=== PATIENT | female | born 1955 | race Caucasian/White ===

== ENCOUNTER 2017-05-28 20:12 | Inpatient (IN) ==
--- NOTE | 2017-05-29 00:20 | Internal Med History&Physical ---
Date of Encounter: 05/29/17 Time of Encounter: 00:20 Assessment and Plan (1) Congestive heart failure Current visit: No Status: Acute Rales on exam, 3+ LE edema, BNP 204 CXR reveals increasing multifocal airspace disease suggesting pulmonary edema, given the rapid change, developing pneumonia is possible as well Continue home Metoprolol Patient recently stopped ACEI due to worsening renal disease Metolazone 10mg and Lasix 80mg IV given, continue Lasix 80mg IV BID Echo pending Fluid restriction Daily weight, monitor I&Os Patient scheduled to start PD per Dr. De La Torre Nephrology consulted Qualifiers: Congestive heart failure type: unspecified congestive heart failure type Congestive heart failure chronicity: acute Qualified Code(s): I50.9 - Heart failure, unspecified (2) Pneumonia Current visit: Yes Status: Acute Patient reports 6 days of chills, non-productive cough and SOB. CXR reveals increasing multifocal airspace disease and rapid change in right mid lung suggesting developing pneumonia Levoquin 750mg IV q48h due decreased CrCl Duonebs q4h Incentive spirometry Qualifiers: Pneumonia type: due to unspecified organism Laterality: unspecified laterality Lung location: unspecified part of lung Qualified Code(s): J18.9 - Pneumonia, unspecified organism (3) Hypertensive emergency Current visit: Yes Status: Acute BP 226/102 in the setting of ESRD Patient reports not taking her evening antihypertensive meds Resume home meds Hydralazine 20mg IV q6h prn SBP >170 (4) CKD (chronic kidney disease) stage 5, GFR less than 15 ml/min Current visit: Yes Status: Acute Patient scheduled to start PD per Dr. De La Torre PD cath site intact Nephrology consulted (5) HTN (hypertension) Current visit: Yes Status: Chronic Continue home meds Qualifiers: Hypertension type: secondary to other renal disorders Qualified Code(s): I15.1 - Hypertension secondary to other renal disorders; N28.89 - Other specified disorders of kidney and ureter; N28.89 - Other specified disorders of kidney and ureter (6) HLD (hyperlipidemia) Current visit: Yes Status: Chronic Continue home meds Qualifiers: Hyperlipidemia type: unspecified Qualified Code(s): E78.5 - Hyperlipidemia , unspecified (7) DM type 2 (diabetes mellitus, type 2) Current visit: Yes Status: Chronic HGB a1c 8.3 on 03/28/17 Continue home Levemir 100mg BID High dose SSI Qualifiers: Diabetes mellitus complication status: with kidney complications Diabetes mellitus nursing home insulin use: with nursing home use Chronic kidney disease stage: stage 5, not on chronic dialysis Qualified Code(s): E11.22 - Type 2 diabetes mellitus with diabetic chronic kidney disease; N18.5 - Chronic kidney disease, stage 5; N18.5 - Chronic kidney disease, stage 5; N18.5 - Chronic kidney disease, stage 5; N18.5 - Chronic kidney disease, stage 5; Z79.4 - care home (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 of insulin; Z79.4 - care home (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 of insulin; Z79.4 - intermediate manager (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 of insulin; Z79.4 - care home (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 of insulin (8) Morbid obesity with BMI of 50.0-59.9, adult Current visit: Yes Status: Chronic Discussed diet modification and exercise (9) Ambulatory dysfunction Current visit: Yes Status: Acute Patient is unable to ambulate due to severe osteoarthritis in knees and is now wheelchair bound. Recommend weight loss/ outpatient management PT/OT consulted (10) DVT prophylaxis Current visit: Yes Status: Acute Heparin subQ TID Internal Medicine - H&P: HPI Chief complaint: SOB Admitted From: Home Plans for Post Hospital Care: Home History of present illness: Ms. Salvador is a 62 year old female with a PMH of HTN, CHF, DM, CKD stage V scheduled to start PD, and morbid obesity who presented from [place] ED due to SOB for the past 6 days. Patient reports outpatient x-ray yesterday showed the beginnings of a pneumonia. She reports worsening shortness of breath, cough , chills, abd distension, leg edema, and having to sleep on 2 pillows at night. She has MEDINA when walking across the room at baseline but has is unable to ambulate due to severe osteoarthritis in knees and is now wheelchair bound. Of note, patient sees Dr. De La Torre and had new PD cath insertion [address] Almanzar after previous catheter from March 2017 got obstructed. She denies fever , sputum production, CP, palpitaions, abd pain, N/V/D/C, sick contacts, diabetic ulcers, or h/o blood clots. Past Med Surg Social Fam HX - Past Medical History Medical history: arthritis, diabetes, hyperlipidemia, hypertension, renal disease Psychiatric history: no psych history - Past Surgical History Surgical History: , cholecystectomy, herniorrhaphy, hysterectomy, orthopedic, other, other (PD catheter) - Social History Smoking Status: Never smoker Smokeless Tobacco Status: No Alcohol use: none Drug use: none Current living situation: Home, With Family Activity Level: Wheelchair bound Recent Out of Country Travel Within the Last 8 Weeks: No Exposure or Possible Exposure to Illness During Travel: No - Family History Father Family Member Ethnicity: Non- Living Status: Age at : 85 Cause of : Kidney failure Hx Family Neurologic Disorders: Yes (CVA) Mother Family Member Ethnicity: Non- Living Status: Age at : 70 Cause of : Stroke Internal Medicine - H&P: Meds Amlodipine Besylate 10 mg PO DAILY 07/05/16 [History] Fish Oil/Dha/Epa [Fish Oil 1,200 mg Fish Oil] 1,200 mg PO DAILY 07/05/16 [ History] Furosemide [Lasix] 40 mg PO BID 07/05/16 [History] Insulin DETEMIR [Levemir] 100 unit SQ BID 07/05/16 [History] Metoprolol [Lopressor] 100 mg PO BID 07/05/16 [History] Omeprazole [PriLOSEC] 40 mg PO DAILY 07/05/16 [History] cloNIDine HCl [Clonidine HCl] 0.2 mg PO TID 07/05/16 [History] Aspirin [Lo-Dose Aspirin EC] 81 mg PO DAILY 04/03/17 [History] Cholecalciferol (D-3) [Vitamin D] 5,000 unit PO DAILY 04/03/17 [History] GlipiZIDE [Glipizide ER] 10 mg PO DAILY 04/03/17 [History] Amoxicillin/Clavulanate [Augmentin] 500 mg PO DAILY 05/28/17 [History] Atorvastatin [Lipitor] 40 mg PO HS 05/28/17 [History] 3 Allergy/AdvReac Type Severity Reaction Status Date / Time No Known Allergies Allergy Verified 05/22/17 07:28 All Systems PM: A 10-system review of systems was performed and is negative for pertinent findings except as documented above in the HPI. - Constitutional Constitutional: chills, no fever(s), no malaise, no weight gain, no weight loss - EENT Eyes: no change in vision Nose, mouth and throat: no nasal congestion, no sinus pain, no sinus pressure, no sore throat - Cardiovascular Cardiovascular ROS IM: dyspnea, dyspnea on exertion, orthopnea, paroxysmal nocturnal dyspnea, no chest pain, no palpitations - Respiratory Respiratory: cough, dyspnea, dyspnea on exertion, wheezing, no chest congestion , no excessive phlegm production, no change in phlegm color - Gastrointestinal Gastrointestinal: bloating, no abdominal pain, no diarrhea, no nausea, no vomiting - Musculoskeletal Musculoskeletal ROS IM: arthralgias, myalgias (right shoulder), no back pain, no numbness, no tingling - Integumentary Integumentary IM: no erythema, no skin ulcer - Neurological Neurological ROS: abnormal gait, headache(s) (due to not eating), no dizziness, no numbness, no radicular pain, no weakness - Psychiatric Psychiatric: no anxiety, no depression - Endocrine Endocrine IM: no polydipsia, no polyphagia, no polyuria - Constitutional Vitals: Temp Pulse Resp BP Pulse Ox 98.4 F 79 20 217/98 95 05/29/17 00:08 05/29/17 00:08 05/29/17 00:08 05/29/17 00:08 05/29/17 00:08 General appearance: Present: cooperative, A&O X 3, morbidly obese, pleasant, answers questions appropriately (conversational dyspnea) - Head Head exam: Present: atraumatic, normal inspection, normocephalic - Eye Eye exam: Present: EOMI, PERRL - ENT ENT exam: Present: mucous membranes moist, normal oropharynx - Neck Neck exam general surgery: Present: normal inspection, supple. Absent: tenderness - Respiratory Respiratory exam: Present: decreased breath sounds, rales. Absent: accessory muscle use, respiratory distress Additional comments: conversational dyspnea - Cardiovascular Cardiovascular exam: Present: RRR, +S1, +S2, systolic murmur - GI/Abdominal GI/Abdominal exam: Present: distended, normal bowel sounds, soft, tenderness ( appropriate TTP LLQ, PD cath with dressing C/D/I) - Extremities Exam Extremities exam: Present: normal capillary refill, pedal edema (3+) - Incison Incision: Present: clean and dry (PD cath LLQ), intact. Absent: red, erythema - Back Exam Back exam: Present: normal inspection. Absent: paraspinal tenderness, tenderness, vertebral tenderness - Neurological Exam Neurological exam: Present: abnormal gait, alert, oriented X3, no focal deficits. Absent: altered - Psychiatric Psychiatric exam: Present: normal affect, normal mood. Absent: anxious, depressed - Skin Skin exam: Present: dry, intact, normal color, warm. Absent: erythema Internal Med - H&P Results - Labs CBC & Chem 7: 05/29/17 01:24 05/29/17 01:24 - Pulse Oximetry Interpretation Digit-Finger O2 Sat by Pulse Oximetry: 97 Actions taken: none - EKG Data -: EKG Interpreted by Myself EKG shows normal: sinus rhythm (NSR 80 bpm, WY interval 147 ms, moderate voltage criteria for LVH probable old inferior OK T-wave inversion laterally) - Impressions XR/XR chest 1V portable IMPRESSION: Increasing multifocal airspace disease suggesting pulmonary edema. Small underlying nodules would be difficult to exclude Although pulmonary edema is favored, given the rapid change, developing pneumonia is possible as well D/ / Jp Krueger / Jp Krueger Interpreting Provider: Jp Krueger
[2017-05-29] MEDS ORDERED: *HR* Morphine 2 MG/ML SYRINGE IVP PRN (00:49)
[2017-05-29] MEDS ORDERED: Acetaminophen 325 MG TABLET PO PRN (00:49)
[2017-05-29] MEDS ORDERED: Naloxone 0.4 MG/ML INJ IVP PRN (00:49)
[2017-05-29] MEDS ORDERED: Ondansetron 4 MG/2 ML VIAL IVP PRN (00:49)
[2017-05-29] MEDS ORDERED: Furosemide 80 MG in 0.9 % Sodium Chloride 50 ML IVPB ONE (00:55)
[2017-05-29] MEDS ORDERED: D5% in Water 1,000 ML IVC PRN (00:57)
[2017-05-29] MEDS ORDERED: Dextrose Gel 15 GM PO PRN ×2 (00:57)
[2017-05-29] MEDS ORDERED: *HR* Dextrose 50 % in Water (Syg) 50 ML SYRINGE IVP PRN (00:57)
[2017-05-29] MEDS ORDERED: Metoprolol 100 MG TABLET PO SCH (01:00)
[2017-05-29] MEDS ORDERED: cloNIDine HCl 0.1 MG TABLET PO SCH ×2 (01:00→08:15)
[2017-05-29] MEDS ORDERED: NON-FORMULARY MEDICATION 1 EACH EACH (Insulin Detemir 100 UNIT) SQ SCH (01:00)
[2017-05-29] MEDS ORDERED: Insulin DETEMIR 100 UNIT/ML X5UNITS SQ SCH (01:15)
[2017-05-29 01:35] LABS: Basophils % 0.4 %; Eosinophils # 0.1 K/mcL (0.0-0.6); Eosinophils % 1.9 %; Hematocrit 25.6 % (35.3-44.9); Lymphocytes # 1.3 K/mcL (0.6-4.6); Lymphocytes % 19.8 %; Mean Corpuscular HGB Conc 31.3 g/dL (31.6-35.5); Mean Corpuscular Hemoglobin 26.5 pg (28.0-33.3); Mean Corpuscular Volume 84.8 fL (83.0-100.0); Monocytes # 0.4 K/mcL (0.0-1.3); Monocytes % 6.1 %; Neutrophils # 4.7 K/mcL (1.6-8.9); Platelet Count 158 K/mcL (140-400); Red Blood Count 3.02 M/mcL (3.82-4.97); Red Cell Distribution Width 14.1 % (11.5-14.5); Segmented Neutrophils % 70.8 %
[2017-05-29 01:46] LABS: Prothrombin Time 11.1 Seconds (9.4-12.1)
[2017-05-29 01:48] LABS: Activated Partial Thrombo Time 27.7 Seconds (26.0-36.0); Albumin 2.8 g/dL (3.5-5.0); Albumin/Globulin Ratio 0.8 (1.1-2.2); Bilirubin,Total 0.6 mg/dL (0.2-1.2); Calcium 9.3 mg/dL (8.6-10.8); Globulin 3.3 g/dL (2.4-3.5); Magnesium 1.4 mg/dL (1.6-2.6); Potassium 3.8 mEq/L (3.5-4.5); Total Protein 6.1 g/dL (6.0-8.3)
[2017-05-29] MEDS ORDERED: metOLazone 5 MG TABLET PO ONE ×2 (02:02→07:00)
[2017-05-29] MEDS: Insulin LISPRO 300 UNITS/3 ML VIAL SQ SCH ×5 (02:17→21:45)
[2017-05-29] MEDS: Levofloxacin 750 MG/150 ML 750 MG/150 ML BAG IVPB SCH (03:11)
[2017-05-29] MEDS: Ipratropium/Albuterol Neb 3 ML IH SCH ×6 (04:04→23:29)
[2017-05-29] MEDS: *HR* Heparin 5,000 UNIT/ML VIAL SQ SCH ×3 (05:32→21:41)
[2017-05-29] MEDS ORDERED: Magnesium Sulfate 2 GM in D5% in Water 100 ML IVPB ONE (08:00)
[2017-05-29] MEDS ORDERED: Furosemide 40 MG/4 ML VIAL IVP SCH (08:00)
[2017-05-29] MEDS ORDERED: amLODIPine 5 MG TABLET PO SCH (09:00)
[2017-05-29] MEDS: Metoprolol 100 MG TABLET PO SCH ×2 (09:09→21:44)
[2017-05-29] MEDS: Aspirin Enteric Coated 81 MG Tablet PO SCH (09:09)
[2017-05-29] MEDS: Cholecalciferol (D-3) 1,000 UNIT TABLET PO SCH (09:09)
[2017-05-29] MEDS: Furosemide 40 MG/4 ML VIAL IVP SCH ×2 (09:10→16:29)
[2017-05-29] MEDS: cloNIDine HCl 0.1 MG TABLET PO SCH ×3 (09:11→21:43)
[2017-05-29] MEDS: FISH OIL 1200 MG PO SCH (09:12)
[2017-05-29] MEDS: Insulin DETEMIR 100 UNIT/ML X5UNITS SQ SCH ×2 (09:19→21:43)
--- NOTE | 2017-05-29 12:03 | Event Note ---
Date of Encounter: 05/29/17 Time of Encounter: 10:05 Patient is a 62 y/o female with PMH of HTN, CHF, DM, CKD stage V who is admitted for acute respiratory distress secondary to CHF decompensation. Pt is started on IV lasix and is responding well to therapy and noted to have good urine output. She reports of feeling significantly better compared to previous day. Will continue IV diuresis monitor I/Os, daily weights, fluid restriction diet f/u 2D echo HTN Urgency Increased home dose of Clonidine to 0.3mg PO TID continue Amlodipine and Metoprolol Hydralazine 10mg IV q6h SBP>160 BP improved, will closely monitor DM Noted to be on levemir 100units SQ BID however noted have low BG readings Will decrease Levemir dose to 25units SQ BID and increase medication as needed continue sliding scale insulin algorithm ADA diet CKD Renal function improved from previous readings, however given aggressive diuresis, concern for worsening renal function Pt currently in consultation with her primary taxation inspector in regards to starting PD nephrology consultation requested PNA will continue IV levaquin f/u blood cultures
[2017-05-30] MEDS: Ipratropium/Albuterol Neb 3 ML IH SCH ×6 (03:47→23:19)
[2017-05-30] MEDS: *HR* Heparin 5,000 UNIT/ML VIAL SQ SCH ×3 (06:21→22:29)
[2017-05-30 06:57] LABS: Basophils % 0.4 %; Eosinophils # 0.1 K/mcL (0.0-0.6); Hematocrit 25.3 % (35.3-44.9); Hemoglobin 7.7 g/dL (11.5-15.4); Immature Granulocytes % 1.3 % (0-4); Lymphocytes # 1.3 K/mcL (0.6-4.6); Lymphocytes % 23.1 %; Mean Corpuscular HGB Conc 30.4 g/dL (31.6-35.5); Mean Corpuscular Hemoglobin 26.4 pg (28.0-33.3); Mean Corpuscular Volume 86.6 fL (83.0-100.0); Mean Platelet Volume 12.4 fL (9.4-12.4); Monocytes # 0.5 K/mcL (0.0-1.3); Neutrophils # 3.6 K/mcL (1.6-8.9); Platelet Count 191 K/mcL (140-400); Red Blood Count 2.92 M/mcL (3.82-4.97); Red Cell Distribution Width 14.7 % (11.5-14.5); Segmented Neutrophils % 64.2 %
[2017-05-30 07:11] LABS: Calcium 9.1 mg/dL (8.6-10.8); Magnesium 1.5 mg/dL (1.6-2.6); Phosphorous 4.4 mg/dL (2.3-4.7); Potassium 4.7 mEq/L (3.5-4.5)
[2017-05-30] MEDS ORDERED: Magnesium Sulfate 2 GM in D5% in Water 100 ML IVPB ONE (08:06)
[2017-05-30] MEDS ORDERED: Insulin DETEMIR 100 UNIT/ML X5UNITS SQ SCH (08:15)
[2017-05-30] MEDS: Furosemide 40 MG/4 ML VIAL IVP SCH ×2 (09:22→17:55)
[2017-05-30] MEDS: cloNIDine HCl 0.1 MG TABLET PO SCH ×3 (09:23→22:27)
[2017-05-30] MEDS: Metoprolol 100 MG TABLET PO SCH ×2 (09:24→22:28)
[2017-05-30] MEDS: Aspirin Enteric Coated 81 MG Tablet PO SCH (09:24)
[2017-05-30] MEDS: Insulin LISPRO 300 UNITS/3 ML VIAL SQ SCH ×6 (09:24→22:29)
[2017-05-30] MEDS: NIFEdipine XL (24 HR) 60 MG TAB.ER.24 PO SCH (09:24)
[2017-05-30] MEDS: Insulin DETEMIR 100 UNIT/ML X5UNITS SQ SCH ×2 (09:26→22:28)
[2017-05-30] MEDS: FISH OIL 1200 MG PO SCH (09:38)
--- NOTE | 2017-05-30 10:16 | Nephrology Consult Note ---
Date of Encounter: 05/30/17 Time of Encounter: 10:13 Assessment and Plan (1) CKD (chronic kidney disease) stage 5, GFR less than 15 ml/min Current Visit: Yes Status: Acute Currently getting Lasix 80mg IV BID Robust UOP-3350ml yesterday; already has over 2000ml out today Recommend lowering Lasix dosage and switching to p.o. as soon as possible Renal diet-ordered Continue fluid restrictions Strict I/Os Avoid nephrotoxins if possible May need PD cath flushed tomorrow if still admitted Will f/u in outpatient setting for PD training (2) Hypertensive emergency Current Visit: Yes Status: Acute B/P high but improved 177/90 per primary team (3) Congestive heart failure Current Visit: No Status: Acute per primary team Qualifiers: Congestive heart failure type: unspecified congestive heart failure type Congestive heart failure chronicity: acute Qualified Code(s): I50.9 - Heart failure, unspecified History of Present Illness - Reason for Consult Consult date: 05/30/17 - Chief Complaint CKD stage 5, CHF, hypertensive emergency - History of Present Illness Ms. Salvador is a 62 year old female with a PMH of HTN, CHF, DM, CKD stage V scheduled to start PD, and morbid obesity who presented from [place] ED due to SOB for the past 6 days. She reports worsening shortness of breath, cough, chills, abd distension, leg edema, and having to sleep on 2 pillows at night. Patient sees Dr. De La Torre and had new PD cath insertion [address] Almanzar after previous catheter from March 2017 got obstructed. PD cath was flushed on Saturday and worked perfectly. Is scheduled to have PD cath flushed again tomorrow and then start her PD training classes next week. Nephrology has been consulted to manage her CKD while hospitalized. Past Med Surg Social Fam HX - Past Medical History Medical history: arthritis, diabetes, hyperlipidemia, hypertension, renal disease Psychiatric history: no psych history - Past Surgical History Surgical History: , cholecystectomy, herniorrhaphy, hysterectomy, orthopedic, other, other (PD catheter) - Social History Smoking Status: Never smoker Smokeless Tobacco Status: No Alcohol use: none Drug use: none - Family History Father Family Member Ethnicity: Non- Living Status: Age at : 85 Cause of : Kidney failure Hx Family Neurologic Disorders: Yes (CVA) Mother Family Member Ethnicity: Non- Living Status: Age at : 70 Cause of : Stroke Medications and Allergies Amlodipine Besylate 10 mg PO DAILY 07/05/16 [History] Fish Oil/Dha/Epa [Fish Oil 1,200 mg Fish Oil] 1,200 mg PO DAILY 07/05/16 [ History] Furosemide [Lasix] 40 mg PO BID 07/05/16 [History] Insulin DETEMIR [Levemir] 100 unit SQ BID 07/05/16 [History] Metoprolol [Lopressor] 100 mg PO BID 07/05/16 [History] Omeprazole [PriLOSEC] 40 mg PO DAILY 07/05/16 [History] cloNIDine HCl [Clonidine HCl] 0.2 mg PO TID 07/05/16 [History] Aspirin [Lo-Dose Aspirin EC] 81 mg PO DAILY 04/03/17 [History] Cholecalciferol (D-3) [Vitamin D] 5,000 unit PO DAILY 04/03/17 [History] GlipiZIDE [Glipizide ER] 10 mg PO DAILY 04/03/17 [History] Amoxicillin/Clavulanate [Augmentin] 500 mg PO DAILY 05/28/17 [History] Atorvastatin [Lipitor] 40 mg PO HS 05/28/17 [History] 3 Allergy/AdvReac Type Severity Reaction Status Date / Time No Known Allergies Allergy Verified 05/22/17 07:28 Review of Systems All Systems: reviewed and no additional remarkable complaints except as stated Constitutional: fatigue, malaise, weight gain, no chills Cardiovascular: dyspnea, dyspnea on exertion, edema, leg edema, no chest pain Respiratory: dyspnea, dyspnea on exertion Gastrointestinal: no nausea, no vomiting Exam - Vital Signs Vital signs: Initial Vital Signs Temp Pulse Resp BP Pulse Ox 98.0 F 74 18 198/94 96 05/28/17 22:50 05/28/17 22:50 05/28/17 22:50 05/28/17 22:50 05/28/17 22:50 Vital Signs - Last 8 Hours Temp Pulse Resp BP Pulse Ox 05/30/17 07:44 16 99 05/30/17 07:24 98.8 F 77 16 177/90 98 05/30/17 04:10 98.9 F 79 19 170/87 97 Intake and Output 05/29/17 05/30/17 05/30/17 23:59 07:59 15:59 Output Total 1600 / 1600 Balance -1600 / -1600 Output: Catheter 1599 / 1600 Other: Weight 150.2 kg Blood Glucose* 247 250 Patient Weight 05/30/17 23:59 Weight 150.2 kg - General Appearance General appearance: obese EENT: ATNC, mucous membranes moist, hearing intact, vision intact Neck: supple Respiratory: clear Cardiology: edema, normal S1, normal S2 Gastrointestinal: no tenderness, no guarding, obese Integumentary: warm and dry Additional Comments: PD cath Psychiatric: mood/affect appropriate, cooperative Results - Lab Results 05/30/17 06:24 05/30/17 06:24 Most recent lab results Calcium 9.1 mg/dL (8.6-10.8) 05/30/17 06:24 Phosphorus 4.4 mg/dL (2.3-4.7) 05/30/17 06:24 Magnesium 1.5 mg/dL (1.6-2.6) L 05/30/17 06:24 Consult Discharge Plan - Plan Additional Instructions: pcp requested Referrals: Rhett Madrigal MD [Primary Care Provider] -
[2017-05-30] MEDS ORDERED: Magnesium Sulfate 1 GM in D5% in Water 100 ML IVPB ONE (10:46)
[2017-05-30] MEDS: Cholecalciferol (D-3) 1,000 UNIT TABLET PO SCH (11:12)
[2017-05-30 11:40] LABS: Uric Acid 8.8 mg/dL (2.6-6.0)
[2017-05-30 12:15] LABS: Folate 5.3 ng/mL (7.0-31.4)
--- NOTE | 2017-05-30 14:48 | Internal Med Progress Note ---
Date of Encounter: 05/30/17 Time of Encounter: 11:50 - Assessment and plan (1) Acute respiratory failure with hypoxia Current Visit: Yes Status: Acute Assessment and plan: Secondary to CHF decompensation Responding well to diuretic therapy, good urine output noted continue IV diuresis O2 supplementation daily weights, strict I/Os fluid restriction diet (2) Acute exacerbation of CHF (congestive heart failure) Current Visit: Yes Status: Acute Assessment and plan: management as listed above 2D echo: Technically sub-optimal due to poor echocardiographic windows. Normal LV systolic function, LVEF 65-70%. Moderate-severe concentric left ventricular hypertrophy. Moderate left ventricular diastolic dysfunction. Right ventricle was not well visualized. It appears normal in size and function on limited views. Moderately dilated left atrium. Mild mitral regurgitation. Unable to estimate RVSP due to lack of TR jet. pt will be discharge with diuretic therapy Qualifiers: Congestive heart failure type: diastolic Qualified Code(s): I50.33 - Acute on chronic diastolic (congestive) heart failure (3) Pneumonia Current Visit: Yes Status: Chronic Assessment and plan: continue Levaquin awaiting finalization of blood cultures Qualifiers: Pneumonia type: due to unspecified organism Laterality: unspecified laterality Lung location: unspecified part of lung Qualified Code(s): J18.9 - Pneumonia, unspecified organism (4) DM type 2 (diabetes mellitus, type 2) Current Visit: Yes Status: Chronic Assessment and plan: Hyperglycemia noted insulin regimen adjusted as per insulin requirements from the last 24 hours added Humalog 5mg TIDAC Levemir 30units SQ BID sliding scale insulin algorithm continue to monitor FS and BG ADA diet Qualifiers: Diabetes mellitus complication status: with kidney complications Diabetes mellitus complication detail: with chronic kidney disease Diabetes mellitus continuous churn buttermaker insulin use: with retirement use Chronic kidney disease stage: stage 5, not on chronic dialysis Qualified Code(s): E11.22 - Type 2 diabetes mellitus with diabetic chronic kidney disease; N18.5 - Chronic kidney disease, stage 5; N18.5 - Chronic kidney disease, stage 5; N18.5 - Chronic kidney disease , stage 5; N18.5 - Chronic kidney disease, stage 5; Z79.4 - custodial (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 of insulin; Z79.4 - extermination inspector (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 of insulin; Z79.4 - custodial ( 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 of insulin; Z79.4 - extermination inspector (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 of insulin (5) HTN (hypertension) Current Visit: Yes Status: Chronic Assessment and plan: Remains hypertensive discontinued Amlodipine and started Nifedipine XL 60mg PO qd continue Clonidine, Lasix, Metoprolol will closely monitor BP and adjust medications as needed Hydralazine 10mg IV q6h prn SBP>160 Qualifiers: Hypertension type: secondary to other renal disorders Qualified Code(s): I15.1 - Hypertension secondary to other renal disorders; N28.89 - Other specified disorders of kidney and ureter; N28.89 - Other specified disorders of kidney and ureter (6) ESRD (end stage renal disease) on dialysis Current Visit: Yes Status: Chronic Assessment and plan: Nephrology on board will continue dialysis as per nephrology (7) HLD (hyperlipidemia) Current Visit: Yes Status: Chronic Assessment and plan: continue lipitor Qualifiers: Hyperlipidemia type: unspecified Qualified Code(s): E78.5 - Hyperlipidemia , unspecified (8) Anemia in CKD (chronic kidney disease) Current Visit: Yes Status: Acute Assessment and plan: H&H low but acceptable no acute bleeding reported pt asymptomatic will closely monitor anemia work up (iron studies, ferritin, b12) ordered by nephrology will transfuse for Hgb<7 Qualifiers: Chronic kidney disease stage: stage 5, not on chronic dialysis Qualified Code(s): N18.5 - Chronic kidney disease, stage 5; D63.1 - Anemia in chronic kidney disease; D63.1 - Anemia in chronic kidney disease (9) DVT prophylaxis Current Visit: Yes Status: Acute Assessment and plan: Heparin SQ (10) Morbid obesity with BMI of 50.0-59.9, adult Current Visit: Yes Status: Chronic - Subjective Interval history: Patient seen and examined with family present at bedside. Pt resting in chair and reports of feeling better compared to previous day. Remains O2 dependent. Noted to be hypertensive despite current management due to which Amlodipine was discontinued and she was started on Nifedipine XL 60mg PO qd, appears to responding well to this medication. BP better controlled. Noted to be hyperglycemic, insulin regimen adjusted as per her insulin requirements from the last 24 hours. - Constitutional Vitals: Temp Pulse Resp BP Pulse Ox 97.8 F 78 18 146/63 98 05/30/17 11:30 05/30/17 12:02 05/30/17 12:02 05/30/17 12:02 05/30/17 12:02 General appearance: Present: cooperative, A&O X 3, morbidly obese, pleasant, answers questions appropriately - Head Head exam: Present: atraumatic, normocephalic - Eye Eye exam: Present: conjuntiva pink, sclera anicteric - Respiratory Respiratory exam: Present: rales (bibasilar rales-improved from previous day). Absent: respiratory distress, wheezes - Cardiovascular Cardiovascular exam: Present: RRR, +S1, +S2. Absent: diastolic murmur, gallop, rubs, systolic murmur - GI/Abdominal GI/Abdominal exam: Present: normal bowel sounds, soft, no peritoneal signs. Absent: distended, tenderness - Extremities Exam Extremities exam: Present: pedal edema, warm, radial pulses palpable and symmetrical. Absent: calf tenderness - Neurological Exam Neurological exam: Present: alert, oriented X3 - Psychiatric Psychiatric exam: Present: normal affect, normal mood Internal Medicine: Result - Labs CBC & Chem 7: 05/30/17 06:24 05/30/17 06:24 Labs: Short CBC 05/30/17 Range/Units 06:24 WBC 5.5 (4.3-11.1) K/mcL Hgb 7.7 L (11.5-15.4) g/dL Hct 25.3 L (35.3-44.9) % Plt Count 191 (140-400) K/mcL Neutrophils # 3.6 (1.6-8.9) K/mcL BMP 05/30/17 06:24 Sodium 138 Potassium 4.7 H Chloride 107 Carbon Dioxide 24 BUN 44 H Creatinine 3.46 H Glucose 251 H Calcium 9.1 - ABG Interpretation ABG results: PT/INR, D-dimer PT 11.1 Seconds (9.4-12.1) 05/29/17 01:24 - Impressions Impressions Echocardiogram 05/29/17 00:55 Impressions: Technically sub-optimal due to poor echocardiographic windows. Normal LV systolic function, LVEF 65-70%. Moderate-severe concentric left ventricular hypertrophy. Moderate left ventricular diastolic dysfunction. Right ventricle was not well visualized. It appears normal in size and function on limited views. Moderately dilated left atrium. Mild mitral regurgitation. Unable to estimate RVSP due to lack of TR jet. Left Ventricular Wall Motion: Rest Echo Findings All wall segments showed normal motion. Findings: Study Quality * Technically sub-optimal due to poor echocardiographic windows. ECG Findings * Normal sinus rhythm. Left Ventricle * Normal LV systolic function, LVEF 65-70%. * Normal LV chamber size. * Moderate-severe concentric left ventricular hypertrophy. * Moderate left ventricular diastolic dysfunction. Right Ventricle * Right ventricle was not well visualized. It appears normal in size and function on limited views. Left Atrium * Moderately dilated left atrium. Right Atrium * Normal right atrial size. Aorta * Normally sized aortic root. Pericardium * There is no pericardial effusion present. IVC * The IVC was not visualized. Aortic Valve * Aortic valve not well visualized. * No aortic stenosis. * No aortic regurgitation. Mitral Valve * Normal mitral valve structure. * No mitral stenosis. * Mild mitral regurgitation. Tricuspid Valve * Tricuspid valve not well visualized. * No tricuspid stenosis. * Trace tricuspid regurgitation. * Unable to estimate RVSP due to lack of TR jet. Pulmonic Valve * Pulmonic valve not well visualized. * No pulmonic stenosis. * No pulmonic regurgitation. Consult Discharge Plan - Plan Additional Instructions: pcp requested Referrals: Rhett Madrigal MD [Primary Care Provider] -
[2017-05-31] MEDS: Levofloxacin 750 MG/150 ML 750 MG/150 ML BAG IVPB SCH (03:29)
[2017-05-31] MEDS: Ipratropium/Albuterol Neb 3 ML IH SCH ×6 (04:04→23:00)
[2017-05-31] MEDS: *HR* Heparin 5,000 UNIT/ML VIAL SQ SCH ×3 (05:15→21:01)
[2017-05-31 06:07] LABS: Basophils % 0.3 %; Eosinophils # 0.1 K/mcL (0.0-0.6); Eosinophils % 1.9 %; Hematocrit 23.9 % (35.3-44.9); Hemoglobin 7.4 g/dL (11.5-15.4); Immature Granulocytes % 0.8 % (0-4); Lymphocytes # 1.2 K/mcL (0.6-4.6); Lymphocytes % 19.9 %; Mean Corpuscular Hemoglobin 26.2 pg (28.0-33.3); Mean Corpuscular Volume 84.8 fL (83.0-100.0); Mean Platelet Volume 12.4 fL (9.4-12.4); Monocytes # 0.5 K/mcL (0.0-1.3); Monocytes % 7.3 %; Neutrophils # 4.3 K/mcL (1.6-8.9); Platelet Count 168 K/mcL (140-400); Red Blood Count 2.82 M/mcL (3.82-4.97); Red Cell Distribution Width 14.6 % (11.5-14.5); Segmented Neutrophils % 69.8 %
[2017-05-31 06:19] LABS: Calcium 9.1 mg/dL (8.6-10.8); Magnesium 1.6 mg/dL (1.6-2.6); Phosphorous 4.5 mg/dL (2.3-4.7); Potassium 4.3 mEq/L (3.5-4.5)
[2017-05-31] MEDS: FISH OIL 1200 MG PO SCH (09:43)
[2017-05-31] MEDS: Furosemide 40 MG/4 ML VIAL IVP SCH (09:53)
[2017-05-31] MEDS: cloNIDine HCl 0.1 MG TABLET PO SCH ×3 (09:54→21:00)
[2017-05-31] MEDS: Aspirin Enteric Coated 81 MG Tablet PO SCH (09:54)
[2017-05-31] MEDS: Metoprolol 100 MG TABLET PO SCH ×2 (09:54→21:01)
[2017-05-31] MEDS: NIFEdipine XL (24 HR) 60 MG TAB.ER.24 PO SCH (09:54)
[2017-05-31] MEDS: Insulin DETEMIR 100 UNIT/ML X5UNITS SQ SCH ×2 (09:54→21:01)
[2017-05-31] MEDS: Cholecalciferol (D-3) 1,000 UNIT TABLET PO SCH (09:54)
[2017-05-31] MEDS: Insulin LISPRO 300 UNITS/3 ML VIAL SQ SCH ×7 (09:55→21:01)
--- NOTE | 2017-05-31 11:18 | Internal Med Progress Note ---
Date of Encounter: 05/31/17 Time of Encounter: 10:25 - Assessment and plan (1) Acute respiratory failure with hypoxia Current Visit: Yes Status: Acute Assessment and plan: Secondary to CHF decompensation Responding well to diuretic therapy, good urine output noted will d/c IV lasix and start PO lasix O2 supplementation daily weights, strict I/Os fluid restriction diet (2) Acute exacerbation of CHF (congestive heart failure) Current Visit: Yes Status: Acute Assessment and plan: management as listed above 2D echo: Technically sub-optimal due to poor echocardiographic windows. Normal LV systolic function, LVEF 65-70%. Moderate-severe concentric left ventricular hypertrophy. Moderate left ventricular diastolic dysfunction. Right ventricle was not well visualized. It appears normal in size and function on limited views. Moderately dilated left atrium. Mild mitral regurgitation. Unable to estimate RVSP due to lack of TR jet. pt will be discharge with diuretic therapy Qualifiers: Congestive heart failure type: diastolic Qualified Code(s): I50.33 - Acute on chronic diastolic (congestive) heart failure (3) Pneumonia Current Visit: Yes Status: Chronic Assessment and plan: continue Levaquin awaiting finalization of blood cultures Qualifiers: Pneumonia type: due to unspecified organism Laterality: unspecified laterality Lung location: unspecified part of lung Qualified Code(s): J18.9 - Pneumonia, unspecified organism (4) DM type 2 (diabetes mellitus, type 2) Current Visit: Yes Status: Chronic Assessment and plan: Hyperglycemia noted Pt was reported to be on levemir 100units BID, however given initial BG readings dose was reduced to 25BID Given current insulin requirements, dose increased to Levemir 50units BID with Humalog 14units TIDAC sliding scale insulin algorithm continue to monitor FS and BG ADA diet Qualifiers: Diabetes mellitus complication status: with kidney complications Diabetes mellitus complication detail: with chronic kidney disease 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: with terminal gauger supervisor use Chronic kidney disease stage: stage 5, not on chronic dialysis Qualified Code(s): E11.22 - Type 2 diabetes mellitus with diabetic chronic kidney disease; N18.5 - Chronic kidney disease, stage 5; N18.5 - Chronic kidney disease, stage 5; N18.5 - Chronic kidney disease , stage 5; N18.5 - Chronic kidney disease, stage 5; Z79.4 - half-way (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 of insulin; Z79.4 - manager terminal (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 of insulin; Z79.4 - manager terminal ( 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 of insulin; Z79.4 - half-way (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 of insulin (5) HTN (hypertension) Current Visit: Yes Status: Chronic Assessment and plan: BP better controlled continue current management will closely monitor BP and adjust medications as needed Hydralazine 10mg IV q6h prn SBP>160 Qualifiers: Hypertension type: secondary to other renal disorders Qualified Code(s): I15.1 - Hypertension secondary to other renal disorders; N28.89 - Other specified disorders of kidney and ureter; N28.89 - Other specified disorders of kidney and ureter (6) ESRD (end stage renal disease) on dialysis Current Visit: Yes Status: Chronic Assessment and plan: Nephrology on board will continue dialysis as per nephrology (7) HLD (hyperlipidemia) Current Visit: Yes Status: Chronic Assessment and plan: continue lipitor Qualifiers: Hyperlipidemia type: unspecified Qualified Code(s): E78.5 - Hyperlipidemia , unspecified (8) Anemia in CKD (chronic kidney disease) Current Visit: Yes Status: Acute Assessment and plan: H&H low but acceptable no acute bleeding reported pt asymptomatic will closely monitor will obtain stool occult continue to monitor, transfuse for Hgb<7 Qualifiers: Chronic kidney disease stage: stage 5, not on chronic dialysis Qualified Code(s): N18.5 - Chronic kidney disease, stage 5; D63.1 - Anemia in chronic kidney disease; D63.1 - Anemia in chronic kidney disease (9) DVT prophylaxis Current Visit: Yes Status: Acute Assessment and plan: Heparin SQ (10) Morbid obesity with BMI of 50.0-59.9, adult Current Visit: Yes Status: Chronic - Subjective Interval history: Patient seen and examined with family present at bedside. Resting in bed and saturating well on room air. BP better controlled, last BP:140/63 Pt was seen by physical therapy and home health was recommended will start pt on PO Lasix and discontinue IV lasix social studies teacher evaluation requested for arrangment of home health if remains clinically stable, likely d/c in am. - Constitutional Vitals: Temp Pulse Resp BP Pulse Ox 98.1 F 76 18 163/65 96 05/30/17 18:53 05/31/17 07:00 05/31/17 07:42 05/31/17 07:00 05/31/17 07:42 General appearance: Present: cooperative, A&O X 3, morbidly obese, pleasant, answers questions appropriately - Head Head exam: Present: atraumatic, normocephalic - Eye Eye exam: Present: conjuntiva pink, sclera anicteric - Respiratory Respiratory exam: Present: CTAB. Absent: respiratory distress, wheezes - Cardiovascular Cardiovascular exam: Present: RRR, +S1, +S2. Absent: diastolic murmur, gallop, rubs, systolic murmur - GI/Abdominal GI/Abdominal exam: Present: normal bowel sounds, soft, no peritoneal signs. Absent: distended, tenderness - Extremities Exam Extremities exam: Present: warm, radial pulses palpable and symmetrical. Absent : calf tenderness, tenderness - Neurological Exam Neurological exam: Present: alert, oriented X3 - Psychiatric Psychiatric exam: Present: normal affect, normal mood Internal Medicine: Result - Labs CBC & Chem 7: 05/31/17 05:37 05/31/17 05:37 Labs: Short CBC 05/31/17 Range/Units 05:37 WBC 6.2 (4.3-11.1) K/mcL Hgb 7.4 L (11.5-15.4) g/dL Hct 23.9 L (35.3-44.9) % Plt Count 168 (140-400) K/mcL Neutrophils # 4.3 (1.6-8.9) K/mcL BMP 05/31/17 05:37 Sodium 133 L Potassium 4.3 Chloride 101 Carbon Dioxide 24 BUN 53 H Creatinine 3.76 H Glucose 302 H Calcium 9.1 - ABG Interpretation ABG results: PT/INR, D-dimer PT 11.1 Seconds (9.4-12.1) 05/29/17 01:24 - VTE Documentation of Mechanical Device: Intermittent pneumatic compression device Consult Discharge Plan - Plan Additional Instructions: pcp requested Referrals: Rhett Madrigal MD [Primary Care Provider] -
[2017-05-31] MEDS ORDERED: Insulin DETEMIR 100 UNIT/ML X5UNITS SQ ONE (11:22)
[2017-05-31] MEDS ORDERED: Perit. Dialysis with Dex 1.5 % 2,000 ML PERITONEAL ONE (12:00)
--- NOTE | 2017-05-31 12:17 | Nephrology Progress Note ---
Date of Encounter: 05/31/17 Time of Encounter: 12:14 - Assessment and Plan (1) MURRAY (acute kidney injury) Current Visit: Yes Status: Acute Patient's creatinine rising, probably from aggressive diuresis. Agree with holding furosemide. She may need IV fluids to assist in recovery. (2) Acute exacerbation of CHF (congestive heart failure) Current Visit: Yes Status: Acute Qualifiers: Congestive heart failure type: diastolic Qualified Code(s): I50.33 - Acute on chronic diastolic (congestive) heart failure (3) Anemia in CKD (chronic kidney disease) Current Visit: Yes Status: Acute Qualifiers: Chronic kidney disease stage: stage 5, not on chronic dialysis Qualified Code(s): N18.5 - Chronic kidney disease, stage 5; D63.1 - Anemia in chronic kidney disease; D63.1 - Anemia in chronic kidney disease (4) CKD (chronic kidney disease) stage 5, GFR less than 15 ml/min Current Visit: Yes Status: Acute (5) Hypertensive emergency Current Visit: Yes Status: Acute Subjective Principal diagnosis: CKD Objective - Vital Signs Vital signs: Vital Signs Temp Pulse Resp BP Pulse Ox 05/31/17 11:55 18 96 05/31/17 07:42 18 96 05/31/17 07:00 76 17 163/65 96 05/31/17 04:38 100 18 134/64 95 05/30/17 23:19 16 99 05/30/17 19:45 18 97 05/30/17 18:53 98.1 F 86 16 168/89 97 05/30/17 15:41 99 F 79 84 157/84 98 05/30/17 15:16 18 99 Intake and Output 05/30/17 05/31/17 05/31/17 23:59 07:59 15:59 Intake Total 240 / 240 240 / 240 Balance 240 / 240 240 / 240 Intake: Oral 240 / 240 240 / 240 Other: Meal Dinner Breakfast Percent of Meal Consumed 100% 90% # Voids 3 1 Weight 145.5 kg Blood Glucose* 240 293 270 Patient Weight 05/31/17 23:59 Weight 145.5 kg - Lab 05/31/17 05:37 05/31/17 05:37 Most recent lab results Calcium 9.1 mg/dL (8.6-10.8) 05/31/17 05:37 Phosphorus 4.5 mg/dL (2.3-4.7) 05/31/17 05:37 Magnesium 1.6 mg/dL (1.6-2.6) 05/31/17 05:37 - VTE Documentation of Mechanical Device: Intermittent pneumatic compression device Consult Discharge Plan - Plan Additional Instructions: pcp requested Referrals: Rhett Madrigal MD [Primary Care Provider] -
[2017-05-31] MEDS ORDERED: Furosemide 40 MG TABLET PO SCH (17:00)
[2017-05-31] MEDS: Artificial Tears SOLN 15 ML BOTTLE BOTH EYES SCH ×3 (17:38→21:02)
[2017-06-01] MEDS: Ipratropium/Albuterol Neb 3 ML IH SCH ×5 (03:50→20:14)
[2017-06-01 05:11] LABS: Basophils % 0.3 %; Eosinophils # 0.2 K/mcL (0.0-0.6); Hematocrit 24.5 % (35.3-44.9); Hemoglobin 7.7 g/dL (11.5-15.4); Immature Granulocytes % 0.7 % (0-4); Lymphocytes # 1.1 K/mcL (0.6-4.6); Mean Corpuscular HGB Conc 31.4 g/dL (31.6-35.5); Mean Corpuscular Hemoglobin 26.5 pg (28.0-33.3); Mean Corpuscular Volume 84.2 fL (83.0-100.0); Mean Platelet Volume 12.3 fL (9.4-12.4); Monocytes # 0.5 K/mcL (0.0-1.3); Monocytes % 6.3 %; Neutrophils # 5.4 K/mcL (1.6-8.9); Platelet Count 156 K/mcL (140-400); Red Blood Count 2.91 M/mcL (3.82-4.97); Red Cell Distribution Width 14.3 % (11.5-14.5); Segmented Neutrophils % 74.7 %
[2017-06-01 05:22] LABS: Magnesium 1.7 mg/dL (1.6-2.6); Phosphorous 5.1 mg/dL (2.3-4.7); Potassium 4.1 mEq/L (3.5-4.5)
[2017-06-01] MEDS: *HR* Heparin 5,000 UNIT/ML VIAL SQ SCH ×3 (05:32→20:34)
[2017-06-01 08:28] LABS: Bilirubin,Urine Negative (Negative); Blood,Urine Small (Negative); Clarity,Urine Clear (Clear); Color,Urine Yellow (Yellow); Glucose,Urine (UA) 100 mg/dL (Normal); Ketones,Urine Negative (Negative); Leukocyte Esterase,Urine Negative (Negative); Nitrite,Urine Negative (Negative); Protein,Urine >=300 mg/dL (Neg-Trace); Urobilinogen,Urine Normal (Normal)
[2017-06-01 08:30] LABS: Bacteria,Urine None Seen per hpf (None-Few); Hyaline Casts,Urine None Seen per lpf (None-Few); Squamous Epithelial Cell,Urine Moderate per lpf (None-Few); WBC,Urine 0-3 per hpf (0-3)
[2017-06-01 09:15] LABS: Protein/Creatinine Ratio,Urine 4.45 mg/mg (0-0.20)
[2017-06-01] MEDS ORDERED: 0.9 % Sodium Chloride 500 ML IVC SCH (10:30)
[2017-06-01] MEDS: Insulin LISPRO 300 UNITS/3 ML VIAL SQ SCH ×7 (11:20→20:34)
[2017-06-01] MEDS: Metoprolol 100 MG TABLET PO SCH ×2 (11:21→20:33)
[2017-06-01] MEDS: Aspirin Enteric Coated 81 MG Tablet PO SCH (11:21)
[2017-06-01] MEDS: Artificial Tears SOLN 15 ML BOTTLE BOTH EYES SCH ×4 (11:21→20:35)
[2017-06-01] MEDS: NIFEdipine XL (24 HR) 60 MG TAB.ER.24 PO SCH (11:21)
[2017-06-01] MEDS: cloNIDine HCl 0.1 MG TABLET PO SCH ×3 (11:22→20:33)
[2017-06-01] MEDS: Insulin DETEMIR 100 UNIT/ML X5UNITS SQ SCH ×2 (11:22→20:33)
[2017-06-01] MEDS: FISH OIL 1200 MG PO SCH (11:23)
[2017-06-01] MEDS: Cholecalciferol (D-3) 1,000 UNIT TABLET PO SCH (11:27)
--- NOTE | 2017-06-01 12:36 | Nephrology Progress Note ---
Date of Encounter: 06/01/17 Time of Encounter: 12:34 - Assessment and Plan (1) MURRAY (acute kidney injury) Current Visit: Yes Status: Acute Patient's creatinine rising, probably from aggressive diuresis. Agree with holding furosemide. We will give her saline bolus. (2) Acute exacerbation of CHF (congestive heart failure) Current Visit: Yes Status: Acute Patient without edema and her lung exam is negative for rales. She is likely slightly intravascular depleted. We will give a small amount of intravenous saline. Qualifiers: Congestive heart failure type: diastolic Qualified Code(s): I50.33 - Acute on chronic diastolic (congestive) heart failure (3) Anemia in CKD (chronic kidney disease) Current Visit: Yes Status: Acute Monitor for bleeding. Transfuse as needed. Qualifiers: Chronic kidney disease stage: stage 5, not on chronic dialysis Qualified Code(s): N18.5 - Chronic kidney disease, stage 5; D63.1 - Anemia in chronic kidney disease; D63.1 - Anemia in chronic kidney disease (4) CKD (chronic kidney disease) stage 5, GFR less than 15 ml/min Current Visit: Yes Status: Acute Patient has a PD catheter in place. I spoke with the PD nurse yesterday who states it has been flushing fine. She will attend to the peritoneal dialysis catheter on Saturday. No acute need for dialysis at this time. She denies uremic symptoms. (5) Hypertensive emergency Current Visit: Yes Status: Acute Blood pressure better controlled. Continue with current regimen. Titrate medication as needed. Subjective Principal diagnosis: CKD Interval history: Patient seen. No new complaint. She is eating well. Objective - Vital Signs Vital signs: Vital Signs Temp Pulse Resp BP Pulse Ox 06/01/17 07:40 16 96 06/01/17 07:10 98.0 F 80 16 129/66 94 05/31/17 22:53 98.3 F 78 17 149/62 93 05/31/17 19:47 98.3 F 83 18 140/69 95 05/31/17 19:38 18 95 05/31/17 15:51 16 97 05/31/17 15:42 97.8 F 72 Intake and Output 05/31/17 06/01/17 06/01/17 23:59 07:59 15:59 Intake Total 800 / 800 360 / 360 Output Total 0 / 0 150 / 150 Balance 800 / 800 210 / 210 Intake: Oral 800 / 800 360 / 360 Output: Urine 0 / 0 150 / 150 Other: Meal Breakfast Percent of Meal Consumed 100% Weight 144.1 kg Blood Glucose* 212 165 265 Patient Weight 06/01/17 23:59 Weight 144.1 kg - General Appearance General appearance: Present: well-developed, well-nourished EENT: Present: ATNC Neck: Present: supple Additional Comments: Respirations are unlabored. Cardiology: Present: regular rate Gastrointestinal: Present: obese Integumentary: Present: warm and dry Neurologic: Present: alert and oriented x3 Psychiatric: Present: mood/affect appropriate - Lab 06/01/17 04:23 06/01/17 04:23 Most recent lab results Calcium 9.0 mg/dL (8.6-10.8) 06/01/17 04:23 Phosphorus 5.1 mg/dL (2.3-4.7) H 06/01/17 04:23 Magnesium 1.7 mg/dL (1.6-2.6) 06/01/17 04:23 Urine Creatinine 42 mg/dL 06/01/17 08:13 Urine Total Protein 187 mg/dL (1-14) H 06/01/17 08:13 - VTE Documentation of Mechanical Device: Intermittent pneumatic compression device Consult Discharge Plan - Plan Additional Instructions: pcp requested Referrals: Rhett Madrigal MD [Primary Care Provider] - 06/10/17 11:10 am
--- NOTE | 2017-06-01 16:25 | Internal Med Progress Note ---
Date of Encounter: 06/01/17 Time of Encounter: 16:23 - Assessment and plan (1) Acute respiratory failure with hypoxia Current Visit: Yes Status: Acute Assessment and plan: Secondary to CHF decompensation Responding well to diuretic therapy, good urine output noted Holding diuretics at this time due to worsening renal function O2 supplementation as needed, currently saturating well on room air daily weights, strict I/Os fluid restriction diet (2) Acute exacerbation of CHF (congestive heart failure) Current Visit: Yes Status: Acute Assessment and plan: management as listed above 2D echo: Technically sub-optimal due to poor echocardiographic windows. Normal LV systolic function, LVEF 65-70%. Moderate-severe concentric left ventricular hypertrophy. Moderate left ventricular diastolic dysfunction. Right ventricle was not well visualized. It appears normal in size and function on limited views. Moderately dilated left atrium. Mild mitral regurgitation. Unable to estimate RVSP due to lack of TR jet. pt will be discharge with diuretic therapy Qualifiers: Congestive heart failure type: diastolic Qualified Code(s): I50.33 - Acute on chronic diastolic (congestive) heart failure (3) Pneumonia Current Visit: Yes Status: Chronic Assessment and plan: continue Levaquin awaiting finalization of blood cultures Qualifiers: Pneumonia type: due to unspecified organism Laterality: unspecified laterality Lung location: unspecified part of lung Qualified Code(s): J18.9 - Pneumonia, unspecified organism (4) DM type 2 (diabetes mellitus, type 2) Current Visit: Yes Status: Chronic Assessment and plan: BG better controlled will continue Levemir 50units BID with Humalog 14units TIDAC sliding scale insulin algorithm continue to monitor FS and BG ADA diet Qualifiers: Diabetes mellitus complication status: with kidney complications Diabetes mellitus complication detail: with chronic kidney disease 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 insulin 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: with usp use Chronic kidney disease stage: stage 5, not on chronic dialysis Qualified Code(s): E11.22 - Type 2 diabetes mellitus with diabetic chronic kidney disease; N18.5 - Chronic kidney disease, stage 5; N18.5 - Chronic kidney disease, stage 5; N18.5 - Chronic kidney disease , stage 5; N18.5 - Chronic kidney disease, stage 5; Z79.4 - detention (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 of insulin; Z79.4 - detention (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 of insulin; Z79.4 - detention ( 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 of insulin; Z79.4 - detention (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 of insulin (5) HTN (hypertension) Current Visit: Yes Status: Chronic Assessment and plan: BP better controlled continue current management will closely monitor BP and adjust medications as needed Hydralazine 10mg IV q6h prn SBP>160 Qualifiers: Hypertension type: secondary to other renal disorders Qualified Code(s): I15.1 - Hypertension secondary to other renal disorders; N28.89 - Other specified disorders of kidney and ureter; N28.89 - Other specified disorders of kidney and ureter (6) ESRD (end stage renal disease) on dialysis Current Visit: Yes Status: Chronic Assessment and plan: Nephrology on board Diuretics placed on hold due to worsening renal function pt to receive 500cc of IV fluids will closely monitor renal function (7) HLD (hyperlipidemia) Current Visit: Yes Status: Chronic Assessment and plan: continue lipitor Qualifiers: Hyperlipidemia type: unspecified Qualified Code(s): E78.5 - Hyperlipidemia , unspecified (8) Anemia in CKD (chronic kidney disease) Current Visit: Yes Status: Acute Assessment and plan: H&H low but acceptable no acute bleeding reported pt asymptomatic will closely monitor will obtain stool occult continue to monitor, transfuse for Hgb<7 Qualifiers: Chronic kidney disease stage: stage 5, not on chronic dialysis Qualified Code(s): N18.5 - Chronic kidney disease, stage 5; D63.1 - Anemia in chronic kidney disease; D63.1 - Anemia in chronic kidney disease (9) DVT prophylaxis Current Visit: Yes Status: Acute Assessment and plan: Heparin SQ (10) Morbid obesity with BMI of 50.0-59.9, adult Current Visit: Yes Status: Chronic - Subjective Interval history: Patient seen and examined with family present at bedside. Resting in bed and saturating well on room air. BP better controlled Pt was seen by physical therapy and home health was recommended Noted to have worsening renal function due to which diuretics placed on hold Will monitor renal function, if renal function improves overnight, pt may be discharged in am, however if renal function worsens, then pt will need to likely start PD on Saturday. - Constitutional Vitals: Temp Pulse Resp BP Pulse Ox 98.0 F 80 16 129/66 93 06/01/17 07:10 06/01/17 07:10 06/01/17 07:40 06/01/17 07:10 06/01/17 13:25 General appearance: Present: cooperative, A&O X 3, morbidly obese, pleasant, answers questions appropriately - Head Head exam: Present: atraumatic, normocephalic - Eye Eye exam: Present: conjuntiva pink, sclera anicteric - Respiratory Respiratory exam: Present: CTAB. Absent: accessory muscle use, rales, rhonchi, wheezes - Cardiovascular Cardiovascular exam: Present: RRR, +S1, +S2. Absent: diastolic murmur, gallop, rubs, systolic murmur - GI/Abdominal GI/Abdominal exam: Present: normal bowel sounds, soft, no peritoneal signs. Absent: distended, tenderness - Extremities Exam Extremities exam: Present: pedal edema, warm, radial pulses palpable and symmetrical. Absent: calf tenderness - Neurological Exam Neurological exam: Present: alert, oriented X3 - Psychiatric Psychiatric exam: Present: normal affect, normal mood Internal Medicine: Result - Labs CBC & Chem 7: 06/01/17 04:23 06/01/17 04:23 Labs: Short CBC 06/01/17 Range/Units 04:23 WBC 7.3 (4.3-11.1) K/mcL Hgb 7.7 L (11.5-15.4) g/dL Hct 24.5 L (35.3-44.9) % Plt Count 156 (140-400) K/mcL Neutrophils # 5.4 (1.6-8.9) K/mcL BMP 06/01/17 04:23 Sodium 136 Potassium 4.1 Chloride 101 Carbon Dioxide 25 BUN 58 H Creatinine 3.97 H Glucose 133 H Calcium 9.0 Urine 06/01/17 Range/Units 08:13 Urine Color Yellow (Yellow) Urine Clarity Clear (Clear) Urine pH 6.0 (5.0-8.0) pH Units Ur Specific [place] 1.010 (1.010-1.025) Urine Protein >=300 H (Neg-Trace) mg/dL Urine Glucose (UA) 100 H (Normal) mg/dL - ABG Interpretation ABG results: PT/INR, D-dimer PT 11.1 Seconds (9.4-12.1) 05/29/17 01:24 - VTE Documentation of Mechanical Device: Intermittent pneumatic compression device Consult Discharge Plan - Plan Additional Instructions: pcp requested Referrals: Rhett Madrigal MD [Primary Care Provider] - 06/10/17 11:10 am
[2017-06-01] MEDS: Sennosides/Docusate Sodium TABLET PO SCH ×2 (18:39→20:35)
[2017-06-02] MEDS: Ipratropium/Albuterol Neb 3 ML IH SCH ×4 (00:12→11:03)
[2017-06-02] MEDS: Levofloxacin 750 MG/150 ML 750 MG/150 ML BAG IVPB SCH (02:40)
[2017-06-02 04:10] LABS: Basophils % 0.3 %; Eosinophils # 0.2 K/mcL (0.0-0.6); Eosinophils % 3.4 %; Hematocrit 24.6 % (35.3-44.9); Hemoglobin 7.8 g/dL (11.5-15.4); Immature Granulocytes % 0.7 % (0-4); Lymphocytes % 14.5 %; Mean Corpuscular HGB Conc 31.7 g/dL (31.6-35.5); Mean Corpuscular Hemoglobin 26.5 pg (28.0-33.3); Mean Corpuscular Volume 83.7 fL (83.0-100.0); Mean Platelet Volume 12.7 fL (9.4-12.4); Monocytes # 0.4 K/mcL (0.0-1.3); Monocytes % 5.2 %; Neutrophils # 5.4 K/mcL (1.6-8.9); Platelet Count 150 K/mcL (140-400); Red Blood Count 2.94 M/mcL (3.82-4.97); Red Cell Distribution Width 14.2 % (11.5-14.5); Segmented Neutrophils % 75.9 %
[2017-06-02 04:24] LABS: Calcium 9.1 mg/dL (8.6-10.8); Magnesium 1.8 mg/dL (1.6-2.6); Phosphorous 5.3 mg/dL (2.3-4.7); Potassium 3.7 mEq/L (3.5-4.5)
[2017-06-02] MEDS: *HR* Heparin 5,000 UNIT/ML VIAL SQ SCH (05:48)
[2017-06-02 07:36] VITALS: BP 149/70
[2017-06-02] MEDS: Insulin LISPRO 300 UNITS/3 ML VIAL SQ SCH ×4 (09:16→12:38)
[2017-06-02] MEDS: cloNIDine HCl 0.1 MG TABLET PO SCH (09:17)
[2017-06-02] MEDS: NIFEdipine XL (24 HR) 60 MG TAB.ER.24 PO SCH (09:17)
[2017-06-02] MEDS: Artificial Tears SOLN 15 ML BOTTLE BOTH EYES SCH (09:17)
[2017-06-02] MEDS: Cholecalciferol (D-3) 1,000 UNIT TABLET PO SCH (09:18)
[2017-06-02] MEDS: Metoprolol 100 MG TABLET PO SCH (09:18)
[2017-06-02] MEDS: Aspirin Enteric Coated 81 MG Tablet PO SCH (09:18)
[2017-06-02] MEDS: Insulin DETEMIR 100 UNIT/ML X5UNITS SQ SCH (09:18)
[2017-06-02] MEDS: Sennosides/Docusate Sodium TABLET PO SCH (09:19)
[2017-06-02] MEDS ORDERED: Furosemide 40 MG TABLET PO ONE (10:05)
--- NOTE | 2017-06-02 10:28 | Discharge Summary ---
Date of Encounter: 06/02/17 Time of Encounter: 10:25 - Discharge Diagnosis (1) Acute respiratory failure with hypoxia Priority: Primary Status: Acute (2) Acute exacerbation of CHF (congestive heart failure) Priority: Primary Status: Acute Qualifiers: Congestive heart failure type: diastolic Qualified Code(s): I50.33 - Acute on chronic diastolic (congestive) heart failure (3) Pneumonia Priority: Secondary Status: Chronic Qualifiers: Pneumonia type: due to unspecified organism Laterality: unspecified laterality Lung location: unspecified part of lung Qualified Code(s): J18.9 - Pneumonia, unspecified organism (4) DM type 2 (diabetes mellitus, type 2) Priority: Secondary Status: Chronic Qualifiers: Diabetes mellitus complication status: with kidney complications Diabetes mellitus complication detail: with chronic kidney disease Diabetes mellitus watermaster insulin use: with fci use Chronic kidney disease stage: stage 5, not on chronic dialysis Qualified Code(s): E11.22 - Type 2 diabetes mellitus with diabetic chronic kidney disease; N18.5 - Chronic kidney disease, stage 5; N18.5 - Chronic kidney disease, stage 5; N18.5 - Chronic kidney disease , stage 5; N18.5 - Chronic kidney disease, stage 5; Z79.4 - FCI (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 of insulin; Z79.4 - extermination supervisor (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 of insulin; Z79.4 - extermination supervisor ( 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 of insulin; Z79.4 - extermination supervisor (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 of insulin (5) HTN (hypertension) Priority: Secondary Status: Chronic Qualifiers: Hypertension type: secondary to other renal disorders Qualified Code(s): I15.1 - Hypertension secondary to other renal disorders; N28.89 - Other specified disorders of kidney and ureter; N28.89 - Other specified disorders of kidney and ureter (6) ESRD (end stage renal disease) on dialysis Priority: Secondary Status: Chronic (7) HLD (hyperlipidemia) Priority: Secondary Status: Chronic Qualifiers: Hyperlipidemia type: unspecified Qualified Code(s): E78.5 - Hyperlipidemia , unspecified (8) Anemia in CKD (chronic kidney disease) Priority: Secondary Status: Acute Qualifiers: Chronic kidney disease stage: stage 5, not on chronic dialysis Qualified Code(s): N18.5 - Chronic kidney disease, stage 5; D63.1 - Anemia in chronic kidney disease; D63.1 - Anemia in chronic kidney disease (9) DVT prophylaxis Priority: Secondary Status: Acute (10) Morbid obesity with BMI of 50.0-59.9, adult Priority: Secondary Status: Chronic - Discharge Medications Prescriptions: cloNIDine HCl [CloNIDine HCl] 0.3 mg PO TID #90 tablet Furosemide [Lasix] 40 mg PO DAILY #30 tab Insulin ASPART [NovoLOG] 14 unit SQ TIDAC #10 vial Insulin Glargine [Lantus] 65 unit SQ Q12H #13 vial NIFEdipine XL (24 HR) [Procardia XL] 60 mg PO DAILY #30 tab.er.24 Home Medications: Fish Oil/Dha/Epa [Fish Oil 1,200 mg Fish Oil] 1,200 mg PO DAILY 07/05/16 [ History] Metoprolol [Lopressor] 100 mg PO BID 07/05/16 [History] Omeprazole [PriLOSEC] 40 mg PO DAILY 07/05/16 [History] Aspirin [Lo-Dose Aspirin EC] 81 mg PO DAILY 04/03/17 [History] Cholecalciferol (D-3) [Vitamin D] 5,000 unit PO DAILY 04/03/17 [History] GlipiZIDE [Glipizide ER] 10 mg PO DAILY 04/03/17 [History] Atorvastatin [Lipitor] 40 mg PO HS 05/28/17 [History] Furosemide [Lasix] 40 mg PO DAILY #30 tab 06/02/17 [Rx] Insulin ASPART [NovoLOG] 14 unit SQ TIDAC #10 vial 06/02/17 [Rx] Insulin Glargine [Lantus] 65 unit SQ Q12H #13 vial 06/02/17 [Rx] NIFEdipine XL (24 HR) [Procardia XL] 60 mg PO DAILY #30 tab.er.24 06/02/17 [Rx] cloNIDine HCl [CloNIDine HCl] 0.3 mg PO TID #90 tablet 06/02/17 [Rx] Allergies/Adverse Reactions: 3 Allergy/AdvReac Type Severity Reaction Status Date / Time No Known Allergies Allergy Verified 05/22/17 07:28 Date of admission: 05/30/17 17:37 Primary care physician: Rhett Madrigal MD Consults: 05/29/17 00:52 Consult to Nurse Navigator [CONS] Routine Comment: Consult to Occupational Therapy [CONS] Routine Comment: Evaluate, develop and implement POC Reason for Consult: weakness Consult to Physical Therapy [CONS] Routine Comment: Evaluate, develop and implement POC Reason for Consult: weakness 05/29/17 12:00 Consult to Nephrology [CONS] Routine Consulting Provider: Hugh Morales/CRYSTAL/GONSALO/RONAL Reason for Consult: CKD Call Completed: Yes 05/31/17 11:11 Consult to Director Of Events [CONS] Stat Reason for SW Consult: arrangement of home health services Discharging clinician: Fidelia Hood Anticipated date of discharge: 06/02/17 - Patient Status Disposition: Home Health Service Condition: Good Functional capacity at discharge: uses cane/walker Overall status at discharge: patient is back to baseline - Ambulatory Orders Ambulatory Orders: Basic Metabolic Panel [CHEM] Time Frame: 1 Week, Facility: [facility], Location: Lab - Discharge Instructions Follow Up With: Rhett Madrigal MD [Primary Care Provider] - 06/10/17 11:10 am Additional Instructions: Please follow up with your primary care physician and campaign advisor within five days after your discharge from the hospital Your home medications have been changed as follow: 1. Amlodipine has been discontinued 2. Nifedipine XL 60mg once a day has been added 3. Clonidine has been increased to 0.3mg three times a day 4. Lasix 40mg once a day has been added 5. Lantus has been changed to 65units SQ every 12 hours 7. Novolog 14units three times a day 15minutes before meals has been added Please continue to monitor daily weights and follow a fluid restriction diet (2L /day) If you are noted to have weight gain or difficulty breathing please seek medical help. Inform your primary care physician or campaign advisor of these changes. Resume all other medications as prescribed by your primary care physician. - Diet and Activity Activity: as per physical therapy Diet: diabetic diet, low salt diet Hospital course: Ms. Salvador is a 62 year old female with PMH Of DM, HTN, CHF, CKD stage V who was admitted for acute respiratory distress secondary to CHF exacerbation and concern for PNA. She was started on aggressive diuresis and IV abx. She responded well to diuretic support and finished her course of abx therapy. Due to the diuresis she was noted to have worsening renal function. Nephrology was on board and her diuretic dose was adjusted. Pt also reported of having hypoglycemic episodes with her current insulin dose of Lantus 100units SQ BID due to which her medication dose was readjusted. Patient was also evaluated by physical therapy and home health was recommended. At this time, patient is hemodynamically stable and will be discharged to home. she is to continue follow up with PCP and nephrology after discharge. Pt and (present at bedside) demonstrate understanding of her diagnosis and agree with the discharge care and plan. - Time Spent with Patient Total time spent providing and/or coordinating discharge services: Greater than 30 minutes - Constitutional Vitals: Temp Pulse Resp BP Pulse Ox 98 F 81 18 149/70 94 06/02/17 07:31 06/02/17 07:31 06/02/17 07:31 06/02/17 07:31 06/02/17 07:31 General appearance: Present: cooperative, A&O X 3, morbidly obese, pleasant, answers questions appropriately - Head Head exam: Present: atraumatic, normocephalic - Eye Eye exam: Present: conjuntiva pink, sclera anicteric - Respiratory Respiratory exam: Absent: respiratory distress, wheezes - Cardiovascular Cardiovascular exam: Present: RRR, +S1, +S2. Absent: diastolic murmur, gallop, rubs, systolic murmur - GI/Abdominal GI/Abdominal exam: Present: normal bowel sounds, soft, no peritoneal signs. Absent: distended, tenderness - Extremities Exam Extremities exam: Present: warm, radial pulses palpable and symmetrical. Absent : calf tenderness, tenderness - Neurological Exam Neurological exam: Present: alert, oriented X3 - Psychiatric Psychiatric exam: Present: normal affect, normal mood - VTE Documentation of Mechanical Device: Intermittent pneumatic compression device
--- NOTE | 2017-06-02 11:14 | Physician Discharge Referral ---
Home Health/Hosp Referral Info Transfer to: Home Health - Diagnosis (1) Acute respiratory failure with hypoxia Priority: Primary Status: Acute (2) Acute exacerbation of CHF (congestive heart failure) Priority: Primary Status: Acute (3) Pneumonia Priority: Secondary Status: Resolved (4) DM type 2 (diabetes mellitus, type 2) Priority: Secondary Status: Chronic (5) HTN (hypertension) Priority: Secondary Status: Chronic (6) ESRD (end stage renal disease) on dialysis Priority: Secondary Status: Chronic (7) HLD (hyperlipidemia) Priority: Secondary Status: Chronic (8) Anemia in CKD (chronic kidney disease) Priority: Secondary Status: Acute (9) DVT prophylaxis Priority: Secondary Status: Acute (10) Morbid obesity with BMI of 50.0-59.9, adult Priority: Secondary Status: Chronic - Respiratory Orders Smoking Cessation: Smoking cessation has been advised. For more information, call the [place] Tobacco Quit Line at 0-993-OLSX-NOW. - Services Needed Following services are medically necessary services: Nursing, Home Health Aide, Physical Therapy, Occupational Therapy - Transfer Medications Prescriptions: cloNIDine HCl [CloNIDine HCl] 0.3 mg PO TID #90 tablet Furosemide [Lasix] 40 mg PO DAILY #30 tab Insulin ASPART [NovoLOG] 14 unit SQ TIDAC #10 vial Insulin Glargine [Lantus] 65 unit SQ Q12H #13 vial NIFEdipine XL (24 HR) [Procardia XL] 60 mg PO DAILY #30 tab.er.24 Home Medications: Fish Oil/Dha/Epa [Fish Oil 1,200 mg Fish Oil] 1,200 mg PO DAILY 07/05/16 [ History] Metoprolol [Lopressor] 100 mg PO BID 07/05/16 [History] Omeprazole [PriLOSEC] 40 mg PO DAILY 07/05/16 [History] Aspirin [Lo-Dose Aspirin EC] 81 mg PO DAILY 04/03/17 [History] Cholecalciferol (D-3) [Vitamin D] 5,000 unit PO DAILY 04/03/17 [History] GlipiZIDE [Glipizide ER] 10 mg PO DAILY 04/03/17 [History] Atorvastatin [Lipitor] 40 mg PO HS 05/28/17 [History] Furosemide [Lasix] 40 mg PO DAILY #30 tab 06/02/17 [Rx] Insulin ASPART [NovoLOG] 14 unit SQ TIDAC #10 vial 06/02/17 [Rx] Insulin Glargine [Lantus] 65 unit SQ Q12H #13 vial 06/02/17 [Rx] NIFEdipine XL (24 HR) [Procardia XL] 60 mg PO DAILY #30 tab.er.24 06/02/17 [Rx] cloNIDine HCl [CloNIDine HCl] 0.3 mg PO TID #90 tablet 06/02/17 [Rx] Allergies/Adverse Reactions: 3 Allergy/AdvReac Type Severity Reaction Status Date / Time No Known Allergies Allergy Verified 05/22/17 07:28 Certification: Further, I certify that my clinical findings support that this patient is homebound (i.e. absences from home require considerable and taxing effort and are for medical reasons or adventist services or infrequently or short duration when for other reasons) because: Homebound Reason: Patient requires assistance of a person or device to safely leave home Attestation: My signature below is to certify that this patient is under my care and that I, or nurse practitioner, or a physician's technical administrative assistant working with me, has a face-to -face encounter with this patient.
--- NOTE | 2017-06-02 11:32 | Nephrology Progress Note ---
Date of Encounter: 06/02/17 Time of Encounter: 11:30 - Assessment and Plan (1) MURRAY (acute kidney injury) Current Visit: Yes Status: Acute Acute kidney injury superimposed on chronic kidney disease that appears to be secondary to aggressive diuresis. Renal function improved with holding diuretics and giving intravenous saline. I recommend significant reduction in diuresis when the patient goes home. She is to monitor her weight and if her weight goes up by more than 3 pounds she needs to contact her primary care provider or her booth usher to titrate her diuretics. I recommend repeat BMP by the end of this week and to continue her appointment with her booth usher as previously scheduled. Okay for discharge from a renal standpoint. She has an education session with her peritoneal dialysis nurse on Saturday. (2) Acute exacerbation of CHF (congestive heart failure) Current Visit: Yes Status: Acute Patient without edema and her lung exam is negative for rales. She is likely slightly intravascular depleted. Qualifiers: Congestive heart failure type: diastolic Qualified Code(s): I50.33 - Acute on chronic diastolic (congestive) heart failure (3) Anemia in CKD (chronic kidney disease) Current Visit: Yes Status: Acute Monitor for bleeding. Transfuse as needed. Qualifiers: Chronic kidney disease stage: stage 5, not on chronic dialysis Qualified Code(s): N18.5 - Chronic kidney disease, stage 5; D63.1 - Anemia in chronic kidney disease; D63.1 - Anemia in chronic kidney disease (4) CKD (chronic kidney disease) stage 5, GFR less than 15 ml/min Current Visit: Yes Status: Acute Patient has a PD catheter in place. I spoke with the PD nurse yesterday who states it has been flushing fine. She will attend to the peritoneal dialysis catheter on Saturday. No acute need for dialysis at this time. She denies uremic symptoms. (5) Hypertensive emergency Current Visit: Yes Status: Acute Blood pressure better controlled. Continue with current regimen. Titrate medication as needed. Subjective Principal diagnosis: CKD Interval history: Patient seen. No new complaint. She is eating well. Objective - Vital Signs Vital signs: Vital Signs Temp Pulse Resp BP Pulse Ox 06/02/17 07:31 98 F 81 18 149/70 94 06/02/17 03:53 97.8 F 82 18 129/60 93 06/01/17 22:24 98.0 F 85 18 148/69 95 10/14/17 20:14 17 96 06/01/17 19:06 98.0 F 76 16 145/63 95 06/01/17 16:00 97.8 F 90 18 165/68 06/01/17 15:46 18 97 06/01/17 13:25 93 Intake and Output 06/01/17 06/02/17 06/02/17 23:59 07:59 15:59 Intake Total 1490 / 1490 500 / 500 240 / 240 Output Total 150 / 150 100 / 100 Balance 1340 / 1340 400 / 400 240 / 240 Intake: Oral 1490 / 1490 500 / 500 240 / 240 Output: Urine 150 / 150 100 / 100 Other: Meal Dinner Breakfast Percent of Meal Consumed 100% 90% Weight 144.7 kg Blood Glucose* 220 216 189 Patient Weight 06/02/17 23:59 Weight 144.7 kg - General Appearance General appearance: Present: well-developed, well-nourished, obese EENT: Present: ATNC Neck: Present: supple Additional Comments: Respirations are unlabored. Cardiology: Present: regular rate Gastrointestinal: Present: obese Neurologic: Present: alert and oriented x3 Psychiatric: Present: mood/affect appropriate - Lab 06/02/17 02:47 06/02/17 02:47 Most recent lab results Calcium 9.1 mg/dL (8.6-10.8) 06/02/17 02:47 Phosphorus 5.3 mg/dL (2.3-4.7) H 06/02/17 02:47 Magnesium 1.8 mg/dL (1.6-2.6) 06/02/17 02:47 Urine Creatinine 42 mg/dL 06/01/17 08:13 Urine Total Protein 187 mg/dL (1-14) H 06/01/17 08:13 - VTE Documentation of Mechanical Device: Intermittent pneumatic compression device Consult Discharge Plan - Plan Additional Instructions: Please follow up with your primary care physician and booth usher within five days after your discharge from the hospital Your home medications have been changed as follow: 1. Amlodipine has been discontinued 2. Nifedipine XL 60mg once a day has been added 3. Clonidine has been increased to 0.3mg three times a day 4. Lasix 40mg once a day has been added 5. Lantus has been changed to 65units SQ every 12 hours 7. Novolog 14units three times a day 15minutes before meals has been added Please continue to monitor daily weights and follow a fluid restriction diet (2L /day) If you are noted to have weight gain or difficulty breathing please seek medical help. Inform your primary care physician or booth usher of these changes. Resume all other medications as prescribed by your primary care physician. Referrals: Rhett Madrigal MD [Primary Care Provider] - 06/10/17 11:10 am Prescriptions: cloNIDine HCl [CloNIDine HCl] 0.3 mg PO TID #90 tablet Furosemide [Lasix] 40 mg PO DAILY #30 tab Insulin ASPART [NovoLOG] 14 unit SQ TIDAC #10 vial Insulin Glargine [Lantus] 65 unit SQ Q12H #13 vial NIFEdipine XL (24 HR) [Procardia XL] 60 mg PO DAILY #30 tab.er.24
== END 2017-06-02 14:55 | disposition home health service (06) | DRG 291 ==
LOC: 2NENU → SUATTDRO 21:52
PROVIDERS: ADMIT Internal Medicine; ATTEND Internal Medicine

== ENCOUNTER 2017-12-19 18:46 | Observation (INO) ==
[2017-12-19] MEDS ORDERED: Ondansetron ODT 4 MG TAB.RAPDIS SL ONE (19:18)
--- NOTE | 2017-12-19 19:54 | Emergency Department Note ---
Disposition Clinical Impression: Right flank pain, Pre-syncope, History of right common carotid artery stent placement, Abnormal liver CT Nausea & vomiting Qualifiers: Vomiting type: unspecified Vomiting Intractability: non-intractable Qualified Code(s): R11.2 - Nausea with vomiting, unspecified Disposition: Still a Patient Condition: Good Referrals: Khadar Yeager, MIMI [Primary Care Provider] - Forms: ED Satisfaction Letter Time of Disposition: 20:56 General Adult HPI - General Chief complaint: ED Dizziness Stated complaint: "n/v,R flank pain,dizzy" Time Seen by Provider: 12/19/17 19:05 Source: patient Limitations: no limitations Nursing Notes Reviewed: Yes Vital Signs Reviewed: Yes - History of Present Illness HPI Narrative: Ms. Salvador is a very pleasant 62-year-old female with a past history of hypertension, hyperlipidemia, type 2 diabetes, chronic kidney disease on peritoneal dialysis and carotid artery stenosis who presents to the [facility] with a chief complaint of nausea and vomiting for duration of one day. Patient reports that her nausea and vomiting started early this morning and denies any other associated fevers, recent sick contacts , dysuria or change in bowel movements. Patient did not take any medication for this. In addition, she is complaining of right lower back pain that is nonradiating and achy in nature. She has no prior history of this complaint. Patient goes on to state that she underwent a carotid artery stent placed on the right side after she had a 90% blockage at [place] on 11/29/2017. Since then, she has been complaining of intermittent presyncopal episodes without any evidence of chest pain, palpitations or diaphoresis. Patient reports that she has "fallen out "twice over the last 3 weeks. No history of any coronary artery disease. Patient is a nonsmoker. No EtOH abuse. No other complaints at this time. Pain Scale: 8 - Related Data Home Medications Medication Instructions Recorded Confirmed Fish Oil/Dha/Epa [Fish Oil 1,200 1,200 mg PO DAILY 07/05/16 05/28/17 mg Fish Oil] Metoprolol [Lopressor] 100 mg PO BID 07/05/16 05/28/17 Omeprazole [PriLOSEC] 40 mg PO DAILY 07/05/16 05/28/17 Aspirin [Lo-Dose Aspirin EC] 81 mg PO DAILY 04/03/17 05/28/17 Cholecalciferol (D-3) [Vitamin D] 5,000 unit PO DAILY 04/03/17 05/28/17 glipiZIDE [Glipizide ER] 10 mg PO DAILY 04/03/17 05/28/17 Atorvastatin [Lipitor] 40 mg PO HS 05/28/17 05/28/17 Previous Rx's Medication Instructions Recorded Furosemide [Lasix] 40 mg PO DAILY #30 tab 06/02/17 Insulin ASPART [NovoLOG] 14 unit SQ TIDAC #10 vial 06/02/17 Insulin Glargine [Lantus] 65 unit SQ Q12H #13 vial 06/02/17 NIFEdipine XL (24 HR) [Procardia 60 mg PO DAILY #30 tab.er.24 06/02/17 XL] cloNIDine HCl [CloNIDine HCl] 0.3 mg PO TID #90 tablet 06/02/17 Allergies Allergy/AdvReac Type Severity Reaction Status Date / Time No Known Allergies Allergy Verified 05/22/17 07:28 Review of Systems: Constitutional: No fever Vision: No blurred vision ENT: No rhinorrhea Respiratory: No cough Cardiovascular: No chest pain Allergic: No allergies : No blood in urine GI: No blood in stool Hematologic: No bruising Dermatologic: No skin rash Musculoskeletal: No pain in the extremities Neuro: No numbness of the extremities Past Medical History - Past Medical History Medical history: Reports: arthritis, diabetes, hyperlipidemia, hypertension, renal disease Surgical history: Reports: , cholecystectomy, herniorrhaphy, hysterectomy, orthopedic, other, other (PD catheter) Psychiatric history: Reports: no psych history 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 EYES: Ocular movements grossly intact, no scleral icterus, no drainage, no conjunctival injection Oropharynx: pink/moist, no tonsillar edema/erythema/exudates NECK: No carotid bruits RESP: NRD without use of accessory musculature, CTA b/l with no wheezes/rales/ rhonchi CARD: Regular rhythm, without murmurs, rubs, or gallop ABD: grossly normal, soft, non-tender, no guarding/distention/rigidity, PD site intact, no erythema or drainage SKIN: normal appearance, no pallor/diaphoresis,mottling,jaundice,cyanosis EXT: PT pulses 2+ and symmetrical; no lateralizing edema; no other lesions seen PSYCH: appropriate mood/affect - General Limitations: no limitations General appearance: alert Course Course Narrative: Patient was seen and examined at bedside. Vital signs reviewed and were unremarkable. Physical examination demonstrates a benign abdominal exam. Patient does have some mild right lumbar paraspinal tenderness. There is no CVA tenderness bilaterally. Lungs were clear to auscultation bilaterally. No carotid bruits bilaterally. No lower extremities edema. Given the patient's nausea and vomiting and subjective right flank pain will begin with abdominal CT , CBC, BMP, hepatic panel, amylase, lipase, urinalysis. In addition, the setting of a carotid artery stent placed roughly 3 weeks ago with subsequent presyncopal events resulting in [address] falls will proceed with CT head. IV access will be obtained. IVF will be started. Zofran given. 12 Lead EKG demonstrates inferior lead ST elevation versus early repolarization as well as T -wave inversions in lead 1 and aVL. This was compared to previous additional evidence of the current EKG findings but not to this extent in terms of the elevation in lead 3. Cardiology, Dr. José Miguel Christy, was consulted to review EKG. Recommended serial enzymes as well as repeat EKG that is pending at this time. Patient has no active chest pain at this time. CBC demonstrates chronic anemia at 9.4 as well as BMP showing creatinine at 3.79 at baseline. Troponin was negative. Disposition pending. 2049: Head CT neg. Abd/Pelvic CT demonstrates diffuse fatty infiltration of the liver versus neoplasm versus infarct. Recommend further workup with dedicated liver MRI. Patient will be admitted for near syncope and furhter evaluation of her liver. Sign out was given to Dr. Hooker and he will continue all further disposition and interventions if needed. All questions and concerns were addressed. Vital Signs Temperature 98.1 F 12/19/17 18:48 Pulse Rate 92 12/19/17 18:48 Respiratory Rate 14 12/19/17 18:48 Blood Pressure 171/71 12/19/17 18:48 O2 Sat by Pulse Oximetry 98 12/19/17 18:48 Temperature 98.1 F 12/19/17 18:48 Pulse Rate 92 12/19/17 18:48 Respiratory Rate 14 12/19/17 18:48 Blood Pressure 171/71 12/19/17 18:48 O2 Sat by Pulse Oximetry 98 12/19/17 18:48 Oxygen Delivery Oxygen Delivery Room Air Medical Decision Making - Medical Records Medical records reviewed: Yes I reviewed the patient's medical records. - Lab Data Lab results reviewed: Yes I reviewed the patient's lab results. Result diagrams: 12/19/17 19:44 12/19/17 19:44 Lab Results 12/19/17 12/19/17 12/19/17 Range/Units 19:43 19:44 19:44 WBC 8.1 (4.3-11.1) K/mcL RBC 3.39 L (3.82-4.97) M/mcL Hgb 9.4 L (11.5-15.4) g/dL Hct 29.6 L (35.3-44.9) % MCV 87.3 (83.0-100.0) fL MCH 27.7 L (28.0-33.3) pg MCHC 31.8 (31.6-35.5) g/dL RDW 14.5 (11.5-14.5) % Plt Count 156 (140-400) K/mcL MPV 13.1 H (9.4-12.4) fL Immature Gran % 0.6 (0-4) % Seg Neutrophils % 83.0 % Lymphocytes % 11.0 % Monocytes % 4.3 % Eosinophils % 0.7 % Basophils % 0.4 % Neutrophils # 6.7 (1.6-8.9) K/mcL Lymphocytes # 0.9 (0.6-4.6) K/mcL Monocytes # 0.4 (0.0-1.3) K/mcL Eosinophils # 0.1 (0.0-0.6) K/mcL Basophils # 0.0 (0.0-0.2) K/mcL Nucleated RBCs/100 WBC 0.2 H (0) /100 WBC PT 10.6 (9.4-12.1) Seconds INR 1.0 APTT 19.8 L (26.0-36.0) Seconds Sodium 136 (136-145) mEq/L Potassium 4.7 (3.5-5.1) mEq/L Chloride 100 (98-107) mEq/L Carbon Dioxide 24 (23-29) mEq/L BUN 44 H (8-23) mg/dL Creatinine 3.79 H (0.60-1.20) mg/dL Est GFR ( Amer) 15 L (> 60) Est GFR (Non-Af Amer) 12 L (> 60) BUN/Creatinine Ratio 12 (6-26) Glucose 204 H (70-105) mg/dL Calculated Osmolality 299 (280-300) Calcium 9.0 (8.6-10.3) mg/dL Total Bilirubin 0.6 (0.3-1.0) mg/dL Direct Bilirubin 0.1 (0.0-0.2) mg/dL Indirect Bilirubin 0.5 (0.0-1.2) mg/dL AST 18 (13-39) Units/L ALT 13 (7-52) Units/L Alkaline Phosphatase 154 H (34-104) Units/L Troponin I 0.03 (< 0.04) ng/mL Serum Total Protein 6.4 (6.4-8.9) g/dL Albumin 3.5 (3.5-5.7) g/dL Globulin 2.9 (2.4-3.5) g/dL Albumin/Globulin Ratio 1.2 (1.1-2.2) Amylase 23 L (29-103) Units/L Lipase 9 L (11-82) Units/L Urine Color (Yellow) Urine Clarity (Clear) Urine pH (5.0-8.0) pH Units Ur Specific [place] (1.010-1.025) Urine Protein (Neg-Trace) mg/dL Urine Glucose (UA) (Normal) mg/dL Urine Ketones (Negative) mg/dL Urine Blood (Negative) Urine Nitrite (Negative) Urine Bilirubin (Negative) Urine Urobilinogen (Normal) mg/dL Ur Leukocyte Esterase (Negative) Urine Microscopic RBC (0-3) per hpf Urine Microscopic WBC (0-3) per hpf Ur Squamous Epith Cells (None-Few) per lpf Urine Bacteria (None-Few) per hpf Hyaline Casts (None-Few) per lpf Ur Culture Indicated? (NO) 12/19/17 Range/Units 20:25 WBC (4.3-11.1) K/mcL RBC (3.82-4.97) M/mcL Hgb (11.5-15.4) g/dL Hct (35.3-44.9) % MCV (83.0-100.0) fL MCH (28.0-33.3) pg MCHC (31.6-35.5) g/dL RDW (11.5-14.5) % Plt Count (140-400) K/mcL MPV (9.4-12.4) fL Immature Gran % (0-4) % Seg Neutrophils % % Lymphocytes % % Monocytes % % Eosinophils % % Basophils % % Neutrophils # (1.6-8.9) K/mcL Lymphocytes # (0.6-4.6) K/mcL Monocytes # (0.0-1.3) K/mcL Eosinophils # (0.0-0.6) K/mcL Basophils # (0.0-0.2) K/mcL Nucleated RBCs/100 WBC (0) /100 WBC PT (9.4-12.1) Seconds INR APTT (26.0-36.0) Seconds Sodium (136-145) mEq/L Potassium (3.5-5.1) mEq/L Chloride (98-107) mEq/L Carbon Dioxide (23-29) mEq/L BUN (8-23) mg/dL Creatinine (0.60-1.20) mg/dL Est GFR ( Amer) (> 60) Est GFR (Non-Af Amer) (> 60) BUN/Creatinine Ratio (6-26) Glucose (70-105) mg/dL Calculated Osmolality (280-300) Calcium (8.6-10.3) mg/dL Total Bilirubin (0.3-1.0) mg/dL Direct Bilirubin (0.0-0.2) mg/dL Indirect Bilirubin (0.0-1.2) mg/dL AST (13-39) Units/L ALT (7-52) Units/L Alkaline Phosphatase (34-104) Units/L Troponin I (< 0.04) ng/mL Serum Total Protein (6.4-8.9) g/dL Albumin (3.5-5.7) g/dL Globulin (2.4-3.5) g/dL Albumin/Globulin Ratio (1.1-2.2) Amylase (29-103) Units/L Lipase (11-82) Units/L Urine Color Yellow (Yellow) Urine Clarity Cloudy A (Clear) Urine pH 5.5 (5.0-8.0) pH Units Ur Specific [place] 1.019 (1.010-1.025) Urine Protein >=300 H (Neg-Trace) mg/dL Urine Glucose (UA) 100 H (Normal) mg/dL Urine Ketones Negative (Negative) mg/dL Urine Blood Moderate H (Negative) Urine Nitrite Negative (Negative) Urine Bilirubin Negative (Negative) Urine Urobilinogen Normal (Normal) mg/dL Ur Leukocyte Esterase Negative (Negative) Urine Microscopic RBC 30-50 H (0-3) per hpf Urine Microscopic WBC 5-15 H (0-3) per hpf Ur Squamous Epith Cells Many H (None-Few) per lpf Urine Bacteria Few (None-Few) per hpf Hyaline Casts None Seen (None-Few) per lpf Ur Culture Indicated? NO (NO) - Radiology Data Radiology results reviewed: Yes I reviewed the patient's radiology results. - EKG Data EKG #1 EKG attestation: Yes I reviewed and interpreted this EKG. EKG #2 EKG attestation: Yes I reviewed and interpreted this EKG. S.B.AAshley. - S.B.A.RJose Situation: Demographics, MOA Background: Presenting Complaint, Relevant PMH, Meds, & Allergies Assessment: Vital Signs, Course and respsone to treatment, Exam Concerns, Patient/Family Expectation, Pertinant Lab Results, Outstanding Labs Recommendation: Barrier(s) to disposition, Recommendation based on pending studies, treatments, or consults S.B.A.RJose Report Given to: Dr. Hooker [email or web address] Repor Time: 20:56 Attestation Statement - Attestation Attestation: I, Justin Gamez DO, examined this patient [id number] and my medical decision-making was reviewed with Carlton Casillas PGY-1, Resident Physician. I agree with the documented findings, disposition and treatment plan as described except to the extent set forth below. Please see my progress notes for details.
[2017-12-19 19:58] LABS: Basophils % 0.4 %; Eosinophils # 0.1 K/mcL (0.0-0.6); Eosinophils % 0.7 %; Hematocrit 29.6 % (35.3-44.9); Hemoglobin 9.4 g/dL (11.5-15.4); Immature Granulocytes % 0.6 % (0-4); Lymphocytes # 0.9 K/mcL (0.6-4.6); Mean Corpuscular HGB Conc 31.8 g/dL (31.6-35.5); Mean Corpuscular Hemoglobin 27.7 pg (28.0-33.3); Mean Corpuscular Volume 87.3 fL (83.0-100.0); Mean Platelet Volume 13.1 fL (9.4-12.4); Monocytes # 0.4 K/mcL (0.0-1.3); Monocytes % 4.3 %; Neutrophils # 6.7 K/mcL (1.6-8.9); Nucleated Red Blood Cells 0.2 /100 WBC (0); Platelet Count 156 K/mcL (140-400); Red Blood Count 3.39 M/mcL (3.82-4.97); Red Cell Distribution Width 14.5 % (11.5-14.5)
[2017-12-19 20:07] LABS: Prothrombin Time 10.6 Seconds (9.4-12.1)
[2017-12-19 20:20] LABS: Troponin I 0.03 ng/mL (< 0.04)
[2017-12-19 20:21] LABS: Albumin 3.5 g/dL (3.5-5.7); Albumin/Globulin Ratio 1.2 (1.1-2.2); Bilirubin,Direct 0.1 mg/dL (0.0-0.2); Bilirubin,Indirect 0.5 mg/dL (0.0-1.2); Bilirubin,Total 0.6 mg/dL (0.3-1.0); Globulin 2.9 g/dL (2.4-3.5); Potassium 4.7 mEq/L (3.5-5.1); Total Protein 6.4 g/dL (6.4-8.9)
[2017-12-19 20:28] LABS: Activated Partial Thrombo Time 19.8 Seconds (26.0-36.0)
--- NOTE | 2017-12-19 20:32 | Emergency Department Note ---
Disposition Clinical Impression: Nausea & vomiting, Right flank pain, Pre-syncope, History of right common carotid artery stent placement Disposition: Still a Patient Condition: Good Referrals: Khadar Yeager, WATER SOFTENER SERVICER [Primary Care Provider] - Forms: ED Satisfaction Letter Time of Disposition: 21:16 General Adult HPI - General Chief complaint: ED Dizziness Stated complaint: "n/v,R flank pain,dizzy" Time Seen by Provider: 12/19/17 19:05 Source: patient Limitations: no limitations - History of Present Illness Pain Scale: 8 - Related Data Home Medications Medication Instructions Recorded Confirmed Fish Oil/Dha/Epa [Fish Oil 1,200 1,200 mg PO DAILY 07/05/16 05/28/17 mg Fish Oil] Metoprolol [Lopressor] 100 mg PO BID 07/05/16 05/28/17 Omeprazole [PriLOSEC] 40 mg PO DAILY 07/05/16 05/28/17 Aspirin [Lo-Dose Aspirin EC] 81 mg PO DAILY 04/03/17 05/28/17 Cholecalciferol (D-3) [Vitamin D] 5,000 unit PO DAILY 04/03/17 05/28/17 glipiZIDE [Glipizide ER] 10 mg PO DAILY 04/03/17 05/28/17 Atorvastatin [Lipitor] 40 mg PO HS 05/28/17 05/28/17 Previous Rx's Medication Instructions Recorded Furosemide [Lasix] 40 mg PO DAILY #30 tab 06/02/17 Insulin ASPART [NovoLOG] 14 unit SQ TIDAC #10 vial 06/02/17 Insulin Glargine [Lantus] 65 unit SQ Q12H #13 vial 06/02/17 NIFEdipine XL (24 HR) [Procardia 60 mg PO DAILY #30 tab.er.24 06/02/17 XL] cloNIDine HCl [CloNIDine HCl] 0.3 mg PO TID #90 tablet 06/02/17 Allergies Allergy/AdvReac Type Severity Reaction Status Date / Time No Known Allergies Allergy Verified 05/22/17 07:28 Past Medical History - Past Medical History Medical history: Reports: arthritis, diabetes, hyperlipidemia, hypertension, renal disease Surgical history: Reports: , cholecystectomy, herniorrhaphy, hysterectomy, orthopedic, other, other (PD catheter) Psychiatric history: Reports: no psych history 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 - Social History Smoking Status: Never smoker Smokeless Tobacco Status: No Alcohol use: Reports: none Drug use: Reports: none Physical Exam - General Limitations: no limitations General appearance: alert Course Vital Signs Temperature 98.1 F 12/19/17 18:48 Pulse Rate 92 12/19/17 18:48 Respiratory Rate 14 12/19/17 18:48 Blood Pressure 171/71 12/19/17 18:48 O2 Sat by Pulse Oximetry 98 12/19/17 18:48 Temperature 98.1 F 12/19/17 18:48 Pulse Rate 92 12/19/17 18:48 Respiratory Rate 14 12/19/17 18:48 Blood Pressure 171/71 12/19/17 18:48 O2 Sat by Pulse Oximetry 98 12/19/17 18:48 Oxygen Delivery Oxygen Delivery Room Air Medical Decision Making - Lab Data Result diagrams: 12/19/17 19:44 12/19/17 19:44 Lab Results 12/19/17 12/19/17 12/19/17 Range/Units 19:43 19:44 19:44 WBC 8.1 (4.3-11.1) K/mcL RBC 3.39 L (3.82-4.97) M/mcL Hgb 9.4 L (11.5-15.4) g/dL Hct 29.6 L (35.3-44.9) % MCV 87.3 (83.0-100.0) fL MCH 27.7 L (28.0-33.3) pg MCHC 31.8 (31.6-35.5) g/dL RDW 14.5 (11.5-14.5) % Plt Count 156 (140-400) K/mcL MPV 13.1 H (9.4-12.4) fL Immature Gran % 0.6 (0-4) % Seg Neutrophils % 83.0 % Lymphocytes % 11.0 % Monocytes % 4.3 % Eosinophils % 0.7 % Basophils % 0.4 % Neutrophils # 6.7 (1.6-8.9) K/mcL Lymphocytes # 0.9 (0.6-4.6) K/mcL Monocytes # 0.4 (0.0-1.3) K/mcL Eosinophils # 0.1 (0.0-0.6) K/mcL Basophils # 0.0 (0.0-0.2) K/mcL Nucleated RBCs/100 WBC 0.2 H (0) /100 WBC PT 10.6 (9.4-12.1) Seconds INR 1.0 APTT 19.8 L (26.0-36.0) Seconds Sodium 136 (136-145) mEq/L Potassium 4.7 (3.5-5.1) mEq/L Chloride 100 (98-107) mEq/L Carbon Dioxide 24 (23-29) mEq/L BUN 44 H (8-23) mg/dL Creatinine 3.79 H (0.60-1.20) mg/dL Est GFR ( Amer) 15 L (> 60) Est GFR (Non-Af Amer) 12 L (> 60) BUN/Creatinine Ratio 12 (6-26) Glucose 204 H (70-105) mg/dL Calculated Osmolality 299 (280-300) Calcium 9.0 (8.6-10.3) mg/dL Total Bilirubin 0.6 (0.3-1.0) mg/dL Direct Bilirubin 0.1 (0.0-0.2) mg/dL Indirect Bilirubin 0.5 (0.0-1.2) mg/dL AST 18 (13-39) Units/L ALT 13 (7-52) Units/L Alkaline Phosphatase 154 H (34-104) Units/L Troponin I 0.03 (< 0.04) ng/mL Serum Total Protein 6.4 (6.4-8.9) g/dL Albumin 3.5 (3.5-5.7) g/dL Globulin 2.9 (2.4-3.5) g/dL Albumin/Globulin Ratio 1.2 (1.1-2.2) Amylase 23 L (29-103) Units/L Lipase 9 L (11-82) Units/L Urine Color (Yellow) Urine Clarity (Clear) Urine pH (5.0-8.0) pH Units Ur Specific [place] (1.010-1.025) Urine Protein (Neg-Trace) mg/dL Urine Glucose (UA) (Normal) mg/dL Urine Ketones (Negative) mg/dL Urine Blood (Negative) Urine Nitrite (Negative) Urine Bilirubin (Negative) Urine Urobilinogen (Normal) mg/dL Ur Leukocyte Esterase (Negative) Urine Microscopic RBC (0-3) per hpf Urine Microscopic WBC (0-3) per hpf Ur Squamous Epith Cells (None-Few) per lpf Urine Bacteria (None-Few) per hpf Hyaline Casts (None-Few) per lpf Ur Culture Indicated? (NO) 12/19/17 Range/Units 20:25 WBC (4.3-11.1) K/mcL RBC (3.82-4.97) M/mcL Hgb (11.5-15.4) g/dL Hct (35.3-44.9) % MCV (83.0-100.0) fL MCH (28.0-33.3) pg MCHC (31.6-35.5) g/dL RDW (11.5-14.5) % Plt Count (140-400) K/mcL MPV (9.4-12.4) fL Immature Gran % (0-4) % Seg Neutrophils % % Lymphocytes % % Monocytes % % Eosinophils % % Basophils % % Neutrophils # (1.6-8.9) K/mcL Lymphocytes # (0.6-4.6) K/mcL Monocytes # (0.0-1.3) K/mcL Eosinophils # (0.0-0.6) K/mcL Basophils # (0.0-0.2) K/mcL Nucleated RBCs/100 WBC (0) /100 WBC PT (9.4-12.1) Seconds INR APTT (26.0-36.0) Seconds Sodium (136-145) mEq/L Potassium (3.5-5.1) mEq/L Chloride (98-107) mEq/L Carbon Dioxide (23-29) mEq/L BUN (8-23) mg/dL Creatinine (0.60-1.20) mg/dL Est GFR ( Amer) (> 60) Est GFR (Non-Af Amer) (> 60) BUN/Creatinine Ratio (6-26) Glucose (70-105) mg/dL Calculated Osmolality (280-300) Calcium (8.6-10.3) mg/dL Total Bilirubin (0.3-1.0) mg/dL Direct Bilirubin (0.0-0.2) mg/dL Indirect Bilirubin (0.0-1.2) mg/dL AST (13-39) Units/L ALT (7-52) Units/L Alkaline Phosphatase (34-104) Units/L Troponin I (< 0.04) ng/mL Serum Total Protein (6.4-8.9) g/dL Albumin (3.5-5.7) g/dL Globulin (2.4-3.5) g/dL Albumin/Globulin Ratio (1.1-2.2) Amylase (29-103) Units/L Lipase (11-82) Units/L Urine Color Yellow (Yellow) Urine Clarity Cloudy A (Clear) Urine pH 5.5 (5.0-8.0) pH Units Ur Specific [place] 1.019 (1.010-1.025) Urine Protein >=300 H (Neg-Trace) mg/dL Urine Glucose (UA) 100 H (Normal) mg/dL Urine Ketones Negative (Negative) mg/dL Urine Blood Moderate H (Negative) Urine Nitrite Negative (Negative) Urine Bilirubin Negative (Negative) Urine Urobilinogen Normal (Normal) mg/dL Ur Leukocyte Esterase Negative (Negative) Urine Microscopic RBC 30-50 H (0-3) per hpf Urine Microscopic WBC 5-15 H (0-3) per hpf Ur Squamous Epith Cells Many H (None-Few) per lpf Urine Bacteria Few (None-Few) per hpf Hyaline Casts None Seen (None-Few) per lpf Ur Culture Indicated? NO (NO) Attestation Statement - Attestation Attestation: I, Justin Gamez DO, examined this patient [id number] and my medical decision-making was reviewed with Carlton Casillas PGY-1, Resident Physician. I agree with the documented findings, disposition and treatment plan as described except to the extent set forth below. Please see my progress notes for details. 62-year-old female presents to the emergency room with complaint of intermittent dizziness, nausea vomiting, right-sided flank pain. Pain is worse in her lower part of her back. She does not have any CVA tenderness or issues this time. She denies any chest pain shortness of breath headache vision changes fevers or chills or diarrhea. Patient does have peritoneal dialysis. She denies any cardiac history at this point. Detailed review of the presentation symptoms were discussed. Approximately 3 weeks ago the patient had a carotid stent placed secondary to carotid artery stenosis. Since that started been placed she said persistent dizziness that is worse when she gets up and moves around. Patient has a symptoms worse when she goes into the shower gets flushed or warm. Patient denies any trauma or injury. Denies any medication changes or issues at this point. She is under the care of Dr. Agrawal for her renal insufficiency at this time. Patient is concerning for near syncopal events considering she describes symptoms at home as well as she almost passes [place] lightheaded and feels like she is going to fall down.. All these issues been going on since she had the stent placed at the outside facility. EKG was collected initially and does show chronic morphology this possibility of 1 mm of elevation in lead 3. She does have chronic T-wave inversions in 1 and aVL. Information was passed onto the on-call global safety officer Dr. José Miguel Christy for his review and interpretation. He agrees that is concerning recommended repeat EKG and serial troponins. Patient does not have any active chest pain at this time. Patient denied any cardiac-like symptoms. Concern is noted secondary to her morbid obesity peritoneal dialysis and other medical issues. Patient will require further workup and evaluation here including CT the head CT abdomen and screening labs. Disposition pending the full workup and treatment course. Repeat EKG order this time. Patient will most likely require admission secondary to near syncopal event with the most recent carotid stenting being completed less than 1 month ago and the symptoms being present since then. See detailed documentation of the physical exam, medical intervention, medical decision-making and disposition in the resident physician's note. No critical care part of the patient's treatment course at this time. 2014 Repeat EKG shows no acute changes this time. Patient will be medically managed at this point for other symptoms. Troponin was negative. Labs are at baseline. CT imaging of the head and abdomen are pending at this point. Patient will most likely need admission for near syncopal evaluation and further treatment course and evaluation of the carotid related issues. Patient will be signed out to the nighttime physicians Dr. Hooker for the completion of the care. Patient otherwise is resting comfortably in the bed. Disposition pending evaluation. Patient has what appears to be neoplasm versus infarct versus fatty infiltrated liver. Patient will be admitted for the near syncopal events at 9 have the recommended MRI of the liver during this treatment course and evaluation. Patient was signed out to the nighttime physicians will complete admission process at this time.
[2017-12-19 20:33] LABS: Bilirubin,Urine Negative (Negative); Blood,Urine Moderate (Negative); Clarity,Urine Cloudy (Clear); Color,Urine Yellow (Yellow); Glucose,Urine (UA) 100 mg/dL (Normal); Ketones,Urine Negative (Negative); Leukocyte Esterase,Urine Negative (Negative); Nitrite,Urine Negative (Negative); PH,Urine 5.5 pH Units (5.0-8.0); Protein,Urine >=300 mg/dL (Neg-Trace); Specific Gravity,Urine 1.019 (1.010-1.025); Urobilinogen,Urine Normal (Normal)
[2017-12-19 20:35] LABS: Bacteria,Urine Few per hpf (None-Few); Hyaline Casts,Urine None Seen per lpf (None-Few); RBC,Urine 30-50 per hpf (0-3); Squamous Epithelial Cell,Urine Many per lpf (None-Few)
[2017-12-19] MEDS: 0.9 % Sodium Chloride 1,000 ML IVC SCH (20:57)
--- NOTE | 2017-12-19 21:12 | Emergency Department Note ---
Disposition Clinical Impression: Right flank pain, Pre-syncope, History of right common carotid artery stent placement Nausea & vomiting Qualifiers: Vomiting type: unspecified Vomiting Intractability: non-intractable Qualified Code(s): R11.2 - Nausea with vomiting, unspecified Disposition: Still a Patient Condition: Good Referrals: Khadar Yeager CNP [Primary Care Provider] - Forms: ED Satisfaction Letter General Adult HPI - General Chief complaint: ED Dizziness Stated complaint: "n/v,R flank pain,dizzy" Time Seen by Provider: 12/19/17 19:05 Source: patient Limitations: no limitations - History of Present Illness Pain Scale: 8 - Related Data Home Medications Medication Instructions Recorded Confirmed Fish Oil/Dha/Epa [Fish Oil 1,200 1,200 mg PO DAILY 07/05/16 05/28/17 mg Fish Oil] Metoprolol [Lopressor] 100 mg PO BID 07/05/16 05/28/17 Omeprazole [PriLOSEC] 40 mg PO DAILY 07/05/16 05/28/17 Aspirin [Lo-Dose Aspirin EC] 81 mg PO DAILY 04/03/17 05/28/17 Cholecalciferol (D-3) [Vitamin D] 5,000 unit PO DAILY 04/03/17 05/28/17 glipiZIDE [Glipizide ER] 10 mg PO DAILY 04/03/17 05/28/17 Atorvastatin [Lipitor] 40 mg PO HS 05/28/17 05/28/17 Previous Rx's Medication Instructions Recorded Furosemide [Lasix] 40 mg PO DAILY #30 tab 06/02/17 Insulin ASPART [NovoLOG] 14 unit SQ TIDAC #10 vial 06/02/17 Insulin Glargine [Lantus] 65 unit SQ Q12H #13 vial 06/02/17 NIFEdipine XL (24 HR) [Procardia 60 mg PO DAILY #30 tab.er.24 06/02/17 XL] cloNIDine HCl [CloNIDine HCl] 0.3 mg PO TID #90 tablet 06/02/17 Allergies Allergy/AdvReac Type Severity Reaction Status Date / Time No Known Allergies Allergy Verified 05/22/17 07:28 Past Medical History - Past Medical History Medical history: Reports: arthritis, diabetes, hyperlipidemia, hypertension, renal disease Surgical history: Reports: , cholecystectomy, herniorrhaphy, hysterectomy, orthopedic, other, other (PD catheter) Psychiatric history: Reports: no psych history COAGULATOR history: Reports: other - Social History Smoking Status: Never smoker Smokeless Tobacco Status: No Alcohol use: Reports: none Drug use: Reports: none Physical Exam - General Limitations: no limitations General appearance: alert Course Vital Signs Temperature 98.1 F 12/19/17 18:48 Pulse Rate 92 12/19/17 18:48 Respiratory Rate 14 12/19/17 18:48 Blood Pressure 171/71 12/19/17 18:48 O2 Sat by Pulse Oximetry 98 12/19/17 18:48 Temperature 98.1 F 12/19/17 18:48 Pulse Rate 92 12/19/17 18:48 Respiratory Rate 14 12/19/17 18:48 Blood Pressure 171/71 12/19/17 18:48 O2 Sat by Pulse Oximetry 98 12/19/17 18:48 Oxygen Delivery Oxygen Delivery Room Air Medical Decision Making - Lab Data Result diagrams: 12/19/17 19:44 12/19/17 19:44 Lab Results 12/19/17 12/19/17 12/19/17 Range/Units 19:43 19:44 19:44 WBC 8.1 (4.3-11.1) K/mcL RBC 3.39 L (3.82-4.97) M/mcL Hgb 9.4 L (11.5-15.4) g/dL Hct 29.6 L (35.3-44.9) % MCV 87.3 (83.0-100.0) fL MCH 27.7 L (28.0-33.3) pg MCHC 31.8 (31.6-35.5) g/dL RDW 14.5 (11.5-14.5) % Plt Count 156 (140-400) K/mcL MPV 13.1 H (9.4-12.4) fL Immature Gran % 0.6 (0-4) % Seg Neutrophils % 83.0 % Lymphocytes % 11.0 % Monocytes % 4.3 % Eosinophils % 0.7 % Basophils % 0.4 % Neutrophils # 6.7 (1.6-8.9) K/mcL Lymphocytes # 0.9 (0.6-4.6) K/mcL Monocytes # 0.4 (0.0-1.3) K/mcL Eosinophils # 0.1 (0.0-0.6) K/mcL Basophils # 0.0 (0.0-0.2) K/mcL Nucleated RBCs/100 WBC 0.2 H (0) /100 WBC PT 10.6 (9.4-12.1) Seconds INR 1.0 APTT 19.8 L (26.0-36.0) Seconds Sodium 136 (136-145) mEq/L Potassium 4.7 (3.5-5.1) mEq/L Chloride 100 (98-107) mEq/L Carbon Dioxide 24 (23-29) mEq/L BUN 44 H (8-23) mg/dL Creatinine 3.79 H (0.60-1.20) mg/dL Est GFR ( Amer) 15 L (> 60) Est GFR (Non-Af Amer) 12 L (> 60) BUN/Creatinine Ratio 12 (6-26) Glucose 204 H (70-105) mg/dL Calculated Osmolality 299 (280-300) Calcium 9.0 (8.6-10.3) mg/dL Total Bilirubin 0.6 (0.3-1.0) mg/dL Direct Bilirubin 0.1 (0.0-0.2) mg/dL Indirect Bilirubin 0.5 (0.0-1.2) mg/dL AST 18 (13-39) Units/L ALT 13 (7-52) Units/L Alkaline Phosphatase 154 H (34-104) Units/L Troponin I 0.03 (< 0.04) ng/mL Serum Total Protein 6.4 (6.4-8.9) g/dL Albumin 3.5 (3.5-5.7) g/dL Globulin 2.9 (2.4-3.5) g/dL Albumin/Globulin Ratio 1.2 (1.1-2.2) Amylase 23 L (29-103) Units/L Lipase 9 L (11-82) Units/L Urine Color (Yellow) Urine Clarity (Clear) Urine pH (5.0-8.0) pH Units Ur Specific [place] (1.010-1.025) Urine Protein (Neg-Trace) mg/dL Urine Glucose (UA) (Normal) mg/dL Urine Ketones (Negative) mg/dL Urine Blood (Negative) Urine Nitrite (Negative) Urine Bilirubin (Negative) Urine Urobilinogen (Normal) mg/dL Ur Leukocyte Esterase (Negative) Urine Microscopic RBC (0-3) per hpf Urine Microscopic WBC (0-3) per hpf Ur Squamous Epith Cells (None-Few) per lpf Urine Bacteria (None-Few) per hpf Hyaline Casts (None-Few) per lpf Ur Culture Indicated? (NO) 12/19/17 Range/Units 20:25 WBC (4.3-11.1) K/mcL RBC (3.82-4.97) M/mcL Hgb (11.5-15.4) g/dL Hct (35.3-44.9) % MCV (83.0-100.0) fL MCH (28.0-33.3) pg MCHC (31.6-35.5) g/dL RDW (11.5-14.5) % Plt Count (140-400) K/mcL MPV (9.4-12.4) fL Immature Gran % (0-4) % Seg Neutrophils % % Lymphocytes % % Monocytes % % Eosinophils % % Basophils % % Neutrophils # (1.6-8.9) K/mcL Lymphocytes # (0.6-4.6) K/mcL Monocytes # (0.0-1.3) K/mcL Eosinophils # (0.0-0.6) K/mcL Basophils # (0.0-0.2) K/mcL Nucleated RBCs/100 WBC (0) /100 WBC PT (9.4-12.1) Seconds INR APTT (26.0-36.0) Seconds Sodium (136-145) mEq/L Potassium (3.5-5.1) mEq/L Chloride (98-107) mEq/L Carbon Dioxide (23-29) mEq/L BUN (8-23) mg/dL Creatinine (0.60-1.20) mg/dL Est GFR ( Amer) (> 60) Est GFR (Non-Af Amer) (> 60) BUN/Creatinine Ratio (6-26) Glucose (70-105) mg/dL Calculated Osmolality (280-300) Calcium (8.6-10.3) mg/dL Total Bilirubin (0.3-1.0) mg/dL Direct Bilirubin (0.0-0.2) mg/dL Indirect Bilirubin (0.0-1.2) mg/dL AST (13-39) Units/L ALT (7-52) Units/L Alkaline Phosphatase (34-104) Units/L Troponin I (< 0.04) ng/mL Serum Total Protein (6.4-8.9) g/dL Albumin (3.5-5.7) g/dL Globulin (2.4-3.5) g/dL Albumin/Globulin Ratio (1.1-2.2) Amylase (29-103) Units/L Lipase (11-82) Units/L Urine Color Yellow (Yellow) Urine Clarity Cloudy A (Clear) Urine pH 5.5 (5.0-8.0) pH Units Ur Specific [place] 1.019 (1.010-1.025) Urine Protein >=300 H (Neg-Trace) mg/dL Urine Glucose (UA) 100 H (Normal) mg/dL Urine Ketones Negative (Negative) mg/dL Urine Blood Moderate H (Negative) Urine Nitrite Negative (Negative) Urine Bilirubin Negative (Negative) Urine Urobilinogen Normal (Normal) mg/dL Ur Leukocyte Esterase Negative (Negative) Urine Microscopic RBC 30-50 H (0-3) per hpf Urine Microscopic WBC 5-15 H (0-3) per hpf Ur Squamous Epith Cells Many H (None-Few) per lpf Urine Bacteria Few (None-Few) per hpf Hyaline Casts None Seen (None-Few) per lpf Ur Culture Indicated? NO (NO) Attestation Statement - Attestation Attestation: Care assumed from Dr. [email or web address] at 21:00 pending admission for recurrent near syncope and abnormal CT abd/pelvis showing acute liver findings. Awaiting hospitalist callback. Labs reviewed by me. Transcribed CT report reviewed by me. ECG reviewed by me. Patient in NAD on exam
[2017-12-20] MEDS ORDERED: Acetaminophen 325 MG TABLET PO PRN (01:08)
[2017-12-20] MEDS ORDERED: Naloxone 0.4 MG/ML INJ IVP PRN (01:08)
[2017-12-20] MEDS ORDERED: traMADol 50 MG TABLET PO PRN (01:08)
[2017-12-20] MEDS ORDERED: D5% in Water 1,000 ML IVC PRN (01:18)
[2017-12-20] MEDS ORDERED: *HR* Dextrose 50 % in Water (Syg) 50 ML SYRINGE IVP PRN (01:18)
[2017-12-20] MEDS ORDERED: Dextrose Gel 15 GM/37.5 ML TUBE PO PRN ×2 (01:18)
--- NOTE | 2017-12-20 01:20 | Internal Med History&Physical ---
Date of Encounter: 12/20/17 Time of Encounter: 00:45 Internal Medicine - H&P: HPI Chief complaint: Nausea, vomiting, right flank pain Admitted From: Emergency Dept Plans for Post Hospital Care: Home History of present illness: Ms. Salvador is a 62 year old female with h/o- ESRD, HTN, DM, morbid obesity, who presents with c/o- nausea and vomiting that started earlier this afternoon. She reports sudden onset of nausea, nonbloody emesis associated with right flank and side pain and intermittent RLQ abdominal cramping. No diarrhea, fever/ chills. No chest pain, dyspnea, palpations. No neurological symptoms. SHe reports burning micturition for the last week. Of note, she underwent left carotid stent placement 3 weeks ago and she has been having dizziness since then. SHe is on PD at home, cycles every night. Past Med Surg Social Fam HX - Past Medical History Source: patient Medical history: arthritis, diabetes, hyperlipidemia, hypertension, renal disease Psychiatric history: no psych history - Past Surgical History Surgical History: , cholecystectomy, herniorrhaphy, hysterectomy, orthopedic, other (ganglion cyst removal), other - Social History Smoking Status: Never smoker Smokeless Tobacco Status: No Alcohol use: none Drug use: none Current living situation: Home, With Family Activity Level: Independent ambulation Recent Out of Country Travel Within the Last 8 Weeks: No Exposure or Possible Exposure to Illness During Travel: No - Family History Father Family Member Ethnicity: Non- Living Status: Age at : 87 Cause of : kidney failure Hx Family Cardiac Disorders: Yes (CVA) Hx Family Respiratory Disorders: No Hx Family Cancer: Yes (Prostate) Hx Family GI Disorders: No Hx Family Genitourinary Disorders: Yes (CKF) Hx Family Endocrine Disorder: No Hx Family Musculoskeletal Disorders: No Hx Family Neuromuscular Disorders: No Hx Family Neurologic Disorders: No Hx Family HEENT Disorders: No Hx Family Autoimmune Disorders: No Hx Family Reproductive Disorders: No Hx Family Psychosocial Disorders: No Hx Family Medical Disorders: No Mother Family Member Ethnicity: Non- Living Status: Hx Family Cardiac Disorders: Yes (CVA) Hx Family Respiratory Disorders: No Hx Family Cancer: No Hx Family GI Disorders: No Hx Family Genitourinary Disorders: No Hx Family Endocrine Disorder: Yes (Thyroid) Hx Family Musculoskeletal Disorders: No Hx Family Neuromuscular Disorders: No Hx Family Neurologic Disorders: No Hx Family HEENT Disorders: No Hx Family Autoimmune Disorders: No Hx Family Reproductive Disorders: No Hx Family Psychosocial Disorders: No Hx Family Medical Disorders: No Internal Medicine - H&P: Meds Fish Oil/Dha/Epa [Fish Oil 1,200 mg Fish Oil] 1,200 mg PO DAILY 07/05/16 [ History] Metoprolol [Lopressor] 100 mg PO BID 07/05/16 [History] Omeprazole [PriLOSEC] 40 mg PO DAILY 07/05/16 [History] Aspirin [Lo-Dose Aspirin EC] 81 mg PO DAILY 04/03/17 [History] Cholecalciferol (D-3) [Vitamin D] 5,000 unit PO DAILY 04/03/17 [History] glipiZIDE [Glipizide ER] 10 mg PO DAILY 04/03/17 [History] Amitriptyline [Elavil] 25 mg PO HS 12/19/17 [History] Atorvastatin Calcium [Lipitor] 80 mg PO HS 12/19/17 [History] Clopidogrel [Plavix] 75 mg PO DAILY 12/19/17 [History] Furosemide [Lasix] 40 mg PO BID 12/19/17 [History] Insulin ASPART [NovoLOG] 20 unit SQ TIDAC PRN 12/19/17 [History] Insulin Glargine [Lantus] 100 unit SQ Q12H 12/19/17 [History] Magnesium Oxide [Magnesium] 400 mg PO BID 12/19/17 [History] 3 Allergy/AdvReac Type Severity Reaction Status Date / Time No Known Allergies Allergy Verified 05/22/17 07:28 All Systems PM: A 10-system review of systems was performed and is negative for pertinent findings except as documented above in the HPI. - Constitutional Constitutional: no chills, no fever(s), no night sweats - EENT Eyes: no change in vision, no discharge, no pain, no photophobia Ears: no ear discharge, no ear pain, no tinnitus Nose, mouth and throat: no dysphagia, no nasal discharge, no neck pain, no sore throat - Cardiovascular Cardiovascular ROS IM: lightheadedness, no chest pain, no diaphoresis, no dyspnea, no palpitations, no syncope - Respiratory Respiratory: no cough, no dyspnea, no wheezing, no excessive phlegm production - Gastrointestinal Gastrointestinal: abdominal pain, nausea, vomiting - Genitourinary Genitourinary: no change in urinary stream, no dysuria, no flank pain, no hematuria - Musculoskeletal Musculoskeletal ROS IM: no numbness, no tingling - Integumentary Integumentary IM: no rash, no unusual bruising - Neurological Neurological ROS: dizziness, no confusion, no convulsions, no focal weakness, no numbness, no tingling, no tremor(s) - Hematologic/Lymphatic Hematologic/Lymphatic: no easy bruising - Constitutional Vitals: Temp Pulse Resp BP Pulse Ox 98.4 F 84 20 174/80 98 12/19/17 23:55 12/20/17 00:05 12/19/17 23:55 12/20/17 00:11 12/19/17 23:55 General appearance: Present: A&O X 3, morbidly obese, answers questions appropriately - Respiratory Respiratory exam: Present: CTAB. Absent: accessory muscle use, rales, rhonchi, wheezes - Cardiovascular Cardiovascular exam: Present: RRR, +S1, +S2. Absent: diastolic murmur, gallop, rubs, systolic murmur - GI/Abdominal GI/Abdominal exam: Present: normal bowel sounds, soft (obese), no peritoneal signs. Absent: distended, tenderness - Extremities Exam Extremities exam: Present: full ROM, pedal edema (trace), warm, radial pulses palpable and symmetrical. Absent: calf tenderness, cyanotic - Neurological Exam Neurological exam: Present: CN II-XII intact, oriented X3, no focal deficits. Absent: pronater drift, facial droop, speech deficit - Skin Skin exam: Present: dry, intact Internal Med - H&P Results - Labs CBC & Chem 7: 12/20/17 03:09 12/20/17 03:09 - Assessment and plan (1) Abnormal EKG Current Visit: Yes Status: Acute Assessment and plan: EKGs noted to show normal sinus rhythm with repolarization abnormalities; ER concerned about ST elevation in single lead, d/w on-call Cardiology, who recommended Telemetry, repeat EKG and Troponin trending; (2) Nausea & vomiting Current Visit: Yes Status: Acute Assessment and plan: resolved. unclear etiology. Continue supportive care and PRN antiemetics. Qualifiers: Vomiting type: unspecified Vomiting Intractability: non-intractable Qualified Code(s): R11.2 - Nausea with vomiting, unspecified (3) Pre-syncope Current Visit: Yes Status: Acute Assessment and plan: since left carotid stent placement; will repeat Carotid U/S; patient also was positive for orthostasis despite very high supine BP; continue to monitor; (4) Anemia in CKD (chronic kidney disease) Current Visit: Yes Status: Chronic Qualifiers: Chronic kidney disease stage: on chronic dialysis Qualified Code(s): N18.6 - End stage renal disease; D63.1 - Anemia in chronic kidney disease; D63.1 - Anemia in chronic kidney disease; Z99.2 - Dependence on renal dialysis; Z99.2 - Dependence on renal dialysis; Z99.2 - Dependence on renal dialysis; Z99.2 - Dependence on renal dialysis (5) DM type 2 (diabetes mellitus, type 2) Current Visit: Yes Status: Chronic Assessment and plan: blood sugars noted to be uncontrolled; start Accucheck blood glucose monitoring with basal bolus insulin regimen. 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 clerk (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 of insulin; Z79.4 - USP (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; Z99.2 - Dependence on renal dialysis; Z99.2 - Dependence on renal dialysis; Z99.2 - Dependence on renal dialysis (6) ESRD (end stage renal disease) on dialysis Current Visit: Yes Status: Chronic Assessment and plan: patient is on PD; continue home regimen; (7) HLD (hyperlipidemia) Current Visit: Yes Status: Chronic Qualifiers: Hyperlipidemia type: unspecified Qualified Code(s): E78.5 - Hyperlipidemia , unspecified (8) HTN (hypertension) Current Visit: Yes Status: Chronic Assessment and plan: uncontrolled HTN; resume home meds with stat doses now; will use IV Hydralazine for appropriate BP control. Qualifiers: Hypertension type: essential hypertension Qualified Code(s): I10 - Essential (primary) hypertension (9) Morbid obesity with BMI of 50.0-59.9, adult Current Visit: Yes Status: Chronic - Time Spent With Patient Total time spent is greater than 50% in coordination of care (as documented) at patient's floor/unit and/or counseling patient:
[2017-12-20] MEDS: 0.9 % Sodium Chloride 1,000 ML IVC SCH ×2 (01:33→18:09)
[2017-12-20] MEDS: Metoprolol 100 MG TABLET PO SCH ×3 (01:33→20:45)
[2017-12-20 04:01] LABS: Basophils % 0.3 %; Eosinophils # 0.1 K/mcL (0.0-0.6); Hematocrit 26.2 % (35.3-44.9); Hemoglobin 8.2 g/dL (11.5-15.4); Immature Granulocytes % 0.5 % (0-4); Lymphocytes # 1.4 K/mcL (0.6-4.6); Mean Corpuscular HGB Conc 31.3 g/dL (31.6-35.5); Mean Corpuscular Hemoglobin 27.4 pg (28.0-33.3); Mean Corpuscular Volume 87.6 fL (83.0-100.0); Mean Platelet Volume 13.2 fL (9.4-12.4); Monocytes # 0.4 K/mcL (0.0-1.3); Monocytes % 6.8 %; Neutrophils # 4.2 K/mcL (1.6-8.9); Platelet Count 138 K/mcL (140-400); Red Blood Count 2.99 M/mcL (3.82-4.97); Red Cell Distribution Width 14.5 % (11.5-14.5); Segmented Neutrophils % 68.4 %
[2017-12-20 04:31] LABS: Calcium 8.5 mg/dL (8.6-10.3); Magnesium 1.6 mg/dL (1.6-2.6); Potassium 3.8 mEq/L (3.5-5.1)
[2017-12-20] MEDS: Insulin LISPRO 300 UNITS/3 ML VIAL SQ SCH ×3 (07:51→18:09)
[2017-12-20] MEDS: Insulin DETEMIR 100 UNIT/ML X5UNITS SQ SCH ×2 (07:51→20:50)
[2017-12-20] MEDS: Furosemide 20 MG TABLET PO SCH ×2 (07:55→18:09)
[2017-12-20] MEDS: Aspirin Enteric Coated 81 MG Tablet PO SCH (07:55)
[2017-12-20] MEDS: Magnesium Oxide 400 MG TABLET PO SCH ×2 (07:55→20:45)
[2017-12-20] MEDS: *HR* OxyCODONE Immed Rel 5 MG TABLET PO PRN ×2 (11:49→22:03)
--- NOTE | 2017-12-20 13:01 | Internal Med Progress Note ---
Date of Encounter: 12/20/17 Time of Encounter: 12:58 - Assessment and plan (1) Obstructive uropathy Current Visit: Yes Status: Acute Assessment and plan: Concern for obstructive uropathy although pyelonephritis is also in the differential Patient presents with right flank pain, nausea, vomiting. Flank pain persists, nausea and vomiting have subsided She is also found to be hypertensive. She remains afebrile and CBC did not find any leukocytosis. CT of A/P identified right perinephric and perirectal stranding as well as prominence of the right renal pelvis concerning for obstructive uropathy versus pyelonephritis Retroperitoneal ultrasound now; follow up on results Continue to manage pain with oxycodone and tramadol Continue IVF (2) Pre-syncope Current Visit: Yes Status: Acute Assessment and plan: Patient reports she has been having dizziness since left carotid stent placement 3 weeks ago at [facility] Repeat carotid ultrasound completed with preliminary finding plaque in the right carotid bifurcation\\left carotid ICA stent is patent, and bifurcation with elevated velocities CT of the head negative for acute intracranial abnormality patient also was positive for orthostasis despite very high supine BP continue to monitor (3) Nausea & vomiting Current Visit: Yes Status: Acute Assessment and plan: resolved, etiology unclear, Continue supportive care and PRN antiemetics. Qualifiers: Vomiting type: unspecified Vomiting Intractability: non-intractable Qualified Code(s): R11.2 - Nausea with vomiting, unspecified (4) HTN (hypertension) Current Visit: Yes Status: Chronic Assessment and plan: HTN remains uncontrolled; home anti-HTN medications have been resumed, Patient's clinical presentation is suspicious for obstructive uropathy which could explain the hypertension Hydralazine as needed for appropriate BP control Continue to monitor closely, at adjunct therapy as needed Qualifiers: Hypertension type: essential hypertension Qualified Code(s): I10 - Essential (primary) hypertension (5) HLD (hyperlipidemia) Current Visit: Yes Status: Chronic Qualifiers: Hyperlipidemia type: unspecified Qualified Code(s): E78.5 - Hyperlipidemia , unspecified (6) Morbid obesity with BMI of 50.0-59.9, adult Current Visit: Yes Status: Chronic (7) DM type 2 (diabetes mellitus, type 2) Current Visit: Yes Status: Chronic Assessment and plan: Basal insulin at home dose Sliding scale coverage added; consider increasing if blood glucose continues to be elevated Diabetic diet Qualifiers: Diabetes mellitus fpc insulin use: with fpc use Diabetes mellitus complication status: with kidney complications Diabetes mellitus complication detail: with chronic kidney disease Chronic kidney disease stage : on chronic dialysis Qualified Code(s): E11.22 - Type 2 diabetes mellitus with diabetic chronic kidney disease; N18.6 - End stage renal disease; Z99.2 - Dependence on renal dialysis; Z99.2 - Dependence on renal dialysis; Z99.2 - Dependence on renal dialysis; N18.6 - End stage renal disease; N18.6 - End stage renal disease; N18.6 - End stage renal disease; 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 Wil De La Torre has been consult and we will see patient this evening. Plan for PD per home regimen Continue to monitor renal function (9) Anemia in CKD (chronic kidney disease) Current Visit: Yes Status: Chronic Qualifiers: Chronic kidney disease stage: on chronic dialysis Qualified Code(s): N18.6 - End stage renal disease; D63.1 - Anemia in chronic kidney disease; D63.1 - Anemia in chronic kidney disease; Z99.2 - Dependence on renal dialysis; Z99.2 - Dependence on renal dialysis; Z99.2 - Dependence on renal dialysis; Z99.2 - Dependence on renal dialysis (10) Abnormal EKG Current Visit: Yes Status: Acute Assessment and plan: EKGs noted to show normal sinus rhythm with repolarization abnormalities; ER concerned about ST elevation in single lead, case has been D/W Cardiology, who recommended Telemetry, repeat EKG and Troponin trending Follow-up EKG unremarkable I suspect this is early repolarization Follow-up troponins negative less than 0.03 Patient denies any chest pain and remains hemodynamically stable - Time Spent With Patient Total time spent is greater than 50% in coordination of care (as documented) at patient's floor/unit and/or counseling patient: Greater than 35 minutes - Subjective Interval history: Ms. Salvador is a 62 year old female with h/o- ESRD, HTN, DM, morbid obesity, who presents with c/o- nausea and vomiting that started earlier this afternoon. She reports sudden onset of nausea, nonbloody emesis associated with right flank and side pain and intermittent RLQ abdominal cramping. Additionally noted to have hypertensive urgency. Nausea and vomiting was self limited and has subsided. He continues to endorse right flank pain. Hypertension has improved since arrival but is persistently high with an SBP in the 170s - Constitutional Vitals: Temp Pulse Resp BP Pulse Ox 97.9 F 73 14 186/75 99 12/20/17 11:04 12/20/17 11:04 12/20/17 11:04 12/20/17 11:04 12/20/17 11:04 General appearance: Present: A&O X 3, morbidly obese, answers questions appropriately - Head Head exam: Present: atraumatic, normocephalic - Eye Eye exam: Present: PERRL, conjuntiva pink, sclera anicteric Pupils: Present: PERRL - Neck Neck exam general surgery: Present: supple, trachea midline. Absent: lymphadenopathy - Respiratory Respiratory exam: Present: CTAB. Absent: accessory muscle use, rales, rhonchi, wheezes - Cardiovascular Cardiovascular exam: Present: RRR, +S1, +S2. Absent: diastolic murmur, gallop, rubs, systolic murmur - GI/Abdominal GI/Abdominal exam: Present: normal bowel sounds, soft, no peritoneal signs. Absent: distended, tenderness - Extremities Exam Extremities exam: Present: warm, radial pulses palpable and symmetrical. Absent : calf tenderness, cyanotic, pedal edema - Back Exam Back exam: Absent: CVA tenderness (L), CVA tenderness (R) - Neurological Exam Neurological exam: Present: CN II-XII intact, oriented X3, no focal deficits. Absent: pronater drift, facial droop, speech deficit - Skin Skin exam: Present: dry, intact Internal Medicine: Result - Labs CBC & Chem 7: 12/20/17 03:09 12/20/17 03:09 Labs: Short CBC 12/20/17 Range/Units 03:09 WBC 6.1 (4.3-11.1) K/mcL Hgb 8.2 L (11.5-15.4) g/dL Hct 26.2 L (35.3-44.9) % Plt Count 138 L (140-400) K/mcL Neutrophils # 4.2 (1.6-8.9) K/mcL BMP 12/20/17 03:09 Sodium 139 Potassium 3.8 Chloride 103 Carbon Dioxide 27 BUN 44 H Creatinine 3.63 H Glucose 58 L Calcium 8.5 L Cardiac Enzymes 12/20/17 12/20/17 Range/Units 03:09 06:55 Troponin I < 0.03 0.03 (< 0.04) ng/mL - ABG Interpretation ABG results: PT/INR, D-dimer PT 10.6 Seconds (9.4-12.1) 12/19/17 19:43 Consult Discharge Plan - Plan Referrals: Khadar Yeager, MIMI [Primary Care Provider] -
--- NOTE | 2017-12-20 18:27 | Nephrology Consult Note ---
Date of Encounter: 12/20/17 Time of Encounter: 17:45 Assessment and Plan (1) ESRD (end stage renal disease) on dialysis Status: Chronic ESRD on CCPD with nocturnal cycler, which I will renew tonight. Will now need to stop IVF since her edema is trending worse and she remains very hypertensive. Will screen PD fluid cell count, diff, culture. Labile hypertension. Pending records from [place] where she underwent a Carotid stent placement, though the right carotid stent was not successfully placed. Anemia of CKD and will cont CORIE while hospitalized for a goal Hgb of 10-11. I reviewed the home PD, BP, Wt logs that her brought. May need Neuro and / or Vascular surgery consults. Thank you for having consulted the [facility]. Will follow with you. (2) Labile hypertension Status: Chronic Will allow permissive hypertension until her frequent dizziness issues are solved. (3) Peritoneal dialysis catheter in place Status: Chronic Will screen PD fluid but very low odds of Peritonitis based upon exam and no history of fibrin or problems with her PD exchanges. Her keeps excellent notes, which I reviewed in detail. (4) Abnormal liver CT Status: Acute As per primary. Rec outpt follow up in 3-6 months. (5) History of right common carotid artery stent placement Status: Acute As per primary. see above (6) Nausea & vomiting Status: Resolved Qualifiers: Vomiting type: unspecified Vomiting Intractability: non-intractable Qualified Code(s): R11.2 - Nausea with vomiting, unspecified (7) Anemia in CKD (chronic kidney disease) Status: Chronic Goal Hgb is 10-11. She reported that she had just received IV iron the week prior when hospitalized at [place]. Will arrange for CORIE during this admission. Qualifiers: Chronic kidney disease stage: on chronic dialysis Qualified Code(s): N18.6 - End stage renal disease; D63.1 - Anemia in chronic kidney disease; D63.1 - Anemia in chronic kidney disease; Z99.2 - Dependence on renal dialysis; Z99.2 - Dependence on renal dialysis; Z99.2 - Dependence on renal dialysis; Z99.2 - Dependence on renal dialysis History of Present Illness - Reason for Consult Consult date: 12/20/17 end stage renal disease Requesting physician: Mariana Teague - Chief Complaint ESRD, Abd pain, dizziness - History of Present Illness Alyson Salvador is a very pleasant 62 y/o morbidly obese WF with a pmh of HTN, T2DM, ESRD on PD (I am her primary putty mixer and applier at [facility] in [place], [place]) and etc who presented with worsened dizziness symptoms soon after being released from [place]. He discharge summary and all med records from [place] have been requested but remain pending. She recently had carotid stents placed. She has been doing well with PD, her said, as he happen to have her home PD logs, that I reviewed. She did not affirm having recent abd pain, fibrin in the PD fluid effluent, bleeding or any problems with the PD catheter. She has had many of her BP meds decreased over the last few weeks to months d/t frequent dizziness, which eventually led to her carotid work up from [facility]. She did not affirm CP or N/V/D or confusion or any other uremic complaints. Her daughter works at [employer] and has asked me to help fill out paperwork for FMLA, which I agreed to help with. Past Med Surg Social Fam HX - Past Medical History Medical history: arthritis, diabetes, hyperlipidemia, hypertension, renal disease Psychiatric history: no psych history - Past Surgical History Surgical History: , cholecystectomy, herniorrhaphy, hysterectomy, orthopedic, other (ganglion cyst removal), other - Social History Smoking Status: Never smoker Smokeless Tobacco Status: No Alcohol use: none Drug use: none - Family History Father Family Member Ethnicity: Non- Living Status: Age at : 87 Cause of : kidney failure Hx Family Cardiac Disorders: Yes (CVA) Hx Family Respiratory Disorders: No Hx Family Cancer: Yes (Prostate) Hx Family GI Disorders: No Hx Family Genitourinary Disorders: Yes (CKF) Hx Family Endocrine Disorder: No Hx Family Musculoskeletal Disorders: No Hx Family Neuromuscular Disorders: No Hx Family Neurologic Disorders: No Hx Family HEENT Disorders: No Hx Family Autoimmune Disorders: No Hx Family Reproductive Disorders: No Hx Family Psychosocial Disorders: No Hx Family Medical Disorders: No Mother Family Member Ethnicity: Non- Living Status: Hx Family Cardiac Disorders: Yes (CVA) Hx Family Respiratory Disorders: No Hx Family Cancer: No Hx Family GI Disorders: No Hx Family Genitourinary Disorders: No Hx Family Endocrine Disorder: Yes (Thyroid) Hx Family Musculoskeletal Disorders: No Hx Family Neuromuscular Disorders: No Hx Family Neurologic Disorders: No Hx Family HEENT Disorders: No Hx Family Autoimmune Disorders: No Hx Family Reproductive Disorders: No Hx Family Psychosocial Disorders: No Hx Family Medical Disorders: No Medications and Allergies Fish Oil/Dha/Epa [Fish Oil 1,200 mg Fish Oil] 1,200 mg PO DAILY 07/05/16 [ History] Omeprazole [PriLOSEC] 40 mg PO DAILY 07/05/16 [History] Aspirin [Lo-Dose Aspirin EC] 81 mg PO DAILY 04/03/17 [History] Cholecalciferol (D-3) [Vitamin D] 5,000 unit PO DAILY 04/03/17 [History] glipiZIDE [Glipizide ER] 10 mg PO DAILY 04/03/17 [History] Atorvastatin Calcium [Lipitor] 80 mg PO HS 12/19/17 [History] Clopidogrel [Plavix] 75 mg PO DAILY 12/19/17 [History] Furosemide [Lasix] 40 mg PO BID 12/19/17 [History] Insulin ASPART [NovoLOG] 20 unit SQ TIDAC PRN 12/19/17 [History] Insulin Glargine [Lantus] 100 unit SQ Q12H 12/19/17 [History] Magnesium Oxide [Magnesium] 400 mg PO BID 12/19/17 [History] Lisinopril [Zestril] 10 mg PO DAILY 30 Days #30 tablet 12/21/17 [Rx] Meclizine [Antivert] 25 mg PO BID 7 Days #14 tablet 12/26/17 [Rx] Metoprolol [Lopressor] 25 mg PO BID 7 Days #14 tablet 12/26/17 [Rx] 3 Allergy/AdvReac Type Severity Reaction Status Date / Time No Known Allergies Allergy Verified 05/22/17 07:28 Review of Systems All Systems: reviewed and no additional remarkable complaints except as stated Exam - Vital Signs Vital signs: Initial Vital Signs Temp Pulse Resp BP Pulse Ox 98.1 F 92 14 171/71 98 12/19/17 18:48 12/19/17 18:48 12/19/17 18:48 12/19/17 18:48 12/19/17 18:48 Vital Signs - Last 8 Hours Temp Pulse Resp BP Pulse Ox 12/20/17 15:29 98.5 F 77 14 179/71 96 12/20/17 11:04 97.9 F 73 14 186/75 99 Intake and Output 12/20/17 12/20/17 12/20/17 07:59 15:59 23:59 Intake Total 1120 / 1120 Output Total 700 / 700 Balance 420 / 420 Intake: IV Fluids 1000 / 1000 0.9 % Sodium Chloride 1,000 ML 1000 / 1000 @ 100 mls/hr IVC .Q10H TIMBO Rx#: [id number] Oral 120 / 120 Output: Urine 700 / 700 Other: Weight 146.1 kg Blood Glucose* 57 149 119 Patient Weight 12/20/17 23:59 Weight 146.1 kg - General Appearance General appearance: well-developed, well-nourished, appears started age, obese, frail EENT: ATNC, PERRL, mucous membranes moist Neck: supple Respiratory: clear Cardiology: edema (nonpitting, nontense edema of the fingers and feet bilaterally), regular rate, regular rhythm, normal S1, normal S2 - Dialysis Access Additional Comments: PD catheter exit site was C/D/I and nontender to palpation. Gastrointestinal: normoactive bowel sounds, no tenderness, no guarding, no organomegaly Integumentary: warm and dry Neurologic: no asterixis, alert and oriented x3 Musculoskeletal: no erythema, no cyanosis, no clubbing Psychiatric: mood/affect appropriate, cooperative Results - Lab Results 12/21/17 00:22 12/21/17 00:22 Most recent lab results Calcium 8.5 mg/dL (8.6-10.3) L 12/20/17 03:09 Magnesium 1.6 mg/dL (1.6-2.6) 12/20/17 03:09 I reviewed the labs, med lists, vitals, progress notes at [facility]. Consult Discharge Plan - Plan Instructions: Lisinopril (By mouth), Dizziness (GEN) Referrals: Khadar Yeager, JUMP ROLL OPERATOR [Primary Care Provider] - (please call and make an appt with your PCP in 1 week.) Chase De La Torre DO [Partnered Physician] - (please follow up as scheduled on Saturday.) Prescriptions: Lisinopril [Zestril] 10 mg PO DAILY 30 Days #30 tablet
[2017-12-20] MEDS ORDERED: Insulin LISPRO 300 UNITS/3 ML VIAL SQ SCH (21:00)
[2017-12-20] MEDS ORDERED: Perit. Dialysis with Dex 1.5 % 12,000 ML PERITONEAL SCH (22:00)
[2017-12-20] MEDS ORDERED: Perit. Dialysis with Dex 1.5 % 2,000 ML PERITONEAL SCH ×2 (22:00)
[2017-12-21 01:46] LABS: Basophils % 0.6 %; Eosinophils # 0.1 K/mcL (0.0-0.6); Eosinophils % 1.9 %; Hematocrit 24.7 % (35.3-44.9); Hemoglobin 7.7 g/dL (11.5-15.4); Immature Granulocytes % 0.6 % (0-4); Lymphocytes # 1.1 K/mcL (0.6-4.6); Lymphocytes % 23.5 %; Mean Corpuscular HGB Conc 31.2 g/dL (31.6-35.5); Mean Corpuscular Hemoglobin 27.3 pg (28.0-33.3); Mean Corpuscular Volume 87.6 fL (83.0-100.0); Mean Platelet Volume 13.3 fL (9.4-12.4); Monocytes # 0.3 K/mcL (0.0-1.3); Monocytes % 6.6 %; Neutrophils # 3.1 K/mcL (1.6-8.9); Platelet Count 128 K/mcL (140-400); Red Blood Count 2.82 M/mcL (3.82-4.97); Red Cell Distribution Width 14.7 % (11.5-14.5); Segmented Neutrophils % 66.8 %
[2017-12-21 02:11] LABS: Albumin 3.1 g/dL (3.5-5.7); Phosphorous 4.2 mg/dL (2.7-4.5)
[2017-12-21 02:12] LABS: Calcium 8.5 mg/dL (8.6-10.3); Potassium 4.4 mEq/L (3.5-5.1)
[2017-12-21 02:19] LABS: Hepatitis B Surface Antigen Nonreactive (Nonreactive)
--- NOTE | 2017-12-21 06:22 | Electrocardiograph Report ---
[address] [place] [address] Test Date: 2017-12-19 Pat Name: Alyson Salvador Department: 104 Room: 3B Gender: F Buggy Runner: LAWSON : 1955 Requested By: Justin Gamez Order Number: [id number] Reading MD: Solomon Castillo Measurements Intervals [place] Rate: 87 P: 44 NE: 203 QRS: -8 QRSD: 92 T: 100 QT: 365 QTc: 409 Interpretive Statements SINUS RHYTHM LEFT VENTRICULAR HYPERTROPHY AND ST-T CHANGE Poor R wave progression INFERIOR MYOCARDIAL INFARCTION, OF INDETERMINATE AGE Electronically Signed On 12-21-2017 6:21:03 EDT by Solomon Castillo
--- NOTE | 2017-12-21 06:24 | Electrocardiograph Report ---
[address] [place] [address] Test Date: 2017-12-19 Pat Name: Alyson Salvador Department: 104 Room: 3B Gender: F Car Body Inspector: LAWSON : 1955 Requested By: Preston Casillas Order Number: [id number] Reading MD: Solomon Castillo Measurements Intervals [place] Rate: 91 P: 40 MD: 193 QRS: -11 QRSD: 96 T: 102 QT: 354 QTc: 403 Interpretive Statements SINUS RHYTHM LEFT VENTRICULAR HYPERTROPHY AND ST-T CHANGE POSSIBLE ANTERIOR MYOCARDIAL INFARCTION, OF INDETERMINATE AGE INFERIOR MYOCARDIAL INFARCTION, OF INDETERMINATE AGE Electronically Signed On 12-21-2017 6:23:09 EDT by Solomon Castillo
[2017-12-21] MEDS: Metoprolol 100 MG TABLET PO SCH (08:57)
[2017-12-21] MEDS: Furosemide 20 MG TABLET PO SCH (08:57)
[2017-12-21] MEDS: Magnesium Oxide 400 MG TABLET PO SCH (08:57)
[2017-12-21] MEDS: Aspirin Enteric Coated 81 MG Tablet PO SCH (08:57)
[2017-12-21] MEDS: Insulin LISPRO 300 UNITS/3 ML VIAL SQ SCH ×2 (08:58→12:31)
[2017-12-21] MEDS: Insulin DETEMIR 100 UNIT/ML X5UNITS SQ SCH (08:58)
[2017-12-21] MEDS: *HR* OxyCODONE Immed Rel 5 MG TABLET PO PRN (09:01)
[2017-12-21 11:50] VITALS: BP 110/69
--- NOTE | 2017-12-21 12:08 | Nephrology Progress Note ---
Date of Encounter: 12/21/17 Time of Encounter: 10:05 - Assessment and Plan (1) ESRD (end stage renal disease) on dialysis Status: Chronic No hydronephrosis or obstructive uropathy noted on the retroperitoneal U/S Carotid stenosis as per primary. Rec repeat CT abd without IV contrast vs MRI liver protocol in 3 months d/t the findings/reports in the CT as performed in the ER. Anemia of CKD; goal Hgb is 10-11. She is due for her CORIE dosing this month, which I'll provide with Procrit 4000 units x1 SQ. Doing well from a nephro persective. If she were to stay another night, then I would change her to manual exchanges, since the cycler did not work last night. Will follow with you. (2) Labile hypertension Status: Chronic See my consult note. (3) Peritoneal dialysis catheter in place Status: Chronic No findings of Peritonitis. See above (4) Abnormal liver CT Status: Acute See above (5) History of right common carotid artery stent placement Status: Acute As per primary. Consider Neuro and Vasc surgery consults. (6) Nausea & vomiting Status: Resolved Qualifiers: Vomiting type: unspecified Vomiting Intractability: non-intractable Qualified Code(s): R11.2 - Nausea with vomiting, unspecified (7) Anemia in CKD (chronic kidney disease) Status: Chronic See consult note. Qualifiers: Chronic kidney disease stage: on chronic dialysis Qualified Code(s): N18.6 - End stage renal disease; D63.1 - Anemia in chronic kidney disease; D63.1 - Anemia in chronic kidney disease; Z99.2 - Dependence on renal dialysis; Z99.2 - Dependence on renal dialysis; Z99.2 - Dependence on renal dialysis; Z99.2 - Dependence on renal dialysis Subjective Principal diagnosis: Dizziness, Recent Carotid procedure, ESRD on PD Interval history: Pt was s/e. Her was present. I helped fill out paperwork for his daughter's work notice. The pt did not affirm N/V/D but did report many cycler issues overnight. She did not affirm abd pain but is having constipation. Objective - Vital Signs Vital signs: Vital Signs Temp Pulse Resp BP Pulse Ox 12/21/17 11:49 98.2 F 83 18 110/69 96 12/21/17 06:52 98.5 F 81 18 160/70 96 12/21/17 04:32 130/78 12/21/17 03:14 98.4 F 86 16 178/70 94 12/21/17 00:56 189/68 12/20/17 23:45 98.5 F 97 16 137/87 91 12/20/17 18:34 98.1 F 86 15 176/76 98 12/20/17 15:29 98.5 F 77 14 179/71 96 Intake and Output 12/20/17 12/21/17 12/21/17 23:59 07:59 15:59 Intake Total 500 / 500 600 / 600 1060 / 1060 Output Total 350 / 350 Balance 150 / 150 600 / 600 1060 / 1060 Intake: Oral 500 / 500 600 / 600 1060 / 1060 Output: Urine 350 / 350 Other: Meal Breakfast Percent of Meal Consumed 100% Weight 146.1 kg 146.057 kg Blood Glucose* 151 240 Patient Weight 12/21/17 23:59 Weight 146.057 kg - General Appearance Exam: General appearance: well-developed, well-nourished, appears started age, obese, frail EENT: ATNC, PERRL, mucous membranes moist Neck: supple Respiratory: clear Cardiology: edema (nonpitting, nontense edema of the fingers and feet bilaterally), regular rate, regular rhythm, normal S1, normal S2 - Dialysis Access Additional Comments: PD catheter exit site was C/D/I and nontender to palpation. Gastrointestinal: normoactive bowel sounds, no tenderness, no guarding, no organomegaly Integumentary: warm and dry Neurologic: no asterixis, alert and oriented x3 Musculoskeletal: no erythema, no cyanosis, no clubbing Psychiatric: mood/affect appropriate, cooperative - Lab 12/21/17 00:22 12/21/17 00:22 Most recent lab results Calcium 8.5 mg/dL (8.6-10.3) L 12/21/17 00:22 Phosphorus 4.2 mg/dL (2.7-4.5) 12/21/17 00:22 Magnesium 1.6 mg/dL (1.6-2.6) 12/20/17 03:09 Consult Discharge Plan - Plan Instructions: Lisinopril (By mouth), Dizziness (GEN) Referrals: Khadar Yeager, WAREHOUSE STOCK CLERK [Primary Care Provider] - (please call and make an appt with your PCP in 1 week.) Chase De La Torre, [Partnered Physician] - (please follow up as scheduled on Saturday.) Prescriptions: Lisinopril [Zestril] 10 mg PO DAILY 30 Days #30 tablet
--- NOTE | 2017-12-21 12:47 | Discharge Summary ---
- NOTES TO OUTPATIENT PROVIDER Notes to Outpatient Provider: Patient with nausea vomiting and right flank pain. Workup ruled out obstructive uropathy. CT of abdomen and pelvis identified abnormalities of liver-low attenuation within the liver which could represent focal fatty infiltration however this is new compared to prior studies. Other etiologies include neoplasm or infarct cannot be excluded. A dedicated liver protocol follow-up in 3 months is recommended for further evaluation Orders not resulted at time of discharge: Pending orders 12/20/17 18:29 Culture,Body Fluid [RM] Routine 12/20/17 18:30 Cell Count w Diff, Body Fluid [BF] Routine 12/20/17 22:41 Hepatitis B Surface Antibody Stat Hepatitis B Surface Antigen Stat 12/22/17 04:00 BMP [Basic Metabolic Panel] AM 0400 Complete Blood Count [HEME] AM 0400 12/23/17 04:00 BMP [Basic Metabolic Panel] AM 0400 Complete Blood Count [HEME] AM 0400 Date of Encounter: 12/21/17 Time of Encounter: 12:45 - Discharge Diagnosis (1) Nausea & vomiting Priority: Primary Status: Resolved Assessment and Plan: resolved, Qualifiers: Vomiting type: unspecified Vomiting Intractability: non-intractable Qualified Code(s): R11.2 - Nausea with vomiting, unspecified (2) Pre-syncope Priority: Secondary Status: Resolved Assessment and Plan: Patient reports she has been having dizziness since left carotid stent placement 3 weeks ago at [facility] Repeat carotid ultrasound completed with preliminary finding plaque in the right carotid bifurcation\\left carotid ICA stent is patent, and bifurcation with elevated velocities CT of the head negative for acute intracranial abnormality patient also was positive for orthostasis despite very high supine BP Continues to have dizziness with activity however no presyncopal events. Patient was informed that it may be unsafe for discharge at this time due to continued dizziness with ambulation. However, she is adamant about discharge. She understands the risks and concerns conveyed to her would like to discharge today. She has been instructed to follow-up with her primary care provider within one week of discharge as well as follow-up with the surgeon who completed the carotid stent placement. Furthermore, she has been instructed to return to the ED should symptoms worsen or persist. (3) Obstructive uropathy Priority: Secondary Status: Acute Assessment and Plan: CT of A/P identified right perinephric and perirectal stranding as well as prominence of the right renal pelvis concerning for obstructive uropathy versus pyelonephritis Retroperitoneal ultrasound rules out obstructive uropathy (4) HTN (hypertension) Priority: Secondary Status: Chronic Assessment and Plan: HTN much better this morning. Continue anti-HTN medications at discharge Qualifiers: Hypertension type: essential hypertension Qualified Code(s): I10 - Essential (primary) hypertension (5) HLD (hyperlipidemia) Priority: Secondary Status: Chronic Qualifiers: Hyperlipidemia type: unspecified Qualified Code(s): E78.5 - Hyperlipidemia , unspecified (6) Morbid obesity with BMI of 50.0-59.9, adult Priority: Secondary Status: Chronic (7) DM type 2 (diabetes mellitus, type 2) Priority: Secondary Status: Chronic Assessment and Plan: Resume home insulin Qualifiers: Diabetes mellitus director long term care insulin use: with nursing home use Diabetes mellitus complication status: with kidney complications Diabetes mellitus complication detail: with chronic kidney disease Chronic kidney disease stage : on chronic dialysis Qualified Code(s): E11.22 - Type 2 diabetes mellitus with diabetic chronic kidney disease; N18.6 - End stage renal disease; Z99.2 - Dependence on renal dialysis; Z99.2 - Dependence on renal dialysis; Z99.2 - Dependence on renal dialysis; N18.6 - End stage renal disease; N18.6 - End stage renal disease; N18.6 - End stage renal disease; Z79.4 - termite treater helper (current ) use of insulin; Z79.4 - [facility] (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 of insulin; Z79.4 - [facility] (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 of insulin; Z79.4 - termite treater helper (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 (8) ESRD (end stage renal disease) on dialysis Priority: Secondary Status: Chronic Assessment and Plan: ESRD, follows with Dr. De La Torre Patient has an appointment with Dr. De La Torre on this coming Saturday Per neurology's notes; stable from a neurology perspective (9) Anemia in CKD (chronic kidney disease) Priority: Secondary Status: Chronic Assessment and Plan: Anemia of CKD with a goal hemoglobin of 10-11. Nephrology following; patient due for CORIE; Dr. De La Torre has ordered a dose of Procrit today prior to discharge Qualifiers: Chronic kidney disease stage: on chronic dialysis Qualified Code(s): N18.6 - End stage renal disease; D63.1 - Anemia in chronic kidney disease; D63.1 - Anemia in chronic kidney disease; Z99.2 - Dependence on renal dialysis; Z99.2 - Dependence on renal dialysis; Z99.2 - Dependence on renal dialysis; Z99.2 - Dependence on renal dialysis (10) Abnormal EKG Priority: Secondary Status: Resolved Hospital course: Ms. Salvador is a 62 year old female please see assessment and plan for hospital course Discharge discussed with: patient, family, nurse, otm consultant - Time Spent with Patient Total time spent providing and/or coordinating discharge services: Greater than 30 minutes - Discharge Medications Prescriptions: Lisinopril [Zestril] 10 mg PO DAILY 30 Days #30 tablet Home Medications: Fish Oil/Dha/Epa [Fish Oil 1,200 mg Fish Oil] 1,200 mg PO DAILY 07/05/16 [ History] Metoprolol [Lopressor] 100 mg PO BID 07/05/16 [History] Omeprazole [PriLOSEC] 40 mg PO DAILY 07/05/16 [History] Aspirin [Lo-Dose Aspirin EC] 81 mg PO DAILY 04/03/17 [History] Cholecalciferol (D-3) [Vitamin D] 5,000 unit PO DAILY 04/03/17 [History] glipiZIDE [Glipizide ER] 10 mg PO DAILY 04/03/17 [History] Amitriptyline [Elavil] 25 mg PO HS 12/19/17 [History] Atorvastatin Calcium [Lipitor] 80 mg PO HS 12/19/17 [History] Clopidogrel [Plavix] 75 mg PO DAILY 12/19/17 [History] Furosemide [Lasix] 40 mg PO BID 12/19/17 [History] Insulin ASPART [NovoLOG] 20 unit SQ TIDAC PRN 12/19/17 [History] Insulin Glargine [Lantus] 100 unit SQ Q12H 12/19/17 [History] Magnesium Oxide [Magnesium] 400 mg PO BID 12/19/17 [History] Lisinopril [Zestril] 10 mg PO DAILY 30 Days #30 tablet 12/21/17 [Rx] Allergies/Adverse Reactions: 3 Allergy/AdvReac Type Severity Reaction Status Date / Time No Known Allergies Allergy Verified 05/22/17 07:28 Date of admission: 12/19/17 22:37 Primary care physician: Khadar Yeager CNP Consults: 12/20/17 09:18 Consult to Occupational Therapy [CONS] Routine Comment: Evaluate, develop and implement POC Reason for Consult: D/C PLANNING Does patient have active BEDREST order?: No Is patient medically & hemodynamically stable?: Yes Consult to Physical Therapy [CONS] Routine Comment: Evaluate, develop and implement POC Reason for Consult: D/C PLANNING Does patient have active BEDREST order?: No Is patient medically & hemodynamically stable?: Yes 12/20/17 12:37 Consult to Nephrology [CONS] Routine Consulting Provider: Kidney Carmen/CRYSTAL/GONSALO/RONAL Reason for Consult: Dr. grant patient. Requires nightly peritoneal dialysis. Time Notified: 12:37 Call Completed: Yes 12/20/17 18:30 Consult to Dialysis [CONS] ONCE 12/20/17 20:30 Consult to Dialysis [CONS] ONCE 12/20/17 22:00 Consult to Dialysis [CONS] ONCE Discharging clinician: Julian Stearns Anticipated date of discharge: 12/21/17 - Constitutional Vitals: Temp Pulse Resp BP Pulse Ox 98.2 F 83 18 110/69 96 12/21/17 11:49 12/21/17 11:49 12/21/17 11:49 12/21/17 11:49 12/21/17 11:49 General appearance: Present: A&O X 3, morbidly obese, answers questions appropriately - Head Head exam: Present: atraumatic, normocephalic - Eye Eye exam: Present: PERRL, conjuntiva pink, sclera anicteric Pupils: Present: PERRL - Neck Neck exam general surgery: Present: supple, trachea midline. Absent: lymphadenopathy - Respiratory Respiratory exam: Present: CTAB. Absent: accessory muscle use, rales, rhonchi, wheezes - Cardiovascular Cardiovascular exam: Present: RRR, +S1, +S2. Absent: diastolic murmur, gallop, rubs, systolic murmur - GI/Abdominal GI/Abdominal exam: Present: normal bowel sounds, soft, no peritoneal signs. Absent: distended, tenderness - Extremities Exam Extremities exam: Present: warm, radial pulses palpable and symmetrical. Absent : calf tenderness, cyanotic, pedal edema - Neurological Exam Neurological exam: Present: CN II-XII intact, oriented X3, no focal deficits. Absent: pronater drift, facial droop, speech deficit - Skin Skin exam: Present: dry, intact - Patient Status Disposition: Home, Self-Care Condition: Good Overall status at discharge: patient is progressing back to baseline - Discharge Instructions Follow Up With: Khadar Yeager, HUMAN RESOURCE STATISTICIAN [Primary Care Provider] - - Diet and Activity Activity: as per physical therapy Diet: advance to your usual diet
[2017-12-21] MEDS ORDERED: Perit. Dialysis with Dex 1.5 % 2,000 ML PERITONEAL SCH (14:00)
[2017-12-21 15:06] LABS: Source of Body Fluid Peritoneal
[2017-12-21 16:41] LABS: Appearance of Body Fluid Clear (Clear)
== END 2017-12-21 13:50 | disposition home or self-care (01) ==
LOC: EMEROO 18:46 → 3BNU 18:46
PROVIDERS: ADMIT Internal Medicine; ATTEND Internal Medicine

== ENCOUNTER 2017-12-21 14:04 | Observation (INO) ==
--- NOTE | 2017-12-21 14:29 | Emergency Department Note ---
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 They were being discharged the time the patient had significant lightheadedness and almost passed out. This is the same diagnosis about her in the emergency room. Patient did not want to stay in the hospital any longer today and she was discharged at her request. Patient will be put back on the hospital for this time without being fully evaluated here in the emergency room. She will continue inpatient care. Accu-Chek and EKG revealed. The emergency room did not show any significant changes or Accu-Chek was normal. The remainder the care will be completed on the hospital setting. Again, no ER evaluation or treatment course was completed at this point.
[2017-12-21] MEDS ORDERED: Insulin LISPRO 300 UNITS/3 ML VIAL SQ PRN (18:03)
[2017-12-21] MEDS ORDERED: Naloxone 0.4 MG/ML INJ IVP PRN (18:07)
--- NOTE | 2017-12-21 18:16 | Internal Med History&Physical ---
Date of Encounter: 12/21/17 Time of Encounter: 18:13 Internal Medicine - H&P: HPI Chief complaint: Near syncope Admitted From: Home Plans for Post Hospital Care: Home History of present illness: Ms. Salvador is a 62 year old female history of ESRD, HTN, DM, morbid obesity. Presents for complaints of near syncope. The patient was recently admitted and treated for nausea vomiting and near syncope and was discharged today. Prior to discharge the patient was stable hemodynamically stable only complaining of intermittent dizziness. Per my discharge note she was informed that there is concerns that she would benefit from additional days stay however, the patient said that she did not understand additional day and continued to be adamant about wanting to discharge. After discharge from the facility the patient was walking to her vehicle and began to feel dizzy. Upon making to her vehicle she sat there for a few minutes hoping the dizziness would subside however continued to persist and she was brought back to the emergency department for further assessment and evaluation. Again, the patient remained hemodynamically stable. However, due to continued dizziness she is being of any further workup and evaluation. It should be noted the patient recently underwent a left carotid artery stent placement due to carotid artery stenosis. The stent placement was completed at [facility]. Carotid ultrasound from prior admission was unremarkable. The patient admitted for further monitoring and workup. Past Med Surg Social Fam HX - Past Medical History Medical history: arthritis, diabetes, hyperlipidemia, hypertension, renal disease Psychiatric history: no psych history - Past Surgical History Surgical History: , cholecystectomy, herniorrhaphy, hysterectomy, orthopedic, other (ganglion cyst removal), other - Social History Smoking Status: Never smoker Smokeless Tobacco Status: No Alcohol use: none Drug use: none - Family History Father Family Member Ethnicity: Non- Living Status: Hx Family Cardiac Disorders: Yes (CVA) Hx Family Respiratory Disorders: No Hx Family Cancer: Yes (Prostate) Hx Family GI Disorders: No Hx Family Endocrine Disorder: No Hx Family Neuromuscular Disorders: No Hx Family Neurologic Disorders: No Hx Family HEENT Disorders: No Hx Family Autoimmune Disorders: No Mother Family Member Ethnicity: Non- Living Status: Hx Family Cardiac Disorders: Yes (CVA) Hx Family Respiratory Disorders: No Hx Family Cancer: No Hx Family GI Disorders: No Hx Family Endocrine Disorder: Yes (Thyroid) Hx Family Neuromuscular Disorders: No Hx Family Neurologic Disorders: No Hx Family HEENT Disorders: No Hx Family Autoimmune Disorders: No Internal Medicine - H&P: Meds Fish Oil/Dha/Epa [Fish Oil 1,200 mg Fish Oil] 1,200 mg PO DAILY 07/05/16 [ History] Metoprolol [Lopressor] 100 mg PO BID 07/05/16 [History] Omeprazole [PriLOSEC] 40 mg PO DAILY 07/05/16 [History] Aspirin [Lo-Dose Aspirin EC] 81 mg PO DAILY 04/03/17 [History] Cholecalciferol (D-3) [Vitamin D] 5,000 unit PO DAILY 04/03/17 [History] glipiZIDE [Glipizide ER] 10 mg PO DAILY 04/03/17 [History] Amitriptyline [Elavil] 25 mg PO HS 12/19/17 [History] Atorvastatin Calcium [Lipitor] 80 mg PO HS 12/19/17 [History] Clopidogrel [Plavix] 75 mg PO DAILY 12/19/17 [History] Furosemide [Lasix] 40 mg PO BID 12/19/17 [History] Insulin ASPART [NovoLOG] 20 unit SQ TIDAC PRN 12/19/17 [History] Insulin Glargine [Lantus] 100 unit SQ Q12H 12/19/17 [History] Magnesium Oxide [Magnesium] 400 mg PO BID 12/19/17 [History] Lisinopril [Zestril] 10 mg PO DAILY 30 Days #30 tablet 12/21/17 [Rx] 3 Allergy/AdvReac Type Severity Reaction Status Date / Time No Known Allergies Allergy Verified 05/22/17 07:28 All Systems PM: A 10-system review of systems was performed and is negative for pertinent findings except as documented above in the HPI. Review of systems: REVIEW OF SYSTEMS GENERAL: Negative for any nausea, vomiting, fevers, chills, or weight loss. NEUROLOGIC: Negative for any blurry vision, blind spots, double vision, facial asymmetry, dysphagia, dysarthria, hemiparesis, hemisensory deficits,ataxia. HEENT: Negative for any head trauma, neck trauma, neck stiffness, photophobia, phonophobia, sinusitis, rhinitis. CARDIAC: Negative for any chest pain, dyspnea on exertion, paroxysmal nocturnal dyspnea, peripheral edema. Positive for dizziness PULMONARY: Negative for any shortness of breath, wheezing, COPD, or TB exposure. GASTROINTESTINAL: Negative for any abdominal pain, nausea, vomiting, bright red blood per rectum, melena. GENITOURINARY: Negative for any dysuria, hematuria, incontinence. INTEGUMENTARY: Negative for any rashes, cuts, insect bites. RHEUMATOLOGIC: Negative for any joint pains, photosensitive rashes, history of vasculitis or kidney problems. HEMATOLOGIC: Negative for any abnormal bruising, frequent infections or bleeding. - Constitutional Vitals: Temp Pulse Resp BP Pulse Ox 98.2 F 72 18 116/60 95 12/21/17 14:19 12/21/17 14:19 12/21/17 14:19 12/21/17 14:19 12/21/17 14:19 General appearance: Present: A&O X 3 - Head Head exam: Present: atraumatic, normocephalic - Eye Eye exam: Present: PERRL, conjuntiva pink, sclera anicteric Pupils: Present: PERRL - Neck Neck exam general surgery: Present: supple, trachea midline. Absent: lymphadenopathy - Respiratory Respiratory exam: Present: CTAB. Absent: accessory muscle use, rales, rhonchi, wheezes - Cardiovascular Cardiovascular exam: Present: RRR, +S1, +S2. Absent: diastolic murmur, gallop, rubs, systolic murmur - GI/Abdominal GI/Abdominal exam: Present: normal bowel sounds, soft, no peritoneal signs. Absent: distended, tenderness - Extremities Exam Extremities exam: Present: warm, radial pulses palpable and symmetrical. Absent : calf tenderness, cyanotic, pedal edema - Neurological Exam Neurological exam: Present: CN II-XII intact, oriented X3, no focal deficits. Absent: pronater drift, facial droop, speech deficit - Skin Skin exam: Present: dry, intact - Assessment and plan (1) Pre-syncope Current Visit: Yes Status: Resolved Assessment and plan: Presented this evening immediately after discharge with continued dizziness. Denies any loss of consciousness. Patient reports she has been having dizziness since left carotid stent placement 3 weeks ago at [facility] Repeat carotid ultrasound completed with preliminary finding plaque in the right carotid bifurcation\\left carotid ICA stent is patent, and bifurcation with elevated velocities CT of the head negative for acute intracranial abnormality Echocardiogram Stress test on Saturday as a syncope appears to be caused by physical exertion MRI of brain without contrast to rule out neurological causes (2) ESRD (end stage renal disease) on dialysis Current Visit: Yes Status: Chronic Assessment and plan: Nephrology consult to. History of ESRD. Dr. De La Torre will see the patient and arrange for manual exchange peritoneal dialysis tonight (3) HLD (hyperlipidemia) Current Visit: Yes Status: Chronic Qualifiers: Hyperlipidemia type: unspecified Qualified Code(s): E78.5 - Hyperlipidemia , unspecified (4) HTN (hypertension) Current Visit: No Status: Chronic Qualifiers: Hypertension type: essential hypertension Qualified Code(s): I10 - Essential (primary) hypertension (5) Morbid obesity with BMI of 50.0-59.9, adult Current Visit: No Status: Chronic (6) Anemia in CKD (chronic kidney disease) Current Visit: Yes Status: Chronic Assessment and plan: Anemia in CKD. Received Procrit this afternoon. CBC in the morning in the morning Qualifiers: Chronic kidney disease stage: on chronic dialysis Qualified Code(s): N18.6 - End stage renal disease; D63.1 - Anemia in chronic kidney disease; D63.1 - Anemia in chronic kidney disease; Z99.2 - Dependence on renal dialysis; Z99.2 - Dependence on renal dialysis; Z99.2 - Dependence on renal dialysis; Z99.2 - Dependence on renal dialysis (7) DM type 2 (diabetes mellitus, type 2) Current Visit: Yes Status: Chronic Assessment and plan: Continue basal insulin and insulin 3 times a day with meals at home dose Qualifiers: Diabetes mellitus fdc insulin use: with rn long term care use Diabetes mellitus complication status: with kidney complications Diabetes mellitus complication detail: with chronic kidney disease Chronic kidney disease stage : on chronic dialysis Qualified Code(s): E11.22 - Type 2 diabetes mellitus with diabetic chronic kidney disease; N18.6 - End stage renal disease; Z99.2 - Dependence on renal dialysis; Z99.2 - Dependence on renal dialysis; Z99.2 - Dependence on renal dialysis; N18.6 - End stage renal disease; N18.6 - End stage renal disease; N18.6 - End stage renal disease; Z79.4 - intermediate teacher (current ) use of insulin; Z79.4 - care home (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 of insulin; Z79.4 - intermediate teacher (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 of insulin; Z79.4 - intermediate teacher (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 - Time Spent With Patient Total time spent is greater than 50% in coordination of care (as documented) at patient's floor/unit and/or counseling patient: 25 - 35 minutes
[2017-12-21] MEDS: Furosemide 20 MG TABLET PO SCH (18:39)
[2017-12-21] MEDS: Insulin DETEMIR 100 UNIT/ML X5UNITS SQ SCH (21:48)
[2017-12-21] MEDS: Magnesium Oxide 400 MG TABLET PO SCH (21:48)
[2017-12-21] MEDS: Metoprolol 100 MG TABLET PO SCH (21:48)
[2017-12-21] MEDS ORDERED: Perit. Dialysis with Dex 1.5 % 2,000 ML PERITONEAL SCH (22:00)
[2017-12-22 05:09] LABS: Basophils % 0.4 %; Eosinophils # 0.1 K/mcL (0.0-0.6); Eosinophils % 1.8 %; Hematocrit 23.9 % (35.3-44.9); Hemoglobin 7.7 g/dL (11.5-15.4); Immature Granulocytes % 0.5 % (0-4); Lymphocytes % 17.3 %; Mean Corpuscular HGB Conc 32.2 g/dL (31.6-35.5); Mean Corpuscular Hemoglobin 28.1 pg (28.0-33.3); Mean Corpuscular Volume 87.2 fL (83.0-100.0); Mean Platelet Volume 12.5 fL (9.4-12.4); Monocytes # 0.4 K/mcL (0.0-1.3); Neutrophils # 4.1 K/mcL (1.6-8.9); Platelet Count 128 K/mcL (140-400); Red Blood Count 2.74 M/mcL (3.82-4.97); Red Cell Distribution Width 14.8 % (11.5-14.5)
[2017-12-22 05:28] LABS: Calcium 8.7 mg/dL (8.6-10.3); Potassium 4.2 mEq/L (3.5-5.1)
[2017-12-22] MEDS: Perit. Dialysis with Dex 1.5 % 2,000 ML PERITONEAL SCH ×3 (06:08→18:10)
[2017-12-22] MEDS: Furosemide 20 MG TABLET PO SCH ×2 (08:56→18:01)
[2017-12-22] MEDS: EPA PO SCH ×2 (08:57→18:47)
[2017-12-22] MEDS: Magnesium Oxide 400 MG TABLET PO SCH ×2 (08:57→21:35)
[2017-12-22] MEDS: Aspirin Enteric Coated 81 MG Tablet PO SCH (08:57)
[2017-12-22] MEDS: Insulin DETEMIR 100 UNIT/ML X5UNITS SQ SCH ×2 (08:57→21:36)
[2017-12-22] MEDS: FISH OIL PO SCH ×2 (08:57→18:47)
[2017-12-22] MEDS: DHA PO SCH ×2 (08:57→18:47)
[2017-12-22] MEDS: Metoprolol 100 MG TABLET PO SCH ×2 (08:57→21:35)
[2017-12-22] MEDS: Cholecalciferol (D-3) 1,000 UNIT TABLET PO SCH (08:57)
--- NOTE | 2017-12-22 09:36 | Nephrology Progress Note ---
Date of Encounter: 12/22/17 Time of Encounter: 08:35 - Assessment and Plan (1) Dizziness Current Visit: Yes Status: Acute Rec Neuro consult (2) Carotid stenosis Current Visit: Yes Status: Acute s/p [facility] endovascular procedure just recently. Still pending records. Perhaps a atheroembolic CVA or TIA event has contributed to her ongoing dizziness? Also in the DDx vasovagal, generalized weakness, orthosis (less likely since she is slightly above her dry weight infact), autonomic dysfunction (from longstanding DM), vs other. Consider Neuro consult on Saturday. Qualifiers: Laterality: bilateral Qualified Code(s): I65.23 - Occlusion and stenosis of bilateral carotid arteries (3) Anemia in CKD (chronic kidney disease) Current Visit: Yes Status: Chronic Goal Hgb 10-11. She receive an Aranesp SQ injection yesterday; next due in 2 weeks. She received IV iron, per the pt's spouse last week while hospitalized at [facility]. Qualifiers: Chronic kidney disease stage: on chronic dialysis Qualified Code(s): N18.6 - End stage renal disease; D63.1 - Anemia in chronic kidney disease; D63.1 - Anemia in chronic kidney disease; Z99.2 - Dependence on renal dialysis; Z99.2 - Dependence on renal dialysis; Z99.2 - Dependence on renal dialysis; Z99.2 - Dependence on renal dialysis (4) DM type 2 (diabetes mellitus, type 2) Current Visit: Yes Status: Chronic As per primary. Qualifiers: Diabetes mellitus correction insulin use: with superintendent marine oil terminal use Diabetes mellitus complication status: with kidney complications Diabetes mellitus complication detail: with chronic kidney disease Chronic kidney disease stage : on chronic dialysis Qualified Code(s): E11.22 - Type 2 diabetes mellitus with diabetic chronic kidney disease; N18.6 - End stage renal disease; Z99.2 - Dependence on renal dialysis; Z99.2 - Dependence on renal dialysis; Z99.2 - Dependence on renal dialysis; N18.6 - End stage renal disease; N18.6 - End stage renal disease; N18.6 - End stage renal disease; Z79.4 - intermediate (current ) use of insulin; Z79.4 - intermediate (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 of insulin; Z79.4 - manager terminal (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 of insulin; Z79.4 - manager terminal (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 (5) ESRD (end stage renal disease) on dialysis Current Visit: Yes Status: Chronic Cont PD but on Manual exchanges of 1.5% dianeal 2000mL 4 times per day. Avoiding the cycler since there were problems with the device. Discussed the use of routine triple antibiotic ointment with each PD catheter exchange. (6) Labile hypertension Current Visit: No Status: Chronic Chronic. She was having too many episodes of hypotension so her antihypertensive meds have since been cut back. (7) Peritoneal dialysis catheter in place Current Visit: No Status: Chronic (8) Morbid obesity with BMI of 50.0-59.9, adult Current Visit: No Status: Chronic Chronic. Detention counseling advise for wt loss was given. Subjective Principal diagnosis: ESRD on PD Interval history: See my Consult note from the prior admission. She reported on going dizziness and weakness, with recent carotid endovascular procedure at [facility], records pending still as it's the weekend. She affirmed feeling generally weak and her provided many helpful notes of her PD exchanges. She did not affirm active N/V or CP or shortness of breath. Objective - Vital Signs Vital signs: Vital Signs Temp Pulse Resp BP Pulse Ox 12/22/17 09:08 95 12/22/17 07:54 98.5 F 89 18 189/72 95 12/22/17 04:18 98.8 F 86 14 153/74 95 12/21/17 23:27 99.1 F 76 15 108/61 95 12/21/17 18:33 97.8 F 84 16 111/72 94 Intake and Output 12/21/17 12/22/17 12/22/17 23:59 07:59 15:59 Intake Total 400 / 400 300 / 300 240 / 240 Output Total 0 / 0 Balance 400 / 400 300 / 300 240 / 240 Intake: Oral 400 / 400 300 / 300 240 / 240 Output: Urine 0 / 0 Other: Meal Breakfast Percent of Meal Consumed 40% Total Peritoneal Dialysis 720 Output # Voids 2 # Bowel Movements 0 Weight 144.016 kg Blood Glucose* 170 125 Patient Weight 12/22/17 23:59 Weight 144.016 kg - General Appearance General appearance: Present: well-developed, well-nourished, appears started age , obese, fatigue, frail EENT: Present: ATNC, PERRL, mucous membranes moist Neck: Present: supple Respiratory: Present: clear Cardiology: Present: holosystolic murmur, edema (finger, hand and trace pretibial pitting edema b/l), regular rate, regular rhythm, normal S1, normal S2 Additional Comments: PD catheter without ttp Gastrointestinal: Present: normoactive bowel sounds, no tenderness, distended ( from the dwelling) Integumentary: Present: no rash, warm and dry Neurologic: Present: no focal deficit, no asterixis Musculoskeletal: Present: no erythema, no cyanosis Psychiatric: Present: mood/affect appropriate, cooperative - Lab 12/22/17 04:56 12/22/17 04:56 Most recent lab results Calcium 8.7 mg/dL (8.6-10.3) 12/22/17 04:56 Consult Discharge Plan - Plan Referrals: Khadar Yeager, NIGHT WORKER [Primary Care Provider] -
[2017-12-22] MEDS ORDERED: *HR* FentaNYL (PF) 100 MCG/2 ML VIAL IVP ONE (12:30)
--- NOTE | 2017-12-22 13:32 | Internal Med Progress Note ---
Date of Encounter: 12/22/17 Time of Encounter: 13:00 - Assessment and plan (1) Pre-syncope Current Visit: Yes Status: Resolved Assessment and plan: Continues to have dizziness and presyncopal events which worsen with activity. Etiology unclear, DDX include drug induced orthostasis, vasovagal syncope, hypovolemic orthostasis or autonomic dysfunction. Dizziness could also be of cardiac origin since it is more pronounced with exertion. Recently s/p Lt carotid stent placement at [facility] a couple of week ago. Attempting to retrieve records, still pending. Bilateral carotid ultrasound completed showing patent left carotid artery stent. CT head on last admission unremarkable. The patient originally discharged yesterday on 12/21/17; reporting she was feeling better and that the dizziness had improved. I was very clear that I thought she would benefit from an additional day's stay. However, she reported that the dizziness was improving and was very adamant about discharging home. She returned shortly after exiting the building with severe dizziness. Assessment today reveals no focal neurological deficits. Review of telemetry reveals no arrhythmias with average heart rate of 67 throughout the night. Patient has had TSH checked and was found to be normal, vitamin B12 also normal. Echocardiogram ordered-unable to tolerate today due to discomfort lying flat. We will attempt a later date MRI brain tomorrow Cardiology consulted as the symptoms seem to be worsened with exertion; spoke with Dr. Hamlin who will see in consultation. Thank you. Consult neurology for further evaluation and recommendations- not urgent; call urology on Saturday. Daily orthostatic vitals continuous tele (2) ESRD (end stage renal disease) on dialysis Current Visit: Yes Status: Chronic Assessment and plan: History of ESRD, patient getting PD. Management per nephrology (3) HLD (hyperlipidemia) Current Visit: Yes Status: Chronic Assessment and plan: Continue statin Qualifiers: Hyperlipidemia type: unspecified Qualified Code(s): E78.5 - Hyperlipidemia , unspecified (4) HTN (hypertension) Current Visit: Yes Status: Chronic Assessment and plan: History of hypertension, blood pressure has been labile with Epogen some episodes with SBP in the 180s at times. SBP 150s, stable Antihypertensive medications have been decreased recently due to continued episodes of hypotension Continue monitor for now Qualifiers: Hypertension type: essential hypertension Qualified Code(s): I10 - Essential (primary) hypertension (5) Morbid obesity with BMI of 50.0-59.9, adult Current Visit: Yes Status: Chronic (6) Anemia in CKD (chronic kidney disease) Current Visit: Yes Status: Chronic Assessment and plan: Anemia in CKD. Stable with HGB 7.7, no active bleeding noted. CBC in the morning Qualifiers: Chronic kidney disease stage: on chronic dialysis Qualified Code(s): N18.6 - End stage renal disease; D63.1 - Anemia in chronic kidney disease; D63.1 - Anemia in chronic kidney disease; Z99.2 - Dependence on renal dialysis; Z99.2 - Dependence on renal dialysis; Z99.2 - Dependence on renal dialysis; Z99.2 - Dependence on renal dialysis (7) DM type 2 (diabetes mellitus, type 2) Current Visit: Yes Status: Chronic Assessment and plan: Blood glucose stable, Continue basal insulin and insulin 3 times a day with meals at home dose. Qualifiers: Diabetes mellitus detention insulin use: with watermaster use Diabetes mellitus complication status: with kidney complications Diabetes mellitus complication detail: with chronic kidney disease Chronic kidney disease stage : on chronic dialysis Qualified Code(s): E11.22 - Type 2 diabetes mellitus with diabetic chronic kidney disease; N18.6 - End stage renal disease; N18.6 - End stage renal disease; N18.6 - End stage renal disease; N18.6 - End stage renal disease; Z79.4 - care home (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 of insulin; Z79.4 - care home ( 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 of insulin; Z79.4 - predatory animal exterminator (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 of insulin; Z79.4 - predatory animal exterminator (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; Z99.2 - Dependence on renal dialysis; Z99.2 - Dependence on renal dialysis; Z99.2 - Dependence on renal dialysis - Time Spent With Patient Total time spent is greater than 50% in coordination of care (as documented) at patient's floor/unit and/or counseling patient: Greater than 35 minutes - Subjective Interval history: Ms. Salvador is a 62 year old female history of ESRD, HTN, DM, morbid obesity. Presents for complaints of near syncope. She is reporting dizziness at rest and that worsens with exertion. Patient recently underwent coronary stent placement due to stenosis. Left carotid artery was able to be stented however, right carotid artery was not. This was completed at [facility]. Also, she is an ESRD patient receiving nightly peritoneal dialysis. Patient seen and examined at bedside this afternoon. Denies no new complaints overnight. Continues to report dizziness. She mentions that when she was ambulating to the restroom last night that the dizziness was very severe. She denies any parasthesias, h/a, facial droop or slurred speech. Thus far workup has been unremarkable. She will need to remain in the hospital for further workup and evaluation. - Constitutional Vitals: Temp Pulse Resp BP Pulse Ox 98.4 F 82 20 143/68 97 12/22/17 12:03 12/22/17 12:03 12/22/17 12:03 12/22/17 12:03 12/22/17 12:03 General appearance: Present: A&O X 3, morbidly obese - Head Head exam: Present: atraumatic, normocephalic - Eye Eye exam: Present: PERRL, conjuntiva pink, sclera anicteric Pupils: Present: PERRL - Neck Neck exam general surgery: Present: supple, trachea midline. Absent: lymphadenopathy - Respiratory Respiratory exam: Present: CTAB. Absent: accessory muscle use, rales, rhonchi, wheezes - Cardiovascular Cardiovascular exam: Present: RRR, +S1, +S2. Absent: diastolic murmur, gallop, rubs, systolic murmur - GI/Abdominal GI/Abdominal exam: Present: normal bowel sounds, soft, no peritoneal signs. Absent: distended, tenderness - Extremities Exam Extremities exam: Present: warm, radial pulses palpable and symmetrical. Absent : calf tenderness, cyanotic, pedal edema - Neurological Exam Neurological exam: Present: alert, CN II-XII intact, oriented X3, no focal deficits, strengths equal and symetr throughout. Absent: pronater drift, facial droop, speech deficit - Expanded Neurological Exam Neurological exam expanded: Absent: expressive aphasia, receptive aphasia Patient oriented to: Present: person, place, time Speech: Present: fluid speech Cranial Nerves: EOM's intact PM: Normal, gag reflex PM: Normal, nystagmus PM: Normal, tongue deviation PM: Normal Neuro motor strength exam: LUE: 5, RUE: 5, LLE: 5, RLE: 5 Coma Scale Eye Opening: Spontaneous Coma Scale Motor Response: Obeys Commands Coma Scale Verbal Response: Oriented Coma Scale Total: 15 - Skin Skin exam: Present: dry, intact Internal Medicine: Result - Labs CBC & Chem 7: 12/22/17 04:56 12/22/17 04:56 Labs: Short CBC 12/22/17 Range/Units 04:56 WBC 5.6 (4.3-11.1) K/mcL Hgb 7.7 L (11.5-15.4) g/dL Hct 23.9 L (35.3-44.9) % Plt Count 128 L (140-400) K/mcL Neutrophils # 4.1 (1.6-8.9) K/mcL BMP 12/22/17 04:56 Sodium 135 L Potassium 4.2 Chloride 100 Carbon Dioxide 28 BUN 43 H Creatinine 3.23 H Glucose 139 H Calcium 8.7 Cardiac Enzymes 12/21/17 Range/Units 18:22 Troponin I < 0.03 (< 0.04) ng/mL Consult Discharge Plan - Plan Referrals: Khadar Yeager, ADJUNCT TEACHER [Primary Care Provider] -
[2017-12-23] MEDS: Perit. Dialysis with Dex 1.5 % 2,000 ML PERITONEAL SCH ×4 (00:33→18:10)
[2017-12-23 05:18] LABS: Calcium 8.8 mg/dL (8.6-10.3)
[2017-12-23] MEDS ORDERED: Regadenoson 0.4 MG/5 ML SYRINGE IVP ONE (05:25)
[2017-12-23 06:31] LABS: Basophils % 0.5 %; Eosinophils # 0.1 K/mcL (0.0-0.6); Eosinophils % 2.1 %; Hematocrit 24.4 % (35.3-44.9); Hemoglobin 7.7 g/dL (11.5-15.4); Immature Granulocytes % 0.5 % (0-4); Lymphocytes % 26.5 %; Mean Corpuscular HGB Conc 31.6 g/dL (31.6-35.5); Mean Corpuscular Hemoglobin 27.3 pg (28.0-33.3); Mean Corpuscular Volume 86.5 fL (83.0-100.0); Mean Platelet Volume 12.8 fL (9.4-12.4); Monocytes # 0.3 K/mcL (0.0-1.3); Monocytes % 7.4 %; Neutrophils # 2.4 K/mcL (1.6-8.9); Platelet Count 130 K/mcL (140-400); Red Blood Count 2.82 M/mcL (3.82-4.97); Red Cell Distribution Width 14.5 % (11.5-14.5)
[2017-12-23] MEDS ORDERED: Isovue-370 500 ML INFUS..BTL IV ONE (08:58)
--- NOTE | 2017-12-23 09:53 | Neurology - Consult Note ---
<Malcolm Baez - Last Filed: 12/23/17 13:04> Date of Encounter: 12/23/17 Time of Encounter: 10:00 Assessment and Plan (1) Carotid stenosis Current Visit: Yes Status: Chronic CTA of head and neck demonstrated severe stenosis of the carotid stent proximally on the left, as well as diffuse stenosis throughout the right carotid and intracranially. Possible cause of lightheadedness. Patient on ASA, plavix, and statin. Vascular surgery consult for input on stent. Qualifiers: Laterality: bilateral Qualified Code(s): I65.23 - Occlusion and stenosis of bilateral carotid arteries (2) Cerebral infarct Current Visit: Yes Status: Suspected Head MRI demonstrated few punctate foci of increased signal on diffusion weighted sequence that may represent subacute infarcts. Possible cause of lightheadedness. Continue ASA, clopidogrel, and atorvastatin. Qualifiers: Cerebral infarction mechanism: unspecified mechanism Qualified Code(s): I63.9 - Cerebral infarction, unspecified (3) BPPV (benign paroxysmal positional vertigo) Current Visit: Yes Status: Acute Vertigo unrelated to lightheadedness with positive [place]-Hallpike on the left. Patient may benefit from meclazine, fluids, and vestibular therapy. Qualifiers: Laterality: left Qualified Code(s): H81.12 - Benign paroxysmal vertigo, left ear History of Present Illness Chief complaint: Dizziness, near syncope HPI: Ms. Salvador is a 62 year old female presenting with lightheadedness which started following a carotid stent placement on the left in mid November at [facility]. She describes it like "something wrong with my vision" that is especially present on standing. During these episodes, she becomes nauseous, clammy, and weak. She is somewhat dysarthric per her . The episodes are self limiting and resolve after a few minutes. The episodes have becoming more frequent, which is why she presented to the hospital on 12/19/17. Carotid US showed patent ICA stent, plaque at the right carotid bifurcation, and increased velocities at the bifurcations. CT of the head was without acute abnormalities. Orthostatics were positive. Despite continued dizziness with ambulation, patient requested discharge on 12/21. On her way to the vehicle, she began to have another episode of dizziness which did not resolve, so she returned to the hospital. Patient also notes a separate type of vertigo-type dizziness that occurs with rapid turning of her head or rolling over in bed. Past Med Surg Social Fam HX - Past Medical History Medical history: arthritis, diabetes, hyperlipidemia, hypertension, renal disease Psychiatric history: no psych history - Past Surgical History Surgical History: , cholecystectomy, herniorrhaphy, hysterectomy, orthopedic, other, other - Social History Smoking Status: Never smoker Smokeless Tobacco Status: No Alcohol use: none Drug use: none - Family History Father Family Member Ethnicity: Non- Living Status: Hx Family Cardiac Disorders: Yes (CVA) Hx Family Respiratory Disorders: No Hx Family Cancer: Yes (Prostate) Hx Family GI Disorders: No Hx Family Endocrine Disorder: No Hx Family Neuromuscular Disorders: No Hx Family Neurologic Disorders: No Hx Family HEENT Disorders: No Hx Family Autoimmune Disorders: No Mother Family Member Ethnicity: Non- Living Status: Hx Family Cardiac Disorders: Yes (CVA) Hx Family Respiratory Disorders: No Hx Family Cancer: No Hx Family GI Disorders: No Hx Family Endocrine Disorder: Yes (Thyroid) Hx Family Neuromuscular Disorders: No Hx Family Neurologic Disorders: No Hx Family HEENT Disorders: No Hx Family Autoimmune Disorders: No Medications and Allergies Fish Oil/Dha/Epa [Fish Oil 1,200 mg Fish Oil] 1,200 mg PO DAILY 07/05/16 [ History] Metoprolol [Lopressor] 100 mg PO BID 07/05/16 [History] Omeprazole [PriLOSEC] 40 mg PO DAILY 07/05/16 [History] Aspirin [Lo-Dose Aspirin EC] 81 mg PO DAILY 04/03/17 [History] Cholecalciferol (D-3) [Vitamin D] 5,000 unit PO DAILY 04/03/17 [History] glipiZIDE [Glipizide ER] 10 mg PO DAILY 04/03/17 [History] Amitriptyline [Elavil] 25 mg PO HS 12/19/17 [History] Atorvastatin Calcium [Lipitor] 80 mg PO HS 12/19/17 [History] Clopidogrel [Plavix] 75 mg PO DAILY 12/19/17 [History] Furosemide [Lasix] 40 mg PO BID 12/19/17 [History] Insulin ASPART [NovoLOG] 20 unit SQ TIDAC PRN 12/19/17 [History] Insulin Glargine [Lantus] 100 unit SQ Q12H 12/19/17 [History] Magnesium Oxide [Magnesium] 400 mg PO BID 12/19/17 [History] Lisinopril [Zestril] 10 mg PO DAILY 30 Days #30 tablet 12/21/17 [Rx] 3 Allergy/AdvReac Type Severity Reaction Status Date / Time No Known Allergies Allergy Verified 05/22/17 07:28 All Systems: The remainder of the systems were reviewed and are negative - Constitutional Constitutional ROS IM: weakness, no headache(s) - Eyes Eyes: bilateral: blurred vision (during episodes of dizziness) - Nose, Mouth, Throat Nose, mouth and throat: no abnormal hearing - Cardiovascular Cardiovascular ROS IM: no chest pain - Respiratory Respiratory IM: no dyspnea - Neurological Neurological ROS: abnormal speech, dizziness, vertigo, weakness, no headache(s) , no sensory deficit Physical Examination - Vital Signs Vital Signs: Initial Vital Signs Temp Pulse Resp BP Pulse Ox 98.2 F 72 18 116/60 95 12/21/17 14:19 12/21/17 14:19 12/21/17 14:19 12/21/17 14:19 12/21/17 14:19 - Exam Exam: CONSTITUTIONAL: Well-developed and well-nourished. In no acute distress. CARDIOVASCULAR: Regular rate and rhythm. +S1 and S2. Grade 2 systolic murmur. CHEST: Normal work of breathing. NEURO: Mental Status: Alert and oriented x3. Follows commands and answers questions. Cranial Nerves: PERRL. EOMI. Visual baron intact. Symmetrical facial strength. Facial sensation intact. No dysarthria. Hearing intact. Soft palate elevates symmetrically. SCM and trapezius without weakness. Tongue protrudes in midline. Motor: Left - 5/5 in upper and lower extremities. R - 5/5 in upper and lower extremities. Sensation intact. Cerebellar function intact to [id number]. [place]-Hallpike positive on the left. Results - Laboratory Findings CBC and BMP: 12/23/17 06:03 12/23/17 04:06 Abnormal lab findings: Abnormal lab results WBC 3.8 K/mcL (4.3-11.1) L 12/23/17 06:03 RBC 2.82 M/mcL (3.82-4.97) L 12/23/17 06:03 Hgb 7.7 g/dL (11.5-15.4) L 12/23/17 06:03 Hct 24.4 % (35.3-44.9) L 12/23/17 06:03 MCH 27.3 pg (28.0-33.3) L 12/23/17 06:03 Plt Count 130 K/mcL (140-400) L 12/23/17 06:03 MPV 12.8 fL (9.4-12.4) H 12/23/17 06:03 BUN 40 mg/dL (8-23) H 12/23/17 04:06 Creatinine 3.02 mg/dL (0.60-1.20) H 12/23/17 04:06 Est GFR ( Amer) 19 (> 60) L 12/23/17 04:06 Est GFR (Non-Af Amer) 16 (> 60) L 12/23/17 04:06 Glucose 135 mg/dL (70-105) H 12/23/17 04:06 POC Glucose 104 mg/dL (70-99) H 12/23/17 06:37 Consult Discharge Plan - Plan Referrals: Khadar Yeager, [employer] [Primary Care Provider] - <Cindy Helms I - Last Filed: 12/23/17 15:30> Date of Encounter: 12/23/17 Assessment and Plan (1) Cerebral infarct Current Visit: Yes Status: Suspected Pt was seen and examined, my medical decision was reviewed with the Resident Physician, I agree with the documented findings, disposition and treatment plas as described except to the extent set forth below This patient was been having these dizziness along with vertiginous feeling at the same time also having these episodes of weakness more generalized along with some difficulty with his speech and mentation , weakness is more generalized which is in her whole body lasting for minutes and sometimes more than that predominantly when she is standing or sometimes sitting, but never happen when she is laying down definitely there is a positional component into her symptoms. Which can be explained on the basis of significant atherosclerotic disease that she had throughout her brain MRI of the brain shows subacute infarcts. In the left hemisphere as well as on the right hemisphere along with some left mastoid effusion that could be contributing to her peripheral vertigo. CT angiogram of the neck and head shows extensive atherosclerosis involving the right internal carotid artery, which appears to contribute to [id number] stenosis. No flow limiting stenosis seen of the left internal carotid artery. There appears to be focal stenosis involving the right M1 segment did atherosclerosis. POSTERIOR CIRCULATION: Eecn-tu-[id number] irregularity is seen of the V4 segments bilaterally, left greater than right. No focal stenosis seen of the basilar or posterior cerebral arteries. vertebral arteries both arise from the subclavian arteries. There appears to be moderate focal stenosis at the origin of the right vertebral artery. Uuuv-gn-ddzumbms short-segment stenosis involving the right vertebral artery spanning the C6 and C7 levels. No flow limiting stenosis is identified of the left vertebral artery. A stent is seen extending from the left carotid bulb through the proximal left internal carotid artery. There appears to be severe narrowing involving the proximal most aspect of the stent. Considering this significant atherosclerotic disease all over her brain likely contributing to her central dizziness lightheadedness which seemed to be mostly positional along with the peripheral vertigo and that she is been experiencing. Unfortunately there is no quick fix for her underlying condition due to the extensive nature of the disease but she does have few focal findings particularly in the left internal carotid which is proximal to the stent . Not sure if there is any surgical intervention possible, perhaps he can get vascular surgery opinion regarding it Otherwise suggest to continue antiplatelet therapy with aspirin along with the Plavix as well as statin Continue on the blood pressure medication perhaps he may have to keep it is a bit higher than normal limits due to the fact of this dizziness which seems to be having mostly when she is standing On the other hand patient need to be well hydrated and has to get up slowly and gradually otherwise she still will be very dizzy Discussed in detail with the family as well as with the patient Cindy Helms MD Qualifiers: Cerebral infarction mechanism: unspecified mechanism Qualified Code(s): I63.9 - Cerebral infarction, unspecified History of Present Illness HPI: Ms. Salvador is a 62 year old female All Systems: The remainder of the systems were reviewed and are negative Physical Examination - Vital Signs Vital Signs: Initial Vital Signs Temp Pulse Resp BP Pulse Ox 98.2 F 72 18 116/60 95 12/21/17 14:19 12/21/17 14:19 12/21/17 14:19 12/21/17 14:19 12/21/17 14:19 Results - Laboratory Findings CBC and BMP: 12/23/17 06:03 12/23/17 04:06 Abnormal lab findings: Abnormal lab results WBC 3.8 K/mcL (4.3-11.1) L 12/23/17 06:03 RBC 2.82 M/mcL (3.82-4.97) L 12/23/17 06:03 Hgb 7.7 g/dL (11.5-15.4) L 12/23/17 06:03 Hct 24.4 % (35.3-44.9) L 12/23/17 06:03 MCH 27.3 pg (28.0-33.3) L 12/23/17 06:03 Plt Count 130 K/mcL (140-400) L 12/23/17 06:03 MPV 12.8 fL (9.4-12.4) H 12/23/17 06:03 BUN 40 mg/dL (8-23) H 12/23/17 04:06 Creatinine 3.02 mg/dL (0.60-1.20) H 12/23/17 04:06 Est GFR ( Amer) 19 (> 60) L 12/23/17 04:06 Est GFR (Non-Af Amer) 16 (> 60) L 12/23/17 04:06 Glucose 135 mg/dL (70-105) H 12/23/17 04:06 POC Glucose 104 mg/dL (70-99) H 12/23/17 06:37
[2017-12-23] MEDS: Aspirin Enteric Coated 81 MG Tablet PO SCH (10:56)
[2017-12-23] MEDS: Furosemide 20 MG TABLET PO SCH ×2 (10:56→17:08)
[2017-12-23] MEDS: Cholecalciferol (D-3) 1,000 UNIT TABLET PO SCH (10:57)
[2017-12-23] MEDS: Metoprolol 100 MG TABLET PO SCH ×2 (10:57→22:53)
[2017-12-23] MEDS: Magnesium Oxide 400 MG TABLET PO SCH ×2 (10:57→22:53)
[2017-12-23] MEDS: Insulin DETEMIR 100 UNIT/ML X5UNITS SQ SCH ×2 (11:00→22:53)
[2017-12-23] MEDS ORDERED: Dextrose Gel 15 GM/37.5 ML TUBE PO PRN ×2 (11:40)
[2017-12-23] MEDS ORDERED: *HR* Dextrose 50 % in Water (Syg) 50 ML SYRINGE IVP PRN (11:40)
[2017-12-23] MEDS ORDERED: D5% in Water 1,000 ML IVC PRN (11:40)
[2017-12-23] MEDS: Insulin LISPRO 300 UNITS/3 ML VIAL SQ SCH ×3 (12:28→22:54)
--- NOTE | 2017-12-23 12:42 | Nephrology Progress Note ---
Date of Encounter: 12/23/17 Time of Encounter: 11:45 - Assessment and Plan (1) ESRD (end stage renal disease) on dialysis Current Visit: Yes Status: Chronic Cont PD 1.5% dianeal 2L bags about 4 times per day. After discussing with the Celia anderson RN, she said that they would be willing to use the cycler again tonight, and this how the pt has typically been dialyzed , so I will add these orders: 8hr 1.5% dianeal, 4 exchanges of 2L. (2) Dizziness Current Visit: Yes Status: Acute Appreciate Neurology. If she were to need IV contrast as part of the work up, it would be acceptable. (3) Carotid stenosis Current Visit: Yes Status: Chronic s/p [facility] endovascular procedure just recently. Still pending records. Perhaps a atheroembolic CVA or TIA event has contributed to her ongoing dizziness? Also in the DDx vasovagal, vertigo, generalized weakness, orthosis ( less likely since she is slightly above her dry weight infact), autonomic dysfunction (from longstanding DM), vs other. Consider Neuro consult on Saturday. Qualifiers: Laterality: bilateral Qualified Code(s): I65.23 - Occlusion and stenosis of bilateral carotid arteries (4) Anemia in CKD (chronic kidney disease) Current Visit: Yes Status: Chronic Goal Hgb 10-11. She receive an Aranesp SQ injection yesterday; next due in 2 weeks. She received IV iron, per the pt's spouse last week while hospitalized at [facility]. Qualifiers: Chronic kidney disease stage: on chronic dialysis Qualified Code(s): N18.6 - End stage renal disease; D63.1 - Anemia in chronic kidney disease; D63.1 - Anemia in chronic kidney disease; Z99.2 - Dependence on renal dialysis; Z99.2 - Dependence on renal dialysis; Z99.2 - Dependence on renal dialysis; Z99.2 - Dependence on renal dialysis (5) DM type 2 (diabetes mellitus, type 2) Current Visit: Yes Status: Chronic As per primary. Qualifiers: Diabetes mellitus penitentiary insulin use: with penitentiary use Diabetes mellitus complication status: with kidney complications Diabetes mellitus complication detail: with chronic kidney disease Chronic kidney disease stage : on chronic dialysis Qualified Code(s): E11.22 - Type 2 diabetes mellitus with diabetic chronic kidney disease; N18.6 - End stage renal disease; N18.6 - End stage renal disease; N18.6 - End stage renal disease; N18.6 - End stage renal disease; Z79.4 - assisted (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 of insulin; Z79.4 - assisted ( 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 of insulin; Z79.4 - assisted (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 of insulin; Z79.4 - salvage determiner (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; Z99.2 - Dependence on renal dialysis; Z99.2 - Dependence on renal dialysis; Z99.2 - Dependence on renal dialysis (6) Labile hypertension Current Visit: No Status: Chronic Chronic. She was having too many episodes of hypotension so her antihypertensive meds have since been cut back. (7) Peritoneal dialysis catheter in place Current Visit: No Status: Chronic (8) Morbid obesity with BMI of 50.0-59.9, adult Current Visit: Yes Status: Chronic Chronic. Senior Care counseling advise for wt loss was given. Subjective Principal diagnosis: ESRD on PD Interval history: Pt was seen/examined earlier today. Her , daughter, and other friends/ family were present She did not affirm active N/V or CP or shortness of breath. Still having dizziness she affirmed. We discussed her labs, and that her PD exchanges have been going well without abd pain or discolored dwellings, she affirmed. Objective - Vital Signs Vital signs: Vital Signs Temp Pulse Pulse Pulse Pulse Resp BP 12/23/17 06:54 75 80 83 12/23/17 06:34 97.9 F 75 18 149/77 12/23/17 04:20 97.6 F 72 16 121/66 12/23/17 01:59 146/83 12/22/17 23:07 98.6 F 82 16 186/77 12/22/17 19:48 98.5 F 86 18 194/80 12/22/17 15:43 99.2 F 75 18 151/69 BP BP BP Pulse Ox 12/23/17 06:54 149/77 132/77 126/76 18 06:34 97 12/23/17 04:20 97 12/23/17 01:59 12/22/17 23:07 96 12/22/17 19:48 95 12/22/17 15:43 96 Intake and Output 0512/23/17 12/23/17 23:59 07:59 15:59 Intake Total 120 / 120 Output Total 960 / 960 700 / 700 Balance -840 / -840 -700 / -700 Intake: Oral 120 / 120 Output: Urine 800 / 800 700 / 700 Other 160 / 160 Other: Meal Dinner NPO Percent of Meal Consumed 100% Total Peritoneal Dialysis -160 -20 Output Weight 142.428 kg Blood Glucose* 187 104 173 Patient Weight 12/23/17 23:59 Weight 142.428 kg - General Appearance Exam: General appearance: Present: well-developed, well-nourished, appears started age , obese, fatigue, frail EENT: Present: ATNC, PERRL, mucous membranes moist Neck: Present: supple Respiratory: Present: clear Cardiology: Present: soft 1/6 holosystolic murmur, edema (finger, hand and trace pretibial pitting edema b/l), regular rate, regular rhythm, normal S1 and S2 Additional Comments: PD catheter without ttp Gastrointestinal: Present: normoactive bowel sounds, no tenderness, non tense Integumentary: Present: no rash, warm and dry Neurologic: Present: no focal deficit, no asterixis Musculoskeletal: Present: no erythema, no cyanosis Psychiatric: Present: mood/affect appropriate, cooperative - Lab 12/23/17 06:03 12/23/17 04:06 Most recent lab results Calcium 8.8 mg/dL (8.6-10.3) 12/23/17 04:06 Consult Discharge Plan - Plan Referrals: Khadar Yeager, OR ASSISTANT [Primary Care Provider] -
--- NOTE | 2017-12-23 15:01 | Internal Med Progress Note ---
Date of Encounter: 12/23/17 Time of Encounter: 15:01 - Assessment and plan (1) Pre-syncope Current Visit: Yes Status: Resolved Assessment and plan: Presyncope with dizziness on exertion CTA head and neck found severe carotid stenosis of the carotid stent approximately on the left as well as diffuse stenosis throughout the right carotid intracranially. Continue aspirin, statin, Plavix Echocardiogram-all technically suboptimal noted any on the 16th 65% with no abnormalities noted MRI few punctate foci of increasing on diffusion weighted sequences may represent subacute infarct Neurology following continuous tele Up with assistance only (2) Carotid stenosis Current Visit: Yes Status: Chronic Qualifiers: Laterality: bilateral Qualified Code(s): I65.23 - Occlusion and stenosis of bilateral carotid arteries (3) Cerebral infarct Current Visit: Yes Status: Suspected Assessment and plan: MRI today demonstrates few punctate foci of increased signal on diffusion weighted sequence which may represent subacute infarct These findings in conjunction with severe carotid stenosis could explain patient 's lightheadedness and dizziness with exertion Continue ASA, statin, Plavix Qualifiers: Cerebral infarction mechanism: unspecified mechanism Qualified Code(s): I63.9 - Cerebral infarction, unspecified (4) BPPV (benign paroxysmal positional vertigo) Current Visit: Yes Status: Acute Assessment and plan: History of vertigo related to lightheadedness. Neurology recommends the patient may benefit from meclizine, IVF and vestibular therapy Qualifiers: Laterality: left Qualified Code(s): H81.12 - Benign paroxysmal vertigo, left ear (5) ESRD (end stage renal disease) on dialysis Current Visit: Yes Status: Chronic Assessment and plan: History of ESRD, patient getting PD. Management per nephrology There is some concern that peritoneal dialysis may also be contributing to dizziness; have discussed this with nephrology who states that patient may need to switch to hemodialysis. Consider upon recommendations of nephrology (6) HLD (hyperlipidemia) Current Visit: Yes Status: Chronic Assessment and plan: Continue statin Qualifiers: Hyperlipidemia type: unspecified Qualified Code(s): E78.5 - Hyperlipidemia , unspecified (7) HTN (hypertension) Current Visit: Yes Status: Chronic Assessment and plan: History of hypertension, blood pressure has been labile, continue HTN medications she is stable overall Qualifiers: Hypertension type: essential hypertension Qualified Code(s): I10 - Essential (primary) hypertension (8) Morbid obesity with BMI of 50.0-59.9, adult Current Visit: Yes Status: Chronic (9) Anemia in CKD (chronic kidney disease) Current Visit: Yes Status: Chronic Assessment and plan: Anemia in CKD. Stable with HGB 7.7, no active bleeding noted. Continue to monitor Qualifiers: Chronic kidney disease stage: on chronic dialysis Qualified Code(s): N18.6 - End stage renal disease; D63.1 - Anemia in chronic kidney disease; D63.1 - Anemia in chronic kidney disease; Z99.2 - Dependence on renal dialysis; Z99.2 - Dependence on renal dialysis; Z99.2 - Dependence on renal dialysis; Z99.2 - Dependence on renal dialysis (10) DM type 2 (diabetes mellitus, type 2) Current Visit: Yes Status: Chronic Assessment and plan: Blood glucose stable, Continue basal insulin Start low-dose sliding scale insulin coverage Qualifiers: Diabetes mellitus fpc insulin use: with fpc use Diabetes mellitus complication status: with kidney complications Diabetes mellitus complication detail: with chronic kidney disease Chronic kidney disease stage : on chronic dialysis Qualified Code(s): E11.22 - Type 2 diabetes mellitus with diabetic chronic kidney disease; N18.6 - End stage renal disease; N18.6 - End stage renal disease; N18.6 - End stage renal disease; N18.6 - End stage renal disease; Z79.4 - custodial (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 of insulin; Z79.4 - intermodal owner operator truck driver ( 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 of insulin; Z79.4 - intermodal owner operator truck driver (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 of insulin; Z79.4 - custodial (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; Z99.2 - Dependence on renal dialysis; Z99.2 - Dependence on renal dialysis; Z99.2 - Dependence on renal dialysis (11) Dizziness Current Visit: Yes Status: Acute - Time Spent With Patient Total time spent is greater than 50% in coordination of care (as documented) at patient's floor/unit and/or counseling patient: Greater than 35 minutes - Subjective Interval history: Ms. Salvador is a 62 year old female history of ESRD, HTN, DM, morbid obesity. Presents for complaints of near syncope. She is reporting dizziness at rest and that worsens with exertion. Patient recently underwent coronary stent placement due to stenosis. Left carotid artery was able to be stented however, right carotid artery was not. This was completed at [facility]. Also, she is an ESRD patient receiving nightly peritoneal dialysis. Patient seen and examined at bedside this afternoon. Denies no new complaints overnight. Continues to report dizziness. She mentions that when she was ambulating to the restroom last night that the dizziness was very severe. She denies any parasthesias, h/a, facial droop or slurred speech. She will need to remain in the hospital for further workup and evaluation. - Constitutional Vitals: Temp Pulse Resp BP Pulse Ox 97.9 F 75 18 149/77 97 12/23/17 06:34 12/23/17 06:54 12/23/17 06:34 12/23/17 06:54 12/23/17 06:34 General appearance: Present: A&O X 3, morbidly obese - Head Head exam: Present: atraumatic, normocephalic - Eye Eye exam: Present: PERRL, conjuntiva pink, sclera anicteric Pupils: Present: PERRL - Neck Neck exam general surgery: Present: supple, trachea midline. Absent: lymphadenopathy - Respiratory Respiratory exam: Present: CTAB. Absent: accessory muscle use, rales, rhonchi, wheezes - Cardiovascular Cardiovascular exam: Present: RRR, +S1, +S2. Absent: diastolic murmur, gallop, rubs, systolic murmur - GI/Abdominal GI/Abdominal exam: Present: normal bowel sounds, soft, no peritoneal signs. Absent: distended, tenderness - Extremities Exam Extremities exam: Present: warm, radial pulses palpable and symmetrical. Absent : calf tenderness, cyanotic, pedal edema - Neurological Exam Neurological exam: Present: CN II-XII intact, oriented X3, no focal deficits. Absent: pronater drift, facial droop, speech deficit - Skin Skin exam: Present: dry, intact Internal Medicine: Result - Labs CBC & Chem 7: 12/23/17 06:03 12/23/17 04:06 Labs: Short CBC 12/23/17 Range/Units 06:03 WBC 3.8 L (4.3-11.1) K/mcL Hgb 7.7 L (11.5-15.4) g/dL Hct 24.4 L (35.3-44.9) % Plt Count 130 L (140-400) K/mcL Neutrophils # 2.4 (1.6-8.9) K/mcL BMP 12/23/17 04:06 Sodium 136 Potassium 4.0 Chloride 100 Carbon Dioxide 27 BUN 40 H Creatinine 3.02 H Glucose 135 H Calcium 8.8 - Impressions Impressions Head CTA 12/23/17 08:58 IMPRESSION: 1. A stent is seen extending from the left carotid bulb through the proximal left internal carotid artery. There appears to be severe narrowing involving the proximal most aspect of the stent. 2. Additional scattered areas of stenoses due to atherosclerosis involving the intracranial and extracranial circulation as described above. D/ / Gerald Candelario MD / Gerald Candelario MD Interpreting Provider: Gerald Candelario MD Neck CTA 12/23/17 08:58 IMPRESSION: 1. A stent is seen extending from the left carotid bulb through the proximal left internal carotid artery. There appears to be severe narrowing involving the proximal most aspect of the stent. 2. Additional scattered areas of stenoses due to atherosclerosis involving the intracranial and extracranial circulation as described above. D/ / Gerald Candelario MD / Gerald Candelario MD Interpreting Provider: Gerald Candelario MD Brain MRI 12/23/17 18:19 IMPRESSION: 1. There are a few punctate foci of increased signal on the diffusion-weighted sequence without corresponding decreased signal on the ADC map within the is the frontal lobe white matter bilaterally. These may represent subacute infarcts. 2. Otherwise, no acute intracranial abnormality. No acute infarct. 3. Left mastoid effusion. D/ / Gerald Candelario MD / Gerald Candelario MD Interpreting Provider: Gerald Candelario MD Consult Discharge Plan - Plan Referrals: Khadar Yeager, LEAD APPLIER [Primary Care Provider] -
[2017-12-23] MEDS ORDERED: Perit. Dialysis with Dex 1.5 % 12,000 ML PERITONEAL ONE (18:44)
[2017-12-24] MEDS: Perit. Dialysis with Dex 1.5 % 2,000 ML PERITONEAL SCH ×3 (01:41→11:33)
[2017-12-24 06:37] LABS: Basophils % 0.5 %; Eosinophils # 0.1 K/mcL (0.0-0.6); Hematocrit 25.4 % (35.3-44.9); Hemoglobin 7.9 g/dL (11.5-15.4); Immature Granulocytes % 0.5 % (0-4); Lymphocytes # 0.9 K/mcL (0.6-4.6); Lymphocytes % 21.8 %; Mean Corpuscular HGB Conc 31.1 g/dL (31.6-35.5); Mean Corpuscular Hemoglobin 27.3 pg (28.0-33.3); Mean Corpuscular Volume 87.9 fL (83.0-100.0); Mean Platelet Volume 12.9 fL (9.4-12.4); Monocytes # 0.3 K/mcL (0.0-1.3); Monocytes % 7.4 %; Neutrophils # 2.7 K/mcL (1.6-8.9); Platelet Count 126 K/mcL (140-400); Red Blood Count 2.89 M/mcL (3.82-4.97); Red Cell Distribution Width 14.7 % (11.5-14.5); Segmented Neutrophils % 67.8 %
[2017-12-24 06:46] LABS: Calcium 8.7 mg/dL (8.6-10.3); Potassium 3.9 mEq/L (3.5-5.1)
--- NOTE | 2017-12-24 08:57 | Neurology Progress Note ---
Date of Encounter: 12/24/17 Time of Encounter: 07:25 Assessment and Plan (1) Cerebral infarct Current Visit: Yes Status: Suspected As far as his stroke is concerned she seems to be stable she did not have any other focal motor weakness from the subacute infarct noted in the both hemisphere predominantly on the left she remain on aspirin and Plavix suggested to continue along with statin (2) Carotid stenosis Current Visit: Yes Status: Chronic As noted she recently had carotid stenting but at the same time she also has a higher proximal intracranial stenosis as well. Considering significant atherosclerotic disease all over suspect that she is been having these episodic hypoperfusion causing these episodic confusion and slurring of the speech. Right now as far as treatment is concerned of the limited option I doubt she be any surgical benefit but we will get opinion from the vascular surgery On the other hand we may try to put her on low-dose of Coumadin along with low- dose of antiplatelet therapy and to see if it helps any As she remained quite symptomatic Though we could do an EEG but less likely that these are seizures especially when they are quite positional We will discuss with the primary team regarding treatment options Qualifiers: Laterality: bilateral Qualified Code(s): I65.23 - Occlusion and stenosis of bilateral carotid arteries Subjective Principal diagnosis: ESRD on PD Interval history: pt continued to be evaluated she is standing or sitting up last night she had another event when she was going using the bathroom and then all of a sudden she has difficulty with his speech and spasms of her neck muscles resolved spontaneously. She been having these episodes off and on for quite some time without any jerking or focal motor movements. Patient noted to have significant extra and intracranial stenosis I suspect her symptoms are likely related to the hypoperfusion. No new focal motor deficit noted on her examination today Objective - Constitutional Vitals: Temp Pulse Resp BP Pulse Ox 97.6 F 87 16 154/71 96 12/24/17 07:54 12/24/17 07:54 12/24/17 07:54 12/24/17 07:54 12/24/17 07:54 Results - Laboratory Findings CBC and BMP: 12/24/17 05:51 12/24/17 05:51 Abnormal lab findings: Abnormal lab results WBC 3.9 K/mcL (4.3-11.1) L 12/24/17 05:51 RBC 2.89 M/mcL (3.82-4.97) L 12/24/17 05:51 Hgb 7.9 g/dL (11.5-15.4) L 12/24/17 05:51 Hct 25.4 % (35.3-44.9) L 12/24/17 05:51 MCH 27.3 pg (28.0-33.3) L 12/24/17 05:51 MCHC 31.1 g/dL (31.6-35.5) L 12/24/17 05:51 RDW 14.7 % (11.5-14.5) H 12/24/17 05:51 Plt Count 126 K/mcL (140-400) L 12/24/17 05:51 MPV 12.9 fL (9.4-12.4) H 12/24/17 05:51 BUN 33 mg/dL (8-23) H 12/24/17 05:51 Creatinine 2.88 mg/dL (0.60-1.20) H 12/24/17 05:51 Est GFR ( Amer) 20 (> 60) L 12/24/17 05:51 Est GFR (Non-Af Amer) 17 (> 60) L 12/24/17 05:51 Glucose 162 mg/dL (70-105) H 12/24/17 05:51 POC Glucose 181 mg/dL (70-99) H 12/24/17 02:15 Consult Discharge Plan - Plan Referrals: Khadar Yeager, LACQUER SPRAY BOOTH OPERATOR [Primary Care Provider] -
[2017-12-24] MEDS: Cholecalciferol (D-3) 1,000 UNIT TABLET PO SCH (09:00)
[2017-12-24] MEDS: Furosemide 20 MG TABLET PO SCH ×2 (09:00→16:52)
[2017-12-24] MEDS: Aspirin Enteric Coated 81 MG Tablet PO SCH (09:00)
[2017-12-24] MEDS: Insulin DETEMIR 100 UNIT/ML X5UNITS SQ SCH ×2 (09:01→21:28)
[2017-12-24] MEDS: Magnesium Oxide 400 MG TABLET PO SCH ×2 (09:01→21:30)
[2017-12-24] MEDS: Metoprolol 100 MG TABLET PO SCH ×2 (09:01→21:29)
[2017-12-24] MEDS: Insulin LISPRO 300 UNITS/3 ML VIAL SQ SCH ×4 (09:02→21:58)
--- NOTE | 2017-12-24 09:16 | Nephrology Progress Note ---
Date of Encounter: 12/24/17 Time of Encounter: 09:15 - Assessment and Plan (1) ESRD (end stage renal disease) on dialysis Current Visit: Yes Status: Chronic Current PD patient of Dr. De La Torre. The PD cycler worked well last night, and will continue it at night while in hospital. (2) Dizziness Current Visit: Yes Status: Acute Did have a "spell" this am around 0200. Was getting up to have BM. Advised to only get up with assistance. (3) Anemia in CKD (chronic kidney disease) Current Visit: Yes Status: Chronic Goal Hbg is 10-11. Hgb 7.9 up from 7.7 yesterday. Aranesp given /. Did receive IV iron last hospitalization. Will trend. Qualifiers: Chronic kidney disease stage: on chronic dialysis Qualified Code(s): N18.6 - End stage renal disease; D63.1 - Anemia in chronic kidney disease; D63.1 - Anemia in chronic kidney disease; Z99.2 - Dependence on renal dialysis; Z99.2 - Dependence on renal dialysis; Z99.2 - Dependence on renal dialysis; Z99.2 - Dependence on renal dialysis (4) Carotid stenosis Current Visit: Yes Status: Chronic Was seen by Dr. Helms, progress note reviewed. Per primary team. Qualifiers: Laterality: bilateral Qualified Code(s): I65.23 - Occlusion and stenosis of bilateral carotid arteries (5) DM type 2 (diabetes mellitus, type 2) Current Visit: Yes Status: Chronic Per primary team. Qualifiers: Diabetes mellitus care home insulin use: with roasterman use Diabetes mellitus complication status: with kidney complications Diabetes mellitus complication detail: with chronic kidney disease Chronic kidney disease stage : on chronic dialysis Qualified Code(s): E11.22 - Type 2 diabetes mellitus with diabetic chronic kidney disease; N18.6 - End stage renal disease; Z99.2 - Dependence on renal dialysis; Z99.2 - Dependence on renal dialysis; Z99.2 - Dependence on renal dialysis; N18.6 - End stage renal disease; N18.6 - End stage renal disease; N18.6 - End stage renal disease; Z79.4 - [facility] (current ) use of insulin; Z79.4 - [facility] (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 of insulin; Z79.4 - [facility] (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 of insulin; Z79.4 - keno terminal operator (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 Subjective Principal diagnosis: ESRD on PD Interval history: Pt seen and examined. NAD. Objective - Vital Signs Vital signs: Vital Signs Temp Pulse Resp BP Pulse Ox 12/24/17 07:54 97.6 F 87 16 154/71 96 12/24/17 07:45 97.6 F 15 154/71 12/24/17 04:03 97.9 F 74 15 119/72 94 12/24/17 02:52 71 112/64 12/23/17 23:38 98.2 F 86 15 154/70 96 12/23/17 20:50 15 12/23/17 20:28 97.4 F L 85 177/73 12/23/17 16:19 97.8 F 84 19 135/80 95 Intake and Output 12/23/17 12/24/17 12/24/17 23:59 07:59 15:59 Intake Total 237 / 237 0 / 0 Output Total 1000 / 1000 350 / 350 Balance -763 / -763 -350 / -350 Intake: Oral 237 / 237 0 / 0 Output: Urine 1000 / 1000 350 / 350 Other: Meal Dinner npo Percent of Meal Consumed 100% 0% Weight 143.2 kg Blood Glucose* 201 127 - General Appearance General appearance: Present: obese EENT: Present: ATNC, hearing intact, vision intact Respiratory: Present: clear Cardiology: Present: edema (trace bilat edema to lower extremities.), normal S1 , normal S2 Additional Comments: PD cath noted, DRSG C/D/I. Integumentary: Present: no rash, warm and dry Neurologic: Present: alert and oriented x3 Psychiatric: Present: mood/affect appropriate, cooperative - Lab 12/24/17 05:51 12/24/17 05:51 Most recent lab results Calcium 8.7 mg/dL (8.6-10.3) 12/24/17 05:51 Consult Discharge Plan - Plan Referrals: Khadar Yeager, FISH FARM MANAGER [Primary Care Provider] -
[2017-12-24] MEDS ORDERED: Artificial Tears SOLN 15 ML BOTTLE LEFT EYE PRN (16:13)
--- NOTE | 2017-12-24 17:06 | Electrocardiograph Report ---
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
[2017-12-24] MEDS: Ondansetron 4 MG/2 ML VIAL IVP PRN (17:47)
--- NOTE | 2017-12-24 21:33 | Internal Med Progress Note ---
Date of Encounter: 12/24/17 Time of Encounter: 16:37 - Assessment and plan (1) Pre-syncope Current Visit: Yes Status: Acute Assessment and plan: Presyncope with dizziness on exertion. Currently with symptomatic orthostatic hypotension. CTA head and neck found severe carotid stenosis of the carotid stent approximately on the left as well as diffuse stenosis throughout the right carotid intracranially. MRI with few punctate foci of increasing on diffusion weighted sequences may represent subacute infarct. Neurology consulted; appreciate input. Will consult vascular surgery per neurology recommendations. Continue aspirin, statin, and plavix. Continue telemetry. Up with assistance only. Will try decreasing home metoprolol and amitriptyline dosages to see if this helps. (2) Dizziness Current Visit: Yes Status: Acute Assessment and plan: Plan as per above. (3) Cerebral infarct Current Visit: Yes Status: Suspected Assessment and plan: MRI this hospitalization demonstrated few punctate foci of increased signal on diffusion weighted sequence which may represent subacute infarct. These findings in conjunction with severe carotid stenosis could explain patient's lightheadedness and dizziness with exertion. Neurology consulted; appreciate input. Will consult vascular surgery. Management as per above. Qualifiers: Cerebral infarction mechanism: vascular stenosis Precerebral and cerebral artery: unspecified cerebral artery Qualified Code(s): I63.50 - Cerebral infarction due to unspecified occlusion or stenosis of unspecified cerebral artery (4) Carotid stenosis Current Visit: Yes Status: Chronic Assessment and plan: Vascular surgery consulted. Management as per above. Qualifiers: Laterality: bilateral Qualified Code(s): I65.23 - Occlusion and stenosis of bilateral carotid arteries (5) BPPV (benign paroxysmal positional vertigo) Current Visit: Yes Status: Acute Assessment and plan: History of vertigo related to lightheadedness. Neurology consulted; appreciate input. Neurology recommends the patient may benefit from meclizine, IVF, and vestibular therapy. Qualifiers: Laterality: left Qualified Code(s): H81.12 - Benign paroxysmal vertigo, left ear (6) HTN (hypertension) Current Visit: Yes Status: Chronic Assessment and plan: Continue home medications. Reduce metoprolol dose as per above. Qualifiers: Hypertension type: essential hypertension Qualified Code(s): I10 - Essential (primary) hypertension (7) HLD (hyperlipidemia) Current Visit: Yes Status: Chronic Assessment and plan: Continue home medications. Qualifiers: Hyperlipidemia type: unspecified Qualified Code(s): E78.5 - Hyperlipidemia , unspecified (8) Morbid obesity with BMI of 50.0-59.9, adult Current Visit: Yes Status: Chronic Assessment and plan: Counselled on lifestyle modifications. (9) DM type 2 (diabetes mellitus, type 2) Current Visit: Yes Status: Chronic Assessment and plan: Continue accuchecks and low dose SSI QID AC/HS. Qualifiers: Diabetes mellitus shelter insulin use: with watcher automat long goods use Diabetes mellitus complication status: with kidney complications Diabetes mellitus complication detail: with chronic kidney disease Chronic kidney disease stage : on chronic dialysis Qualified Code(s): E11.22 - Type 2 diabetes mellitus with diabetic chronic kidney disease; N18.6 - End stage renal disease; Z99.2 - Dependence on renal dialysis; Z99.2 - Dependence on renal dialysis; Z99.2 - Dependence on renal dialysis; N18.6 - End stage renal disease; N18.6 - End stage renal disease; N18.6 - End stage renal disease; Z79.4 - termite control servicer (current ) use of insulin; Z79.4 - shelter (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 of insulin; Z79.4 - termite control servicer (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 of insulin; Z79.4 - termite control servicer (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 (10) ESRD (end stage renal disease) on dialysis Current Visit: Yes Status: Chronic Assessment and plan: Nephrology consulted; appreciate input. Currently getting PD. Will avoid nephrotoxins and follow their recommendations. Recheck BMP in AM. (11) Anemia in CKD (chronic kidney disease) Current Visit: Yes Status: Chronic Assessment and plan: Anemia in CKD. Stable with HGB 7.9; no active bleeding noted. Recheck CBC in AM. Qualifiers: Chronic kidney disease stage: on chronic dialysis Qualified Code(s): N18.6 - End stage renal disease; D63.1 - Anemia in chronic kidney disease; D63.1 - Anemia in chronic kidney disease; Z99.2 - Dependence on renal dialysis; Z99.2 - Dependence on renal dialysis; Z99.2 - Dependence on renal dialysis; Z99.2 - Dependence on renal dialysis - Time Spent With Patient Total time spent is greater than 50% in coordination of care (as documented) at patient's floor/unit and/or counseling patient: 25 - 35 minutes - Subjective Interval history: Patient had no acute events overnight. She states that she is feeling "better" this AM. She still has dizziness, hypotension, and presyncope when she stands up. BP improves with sitting down. She denies chest pain, SOB, focal neurological deficits, fever, or chills. Her only other complaint is feeling of irritant in left eye. - Constitutional Vitals: Temp Pulse Resp BP Pulse Ox 97.9 F 84 16 133/80 94 12/24/17 19:37 12/24/17 19:37 12/24/17 19:37 12/24/17 19:37 12/24/17 19:37 General appearance: Present: cooperative, A&O X 3, morbidly obese, pleasant, no acute distress, answers questions appropriately - Respiratory Respiratory exam: Present: CTAB. Absent: accessory muscle use, rales, rhonchi, wheezes Additional comments: Normal WOB - Cardiovascular Cardiovascular exam: Present: RRR, +S1, +S2. Absent: diastolic murmur, gallop, rubs, systolic murmur Additional comments: No BLE edema - GI/Abdominal GI/Abdominal exam: Present: normal bowel sounds, soft. Absent: distended, hepatomegaly, mass, splenomegaly, tenderness - Psychiatric Psychiatric exam: Present: normal affect, normal mood. Absent: agitated, anxious, depressed - Skin Skin exam: Present: dry, intact, warm. Absent: cyanosis, rash Internal Medicine: Result - Labs CBC & Chem 7: 12/24/17 05:51 12/24/17 05:51 Labs: Short CBC 12/24/17 Range/Units 05:51 WBC 3.9 L (4.3-11.1) K/mcL Hgb 7.9 L (11.5-15.4) g/dL Hct 25.4 L (35.3-44.9) % Plt Count 126 L (140-400) K/mcL Neutrophils # 2.7 (1.6-8.9) K/mcL BMP 12/24/17 05:51 Sodium 136 Potassium 3.9 Chloride 100 Carbon Dioxide 29 BUN 33 H Creatinine 2.88 H Glucose 162 H Calcium 8.7 - VTE Documentation of Mechanical Device: Intermittent pneumatic compression device Consult Discharge Plan - Plan Referrals: Khadar Yeager, SEARCH LEAD [Primary Care Provider] -
[2017-12-24] MEDS ORDERED: Perit. Dialysis with Dex 1.5 % 12,000 ML PERITONEAL ONE (21:46)
[2017-12-25 08:08] LABS: Calcium 8.6 mg/dL (8.6-10.3)
[2017-12-25] MEDS: Cholecalciferol (D-3) 1,000 UNIT TABLET PO SCH (08:16)
[2017-12-25] MEDS: Furosemide 20 MG TABLET PO SCH ×2 (08:16→16:36)
[2017-12-25] MEDS: Magnesium Oxide 400 MG TABLET PO SCH ×2 (08:17→21:09)
[2017-12-25] MEDS: Metoprolol 100 MG TABLET PO SCH ×2 (08:17→21:09)
[2017-12-25] MEDS: Aspirin Enteric Coated 81 MG Tablet PO SCH (08:17)
[2017-12-25] MEDS: Insulin DETEMIR 100 UNIT/ML X5UNITS SQ SCH ×2 (08:18→21:11)
[2017-12-25 08:21] LABS: Basophils % 0.6 %; Eosinophils # 0.1 K/mcL (0.0-0.6); Immature Granulocytes % 0.6 % (0-4); Lymphocytes % 29.3 %; Mean Corpuscular HGB Conc 30.8 g/dL (31.6-35.5); Mean Corpuscular Hemoglobin 27.3 pg (28.0-33.3); Mean Corpuscular Volume 88.7 fL (83.0-100.0); Mean Platelet Volume 12.7 fL (9.4-12.4); Monocytes # 0.2 K/mcL (0.0-1.3); Monocytes % 6.5 %; Neutrophils # 2.2 K/mcL (1.6-8.9); Platelet Count 125 K/mcL (140-400); Red Blood Count 2.93 M/mcL (3.82-4.97); Red Cell Distribution Width 14.6 % (11.5-14.5)
--- NOTE | 2017-12-25 08:35 | Nephrology Progress Note ---
Date of Encounter: 12/25/17 Time of Encounter: 08:33 - Assessment and Plan (1) ESRD (end stage renal disease) on dialysis Current Visit: Yes Status: Chronic Current PD patient of Dr. De La Torre. The PD cycler worked well last night, and will continue it at night while in hospital. (2) Dizziness Current Visit: Yes Status: Acute Improving, Vascular to see patient today for any new recommendations. Spoke with Dr. Helms recommended decreasing home BP medications to decrease symptoms. (3) Anemia in CKD (chronic kidney disease) Current Visit: Yes Status: Chronic Goal Hbg is 10-11. Hgb 7.9 yesteday, labs have been ordered for today but not received yet. Will trend. Qualifiers: Chronic kidney disease stage: on chronic dialysis Qualified Code(s): N18.6 - End stage renal disease; D63.1 - Anemia in chronic kidney disease; D63.1 - Anemia in chronic kidney disease; Z99.2 - Dependence on renal dialysis; Z99.2 - Dependence on renal dialysis; Z99.2 - Dependence on renal dialysis; Z99.2 - Dependence on renal dialysis (4) Carotid stenosis Current Visit: Yes Status: Chronic Vascular consulted yesterday, will await recommendations. Qualifiers: Laterality: bilateral Qualified Code(s): I65.23 - Occlusion and stenosis of bilateral carotid arteries (5) DM type 2 (diabetes mellitus, type 2) Current Visit: Yes Status: Chronic Per primary team. Qualifiers: Diabetes mellitus terminal block assembler insulin use: with mcfp use Diabetes mellitus complication status: with kidney complications Diabetes mellitus complication detail: with chronic kidney disease Chronic kidney disease stage : on chronic dialysis Qualified Code(s): E11.22 - Type 2 diabetes mellitus with diabetic chronic kidney disease; N18.6 - End stage renal disease; N18.6 - End stage renal disease; N18.6 - End stage renal disease; N18.6 - End stage renal disease; Z79.4 - jail (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 of insulin; Z79.4 - jail ( 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 of insulin; Z79.4 - jail (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 of insulin; Z79.4 - jail (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; Z99.2 - Dependence on renal dialysis; Z99.2 - Dependence on renal dialysis; Z99.2 - Dependence on renal dialysis Subjective Principal diagnosis: ESRD on PD Interval history: Pt seen and examined. States she is doing "much better". Is not as dizzy as yesterday, but has only been up once. Objective - Vital Signs Vital signs: Vital Signs Temp Pulse Resp BP Pulse Ox 12/25/17 07:20 97.6 F 85 15 172/83 96 12/25/17 04:06 97.4 F L 82 16 129/71 94 12/25/17 00:02 98 F 85 15 152/84 94 12/24/17 22:50 98.8 F 17 136/84 12/24/17 19:37 97.9 F 84 16 133/80 94 12/24/17 15:55 97.8 F 80 16 142/76 93 12/24/17 11:11 97.8 F 77 16 106/70 98 Intake and Output 12/24/17 12/25/17 12/25/17 23:59 07:59 15:59 Intake Total 510 / 510 50 / 50 Output Total 800 / 800 400 / 400 Balance -290 / -290 -350 / -350 Intake: Oral 510 / 510 50 / 50 Output: Urine 800 / 800 400 / 400 Other: Meal Dinner Percent of Meal Consumed 70% # Voids 2 Weight 143.2 kg Blood Glucose* 123 120 - General Appearance General appearance: Present: obese, chronically ill EENT: Present: ATNC, hearing intact, vision intact Neck: Present: supple Respiratory: Present: clear Cardiology: Present: edema (trace bilateral edema.), normal S1, normal S2 Additional Comments: PD cath noted, DRSG C/D/I. Gastrointestinal: Present: normoactive bowel sounds, no tenderness, no guarding Integumentary: Present: warm and dry Neurologic: Present: alert and oriented x3 Psychiatric: Present: mood/affect appropriate, cooperative - Lab 12/25/17 07:16 12/25/17 07:16 Most recent lab results Calcium 8.6 mg/dL (8.6-10.3) 12/25/17 07:16 - VTE Documentation of Mechanical Device: Intermittent pneumatic compression device Consult Discharge Plan - Plan Referrals: Khadar Yeager, PHOTOGRAPHER APPRENTICE [Primary Care Provider] -
--- NOTE | 2017-12-25 10:43 | Neurology Progress Note ---
<Malcolm Baez - Last Filed: 12/25/17 10:40> Date of Encounter: 12/25/17 Time of Encounter: 08:30 Assessment and Plan (1) Carotid stenosis Current Visit: Yes Status: Chronic Diffuse atherosclerotic disease. Likely cause of positional dizziness/confusion/ difficulty speaking. Decreasing metoprolol and amitriptyline may improve symptoms. Limited treatment options. Appreciate input from vascular surgery. Consider low-dose coumadin with low-dose antiplatelet therapy. Qualifiers: Laterality: bilateral Qualified Code(s): I65.23 - Occlusion and stenosis of bilateral carotid arteries (2) Cerebral infarct Current Visit: Yes Status: Suspected Stable without focal deficit. Continue ASA and plavix. Qualifiers: Cerebral infarction mechanism: vascular stenosis Precerebral and cerebral artery: unspecified cerebral artery Qualified Code(s): I63.50 - Cerebral infarction due to unspecified occlusion or stenosis of unspecified cerebral artery (3) BPPV (benign paroxysmal positional vertigo) Current Visit: Yes Status: Acute Improved with meclizine. Qualifiers: Laterality: left Qualified Code(s): H81.12 - Benign paroxysmal vertigo, left ear Subjective Principal diagnosis: ESRD on PD Interval history: Vertiginous dizziness improved since starting meclizine. No change in lightheadedness. Continues to become lightheaded and clammy on standing, with difficulty speaking. Objective - Constitutional Vitals: Temp Pulse Resp BP Pulse Ox 97.6 F 85 15 172/83 96 12/25/17 07:20 12/25/17 07:20 12/25/17 07:20 12/25/17 07:20 12/25/17 07:20 - Other Additional findings: CONSTITUTIONAL: Well-developed and well-nourished. In no acute distress. CARDIOVASCULAR: Regular rate and rhythm. +S1 and S2. CHEST: Normal work of breathing. NEURO: Mental Status: Alert and oriented x3. Follows commands and answers questions. Cranial Nerves: PERRL. EOMI. Visual baron intact. Symmetrical facial strength. Facial sensation intact. No dysarthria. Hearing intact. Soft palate elevates symmetrically. SCM and trapezius without weakness. Tongue protrudes in midline. Motor: Left - 5/5 in upper and lower extremities. R - 5/5 in upper and lower extremities. Sensation intact. Cerebellar function intact to [id number]. - VTE Documentation of Mechanical Device: Intermittent pneumatic compression device Results - Laboratory Findings CBC and BMP: 12/25/17 07:16 12/25/17 07:16 Abnormal lab findings: Abnormal lab results WBC 3.6 K/mcL (4.3-11.1) L 12/25/17 07:16 RBC 2.93 M/mcL (3.82-4.97) L 12/25/17 07:16 Hgb 8.0 g/dL (11.5-15.4) L 12/25/17 07:16 Hct 26.0 % (35.3-44.9) L 12/25/17 07:16 MCH 27.3 pg (28.0-33.3) L 12/25/17 07:16 MCHC 30.8 g/dL (31.6-35.5) L 12/25/17 07:16 RDW 14.6 % (11.5-14.5) H 12/25/17 07:16 Plt Count 125 K/mcL (140-400) L 12/25/17 07:16 MPV 12.7 fL (9.4-12.4) H 12/25/17 07:16 BUN 34 mg/dL (8-23) H 12/25/17 07:16 Creatinine 3.00 mg/dL (0.60-1.20) H 12/25/17 07:16 Est GFR ( Amer) 19 (> 60) L 12/25/17 07:16 Est GFR (Non-Af Amer) 16 (> 60) L 12/25/17 07:16 Glucose 112 mg/dL (70-105) H 12/25/17 07:16 POC Glucose 123 mg/dL (70-99) H 12/24/17 20:08 Consult Discharge Plan - Plan Referrals: Khadar Yeager, DISTILLERY WORKER GENERAL [Primary Care Provider] - <Cindy Helms I - Last Filed: 12/25/17 12:24> Date of Encounter: 12/25/17 Assessment and Plan (1) Cerebral infarct Current Visit: Yes Status: Suspected (2) Carotid stenosis Current Visit: Yes Status: Chronic Pt was seen and examined, my medical decision was reviewed with the Resident Physician, I agree with the documented findings, disposition and treatment plas as described except to the extent set forth below Patient remain symptomatic though did not have much symptoms as she was having previously slightly dizzy now. Beta blockers has been decreased and amitriptyline was discontinued probably would help her symptoms at the same time suggest to slightly increase the fluid intake. She should continue on antiplatelet therapy 1 other option will be to try on the low-dose of Coumadin along with antiplatelet therapy ?? As well. We will discuss with vascular surgery regarding any suggestions Cindy Helms MD Qualifiers: Laterality: bilateral Qualified Code(s): I65.23 - Occlusion and stenosis of bilateral carotid arteries Objective - Constitutional Vitals: Temp Pulse Resp BP Pulse Ox 98.0 F 76 15 158/76 94 12/25/17 11:27 12/25/17 11:27 12/25/17 11:27 12/25/17 11:27 12/25/17 11:27 Results - Laboratory Findings CBC and BMP: 12/25/17 07:16 12/25/17 07:16 Abnormal lab findings: Abnormal lab results WBC 3.6 K/mcL (4.3-11.1) L 12/25/17 07:16 RBC 2.93 M/mcL (3.82-4.97) L 12/25/17 07:16 Hgb 8.0 g/dL (11.5-15.4) L 12/25/17 07:16 Hct 26.0 % (35.3-44.9) L 12/25/17 07:16 MCH 27.3 pg (28.0-33.3) L 12/25/17 07:16 MCHC 30.8 g/dL (31.6-35.5) L 12/25/17 07:16 RDW 14.6 % (11.5-14.5) H 12/25/17 07:16 Plt Count 125 K/mcL (140-400) L 12/25/17 07:16 MPV 12.7 fL (9.4-12.4) H 12/25/17 07:16 BUN 34 mg/dL (8-23) H 12/25/17 07:16 Creatinine 3.00 mg/dL (0.60-1.20) H 12/25/17 07:16 Est GFR ( Amer) 19 (> 60) L 12/25/17 07:16 Est GFR (Non-Af Amer) 16 (> 60) L 12/25/17 07:16 Glucose 112 mg/dL (70-105) H 12/25/17 07:16 POC Glucose 123 mg/dL (70-99) H 12/24/17 20:08
[2017-12-25] MEDS: Insulin LISPRO 300 UNITS/3 ML VIAL SQ SCH ×4 (11:48→21:13)
[2017-12-25] MEDS: Ondansetron 4 MG/2 ML VIAL IVP PRN (12:11)
--- NOTE | 2017-12-25 15:50 | Vascular/Endovasc Consult Note ---
Date of Encounter: 12/25/17 Time of Encounter: 15:15 Assessment and Plan (1) Carotid stenosis Status: Chronic The pathophysiology and natural history of carotid stenosis was discussed with the patient and all questions were answered. The patient has a history of a greater than 80% left internal carotid artery stenosis. She reports that she underwent a left carotid stent in November 2017 at [facility]. She now reports symptoms of intermitent dizziness and generalized weakness. She also reports intermittent speech deficits. She denies any right sided parasthesias or focal weakness. Review of her recent CT angiogrma reveals a patent left carotid stent. However , the stent appears to be positioned above the left internal carotid artery stenosis. Further discussion with the patient revealed that she says she was told by her Carpenter [employer] that he wanted to put 2 stents in, but was only able to place one stent. In effect, the patient continues to have significant stenosis of the left internal carotid artery. Given her symptoms, she will require further evaluation including carotid angiography with a possible carotid stent positioned within the stenotic segment. Alternatively, she may require endarterectomy if a stent cannot be placed. Qualifiers: Laterality: bilateral Qualified Code(s): I65.23 - Occlusion and stenosis of bilateral carotid arteries (2) DM type 2 (diabetes mellitus, type 2) Status: Chronic Qualifiers: Diabetes mellitus intermediate manager insulin use: with intermediate manager use Diabetes mellitus complication status: with kidney complications Diabetes mellitus complication detail: with chronic kidney disease Chronic kidney disease stage : on chronic dialysis Qualified Code(s): E11.22 - Type 2 diabetes mellitus with diabetic chronic kidney disease; N18.6 - End stage renal disease; Z79.4 - alf (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 (3) ESRD (end stage renal disease) on dialysis Status: Chronic (4) HLD (hyperlipidemia) Status: Chronic She was counseled regarding atherosclerotic risk factor reduction. Qualifiers: Hyperlipidemia type: unspecified Qualified Code(s): E78.5 - Hyperlipidemia , unspecified (5) HTN (hypertension) Status: Chronic Qualifiers: Hypertension type: essential hypertension Qualified Code(s): I10 - Essential (primary) hypertension (6) Morbid obesity with BMI of 50.0-59.9, adult Status: Chronic - History of Present Illness Consult date: 12/25/17 Requesting physician: James Cerda Consult reason: Carotid stenosis Chief complaint: Dizziness History of present illness: Ms. Salvador is a 62 year old female with a history of carotid stenosis. The patient reports that she previously underwent a left carotid stent at [facility] in November 2017. She recently presented to [facility] with complaints of visual disturbances, dizziness speech deficits and generalized weakness. She reports multiple episodes of recurrent symptoms. She was admitted to [facility] and multiple studies were performed. As part of her evaluation she underwent a CT angiogram of the neck. This revealed a patent carotid stent also significant left internal carotid artery stenosis. Vascular surgery was counseled for further evaluation. The patient is currently resting comfortably and denies any recent episodes. He denies chest pain or shortness of breath. Past Med Surg Social Fam HX - Past Medical History Medical history: arthritis, diabetes, hyperlipidemia, hypertension, renal disease Psychiatric history: no psych history - Past Surgical History Surgical History: , cholecystectomy, herniorrhaphy, hysterectomy, orthopedic, other, other - Social History Smoking Status: Never smoker Smokeless Tobacco Status: No Alcohol use: none Drug use: none - Family History Father Family Member Ethnicity: Non- Living Status: Hx Family Cardiac Disorders: Yes (CVA) Hx Family Respiratory Disorders: No Hx Family Cancer: Yes (Prostate) Hx Family GI Disorders: No Hx Family Endocrine Disorder: No Hx Family Neuromuscular Disorders: No Hx Family Neurologic Disorders: No Hx Family HEENT Disorders: No Hx Family Autoimmune Disorders: No Mother Family Member Ethnicity: Non- Living Status: Hx Family Cardiac Disorders: Yes (CVA) Hx Family Respiratory Disorders: No Hx Family Cancer: No Hx Family GI Disorders: No Hx Family Endocrine Disorder: Yes (Thyroid) Hx Family Neuromuscular Disorders: No Hx Family Neurologic Disorders: No Hx Family HEENT Disorders: No Hx Family Autoimmune Disorders: No Medications and Allergies Fish Oil/Dha/Epa [Fish Oil 1,200 mg Fish Oil] 1,200 mg PO DAILY 07/05/16 [ History] Omeprazole [PriLOSEC] 40 mg PO DAILY 07/05/16 [History] Aspirin [Lo-Dose Aspirin EC] 81 mg PO DAILY 04/03/17 [History] Cholecalciferol (D-3) [Vitamin D] 5,000 unit PO DAILY 04/03/17 [History] glipiZIDE [Glipizide ER] 10 mg PO DAILY 04/03/17 [History] Atorvastatin Calcium [Lipitor] 80 mg PO HS 12/19/17 [History] Clopidogrel [Plavix] 75 mg PO DAILY 12/19/17 [History] Furosemide [Lasix] 40 mg PO BID 12/19/17 [History] Insulin ASPART [NovoLOG] 20 unit SQ TIDAC PRN 12/19/17 [History] Insulin Glargine [Lantus] 100 unit SQ Q12H 12/19/17 [History] Magnesium Oxide [Magnesium] 400 mg PO BID 12/19/17 [History] Lisinopril [Zestril] 10 mg PO DAILY 30 Days #30 tablet 12/21/17 [Rx] Meclizine [Antivert] 25 mg PO BID 7 Days #14 tablet 12/26/17 [Rx] Metoprolol [Lopressor] 25 mg PO BID 7 Days #14 tablet 12/26/17 [Rx] 3 Allergy/AdvReac Type Severity Reaction Status Date / Time No Known Allergies Allergy Verified 05/22/17 07:28 All Systems Review: The remainder of the systems were reviewed and are negative - Cardiovascular Cardiovascular: no chest pain at rest, no chest pain with exertion, no dyspnea at rest, no dyspnea on exertion - Neurological Neurological: no abnormal speech, no dizziness Exam General: Present: Conversant, No Apparent Distress HEENT: Present: Atraumatic, Normocephaly Neck: Present: Left Carotid bruit. Absent: JVD, Lymphadenopathy, Right Carotid bruit Cardiac: Present: Reg Rate and Rhythm, Normal S1 and S2 Lungs: Present: Normal Breath Sounds, No Wheeze, Rales, Rhonchi Neuro: Present: Alert and responsive, No focal deficits noted, Motor nerves grossly intact, Sensory nerves grossly intact Abdomen: Present: Soft, Non-tender. Absent: Masses Vascular: Present: Normal capillary refill, Pulse, normal. Absent: Cyanosis, Edema Skin: Absent: No rashes noted on visualized skin Consult Discharge Plan - Plan Instructions: Metoprolol (By mouth), Meclizine (By mouth), Diabetes Mellitus Type 2 in Adults (DC) Additional Instructions: Follow up with PCP in 2-3 days after discharge. Recheck BMP (CKD) and CBC ( anemia) at that time. Follow up with vascular surgery in 1-2 weeks as directed. Follow up with neurology and nephrology as directed. Referrals: Khadar Yeager CNP [Primary Care Provider] - 12/31/17 10:40 am (Please follow up as schedule..) Jp Soto MD [Partnered Physician] - 01/08/18 2:20 pm (Please follow up as schedule...) Prescriptions: Meclizine [Antivert] 25 mg PO BID 7 Days #14 tablet Metoprolol [Lopressor] 25 mg PO BID 7 Days #14 tablet
[2017-12-25] MEDS ORDERED: Perit. Dialysis with Dex 1.5 % 12,000 ML PERITONEAL ONE (18:01)
--- NOTE | 2017-12-25 18:52 | Internal Med Progress Note ---
Date of Encounter: 12/25/17 Time of Encounter: 18:51 - Assessment and plan (1) Pre-syncope Current Visit: Yes Status: Acute Assessment and plan: Presyncope with dizziness on exertion and symptomatic orthostatic hypotension both improving. CTA head and neck found severe carotid stenosis of the carotid stent approximately on the left as well as diffuse stenosis throughout the right carotid intracranially. MRI with few punctate foci of increasing on diffusion weighted sequences may represent subacute infarct. Neurology consulted; appreciate input. Vascular surgery consulted; appreciate input. Continue aspirin, statin, and plavix. Added lovenox for DVT prophylaxis as per below. Will consider low dose coumadin once vascular surgery recommendations are in. Continue telemetry. Up with assistance only. Continue metoprolol at decreased dose. Discontinue amitriptyline. (2) Dizziness Current Visit: Yes Status: Acute Assessment and plan: Plan as per above. (3) Cerebral infarct Current Visit: Yes Status: Suspected Assessment and plan: MRI this hospitalization demonstrated few punctate foci of increased signal on diffusion weighted sequence which may represent subacute infarct. These findings in conjunction with severe carotid stenosis could explain patient's lightheadedness and dizziness with exertion. Neurology consulted; appreciate input. Vascular surgery consulted; appreciate input. Management as per above. Qualifiers: Cerebral infarction mechanism: vascular stenosis Precerebral and cerebral artery: unspecified cerebral artery Qualified Code(s): I63.50 - Cerebral infarction due to unspecified occlusion or stenosis of unspecified cerebral artery (4) Carotid stenosis Current Visit: Yes Status: Chronic Assessment and plan: Vascular surgery consulted. Management as per above. Qualifiers: Laterality: bilateral Qualified Code(s): I65.23 - Occlusion and stenosis of bilateral carotid arteries (5) BPPV (benign paroxysmal positional vertigo) Current Visit: Yes Status: Acute Assessment and plan: History of vertigo related to lightheadedness. Neurology consulted; appreciate input. Neurology recommends the patient may benefit from meclizine, IVF, and vestibular therapy. Qualifiers: Laterality: left Qualified Code(s): H81.12 - Benign paroxysmal vertigo, left ear (6) HTN (hypertension) Current Visit: Yes Status: Chronic Assessment and plan: Continue home medications. Continue metoprolol at reduced dose as per above. Qualifiers: Hypertension type: essential hypertension Qualified Code(s): I10 - Essential (primary) hypertension (7) HLD (hyperlipidemia) Current Visit: Yes Status: Chronic Assessment and plan: Continue home medications. Qualifiers: Hyperlipidemia type: unspecified Qualified Code(s): E78.5 - Hyperlipidemia , unspecified (8) Morbid obesity with BMI of 50.0-59.9, adult Current Visit: Yes Status: Chronic Assessment and plan: Counselled on lifestyle modifications. (9) DM type 2 (diabetes mellitus, type 2) Current Visit: Yes Status: Chronic Assessment and plan: Continue accuchecks and low dose SSI QID AC/HS. Qualifiers: Diabetes mellitus intermediate insulin use: with intermediate use Diabetes mellitus complication status: with kidney complications Diabetes mellitus complication detail: with chronic kidney disease Chronic kidney disease stage : on chronic dialysis Qualified Code(s): E11.22 - Type 2 diabetes mellitus with diabetic chronic kidney disease; N18.6 - End stage renal disease; Z99.2 - Dependence on renal dialysis; Z99.2 - Dependence on renal dialysis; Z99.2 - Dependence on renal dialysis; N18.6 - End stage renal disease; N18.6 - End stage renal disease; N18.6 - End stage renal disease; Z79.4 - lobsterman (current ) use of insulin; Z79.4 - lobsterman (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 of insulin; Z79.4 - MCFP (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 of insulin; Z79.4 - lobsterman (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 (10) ESRD (end stage renal disease) on dialysis Current Visit: Yes Status: Chronic Assessment and plan: Nephrology consulted; appreciate input. Currently getting PD. Will avoid nephrotoxins and follow their recommendations. Recheck BMP in AM. (11) Anemia in CKD (chronic kidney disease) Current Visit: Yes Status: Chronic Assessment and plan: Anemia in CKD. Stable with HGB = 8.0; no active bleeding noted. Recheck CBC in AM. Qualifiers: Chronic kidney disease stage: on chronic dialysis Qualified Code(s): N18.6 - End stage renal disease; D63.1 - Anemia in chronic kidney disease; D63.1 - Anemia in chronic kidney disease; Z99.2 - Dependence on renal dialysis; Z99.2 - Dependence on renal dialysis; Z99.2 - Dependence on renal dialysis; Z99.2 - Dependence on renal dialysis (12) DVT prophylaxis Current Visit: No Status: Acute Assessment and plan: Start SCDs and lovenox 30 mg SQ QD. - Time Spent With Patient Total time spent is greater than 50% in coordination of care (as documented) at patient's floor/unit and/or counseling patient: less than 15 minutes - Subjective Interval history: Patient had no acute events overnight. She states that dizziness is better today than yesterday. She was able to sit up in bed for extended period of time without dizziness. She denies chest pain, SOB, focal neurological deficits , fever, or chills. She is agreeable to discontinuing amitriptyline. She has no other complaints at this time. - Constitutional Vitals: Temp Pulse Resp BP Pulse Ox 98.1 F 96 16 144/87 93 12/25/17 16:19 12/25/17 16:19 12/25/17 16:19 12/25/17 16:19 12/25/17 16:19 General appearance: Present: cooperative, A&O X 3, morbidly obese, pleasant, no acute distress, answers questions appropriately - Respiratory Respiratory exam: Present: CTAB. Absent: accessory muscle use, rales, rhonchi, wheezes Additional comments: Normal WOB - Cardiovascular Cardiovascular exam: Present: RRR, +S1, +S2. Absent: diastolic murmur, gallop, rubs, systolic murmur Additional comments: No BLE edema - GI/Abdominal GI/Abdominal exam: Present: normal bowel sounds, soft. Absent: distended, hepatomegaly, mass, splenomegaly, tenderness - Psychiatric Psychiatric exam: Present: normal affect, normal mood. Absent: agitated, anxious, depressed - Skin Skin exam: Present: dry, intact, warm. Absent: cyanosis, rash Internal Medicine: Result - Labs CBC & Chem 7: 12/25/17 07:16 12/25/17 07:16 Labs: Short CBC 12/25/17 Range/Units 07:16 WBC 3.6 L (4.3-11.1) K/mcL Hgb 8.0 L (11.5-15.4) g/dL Hct 26.0 L (35.3-44.9) % Plt Count 125 L (140-400) K/mcL Neutrophils # 2.2 (1.6-8.9) K/mcL BMP 12/25/17 07:16 Sodium 139 Potassium 4.0 Chloride 103 Carbon Dioxide 28 BUN 34 H Creatinine 3.00 H Glucose 112 H Calcium 8.6 - VTE Documentation of Mechanical Device: Intermittent pneumatic compression device Consult Discharge Plan - Plan Referrals: Khadar Yeager CNP [Primary Care Provider] -
[2017-12-25] MEDS ORDERED: *HR* Enoxaparin 30 MG/0.3 ML SYRINGE SQ SCH (18:57)
[2017-12-26 06:19] LABS: Basophils % 0.4 %; Eosinophils # 0.1 K/mcL (0.0-0.6); Eosinophils % 1.8 %; Hematocrit 26.6 % (35.3-44.9); Hemoglobin 8.5 g/dL (11.5-15.4); Immature Platelets 11.3 % (1.1-6.1); Lymphocytes # 0.9 K/mcL (0.6-4.6); Lymphocytes % 18.3 %; Mean Corpuscular Hemoglobin 28.8 pg (28.0-33.3); Mean Corpuscular Volume 90.2 fL (83.0-100.0); Mean Platelet Volume 13.2 fL (9.4-12.4); Monocytes # 0.4 K/mcL (0.0-1.3); Neutrophils # 3.6 K/mcL (1.6-8.9); Nucleated Red Blood Cells 0.6 /100 WBC (0); Platelet Count 153 K/mcL (140-400); Red Blood Count 2.95 M/mcL (3.82-4.97); Red Cell Distribution Width 14.6 % (11.5-14.5); Segmented Neutrophils % 71.5 %
[2017-12-26 06:20] LABS: Calcium 8.9 mg/dL (8.6-10.3); Potassium 3.9 mEq/L (3.5-5.1)
[2017-12-26] MEDS: Insulin DETEMIR 100 UNIT/ML X5UNITS SQ SCH (07:59)
[2017-12-26] MEDS: Magnesium Oxide 400 MG TABLET PO SCH (07:59)
[2017-12-26] MEDS: Insulin LISPRO 300 UNITS/3 ML VIAL SQ SCH ×3 (07:59→17:21)
[2017-12-26] MEDS: Furosemide 20 MG TABLET PO SCH ×2 (08:00→17:22)
[2017-12-26] MEDS: Metoprolol 100 MG TABLET PO SCH (08:00)
[2017-12-26] MEDS: Cholecalciferol (D-3) 1,000 UNIT TABLET PO SCH (08:00)
[2017-12-26] MEDS: Aspirin Enteric Coated 81 MG Tablet PO SCH (08:00)
[2017-12-26] MEDS: Ondansetron 4 MG/2 ML VIAL IVP PRN (08:16)
--- NOTE | 2017-12-26 09:26 | Neurology Progress Note ---
Date of Encounter: 12/26/17 Time of Encounter: 07:00 Assessment and Plan (1) Cerebral infarct Current Visit: Yes Status: Suspected Stable at this time no focal motor weakness continue on antiplatelet therapy Qualifiers: Cerebral infarction mechanism: vascular stenosis Precerebral and cerebral artery: carotid artery Laterality of affected vessel: left Qualified Code(s) : I63.232 - Cerebral infarction due to unspecified occlusion or stenosis of left carotid arteries (2) Carotid stenosis Current Visit: Yes Status: Chronic Patient been evaluated by vascular surgery by Dr. Soto who has reviewed the angiogram, She will be following up with him with the possibility of repeat a stenting versus endarterectomy In the meantime suggest to continue on antiplatelet therapy along with statin Also need to keep the pressure on the higher side should not be to work too much perhaps may need to change her beta blockers though seems like decreasing the dose has already helped and she has not had any more Presyncope with dizziness, she is been having quite frequently predominantly with exertion and likely related to hypoperfusion . Increase the fluid intake decrease quick exertional activity follow vascular surgery recommendations Peripheral vertiginous symptoms seems to improve now stable from neuro stand point call if needed thanks Qualifiers: Laterality: bilateral Qualified Code(s): I65.23 - Occlusion and stenosis of bilateral carotid arteries Subjective Principal diagnosis: ESRD on PD Interval history: Patient seems to be stable now able to get up. Sitting without much dizziness perhaps discontinuation of amitriptyline and decreasing the dose of the metoprolol may have helped she denies any further episodes of jerking or shaking Patient noted to have significant extra and intracranial stenosis I suspect her symptoms are likely related to the hypoperfusion. No new focal motor deficit noted on her examination today Objective - Constitutional Vitals: Temp Pulse Resp BP Pulse Ox 98.2 F 85 15 189/77 95 12/26/17 06:59 12/26/17 06:59 12/26/17 06:59 12/26/17 06:59 12/26/17 08:26 - VTE Documentation of Mechanical Device: Intermittent pneumatic compression device Results - Laboratory Findings CBC and BMP: 12/26/17 04:00 12/26/17 04:00 Abnormal lab findings: Abnormal lab results RBC 2.95 M/mcL (3.82-4.97) L 12/26/17 04:00 Hgb 8.5 g/dL (11.5-15.4) L 12/26/17 04:00 Hct 26.6 % (35.3-44.9) L 12/26/17 04:00 RDW 14.6 % (11.5-14.5) H 12/26/17 04:00 MPV 13.2 fL (9.4-12.4) H 12/26/17 04:00 Nucleated RBCs/100 WBC 0.6 /100 WBC (0) H 12/26/17 04:00 Immature Plt Fraction 11.3 % (1.1-6.1) H 12/26/17 04:00 BUN 34 mg/dL (8-23) H 12/26/17 04:00 Creatinine 2.73 mg/dL (0.60-1.20) H 12/26/17 04:00 Est GFR ( Amer) 22 (> 60) L 12/26/17 04:00 Est GFR (Non-Af Amer) 18 (> 60) L 12/26/17 04:00 Glucose 240 mg/dL (70-105) H 12/26/17 04:00 POC Glucose 212 mg/dL (70-99) H 12/25/17 19:42 Calculated Osmolality 303 (280-300) H 12/26/17 04:00 Consult Discharge Plan - Plan Referrals: Khadar Yeager, TREND INVESTIGATOR [Primary Care Provider] -
--- NOTE | 2017-12-26 11:28 | Nephrology Progress Note ---
Date of Encounter: 12/26/17 Time of Encounter: 11:25 - Assessment and Plan (1) ESRD (end stage renal disease) on dialysis Current Visit: Yes Status: Chronic Current PD patient of Dr. De La Torre. The PD cycler had issues with flow last night. Patient has been constipated. Miralax ordered. (2) Dizziness Current Visit: Yes Status: Acute Improving, Vascular on board. Possible transfer to [facility] vs intervention here. (3) Anemia in CKD (chronic kidney disease) Current Visit: Yes Status: Chronic Goal Hbg is 10-11. Hgb 8.5 today. Qualifiers: Chronic kidney disease stage: on chronic dialysis Qualified Code(s): N18.6 - End stage renal disease; D63.1 - Anemia in chronic kidney disease; D63.1 - Anemia in chronic kidney disease; Z99.2 - Dependence on renal dialysis; Z99.2 - Dependence on renal dialysis; Z99.2 - Dependence on renal dialysis; Z99.2 - Dependence on renal dialysis (4) Carotid stenosis Current Visit: Yes Status: Chronic Vascular in contact with [facility] for possible intervention. Qualifiers: Laterality: bilateral Qualified Code(s): I65.23 - Occlusion and stenosis of bilateral carotid arteries (5) DM type 2 (diabetes mellitus, type 2) Current Visit: Yes Status: Chronic Per primary team. Qualifiers: Diabetes mellitus terminal make up operator insulin use: with terminal make up operator use Diabetes mellitus complication status: with kidney complications Diabetes mellitus complication detail: with chronic kidney disease Chronic kidney disease stage : on chronic dialysis Qualified Code(s): E11.22 - Type 2 diabetes mellitus with diabetic chronic kidney disease; N18.6 - End stage renal disease; Z79.4 - retirement (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 Subjective Principal diagnosis: ESRD on PD Interval history: Pt seen and examined. States she is doing better, was able to sit up on side of bed for breakfast. Objective - Vital Signs Vital signs: Vital Signs Temp Pulse Resp BP Pulse Ox 12/26/17 10:47 97.9 F 84 16 136/83 97 12/26/17 08:50 97.8 F 14 130/87 12/26/17 08:26 95 12/26/17 06:59 98.2 F 85 15 189/77 95 12/26/17 04:00 98.0 F 77 18 133/76 93 12/26/17 01:11 125/67 12/25/17 23:56 98.8 F 105 18 189/85 92 12/25/17 22:40 98.2 F 18 148/100 12/25/17 21:35 94 12/25/17 19:38 98.0 F 106 18 176/94 94 12/25/17 16:19 98.1 F 96 16 144/87 93 12/25/17 11:27 98.0 F 76 15 158/76 94 Intake and Output 12/25/17 12/26/17 12/26/17 23:59 07:59 15:59 Output Total 480 / 480 600 / 600 300 / 300 Balance -480 / -480 -600 / -600 -300 / -300 Output: Urine 480 / 480 600 / 600 300 / 300 Other: # Voids 1 2 Weight 143.2 kg 145.5 kg Blood Glucose* 212 201 146 Patient Weight 12/26/17 23:59 Weight 145.5 kg - General Appearance General appearance: Present: obese EENT: Present: ATNC, hearing intact, vision intact Neck: Present: supple Respiratory: Present: clear Cardiology: Present: edema (trace bilaterally.) Additional Comments: PD cath drsg C/D/I. Gastrointestinal: Present: normoactive bowel sounds, hypoactive bowel sounds, no tenderness, no guarding Integumentary: Present: no rash, warm and dry Neurologic: Present: alert and oriented x3 Psychiatric: Present: mood/affect appropriate, cooperative - Lab 12/26/17 04:00 12/26/17 04:00 Most recent lab results Calcium 8.9 mg/dL (8.6-10.3) 12/26/17 04:00 - VTE Documentation of Mechanical Device: Intermittent pneumatic compression device Consult Discharge Plan - Plan Referrals: Khadar Yeager, GLOBAL ACCOUNT MANAGER [Primary Care Provider] -
[2017-12-26] MEDS ORDERED: Perit. Dialysis with Dex 1.5 % 12,000 ML PERITONEAL ONE (14:28)
[2017-12-26] MEDS ORDERED: Furosemide 40 MG TABLET PO ONE (14:30)
[2017-12-26 17:21] VITALS: BP 210/103
[2017-12-26] MEDS ORDERED: *HR* Heparin 5,000 UNIT/ML VIAL SQ SCH (18:00)
--- NOTE | 2017-12-26 18:02 | Discharge Summary ---
- NOTES TO OUTPATIENT PROVIDER Notes to Outpatient Provider: Follow up with PCP in 2-3 days after discharge. Recheck BMP (CKD) and CBC (anemia) at that time. Follow up with vascular surgery in 1-2 weeks as directed. Follow up with neurology and nephrology as directed. Orders not resulted at time of discharge: Pending orders 12/21/17 18:11 NM kerline perf SPECT multi [NM] Routine 12/27/17 04:00 Basic Metabolic Panel AM 0400 CBC [Complete Blood Count] [HEME] AM 0400 Date of Encounter: 12/26/17 Time of Encounter: 11:07 - Discharge Diagnosis (1) Pre-syncope Priority: Primary Status: Acute (2) Dizziness Priority: Secondary Status: Acute (3) Cerebral infarct Priority: Secondary Status: Suspected Qualifiers: Cerebral infarction mechanism: vascular stenosis Precerebral and cerebral artery: carotid artery Laterality of affected vessel: left Qualified Code(s) : I63.232 - Cerebral infarction due to unspecified occlusion or stenosis of left carotid arteries (4) Carotid stenosis Priority: Secondary Status: Chronic Qualifiers: Laterality: bilateral Qualified Code(s): I65.23 - Occlusion and stenosis of bilateral carotid arteries (5) BPPV (benign paroxysmal positional vertigo) Priority: Secondary Status: Acute Qualifiers: Laterality: left Qualified Code(s): H81.12 - Benign paroxysmal vertigo, left ear (6) HTN (hypertension) Priority: Secondary Status: Chronic Qualifiers: Hypertension type: essential hypertension Qualified Code(s): I10 - Essential (primary) hypertension (7) HLD (hyperlipidemia) Priority: Secondary Status: Chronic Qualifiers: Hyperlipidemia type: unspecified Qualified Code(s): E78.5 - Hyperlipidemia , unspecified (8) Morbid obesity with BMI of 50.0-59.9, adult Priority: Secondary Status: Chronic (9) DM type 2 (diabetes mellitus, type 2) Priority: Secondary Status: Chronic Qualifiers: Diabetes mellitus terminal clerk insulin use: with terminal clerk use Diabetes mellitus complication status: with kidney complications Diabetes mellitus complication detail: with chronic kidney disease Chronic kidney disease stage : on chronic dialysis Qualified Code(s): E11.22 - Type 2 diabetes mellitus with diabetic chronic kidney disease; N18.6 - End stage renal disease; Z79.4 - adjunct faculty for medical terminology (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 (10) ESRD (end stage renal disease) on dialysis Priority: Secondary Status: Chronic (11) Anemia in CKD (chronic kidney disease) Priority: Secondary Status: Chronic Qualifiers: Chronic kidney disease stage: on chronic dialysis Qualified Code(s): N18.6 - End stage renal disease; D63.1 - Anemia in chronic kidney disease; D63.1 - Anemia in chronic kidney disease; Z99.2 - Dependence on renal dialysis; Z99.2 - Dependence on renal dialysis; Z99.2 - Dependence on renal dialysis; Z99.2 - Dependence on renal dialysis (12) DVT prophylaxis Priority: Secondary Status: Acute Hospital course: Ms. Salvador is a 62 year old female admitted for pre-syncope and dizziness. She was admitted to general medical floor with telemetry. Nephrology was consulted for CKD on peritoneal dialysis. MRI brain, stress test, and ECHO ordered. Unable to complete ECHO due to discomfort laying flat. MRI brain showed few punctate foci of increased signal on diffusion weighted sequence that may represent subacute strokes, but nothing acute. Stress test was poor study due to body habitus, but possible perfusion defects that could be ischemia vs artifact. Cardiology and neurology were consulted. She was started on meclizine for BPPV. CTA head and neck was ordered, and it demonstrated severe stenosis of the carotid stent proximally on the left, as well as diffuse stenosis throughout the right carotid and intracranially. Vascular surgery was consulted. They recommended that patient needs to get a new stent placed in left carotid due to new more proximal stenosis. Patient's home metoprolol dose was decreased slowly down to 25 mg BID. Her amitriptyline was tapered and discontinued. She tolerated both medication adjustments well, and she continued to improve slowly up to day of discharge today. Patient and family state today that she is doing much better. Can sit up without dizziness. Did some walking with PT without issues. One minor episode of dizziness while "at sink brushing teeth" today. She wants to go home today. I spoke with vascular surgeon Dr. Watts who states that its OK for patient to be discharged home, but she should follow up with him as outpatient to discuss left carotid stenosis options including restenting. She will follow up with PCP in 2-3 days after discharge. BMP (CKD) and CBC (anemia) can be rechecked at that time. She will follow up with vascular surgery in 1-2 weeks as directed. She will follow up with neurology and nephrology as directed. Patient has met maximum benefit of this hospitalization and will be discharged home with home health and home PT/OT in stable condition. Discharge discussed with: patient, family, nurse, social work, senior solutions consultant ( Vascular Surgeon), other (Pharmacist) - Time Spent with Patient Total time spent providing and/or coordinating discharge services: Greater than 30 minutes - Discharge Medications Prescriptions: Meclizine [Antivert] 25 mg PO BID 7 Days #14 tablet Metoprolol [Lopressor] 25 mg PO BID 7 Days #14 tablet Home Medications: Fish Oil/Dha/Epa [Fish Oil 1,200 mg Fish Oil] 1,200 mg PO DAILY 07/05/16 [ History] Omeprazole [PriLOSEC] 40 mg PO DAILY 07/05/16 [History] Aspirin [Lo-Dose Aspirin EC] 81 mg PO DAILY 04/03/17 [History] Cholecalciferol (D-3) [Vitamin D] 5,000 unit PO DAILY 04/03/17 [History] glipiZIDE [Glipizide ER] 10 mg PO DAILY 04/03/17 [History] Atorvastatin Calcium [Lipitor] 80 mg PO HS 12/19/17 [History] Clopidogrel [Plavix] 75 mg PO DAILY 12/19/17 [History] Furosemide [Lasix] 40 mg PO BID 12/19/17 [History] Insulin ASPART [NovoLOG] 20 unit SQ TIDAC PRN 12/19/17 [History] Insulin Glargine [Lantus] 100 unit SQ Q12H 12/19/17 [History] Magnesium Oxide [Magnesium] 400 mg PO BID 12/19/17 [History] Lisinopril [Zestril] 10 mg PO DAILY 30 Days #30 tablet 12/21/17 [Rx] Meclizine [Antivert] 25 mg PO BID 7 Days #14 tablet 12/26/17 [Rx] Metoprolol [Lopressor] 25 mg PO BID 7 Days #14 tablet 12/26/17 [Rx] Allergies/Adverse Reactions: 3 Allergy/AdvReac Type Severity Reaction Status Date / Time No Known Allergies Allergy Verified 05/22/17 07:28 Date of admission: 12/21/17 15:19 Primary care physician: Khadar Yeager CNP Consults: 12/21/17 18:20 Consult to Nephrology [CONS] Routine Consulting Provider: Kidney Carmen/CRYSTAL/GONSALO/RONAL Reason for Consult: Peritoneal dialysis patient. Need set up for inpatient dialysis Time Notified: 18:21 Call Completed: Yes 12/22/17 15:00 Consult to Occupational Therapy [CONS] Routine Comment: Evaluate, develop and implement POC Reason for Consult: therapy, dizziness limiting mobility; risk for functional decline Does patient have active BEDREST order?: No Is patient medically & hemodynamically stable?: Yes Patient assessed for mobility or mobilized this visit?: Yes Consult to Physical Therapy [CONS] Routine Comment: Evaluate, develop and implement POC Reason for Consult: therapy, dizziness limiting mobility; risk for functional decline Does patient have active BEDREST order?: No Is patient medically & hemodynamically stable?: Yes Patient assessed for mobility or mobilized this visit?: Yes 12/22/17 15:20 Consult to Neurology [CONS] Routine Consulting Provider: Neurology [facility] Reason for Consult: profound dizziness with exertion Time Notified: 15:21 Call Completed: Yes 12/22/17 19:02 Consult to Community Service Specialist [CONS] Routine Reason for SW Consult: patient would like to make changes to living will and add medical POA. 12/23/17 18:45 Consult to Dialysis [CONS] ONCE 12/23/17 19:00 Consult to Dialysis [CONS] ONCE 12/24/17 16:07 Consult to Vascular Surgery [CONS] Routine Consulting Provider: Vascular Surgery Carmen Reason for Consult: recent vasc surgery, syncope Call Completed: No 12/24/17 21:15 Consult to Dialysis [CONS] ONCE 12/25/17 16:30 Consult to Invasive Line Access Team [CONS] Routine Reason for Consult: limited vascular access with BMI 50.0 to 59.9 in adult Line Type: EPIV 12/25/17 18:15 Consult to Dialysis [CONS] ONCE 12/26/17 14:30 Consult to Dialysis [CONS] ONCE Discharging clinician: James Cerda Anticipated date of discharge: 12/26/17 - Constitutional Vitals: Temp Pulse Resp BP Pulse Ox 97.9 F 97 18 210/103 98 12/26/17 14:33 12/26/17 14:33 12/26/17 14:33 12/26/17 17:20 12/26/17 14:33 General appearance: Present: cooperative, A&O X 3, morbidly obese, pleasant, no acute distress, answers questions appropriately - Respiratory Respiratory exam: Present: CTAB. Absent: accessory muscle use, rales, rhonchi, wheezes Additional comments: Normal WOB - Cardiovascular Cardiovascular exam: Present: RRR, +S1, +S2. Absent: diastolic murmur, gallop, rubs, systolic murmur Additional comments: No BLE edema - GI/Abdominal GI/Abdominal exam: Present: normal bowel sounds, soft. Absent: distended, hepatomegaly, mass, splenomegaly, tenderness - Psychiatric Psychiatric exam: Present: normal affect, normal mood. Absent: agitated, anxious, depressed - Skin Skin exam: Present: dry, intact, warm. Absent: cyanosis, rash - Patient Status Disposition: Home Health Service Condition: Good Overall status at discharge: patient is progressing back to baseline - Discharge Instructions Follow Up With: Khadar Yeager CNP [Primary Care Provider] - 12/31/17 10:40 am (Please follow up as schedule..) Jp Soto MD [Partnered Physician] - 01/08/18 2:20 pm (Please follow up as schedule...) Forms: ED Satisfaction Letter Additional Instructions: Follow up with PCP in 2-3 days after discharge. Recheck BMP (CKD) and CBC ( anemia) at that time. Follow up with vascular surgery in 1-2 weeks as directed. Follow up with neurology and nephrology as directed. - Diet and Activity Activity: as per physical therapy Diet: diabetic diet, low fat, low cholesterol, low salt diet, other (Cardiac Diet, Renal Diet)
--- NOTE | 2017-12-26 18:32 | Physician Discharge Referral ---
Home Health/Hosp Referral Info Transfer to: Home Health Provider in Charge Post Discharge: PCP - Diagnosis (1) Pre-syncope Priority: Primary Status: Acute (2) Dizziness Priority: Secondary Status: Acute (3) Cerebral infarct Priority: Secondary Status: Suspected (4) Carotid stenosis Priority: Secondary Status: Chronic (5) BPPV (benign paroxysmal positional vertigo) Priority: Secondary Status: Acute (6) HTN (hypertension) Priority: Secondary Status: Chronic (7) HLD (hyperlipidemia) Priority: Secondary Status: Chronic (8) Morbid obesity with BMI of 50.0-59.9, adult Priority: Secondary Status: Chronic (9) DM type 2 (diabetes mellitus, type 2) Priority: Secondary Status: Chronic (10) ESRD (end stage renal disease) on dialysis Priority: Secondary Status: Chronic (11) Anemia in CKD (chronic kidney disease) Priority: Secondary Status: Chronic (12) DVT prophylaxis Priority: Secondary Status: Acute - Respiratory Orders Smoking Cessation: Smoking cessation has been advised. For more information, call the [place] Tobacco Quit Line at 8-629-LZXZ-NOW. - Diet/Nutrition Diet/Nutrition Orders: No Added Salt (PAOLO), Renal, Cardiac, No Concentrated Sweets (Diabetic) - Activity Activity: List: Per physical therapy - Services Needed Following services are medically necessary services: Nursing, Home Health Aide, Physical Therapy, Occupational Therapy - Transfer Medications Prescriptions: Meclizine [Antivert] 25 mg PO BID 7 Days #14 tablet Metoprolol [Lopressor] 25 mg PO BID 7 Days #14 tablet Home Medications: Fish Oil/Dha/Epa [Fish Oil 1,200 mg Fish Oil] 1,200 mg PO DAILY 07/05/16 [ History] Omeprazole [PriLOSEC] 40 mg PO DAILY 07/05/16 [History] Aspirin [Lo-Dose Aspirin EC] 81 mg PO DAILY 04/03/17 [History] Cholecalciferol (D-3) [Vitamin D] 5,000 unit PO DAILY 04/03/17 [History] glipiZIDE [Glipizide ER] 10 mg PO DAILY 04/03/17 [History] Atorvastatin Calcium [Lipitor] 80 mg PO HS 12/19/17 [History] Clopidogrel [Plavix] 75 mg PO DAILY 12/19/17 [History] Furosemide [Lasix] 40 mg PO BID 12/19/17 [History] Insulin ASPART [NovoLOG] 20 unit SQ TIDAC PRN 12/19/17 [History] Insulin Glargine [Lantus] 100 unit SQ Q12H 12/19/17 [History] Magnesium Oxide [Magnesium] 400 mg PO BID 12/19/17 [History] Lisinopril [Zestril] 10 mg PO DAILY 30 Days #30 tablet 12/21/17 [Rx] Meclizine [Antivert] 25 mg PO BID 7 Days #14 tablet 12/26/17 [Rx] Metoprolol [Lopressor] 25 mg PO BID 7 Days #14 tablet 12/26/17 [Rx] Allergies/Adverse Reactions: 3 Allergy/AdvReac Type Severity Reaction Status Date / Time No Known Allergies Allergy Verified 05/22/17 07:28 Certification: Further, I certify that my clinical findings support that this patient is homebound (i.e. absences from home require considerable and taxing effort and are for medical reasons or confucianism services or infrequently or short duration when for other reasons) because: syncope, carotid stenosis, cerebral infarct, ESRD, morbid obesity with BMI > 50.0, chronic CHF, and chronic anemia. Homebound Reason: Patient requires assistance of a person or device to safely leave home, Leaving home requires considerable and taxing effort due to condition, Severity of cardiac or pulmonary status limits activity tolerance Attestation: My signature below is to certify that this patient is under my care and that I, or nurse practitioner, or a physician's promotions assistant sales marketing working with me, has a face-to -face encounter with this patient.
== END 2017-12-26 18:45 | disposition home health service (06) ==
LOC: 2ANU 14:04 → EMEROO 14:04 → 2ANU 16:33
PROVIDERS: ADMIT Family Medicine; ATTEND Family Medicine

== ENCOUNTER 2018-04-06 10:52 | Inpatient (IN) ==
[2018-04-06] MEDS ORDERED: Isovue-370 500 ML INFUS..BTL IV ONE (10:57)
--- NOTE | 2018-04-06 11:31 | Emergency Department Note ---
Disposition Clinical Impression: Somnolence Chronic kidney disease Qualifiers: Chronic kidney disease stage: on chronic dialysis Qualified Code(s): N18.6 - End stage renal disease; Z99.2 - Dependence on renal dialysis Disposition: Admitted As Inpatient Condition: Fair Referrals: Rhett Madrigal MD [Primary Care Provider] - Forms: ED Satisfaction Letter Altered Mental Status HPI - General Chief Complaint: ED Altered Mental Status Stated Complaint: AMS Time Seen by Provider: 04/06/18 10:55 Source: family Mode of arrival: private vehicle Limitations: physical limitation Nursing Notes Reviewed: Yes Vital Signs Reviewed: Yes - History of Present Illness HPI Narrative: 63-year-old female history of renal failure on home peritoneal dialysis who presents to the ER with a complaint of altered mental status. History is obtained from family. The patient arrived altered requiring assistance to get out of her car. She was initially unresponsive but was arousable to verbal stimuli. Family states that she has not been herself for several days. Reports that he has had to do everything for her at home because she has been weak and sleeping. She was seen yesterday at another facility and was sent home. No change in the fluid coming out of her peritoneal catheter. Denies any fevers. No cough, shortness of breath, abdominal pain, nausea vomiting or diarrhea. She was recently started on a few medications for a UTI. She does produce some urine. She denies any urinary symptoms at this time. No other complaints. complaint: altered mental status Onset (ago): day(s) Timing confirmed by: spouse Pain Severity: none Context: other (Renal disease) Associated symptoms: Reports: denies other symptoms - Related Data Home Medications Medication Instructions Recorded Confirmed Fish Oil/Dha/Epa [Fish Oil 1,200 1,200 mg PO DAILY 07/05/16 04/05/18 mg Fish Oil] Omeprazole [PriLOSEC] 40 mg PO DAILY 07/05/16 04/05/18 Aspirin [Lo-Dose Aspirin EC] 81 mg PO DAILY 04/03/17 04/05/18 Cholecalciferol (D-3) [Vitamin D] 5,000 unit PO DAILY 04/03/17 04/05/18 glipiZIDE [Glipizide ER] 10 mg PO BID 04/03/17 04/05/18 Atorvastatin Calcium [Lipitor] 80 mg PO HS 12/19/17 04/05/18 Clopidogrel [Plavix] 75 mg PO DAILY 12/19/17 04/05/18 Furosemide [Lasix] 80 mg PO DAILY 12/19/17 04/05/18 Insulin ASPART [NovoLOG] 20 unit SQ TIDAC PRN 12/19/17 04/05/18 Insulin Glargine [Lantus] 100 unit SQ Q12H 12/19/17 04/05/18 Docusate [Colace] 200 mg PO DAILY 01/01/18 04/05/18 Ferric Citrate [Auryxia] 210 mg PO DAILY 01/01/18 04/05/18 Polyethylene Glycol 3350 [MiraLAX] 17 gm PO DAILY 01/01/18 04/05/18 Baclofen [Lioresal] 10 mg PO BID 04/05/18 04/05/18 Carvedilol 3.125 mg PO BID 04/05/18 04/05/18 Carvedilol [Coreg] 6.25 mg PO BID 04/05/18 04/05/18 Diclofenac Sodium [Voltaren] 50 mg PO BID 04/05/18 04/05/18 Nitrofurantoin Macrocrystal 100 mg PO ONCE 04/05/18 04/05/18 [Nitrofurantoin] Previous Rx's Medication Instructions Recorded Meclizine [Antivert] 25 mg PO BID 7 Days #14 tablet 12/26/17 Allergies Allergy/AdvReac Type Severity Reaction Status Date / Time No Known Allergies Allergy Verified 05/22/17 07:28 All systems ED: reviewed and negative except as stated. Constitutional: Denies: fever Cardiovascular: Denies: chest pain Respiratory: Denies: cough, dyspnea Gastrointestinal: Denies: abdominal pain, nausea, vomiting, diarrhea Genitourinary: Denies: dysuria, hematuria Neurological: Denies: numbness, paresthesias Past Medical History - Past Medical History Attestation: Yes The following information was validated with the patient. Source: patient Medical history: Reports: arthritis, diabetes, dialysis, hyperlipidemia, hypertension, renal disease, other Surgical history: Reports: , cholecystectomy, herniorrhaphy, hysterectomy, orthopedic, other (ganglion cyst removal), other Psychiatric history: Reports: no psych history INDEX EDITOR history: Reports: other - Social History Smoking Status: Never smoker Smokeless Tobacco Status: No Alcohol use: Reports: none Drug use: Reports: none Physical Exam - General Limitations: altered mental status General appearance: other (Arouses to verbal stimuli) - Head Head exam: atraumatic, normocephalic, normal inspection - Eye Eye exam: Present: normal appearance, PERRL, EOMI - ENT ENT exam: normal exam - Neck Neck exam: Present: normal inspection - Chest Chest inspection: Present: normal inspection, symmetric chest wall rise - Respiratory Respiratory exam: Present: normal lung sounds bilaterally - Cardiovascular Cardiovascular exam: Present: regular rate, normal rhythm, normal heart sounds - Abdominal Exam Abdominal exam: Present: soft, Non-Tender, other (Left lower quadrant peritoneal dialysis catheter insertion site without evidence of erythema). Absent: tenderness, distention, rigidity - Extremities Exam Extremities exam: Present: normal inspection, full ROM - Expanded Upper Extremity Exam Shoulder exam: Present: normal inspection, full ROM Arm exam: Present: normal inspection, full ROM Elbow exam: Present: normal inspection, full ROM Forearm/Wrist exam: Present: normal inspection, full ROM Hand exam: Present: normal inspection, full ROM - Expanded Lower Extremity Exam Hip/Pelvis exam: Present: normal inspection, full ROM Upper leg exam: Present: normal inspection, full ROM Knee exam: Present: normal inspection, full ROM Lower leg exam: Present: normal inspection, full ROM Ankle exam: Present: normal inspection, full ROM Foot/toe exam: Present: normal inspection, full ROM - Neurological Exam Neurological exam: Present: alert, oriented X3, other (Arouses to verbal stimuli. Somnolent. No focal deficits.) Course Course Narrative: Patient seen and examined. Vital signs reviewed. She is alert and answers questions appropriately however she seems to have diffuse weakness and somnolence. Plan for EKG, CT imaging of the head and abdomen as well as labs, cultures, urinalysis. - Reevaluation(s) Reevaluation #1: Discussed results and imaging with the patient's family. Agreeable with plan. Plan to admit for altered mentation. Vital Signs Temperature 98.4 F 04/06/18 10:53 Pulse Rate 78 04/06/18 10:53 Respiratory Rate 12 04/06/18 10:53 Blood Pressure 205/120 04/06/18 10:53 O2 Sat by Pulse Oximetry 100 04/06/18 10:53 Temperature 98.4 F 04/06/18 10:53 Pulse Rate 82 04/06/18 13:39 Respiratory Rate 16 04/06/18 13:39 Blood Pressure 195/105 04/06/18 13:39 O2 Sat by Pulse Oximetry 97 04/06/18 13:39 Oxygen Delivery Oxygen Delivery Room Air Altered Mental Status - MDM Narrative Medical decision making narrative: 63-year-old female with decreased awareness with somnolence for several days. Imaging of her head and abdomen reveal no acute findings. Her last to demonstrate worsening renal failure. No obvious source of infection at this time. She is hemodynamically stable. Blood cultures were obtained. Case discussed with the hospitalist. Admitted for further evaluation and testing. - Lab Data Lab results reviewed: Yes I reviewed the patient's lab results. Result diagrams: 04/06/18 10:56 04/06/18 10:56 Lab Results 04/06/18 04/06/18 04/06/18 Range/Units 10:56 10:56 10:56 WBC 4.8 (4.3-11.1) K/mcL RBC 3.43 L (3.82-4.97) M/mcL Hgb 9.6 L (11.5-15.4) g/dL Hct 29.5 L (35.3-44.9) % MCV 86.0 (83.0-100.0) fL MCH 28.0 (28.0-33.3) pg MCHC 32.5 (31.6-35.5) g/dL RDW 14.6 H (11.5-14.5) % Plt Count 143 (140-400) K/mcL MPV 12.4 (9.4-12.4) fL Immature Gran % 0.8 (0-4) % Seg Neutrophils % 74.9 % Lymphocytes % 16.6 % Monocytes % 5.6 % Eosinophils % 1.7 % Basophils % 0.4 % Neutrophils # 3.6 (1.6-8.9) K/mcL Lymphocytes # 0.8 (0.6-4.6) K/mcL Monocytes # 0.3 (0.0-1.3) K/mcL Eosinophils # 0.1 (0.0-0.6) K/mcL Basophils # 0.0 (0.0-0.2) K/mcL PT 10.7 (9.4-12.1) Seconds INR 1.0 APTT 28.5 (26.0-36.0) Seconds Sodium 136 (136-145) mEq/L Potassium 4.3 (3.5-5.1) mEq/L Chloride 97 L (98-107) mEq/L Carbon Dioxide 29 (23-29) mEq/L BUN 48 H (8-23) mg/dL Creatinine 4.33 H (0.60-1.20) mg/dL Est GFR ( Amer) 13 L (> 60) Est GFR (Non-Af Amer) 10 L (> 60) BUN/Creatinine Ratio 11 (6-26) Glucose 181 H (70-105) mg/dL POC Glucose (70-99) mg/dL Calculated Osmolality 299 (280-300) Lactic Acid (0.5-2.2) mmol/L Calcium 9.0 (8.6-10.3) mg/dL Total Bilirubin 0.7 (0.3-1.0) mg/dL Direct Bilirubin 0.1 (0.0-0.2) mg/dL Indirect Bilirubin 0.6 (0.0-1.2) mg/dL AST 14 (13-39) Units/L ALT 9 (7-52) Units/L Alkaline Phosphatase 130 H (34-104) Units/L Ammonia (16-53) mcmol/L Troponin I < 0.03 (< 0.04) ng/mL Serum Total Protein 5.7 L (6.4-8.9) g/dL Albumin 3.2 L (3.5-5.7) g/dL Globulin 2.5 (2.4-3.5) g/dL Albumin/Globulin Ratio 1.3 (1.1-2.2) TSH 2.593 (0.340-5.600) mcIU/mL Urine Color (Yellow) Urine Clarity (Clear) Urine pH (5.0-8.0) pH Units Ur Specific [place] (1.010-1.025) Urine Protein (Neg-Trace) mg/dL Urine Glucose (UA) (Normal) mg/dL Urine Ketones (Negative) mg/dL Urine Blood (Negative) Urine Nitrite (Negative) Urine Bilirubin (Negative) Urine Urobilinogen (Normal) mg/dL Ur Leukocyte Esterase (Negative) Urine Microscopic RBC (0-3) per hpf Urine Microscopic WBC (0-3) per hpf Ur Squamous Epith Cells (None-Few) per lpf Urine Bacteria (None-Few) per hpf Hyaline Casts (None-Few) per lpf Ur Culture Indicated? (NO) Urine Opiates Screen (Qzrmzx=831) ng/mL Ur Barbiturates Screen (Vrzsff=851) ng/mL Ur Phencyclidine Scrn (Cutoff=25) ng/mL Ur Amphetamines Screen (Uwtmpd=1041) ng/mL U Benzodiazepines Scrn (Wwpgrq=406) ng/mL Urine Cocaine Screen (Cutoff= 300) ng/mL U Marijuana (THC) Screen (Cutoff = 50) ng/mL Ur Drug Screen Interp Ethyl Alcohol < 10 (Less than 10) mg/dL 04/06/18 04/06/18 04/06/18 Range/Units 10:56 11:27 11:31 WBC (4.3-11.1) K/mcL RBC (3.82-4.97) M/mcL Hgb (11.5-15.4) g/dL Hct (35.3-44.9) % MCV (83.0-100.0) fL MCH (28.0-33.3) pg MCHC (31.6-35.5) g/dL RDW (11.5-14.5) % Plt Count (140-400) K/mcL MPV (9.4-12.4) fL Immature Gran % (0-4) % Seg Neutrophils % % Lymphocytes % % Monocytes % % Eosinophils % % Basophils % % Neutrophils # (1.6-8.9) K/mcL Lymphocytes # (0.6-4.6) K/mcL Monocytes # (0.0-1.3) K/mcL Eosinophils # (0.0-0.6) K/mcL Basophils # (0.0-0.2) K/mcL PT (9.4-12.1) Seconds INR APTT (26.0-36.0) Seconds Sodium (136-145) mEq/L Potassium (3.5-5.1) mEq/L Chloride (98-107) mEq/L Carbon Dioxide (23-29) mEq/L BUN (8-23) mg/dL Creatinine (0.60-1.20) mg/dL Est GFR ( Amer) (> 60) Est GFR (Non-Af Amer) (> 60) BUN/Creatinine Ratio (6-26) Glucose (70-105) mg/dL POC Glucose 161 H (70-99) mg/dL Calculated Osmolality (280-300) Lactic Acid (0.5-2.2) mmol/L Calcium (8.6-10.3) mg/dL Total Bilirubin (0.3-1.0) mg/dL Direct Bilirubin (0.0-0.2) mg/dL Indirect Bilirubin (0.0-1.2) mg/dL AST (13-39) Units/L ALT (7-52) Units/L Alkaline Phosphatase (34-104) Units/L Ammonia (16-53) mcmol/L Troponin I (< 0.04) ng/mL Serum Total Protein (6.4-8.9) g/dL Albumin (3.5-5.7) g/dL Globulin (2.4-3.5) g/dL Albumin/Globulin Ratio (1.1-2.2) TSH (0.340-5.600) mcIU/mL Urine Color Yellow (Yellow) Urine Clarity Cloudy A (Clear) Urine pH 5.0 (5.0-8.0) pH Units Ur Specific [place] 1.012 (1.010-1.025) Urine Protein 100 H (Neg-Trace) mg/dL Urine Glucose (UA) Normal (Normal) mg/dL Urine Ketones Negative (Negative) mg/dL Urine Blood Small H (Negative) Urine Nitrite Negative (Negative) Urine Bilirubin Negative (Negative) Urine Urobilinogen Normal (Normal) mg/dL Ur Leukocyte Esterase Negative (Negative) Urine Microscopic RBC 0-3 (0-3) per hpf Urine Microscopic WBC 5-15 H (0-3) per hpf Ur Squamous Epith Cells Many H (None-Few) per lpf Urine Bacteria None Seen (None-Few) per hpf Hyaline Casts Few (None-Few) per lpf Ur Culture Indicated? NO (NO) Urine Opiates Screen Negative (Idhrtb=842) ng/mL Ur Barbiturates Screen Negative (Eenxpu=773) ng/mL Ur Phencyclidine Scrn Negative (Cutoff=25) ng/mL Ur Amphetamines Screen Negative (Fquale=5017) ng/mL U Benzodiazepines Scrn Negative (Wjmixr=686) ng/mL Urine Cocaine Screen Negative (Cutoff= 300) ng/mL U Marijuana (THC) Screen Negative (Cutoff = 50) ng/mL Ur Drug Screen Interp See Below Ethyl Alcohol (Less than 10) mg/dL 04/06/18 04/06/18 Range/Units 12:15 12:15 WBC (4.3-11.1) K/mcL RBC (3.82-4.97) M/mcL Hgb (11.5-15.4) g/dL Hct (35.3-44.9) % MCV (83.0-100.0) fL MCH (28.0-33.3) pg MCHC (31.6-35.5) g/dL RDW (11.5-14.5) % Plt Count (140-400) K/mcL MPV (9.4-12.4) fL Immature Gran % (0-4) % Seg Neutrophils % % Lymphocytes % % Monocytes % % Eosinophils % % Basophils % % Neutrophils # (1.6-8.9) K/mcL Lymphocytes # (0.6-4.6) K/mcL Monocytes # (0.0-1.3) K/mcL Eosinophils # (0.0-0.6) K/mcL Basophils # (0.0-0.2) K/mcL PT (9.4-12.1) Seconds INR APTT (26.0-36.0) Seconds Sodium (136-145) mEq/L Potassium (3.5-5.1) mEq/L Chloride (98-107) mEq/L Carbon Dioxide (23-29) mEq/L BUN (8-23) mg/dL Creatinine (0.60-1.20) mg/dL Est GFR ( Amer) (> 60) Est GFR (Non-Af Amer) (> 60) BUN/Creatinine Ratio (6-26) Glucose (70-105) mg/dL POC Glucose (70-99) mg/dL Calculated Osmolality (280-300) Lactic Acid 1.8 (0.5-2.2) mmol/L Calcium (8.6-10.3) mg/dL Total Bilirubin (0.3-1.0) mg/dL Direct Bilirubin (0.0-0.2) mg/dL Indirect Bilirubin (0.0-1.2) mg/dL AST (13-39) Units/L ALT (7-52) Units/L Alkaline Phosphatase (34-104) Units/L Ammonia 21 (16-53) mcmol/L Troponin I (< 0.04) ng/mL Serum Total Protein (6.4-8.9) g/dL Albumin (3.5-5.7) g/dL Globulin (2.4-3.5) g/dL Albumin/Globulin Ratio (1.1-2.2) TSH (0.340-5.600) mcIU/mL Urine Color (Yellow) Urine Clarity (Clear) Urine pH (5.0-8.0) pH Units Ur Specific [place] (1.010-1.025) Urine Protein (Neg-Trace) mg/dL Urine Glucose (UA) (Normal) mg/dL Urine Ketones (Negative) mg/dL Urine Blood (Negative) Urine Nitrite (Negative) Urine Bilirubin (Negative) Urine Urobilinogen (Normal) mg/dL Ur Leukocyte Esterase (Negative) Urine Microscopic RBC (0-3) per hpf Urine Microscopic WBC (0-3) per hpf Ur Squamous Epith Cells (None-Few) per lpf Urine Bacteria (None-Few) per hpf Hyaline Casts (None-Few) per lpf Ur Culture Indicated? (NO) Urine Opiates Screen (Krltgw=718) ng/mL Ur Barbiturates Screen (Ctoiyl=031) ng/mL Ur Phencyclidine Scrn (Cutoff=25) ng/mL Ur Amphetamines Screen (Hmogbo=3007) ng/mL U Benzodiazepines Scrn (Nbgupr=799) ng/mL Urine Cocaine Screen (Cutoff= 300) ng/mL U Marijuana (THC) Screen (Cutoff = 50) ng/mL Ur Drug Screen Interp Ethyl Alcohol (Less than 10) mg/dL - Radiology Data Radiology results reviewed: Yes I reviewed the patient's radiology results. Chest X-Ray 04/06/18 10:56 IMPRESSION: No acute findings. D/ / Edwin Badillo MD / Edwin Badillo MD Interpreting Provider: Edwin Badillo MD Abdomen/Pelvis CT 04/06/18 10:57 IMPRESSION: Indeterminate hypodense liver lesions again noted. Small volume ascites and pneumoperitoneum, presumably related to peritoneal dialysis. No evidence of an intraabdominal abscess or pseudocyst. D/ / 04/06/2018 12:35:30 Edwin Badillo MD / migue Interpreting Provider: Edwin Badillo MD Head CT 04/06/18 10:57 IMPRESSION: No acute intracranial abnormality. D/ / Thierno Cummings MD / Thierno Cummings MD Interpreting Provider: Thierno Cummings MD - EKG Data EKG attestation: Yes I reviewed and interpreted this EKG. EKG results narrative: EKG demonstrates sinus rhythm with a rate of 84 bpm. Left axis deviation. Normal intervals. Normal R-wave progression. J-point elevations of the inferior leads. T-wave inversions in aVL. No significant changes from previous EKG dated 12/21/17. TPA Checklist - LKW: 3-4.5 hrs Add. Warnings/Precautions Patient/family understanding: The patient/family members have been counseled and understood the risk, benefit , and alternatives of treatment. S.B.A.Jose Carlos - Timo.B.ARyan Situation: Demographics, MOA Background: Presenting Complaint, Relevant PMH, Meds, & Allergies Assessment: Vital Signs, Course and respsone to treatment, Exam Concerns, Patient/Family Expectation, Pertinant Lab Results Recommendation: Barrier(s) to disposition, Recommendation based on pending studies, treatments, or consults S.B.A.RJsoe Report Given to: Dr Aldo EstebanBJoseARyan Repor Time: 13:53 Attestation Statement - Attestation Attestation: I, Justin Gamez DO, examined this patient [id number] and my medical decision-making was reviewed with Dr. Gunner Higginbotham, Resident Physician. I agree with the documented findings, disposition and treatment plan as described except to the extent set forth below. Please see my progress notes for details. [email or web address]
[2018-04-06 11:44] LABS: Bilirubin,Urine Negative (Negative); Blood,Urine Small (Negative); Clarity,Urine Cloudy (Clear); Color,Urine Yellow (Yellow); Glucose,Urine (UA) Normal (Normal); Ketones,Urine Negative (Negative); Leukocyte Esterase,Urine Negative (Negative); Nitrite,Urine Negative (Negative); Protein,Urine 100 mg/dL (Neg-Trace); Specific Gravity,Urine 1.012 (1.010-1.025); Urobilinogen,Urine Normal (Normal)
[2018-04-06 11:47] LABS: Bacteria,Urine None Seen per hpf (None-Few); Hyaline Casts,Urine Few per lpf (None-Few); RBC,Urine 0-3 per hpf (0-3); Squamous Epithelial Cell,Urine Many per lpf (None-Few)
[2018-04-06 11:51] LABS: Amphetamine Screen,Urine Negative ng/mL (Cutoff=1000); Barbiturate Screen,Urine Negative ng/mL (Cutoff=200); Benzodiazepines Screen,Urine Negative ng/mL (Cutoff=200); Cannabinoid Screen,Urine Negative ng/mL (Cutoff = 50); Cocaine Screen,Urine Negative ng/mL (Cutoff= 300); Opiate Screen,Urine Negative ng/mL (Cutoff=300); Phencyclidine Screen,Urine Negative ng/mL (Cutoff=25)
[2018-04-06 12:45] LABS: Basophils % 0.4 %; Eosinophils # 0.1 K/mcL (0.0-0.6); Eosinophils % 1.7 %; Hematocrit 29.5 % (35.3-44.9); Hemoglobin 9.6 g/dL (11.5-15.4); Immature Granulocytes % 0.8 % (0-4); Lymphocytes # 0.8 K/mcL (0.6-4.6); Lymphocytes % 16.6 %; Mean Corpuscular HGB Conc 32.5 g/dL (31.6-35.5); Mean Platelet Volume 12.4 fL (9.4-12.4); Monocytes # 0.3 K/mcL (0.0-1.3); Monocytes % 5.6 %; Neutrophils # 3.6 K/mcL (1.6-8.9); Platelet Count 143 K/mcL (140-400); Red Blood Count 3.43 M/mcL (3.82-4.97); Red Cell Distribution Width 14.6 % (11.5-14.5); Segmented Neutrophils % 74.9 %
--- NOTE | 2018-04-06 12:50 | Emergency Department Note ---
Disposition Clinical Impression: Somnolence, Chronic kidney disease Disposition: Admitted As Inpatient Condition: Fair Referrals: Rhett Madrigal MD [Primary Care Provider] - Forms: ED Satisfaction Letter Time of Disposition: 14:02 General Adult HPI - General Chief complaint: ED Altered Mental Status Stated complaint: AMS Time Seen by Provider: 04/06/18 10:55 Source: family Mode of arrival: private vehicle Limitations: altered mental status - History of Present Illness Pain Scale: 0 - Related Data Home Medications Medication Instructions Recorded Confirmed Fish Oil/Dha/Epa [Fish Oil 1,200 1,200 mg PO DAILY 07/05/16 04/05/18 mg Fish Oil] Omeprazole [PriLOSEC] 40 mg PO DAILY 07/05/16 04/05/18 Aspirin [Lo-Dose Aspirin EC] 81 mg PO DAILY 04/03/17 04/05/18 Cholecalciferol (D-3) [Vitamin D] 5,000 unit PO DAILY 04/03/17 04/05/18 glipiZIDE [Glipizide ER] 10 mg PO BID 04/03/17 04/05/18 Atorvastatin Calcium [Lipitor] 80 mg PO HS 12/19/17 04/05/18 Clopidogrel [Plavix] 75 mg PO DAILY 12/19/17 04/05/18 Furosemide [Lasix] 80 mg PO DAILY 12/19/17 04/05/18 Insulin ASPART [NovoLOG] 20 unit SQ TIDAC PRN 12/19/17 04/05/18 Insulin Glargine [Lantus] 100 unit SQ Q12H 12/19/17 04/05/18 Docusate [Colace] 200 mg PO DAILY 01/01/18 04/05/18 Ferric Citrate [Auryxia] 210 mg PO DAILY 01/01/18 04/05/18 Polyethylene Glycol 3350 [MiraLAX] 17 gm PO DAILY 01/01/18 04/05/18 Baclofen [Lioresal] 10 mg PO BID 04/05/18 04/05/18 Carvedilol 3.125 mg PO BID 04/05/18 04/05/18 Carvedilol [Coreg] 6.25 mg PO BID 04/05/18 04/05/18 Diclofenac Sodium [Voltaren] 50 mg PO BID 04/05/18 04/05/18 Nitrofurantoin Macrocrystal 100 mg PO ONCE 04/05/18 04/05/18 [Nitrofurantoin] Previous Rx's Medication Instructions Recorded Meclizine [Antivert] 25 mg PO BID 7 Days #14 tablet 12/26/17 Allergies Allergy/AdvReac Type Severity Reaction Status Date / Time No Known Allergies Allergy Verified 05/22/17 07:28 Constitutional: Denies: fever Cardiovascular: Denies: chest pain Respiratory: Denies: cough, dyspnea Gastrointestinal: Denies: abdominal pain, nausea, vomiting, diarrhea Genitourinary: Denies: dysuria, hematuria Neurological: Denies: numbness, paresthesias Past Medical History - Past Medical History Medical history: Reports: arthritis, diabetes, dialysis, hyperlipidemia, hypertension, renal disease, other Surgical history: Reports: , cholecystectomy, herniorrhaphy, hysterectomy, orthopedic, other (ganglion cyst removal), other Psychiatric history: Reports: no psych history 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 - Social History Smoking Status: Never smoker Smokeless Tobacco Status: No Alcohol use: Reports: none Drug use: Reports: none Physical Exam - General Limitations: altered mental status General appearance: other (Arouses to verbal stimuli) Course Vital Signs Temperature 98.4 F 04/06/18 10:53 Pulse Rate 78 04/06/18 10:53 Respiratory Rate 12 04/06/18 10:53 Blood Pressure 205/120 04/06/18 10:53 O2 Sat by Pulse Oximetry 100 04/06/18 10:53 Temperature 98.4 F 04/06/18 10:53 Pulse Rate 82 04/06/18 13:39 Respiratory Rate 16 04/06/18 13:39 Blood Pressure 195/105 04/06/18 13:39 O2 Sat by Pulse Oximetry 97 04/06/18 13:39 Oxygen Delivery Oxygen Delivery Room Air Medical Decision Making - Lab Data Result diagrams: 04/06/18 10:56 04/06/18 10:56 Lab Results 04/06/18 04/06/18 04/06/18 Range/Units 10:56 10:56 10:56 WBC 4.8 (4.3-11.1) K/mcL RBC 3.43 L (3.82-4.97) M/mcL Hgb 9.6 L (11.5-15.4) g/dL Hct 29.5 L (35.3-44.9) % MCV 86.0 (83.0-100.0) fL MCH 28.0 (28.0-33.3) pg MCHC 32.5 (31.6-35.5) g/dL RDW 14.6 H (11.5-14.5) % Plt Count 143 (140-400) K/mcL MPV 12.4 (9.4-12.4) fL Immature Gran % 0.8 (0-4) % Seg Neutrophils % 74.9 % Lymphocytes % 16.6 % Monocytes % 5.6 % Eosinophils % 1.7 % Basophils % 0.4 % Neutrophils # 3.6 (1.6-8.9) K/mcL Lymphocytes # 0.8 (0.6-4.6) K/mcL Monocytes # 0.3 (0.0-1.3) K/mcL Eosinophils # 0.1 (0.0-0.6) K/mcL Basophils # 0.0 (0.0-0.2) K/mcL PT 10.7 (9.4-12.1) Seconds INR 1.0 APTT 28.5 (26.0-36.0) Seconds Sodium 136 (136-145) mEq/L Potassium 4.3 (3.5-5.1) mEq/L Chloride 97 L (98-107) mEq/L Carbon Dioxide 29 (23-29) mEq/L BUN 48 H (8-23) mg/dL Creatinine 4.33 H (0.60-1.20) mg/dL Est GFR ( Amer) 13 L (> 60) Est GFR (Non-Af Amer) 10 L (> 60) BUN/Creatinine Ratio 11 (6-26) Glucose 181 H (70-105) mg/dL POC Glucose (70-99) mg/dL Calculated Osmolality 299 (280-300) Lactic Acid (0.5-2.2) mmol/L Calcium 9.0 (8.6-10.3) mg/dL Total Bilirubin 0.7 (0.3-1.0) mg/dL Direct Bilirubin 0.1 (0.0-0.2) mg/dL Indirect Bilirubin 0.6 (0.0-1.2) mg/dL AST 14 (13-39) Units/L ALT 9 (7-52) Units/L Alkaline Phosphatase 130 H (34-104) Units/L Ammonia (16-53) mcmol/L Troponin I < 0.03 (< 0.04) ng/mL Serum Total Protein 5.7 L (6.4-8.9) g/dL Albumin 3.2 L (3.5-5.7) g/dL Globulin 2.5 (2.4-3.5) g/dL Albumin/Globulin Ratio 1.3 (1.1-2.2) TSH 2.593 (0.340-5.600) mcIU/mL Urine Color (Yellow) Urine Clarity (Clear) Urine pH (5.0-8.0) pH Units Ur Specific [place] (1.010-1.025) Urine Protein (Neg-Trace) mg/dL Urine Glucose (UA) (Normal) mg/dL Urine Ketones (Negative) mg/dL Urine Blood (Negative) Urine Nitrite (Negative) Urine Bilirubin (Negative) Urine Urobilinogen (Normal) mg/dL Ur Leukocyte Esterase (Negative) Urine Microscopic RBC (0-3) per hpf Urine Microscopic WBC (0-3) per hpf Ur Squamous Epith Cells (None-Few) per lpf Urine Bacteria (None-Few) per hpf Hyaline Casts (None-Few) per lpf Ur Culture Indicated? (NO) Urine Opiates Screen (Xjzysr=818) ng/mL Ur Barbiturates Screen (Yambqb=697) ng/mL Ur Phencyclidine Scrn (Cutoff=25) ng/mL Ur Amphetamines Screen (Apucnv=8014) ng/mL U Benzodiazepines Scrn (Rclcyc=349) ng/mL Urine Cocaine Screen (Cutoff= 300) ng/mL U Marijuana (THC) Screen (Cutoff = 50) ng/mL Ur Drug Screen Interp Ethyl Alcohol < 10 (Less than 10) mg/dL 04/06/18 04/06/18 04/06/18 Range/Units 10:56 11:27 11:31 WBC (4.3-11.1) K/mcL RBC (3.82-4.97) M/mcL Hgb (11.5-15.4) g/dL Hct (35.3-44.9) % MCV (83.0-100.0) fL MCH (28.0-33.3) pg MCHC (31.6-35.5) g/dL RDW (11.5-14.5) % Plt Count (140-400) K/mcL MPV (9.4-12.4) fL Immature Gran % (0-4) % Seg Neutrophils % % Lymphocytes % % Monocytes % % Eosinophils % % Basophils % % Neutrophils # (1.6-8.9) K/mcL Lymphocytes # (0.6-4.6) K/mcL Monocytes # (0.0-1.3) K/mcL Eosinophils # (0.0-0.6) K/mcL Basophils # (0.0-0.2) K/mcL PT (9.4-12.1) Seconds INR APTT (26.0-36.0) Seconds Sodium (136-145) mEq/L Potassium (3.5-5.1) mEq/L Chloride (98-107) mEq/L Carbon Dioxide (23-29) mEq/L BUN (8-23) mg/dL Creatinine (0.60-1.20) mg/dL Est GFR ( Amer) (> 60) Est GFR (Non-Af Amer) (> 60) BUN/Creatinine Ratio (6-26) Glucose (70-105) mg/dL POC Glucose 161 H (70-99) mg/dL Calculated Osmolality (280-300) Lactic Acid (0.5-2.2) mmol/L Calcium (8.6-10.3) mg/dL Total Bilirubin (0.3-1.0) mg/dL Direct Bilirubin (0.0-0.2) mg/dL Indirect Bilirubin (0.0-1.2) mg/dL AST (13-39) Units/L ALT (7-52) Units/L Alkaline Phosphatase (34-104) Units/L Ammonia (16-53) mcmol/L Troponin I (< 0.04) ng/mL Serum Total Protein (6.4-8.9) g/dL Albumin (3.5-5.7) g/dL Globulin (2.4-3.5) g/dL Albumin/Globulin Ratio (1.1-2.2) TSH (0.340-5.600) mcIU/mL Urine Color Yellow (Yellow) Urine Clarity Cloudy A (Clear) Urine pH 5.0 (5.0-8.0) pH Units Ur Specific [place] 1.012 (1.010-1.025) Urine Protein 100 H (Neg-Trace) mg/dL Urine Glucose (UA) Normal (Normal) mg/dL Urine Ketones Negative (Negative) mg/dL Urine Blood Small H (Negative) Urine Nitrite Negative (Negative) Urine Bilirubin Negative (Negative) Urine Urobilinogen Normal (Normal) mg/dL Ur Leukocyte Esterase Negative (Negative) Urine Microscopic RBC 0-3 (0-3) per hpf Urine Microscopic WBC 5-15 H (0-3) per hpf Ur Squamous Epith Cells Many H (None-Few) per lpf Urine Bacteria None Seen (None-Few) per hpf Hyaline Casts Few (None-Few) per lpf Ur Culture Indicated? NO (NO) Urine Opiates Screen Negative (Qyrlwf=745) ng/mL Ur Barbiturates Screen Negative (Tufniq=096) ng/mL Ur Phencyclidine Scrn Negative (Cutoff=25) ng/mL Ur Amphetamines Screen Negative (Jismay=5616) ng/mL U Benzodiazepines Scrn Negative (Ohopdj=041) ng/mL Urine Cocaine Screen Negative (Cutoff= 300) ng/mL U Marijuana (THC) Screen Negative (Cutoff = 50) ng/mL Ur Drug Screen Interp See Below Ethyl Alcohol (Less than 10) mg/dL 04/06/18 04/06/18 Range/Units 12:15 12:15 WBC (4.3-11.1) K/mcL RBC (3.82-4.97) M/mcL Hgb (11.5-15.4) g/dL Hct (35.3-44.9) % MCV (83.0-100.0) fL MCH (28.0-33.3) pg MCHC (31.6-35.5) g/dL RDW (11.5-14.5) % Plt Count (140-400) K/mcL MPV (9.4-12.4) fL Immature Gran % (0-4) % Seg Neutrophils % % Lymphocytes % % Monocytes % % Eosinophils % % Basophils % % Neutrophils # (1.6-8.9) K/mcL Lymphocytes # (0.6-4.6) K/mcL Monocytes # (0.0-1.3) K/mcL Eosinophils # (0.0-0.6) K/mcL Basophils # (0.0-0.2) K/mcL PT (9.4-12.1) Seconds INR APTT (26.0-36.0) Seconds Sodium (136-145) mEq/L Potassium (3.5-5.1) mEq/L Chloride (98-107) mEq/L Carbon Dioxide (23-29) mEq/L BUN (8-23) mg/dL Creatinine (0.60-1.20) mg/dL Est GFR ( Amer) (> 60) Est GFR (Non-Af Amer) (> 60) BUN/Creatinine Ratio (6-26) Glucose (70-105) mg/dL POC Glucose (70-99) mg/dL Calculated Osmolality (280-300) Lactic Acid 1.8 (0.5-2.2) mmol/L Calcium (8.6-10.3) mg/dL Total Bilirubin (0.3-1.0) mg/dL Direct Bilirubin (0.0-0.2) mg/dL Indirect Bilirubin (0.0-1.2) mg/dL AST (13-39) Units/L ALT (7-52) Units/L Alkaline Phosphatase (34-104) Units/L Ammonia 21 (16-53) mcmol/L Troponin I (< 0.04) ng/mL Serum Total Protein (6.4-8.9) g/dL Albumin (3.5-5.7) g/dL Globulin (2.4-3.5) g/dL Albumin/Globulin Ratio (1.1-2.2) TSH (0.340-5.600) mcIU/mL Urine Color (Yellow) Urine Clarity (Clear) Urine pH (5.0-8.0) pH Units Ur Specific [place] (1.010-1.025) Urine Protein (Neg-Trace) mg/dL Urine Glucose (UA) (Normal) mg/dL Urine Ketones (Negative) mg/dL Urine Blood (Negative) Urine Nitrite (Negative) Urine Bilirubin (Negative) Urine Urobilinogen (Normal) mg/dL Ur Leukocyte Esterase (Negative) Urine Microscopic RBC (0-3) per hpf Urine Microscopic WBC (0-3) per hpf Ur Squamous Epith Cells (None-Few) per lpf Urine Bacteria (None-Few) per hpf Hyaline Casts (None-Few) per lpf Ur Culture Indicated? (NO) Urine Opiates Screen (Dezqco=433) ng/mL Ur Barbiturates Screen (Rdedpb=551) ng/mL Ur Phencyclidine Scrn (Cutoff=25) ng/mL Ur Amphetamines Screen (Eepehc=5355) ng/mL U Benzodiazepines Scrn (Haqfup=684) ng/mL Urine Cocaine Screen (Cutoff= 300) ng/mL U Marijuana (THC) Screen (Cutoff = 50) ng/mL Ur Drug Screen Interp Ethyl Alcohol (Less than 10) mg/dL Attestation Statement - Attestation Attestation: I, Justin Gamez DO, examined this patient [id number] and my medical decision-making was reviewed with Dr. Gunner Higginbotham Resident Physician. I agree with the documented findings, disposition and treatment plan as described except to the extent set forth below. Please see my progress notes for details. 63-year-old female presents to the emergency room for evaluation of decreased responsiveness. Patient is brought in by the for evaluation. Patient has known peritoneal dialysis along with multiple other comorbid medical issues. Vital signs initially appeared to be stable. Patient did wake up and answer questions but she is slow to respond. She has not fallen or injured herself. CT imaging of the head chest x-ray EKG CBC chemistry troponin labs including blood culture and culture off the dialysis port will be collected. Patient will also have urinalysis and ammonia level ordered. According to the family, the patient is being treated for urinary tract infection 3 different antibiotics at this time. They do not have the exact prescriptions with him at this point. Patient is stable despite having somnolence on initial evaluation arrival. We will detailed workup looking for infectious etiology versus intracranial pathology. CT imaging of the abdomen will also be ordered. Disposition will be admission the hospital once a treatment course has been completed and established. Physical exam shows a morbidly obese female head is atraumatic pupils are equal round reactive she does open her eyes without any difficulty extracted muscles appear to be intact oropharynx is patent mucous membranes appear to be slightly dry. Trachea is midline no stridor no trismus. Lungs are clear patient does not have any crackles or wheezing noted. Heart is regular. Abdomen is soft there is no point tenderness guarding or rigidity. The dialysis port site appears to be stable no redness or swelling. No discharge noted. Patient does have significant swelling in the lower extremities. This is consistent with previous presentation: Family. Patient has not had any fevers or chills at home. All the symptoms have been present for approximately 48 hours at this time. Disposition will be admission once full workup treatment course are established. See detailed documentation of the physical exam, medical intervention, medical decision-making and disposition in the resident physician's note. No critical care applied the patient's treatment course this time. 1300 Patient has elevated creatinine appears to be at baseline. No acute abnormalities. Chest x-ray CT the abdomen and CT the head appear to be unremarkable this time. Vital signs remained stable. Patient otherwise is no other acute etiology to account for her presentation her urine does not show any acute signs of infection. Patient will be admitted for further evaluation treatment with the etiology of the patient's presentation is still unknown. Family informed disposition will be admitted after the workup is completed. Hospitalist Dr. Carlson will be contacted for admission process to be established. Patient otherwise clinical stable. No other recommendations or concerns are noted. Admission process has been established. No acute etiology noted during this workup in the emergency room for continuation of care will be completed in the hospital setting
[2018-04-06 12:55] LABS: Prothrombin Time 10.7 Seconds (9.4-12.1)
[2018-04-06 12:57] LABS: Activated Partial Thrombo Time 28.5 Seconds (26.0-36.0)
[2018-04-06 13:07] LABS: Alanine Aminotransferase 9 Units/L (7-52); Albumin 3.2 g/dL (3.5-5.7); Albumin/Globulin Ratio 1.3 (1.1-2.2); Alkaline Phosphatase 130 Units/L (34-104); Aspartate Amino Transferase 14 Units/L (13-39); BUN/Creatinine Ratio 11 (6-26); Bilirubin,Direct 0.1 mg/dL (0.0-0.2); Bilirubin,Indirect 0.6 mg/dL (0.0-1.2); Bilirubin,Total 0.7 mg/dL (0.3-1.0); Blood Urea Nitrogen 48 mg/dL (8-23); Carbon Dioxide 29 mEq/L (23-29); Chloride 97 mEq/L (98-107); Ethanol < 10 mg/dL (Less than 10); Globulin 2.5 g/dL (2.4-3.5); Glucose 181 mg/dL (70-105); Osmolality,Calculated 299 (280-300); Potassium 4.3 mEq/L (3.5-5.1); Sodium 136 mEq/L (136-145); Total Protein 5.7 g/dL (6.4-8.9); eGFR For Non-African Americans 10 (> 60)
[2018-04-06 13:08] LABS: Troponin I < 0.03 ng/mL (< 0.04)
[2018-04-06 13:21] LABS: Thyroid Stimulating Hormone 2.593 mcIU/mL (0.340-5.600)
[2018-04-06] MEDS ORDERED: Naloxone 0.4 MG/ML INJ IVP PRN (15:04)
[2018-04-06] MEDS ORDERED: D5% in Water 1,000 ML IVC PRN (15:08)
[2018-04-06] MEDS ORDERED: *HR* Dextrose 50 % in Water (Syg) 50 ML SYRINGE IVP PRN (15:08)
[2018-04-06] MEDS ORDERED: Dextrose Gel 15 GM/37.5 ML TUBE PO PRN ×2 (15:08)
[2018-04-06] MEDS: niCARdipine 40 MG/200 ML MLS IVC SCH ×2 (15:48→22:48)
[2018-04-06 16:09] LABS: ABG Base Excess 6 mEq/L (-2 to 3); ABG HCO3 31 mEq/L (21-27); ABG Oxygen Saturation 93 % (95-98); ABG PCO2 46 mmHg (35-45); ABG PH 7.44 pH Units (7.32-7.45); ABG PO2 65 mmHg (85-104); ABG TCO2 33 mEq/L (20-26)
[2018-04-06] MEDS: Insulin LISPRO 300 UNITS/3 ML VIAL SQ SCH ×2 (16:53→20:42)
--- NOTE | 2018-04-06 17:36 | Nephrology Consult Note ---
Date of Encounter: 04/06/18 Time of Encounter: 17:00 Assessment and Plan (1) ESRD (end stage renal disease) on dialysis Status: Chronic Will arrange for PD via cycler overnight hopefully will help with clearance of medication toxicity Would consider HD in am if no improvement. Family accepting of this plan. Dialysis nurse diamond finishing supervisor notified to initiate PD tonight, orders given Lytes stable (2) Altered mental status, unspecified Status: Acute Suspect medication induced, likely baclofen. Discussed with Dr Boone Qualifiers: Qualified Code(s): R40.0 - Somnolence (3) Hypertensive emergency Status: Acute Agree with nicardipine gtt for now Hopefully fluid removal with PD would help as well History of Present Illness - Reason for Consult Consult date: 04/06/18 end stage renal disease Requesting physician: Salvatore Boone - History of Present Illness 63 y o female with PMH of DM, HTN and ESRd on PD presenting with altered mental status that started the past 2 days. She was started on baclofen, diclofenac and macrobid by pcp for presumed UTI according to family but noted worsen in mental status afterwards. ER visit to [facility] yielded a diagnosis of UTI. Family brought to [facility] for further workup today. 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 MRI pending today. BP readings noted quite high up to 200s systolic Past Med Surg Social Fam HX - Past Medical History Medical history: arthritis, diabetes, dialysis, hyperlipidemia, hypertension, renal disease, other Additional medical history: HTN. KIDNEY FAILURE. CHRONIC DIARRHEA. ANEMIA. HIGH CHOLESTEROL. HEPATITIS. DM. ARTHRITIS Psychiatric history: no psych history - Past Surgical History Surgical History: , cholecystectomy, herniorrhaphy, hysterectomy, orthopedic, other, other Additional surgical history: two sx on the right wrist ABDOMINAL DIALYSIS PORT - Social History Smoking Status: Never smoker Smokeless Tobacco Status: No Alcohol use: none Drug use: none - Family History Father Family Member Ethnicity: Non- Living Status: Hx Family Cardiac Disorders: Yes (CVA) Hx Family Respiratory Disorders: No Hx Family Cancer: Yes (Prostate) Hx Family GI Disorders: No Hx Family Endocrine Disorder: No Hx Family Neuromuscular Disorders: No Hx Family Neurologic Disorders: No Hx Family HEENT Disorders: No Hx Family Autoimmune Disorders: No Mother Family Member Ethnicity: Non- Living Status: Hx Family Cardiac Disorders: Yes (CVA) Hx Family Respiratory Disorders: No Hx Family Cancer: No Hx Family GI Disorders: No Hx Family Endocrine Disorder: Yes (Thyroid) Hx Family Neuromuscular Disorders: No Hx Family Neurologic Disorders: No Hx Family HEENT Disorders: No Hx Family Autoimmune Disorders: No Medications and Allergies Fish Oil/Dha/Epa [Fish Oil 1,200 mg Fish Oil] 1,200 mg PO DAILY 07/05/16 [ History] Omeprazole [PriLOSEC] 40 mg PO DAILY 07/05/16 [History] Aspirin [Lo-Dose Aspirin EC] 81 mg PO DAILY 04/03/17 [History] Cholecalciferol (D-3) [Vitamin D] 5,000 unit PO DAILY 04/03/17 [History] glipiZIDE [Glipizide ER] 10 mg PO BID 04/03/17 [History] Atorvastatin Calcium [Lipitor] 80 mg PO HS 12/19/17 [History] Clopidogrel [Plavix] 75 mg PO DAILY 12/19/17 [History] Furosemide [Lasix] 80 mg PO BID 12/19/17 [History] Insulin ASPART [NovoLOG] 20 unit SQ TIDAC PRN 12/19/17 [History] Insulin Glargine [Lantus] 100 unit SQ Q12H 12/19/17 [History] Docusate [Colace] 200 mg PO DAILY PRN 01/01/18 [History] Ferric Citrate [Auryxia] 210 mg PO DAILY 01/01/18 [History] Carvedilol 3.125 mg PO BID 04/05/18 [History] Diclofenac Sodium [Voltaren] 50 mg PO BID 04/05/18 [History] Lactulose 30 ml PO DAILY PRN 04/06/18 [History] Magnesium Oxide [Magnesium] 400 mg PO BID 04/06/18 [History] Meclizine [Antivert] 25 mg PO BID PRN 04/06/18 [History] HYDROcodone/Acet 5/325 mg [[place] 5-325 mg] 1 tab PO Q6HR PRN 10 Days #20 tablet 04/09/18 [Rx] Phenazopyridine [Pyridium] 100 mg PO TID 2 Days #6 tablet 04/09/18 [Rx] 3 Allergy/AdvReac Type Severity Reaction Status Date / Time No Known Allergies Allergy Verified 04/06/18 14:19 Review of Systems All Systems: reviewed and no additional remarkable complaints except as stated ( 10 systems reviewed and noted in HPI) Exam - Vital Signs Vital signs: Initial Vital Signs Temp Pulse Resp BP Pulse Ox 98.4 F 78 12 205/120 100 04/06/18 10:53 04/06/18 10:53 04/06/18 10:53 04/06/18 10:53 04/06/18 10:53 Vital Signs - Last 8 Hours Temp Pulse Resp BP Pulse Ox 04/06/18 16:20 98.8 F 86 18 161/58 95 04/06/18 15:21 98.8 F 88 18 185/88 95 04/06/18 14:54 16 187/94 Intake and Output 04/06/18 04/06/18 04/06/18 07:59 15:59 23:59 Other: Blood Glucose* 132 - General Appearance General appearance: obese, chronically ill EENT: ATNC, mucous membranes moist Neck: no JVD, supple Respiratory: clear (ant bilat) Cardiology: edema (LE bilat), normal S1, normal S2 Gastrointestinal: no tenderness, no guarding, obese Additional Comments: PD catheter with no drainage but some tenderness noted Integumentary: warm and dry Neurologic: no focal deficit Musculoskeletal: no deformities Psychiatric: mood/affect appropriate, cooperative Results - Lab Results 04/08/18 09:50 04/09/18 05:02 Most recent lab results ABG pH 7.44 pH Units (7.32-7.45) 04/06/18 16:03 ABG pCO2 46 mmHg (35-45) H 04/06/18 16:03 ABG pO2 65 mmHg (85-104) L 04/06/18 16:03 ABG HCO3 31 mEq/L (21-27) H 04/06/18 16:03 ABG O2 Saturation 93 % (95-98) L 04/06/18 16:03 Calcium 9.0 mg/dL (8.6-10.3) 04/06/18 10:56 Consult Discharge Plan - Plan Referrals: Khadar Yeager, PUBLIC SERVICE OFFICER [Non-Partnered Physician] - 04/14/18 10:30 am (Your appointment for 04-10-18 @ 1020am has been cancelled) Prescriptions: HYDROcodone/Acet 5/325 mg [[place] 5-325 mg] 1 tab PO Q6HR PRN 10 Days #20 tablet PRN Reason: Mild To Moderate Pain Phenazopyridine [Pyridium] 100 mg PO TID 2 Days #6 tablet
--- NOTE | 2018-04-06 18:43 | Internal Med History&Physical ---
Date of Encounter: 04/06/18 Time of Encounter: 16:00 Internal Medicine - H&P: HPI Chief complaint: Confusion Admitted From: Emergency Dept Plans for Post Hospital Care: Home History of present illness: Ms. Savlador is a 63 year old female with a history of ESRD on PD brought to ED due to confusion. Ms Salvador began to be weaker and more somnolent last Th. She had some slurring of her speech and could not move around as well. She was seen by PCP and felt to have UTI. She was given Macrobid, Diclofenac and Baclofen. She has had progressive weakness and somnolence. Today she was difficult to arouse and was brought to ED. She only had about half of her PD earlier today. Family denies fever or chills. No cough. No CP though she has had some pain near PD catheter. No urinary complaints. Currently she is somnolent but arousable. She has difficulty following commands and answering questions. Past Med Surg Social Fam HX - Past Medical History Source: old records reviewed, obtained from family Medical history: arthritis, diabetes, dialysis, hyperlipidemia, hypertension, renal disease, other Additional medical history: HTN. KIDNEY FAILURE. CHRONIC DIARRHEA. ANEMIA. HIGH CHOLESTEROL. HEPATITIS. DM. ARTHRITIS Psychiatric history: no psych history - Past Surgical History Surgical History: , cholecystectomy, herniorrhaphy, hysterectomy, orthopedic, other, other Additional surgical history: two sx on the right wrist ABDOMINAL DIALYSIS PORT - Social History Smoking Status: Never smoker Smokeless Tobacco Status: No Alcohol use: none Drug use: none - Family History Father Family Member Ethnicity: Non- Living Status: Hx Family Cardiac Disorders: Yes (CVA) Hx Family Respiratory Disorders: No Hx Family Cancer: Yes (Prostate) Hx Family GI Disorders: No Hx Family Endocrine Disorder: No Hx Family Neuromuscular Disorders: No Hx Family Neurologic Disorders: No Hx Family HEENT Disorders: No Hx Family Autoimmune Disorders: No Mother Family Member Ethnicity: Non- Living Status: Hx Family Cardiac Disorders: Yes (CVA) Hx Family Respiratory Disorders: No Hx Family Cancer: No Hx Family GI Disorders: No Hx Family Endocrine Disorder: Yes (Thyroid) Hx Family Neuromuscular Disorders: No Hx Family Neurologic Disorders: No Hx Family HEENT Disorders: No Hx Family Autoimmune Disorders: No Internal Medicine - H&P: Meds Fish Oil/Dha/Epa [Fish Oil 1,200 mg Fish Oil] 1,200 mg PO DAILY 07/05/16 [ History] Omeprazole [PriLOSEC] 40 mg PO DAILY 07/05/16 [History] Aspirin [Lo-Dose Aspirin EC] 81 mg PO DAILY 04/03/17 [History] Cholecalciferol (D-3) [Vitamin D] 5,000 unit PO DAILY 04/03/17 [History] glipiZIDE [Glipizide ER] 10 mg PO BID 04/03/17 [History] Atorvastatin Calcium [Lipitor] 80 mg PO HS 12/19/17 [History] Clopidogrel [Plavix] 75 mg PO DAILY 12/19/17 [History] Furosemide [Lasix] 80 mg PO BID 12/19/17 [History] Insulin ASPART [NovoLOG] 20 unit SQ TIDAC PRN 12/19/17 [History] Insulin Glargine [Lantus] 100 unit SQ Q12H 12/19/17 [History] Docusate [Colace] 200 mg PO DAILY PRN 01/01/18 [History] Ferric Citrate [Auryxia] 210 mg PO DAILY 01/01/18 [History] Baclofen [Lioresal] 10 mg PO BID 04/05/18 [History] Carvedilol 3.125 mg PO BID 04/05/18 [History] Diclofenac Sodium [Voltaren] 50 mg PO BID 04/05/18 [History] Nitrofurantoin Macrocrystal [Nitrofurantoin] 100 mg PO BID 04/05/18 [History] Lactulose [Lactulose] 30 ml PO DAILY PRN 04/06/18 [History] Magnesium Oxide [Magnesium] 400 mg PO BID 04/06/18 [History] Meclizine [Antivert] 25 mg PO BID PRN 04/06/18 [History] 3 Allergy/AdvReac Type Severity Reaction Status Date / Time No Known Allergies Allergy Verified 04/06/18 14:19 ROS unobtainable: due to mental status All Systems PM: A 10-system review of systems was performed and is negative for pertinent findings except as documented above in the HPI. - Constitutional Constitutional: lethargy - EENT Nose, mouth and throat: dry mouth - Cardiovascular Cardiovascular ROS IM: no chest pain, no dyspnea - Respiratory Respiratory: no cough, no dyspnea on exertion - Gastrointestinal Gastrointestinal: abdominal pain, no nausea, no vomiting - Genitourinary Genitourinary: no difficulty urinating, no nocturia - Musculoskeletal Musculoskeletal ROS IM: no arthralgias, no muscle cramps - Integumentary Integumentary IM: no erythema, no rash - Neurological Neurological ROS: abnormal gait, abnormal speech, other Additional comments: Somnolence - Endocrine Endocrine IM: no cold intolerance - Hematologic/Lymphatic Hematologic/Lymphatic: no easy bleeding - Allergic/Immunologic Allergic/Immunologic: no throat swelling - Constitutional Vitals: Temp Pulse Resp BP Pulse Ox 98.8 F 85 18 155/89 95 04/06/18 16:20 04/06/18 18:00 04/06/18 16:20 04/06/18 18:00 04/06/18 16:20 General appearance: Present: A&O X 1 (Self), morbidly obese. Absent: answers questions appropriately Exam: Arousable but does not follow commands well. - Head Head exam: Present: atraumatic, normocephalic - Eye Eye exam: Present: PERRL, conjuntiva pink - ENT ENT exam: Present: mucous membranes dry - Neck Neck exam general surgery: Absent: lymphadenopathy, nuchal rigidity - Respiratory Respiratory exam: Present: decreased breath sounds, CTAB. Absent: rales, rhonchi, wheezes - Cardiovascular Cardiovascular exam: Present: RRR. Absent: systolic murmur, tachycardia - GI/Abdominal GI/Abdominal exam: Present: soft, tenderness Additional comments: Tender near peritoneal catheter No erythema - Extremities Exam Extremities exam: Present: warm. Absent: tenderness Additional comments: Edema present - Neurological Exam Neurological exam: Present: alert, altered Additional comments: Dose not follow commands well. - Skin Skin exam: Present: dry, warm. Absent: rash Internal Med - H&P Results - Labs CBC & Chem 7: 04/06/18 10:56 04/06/18 10:56 - ABG Interpretation ABG results: 04/06/18 16:03 ABG pH 7.44 ABG pCO2 46 H ABG pO2 65 L ABG HCO3 31 H ABG Total CO2 33 H ABG O2 Saturation 93 L ABG Base Excess 6 H - Assessment and plan (1) Acute metabolic encephalopathy Current Visit: Yes Status: Acute Assessment and plan: Pt with increased somnolence and difficulty following commands. Recent dx of UTI and started on Macrobid, Baclofen and Diclofenac. May be due to Baclofen and increased sedation Will hold meds, get MRI. Monitor overnight. ABGs,ammonia normal. No sign of infection. Cultures to be obtained from peritoneal fluid (has not been cloudy). (2) Hypertensive emergency Current Visit: No Status: Acute Assessment and plan: Pt with markedly elevated BP which may be contributing to her mental status. Placed on Cardene drip to slowly lower it. (3) ESRD (end stage renal disease) on dialysis Current Visit: No Status: Chronic Assessment and plan: Nephrology consult for PD. (4) Anemia in CKD (chronic kidney disease) Current Visit: No Status: Chronic Assessment and plan: Following. Qualifiers: Chronic kidney disease stage: on chronic dialysis Qualified Code(s): N18.6 - End stage renal disease; D63.1 - Anemia in chronic kidney disease; D63.1 - Anemia in chronic kidney disease; Z99.2 - Dependence on renal dialysis; Z99.2 - Dependence on renal dialysis; Z99.2 - Dependence on renal dialysis; Z99.2 - Dependence on renal dialysis (5) DM type 2 (diabetes mellitus, type 2) Current Visit: No Status: Chronic Assessment and plan: Accuchecks and insulin ordered. Qualifiers: Diabetes mellitus termination clerk insulin use: with senior living use Diabetes mellitus complication status: with kidney complications Diabetes mellitus complication detail: with chronic kidney disease Chronic kidney disease stage : on chronic dialysis Qualified Code(s): E11.22 - Type 2 diabetes mellitus with diabetic chronic kidney disease; N18.6 - End stage renal disease; Z79.4 - termite technician (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 (6) History of right common carotid artery stent placement Current Visit: No Status: Chronic (7) Morbid obesity with BMI of 50.0-59.9, adult Current Visit: No Status: Chronic - Time Spent With Patient Total time spent is greater than 50% in coordination of care (as documented) at patient's floor/unit and/or counseling patient:
[2018-04-06] MEDS ORDERED: Perit. Dialysis with Dex 2.5 % 12,000 ML PERITONEAL ONE (20:13)
[2018-04-06] MEDS: Magnesium Oxide 400 MG TABLET PO SCH (22:16)
[2018-04-06 23:14] LABS: Hepatitis B Surface Antigen Nonreactive (Nonreactive)
[2018-04-07] MEDS: niCARdipine 40 MG/200 ML MLS IVC SCH ×2 (04:24→11:43)
[2018-04-07 05:40] LABS: Basophils % 0.5 %; Eosinophils # 0.1 K/mcL (0.0-0.6); Eosinophils % 1.9 %; Hematocrit 29.6 % (35.3-44.9); Hemoglobin 9.4 g/dL (11.5-15.4); Immature Granulocytes % 0.5 % (0-4); Lymphocytes % 24.2 %; Mean Corpuscular HGB Conc 31.8 g/dL (31.6-35.5); Mean Corpuscular Hemoglobin 27.6 pg (28.0-33.3); Mean Corpuscular Volume 86.8 fL (83.0-100.0); Mean Platelet Volume 12.8 fL (9.4-12.4); Monocytes # 0.3 K/mcL (0.0-1.3); Neutrophils # 2.7 K/mcL (1.6-8.9); Platelet Count 173 K/mcL (140-400); Red Blood Count 3.41 M/mcL (3.82-4.97); Red Cell Distribution Width 14.8 % (11.5-14.5); Segmented Neutrophils % 64.9 %
[2018-04-07 05:58] LABS: Calcium 8.8 mg/dL (8.6-10.3); Phosphorous 4.7 mg/dL (2.7-4.5); Potassium 3.8 mEq/L (3.5-5.1)
[2018-04-07] MEDS: Insulin LISPRO 300 UNITS/3 ML VIAL SQ SCH ×4 (08:15→21:09)
[2018-04-07] MEDS: Magnesium Oxide 400 MG TABLET PO SCH ×2 (08:54→21:07)
[2018-04-07] MEDS: Aspirin Enteric Coated 81 MG Tablet PO SCH (08:54)
--- NOTE | 2018-04-07 12:14 | Nephrology Progress Note ---
Date of Encounter: 04/07/18 Time of Encounter: 12:12 - Assessment and Plan (1) ESRD (end stage renal disease) on dialysis Current Visit: No Status: Chronic PD patient of Dr. Chase De La Torre. PD cath is functional and she has been getting the cycler at night with good return/flow. Continue cycler at night. (2) Altered mental status, unspecified Current Visit: Yes Status: Acute Seems to be improving, most likely from macrobid, baclofen, Voltaren. Qualifiers: Qualified Code(s): R40.0 - Somnolence (3) Hypertensive emergency Current Visit: No Status: Acute Is currently on Cardene gtt. BP 142/71, stable. Subjective Principal diagnosis: AMS Interval history: Pt seen and examined at this time. Doing well with family at bedside. Pt is alert and appropriate. Objective - Vital Signs Vital signs: Vital Signs Temp Pulse Resp BP Pulse Ox 04/07/18 12:09 98.3 F 79 17 142/71 96 04/07/18 08:40 98.9 F 83 18 141/68 98 04/07/18 08:15 98.9 F 18 138/87 04/07/18 06:00 80 145/78 04/07/18 05:00 84 157/79 04/07/18 04:00 73 126/60 04/07/18 03:42 98.6 F 72 18 133/64 93 04/07/18 03:20 73 117/58 04/07/18 02:50 73 133/71 04/07/18 02:35 81 147/69 04/07/18 02:20 85 131/71 04/07/18 02:00 74 119/63 04/07/18 01:00 82 139/61 04/07/18 00:00 80 147/66 04/06/18 23:53 98.4 F 82 16 159/74 96 04/06/18 23:00 79 159/74 04/06/18 22:00 82 147/77 04/06/18 21:45 98.6 F 81 18 151/83 04/06/18 21:15 86 149/81 04/06/18 20:45 82 143/78 04/06/18 20:30 79 159/64 04/06/18 20:15 81 162/73 04/06/18 20:10 98.6 F 85 16 156/67 96 04/06/18 20:00 82 148/73 04/06/18 19:55 84 177/79 04/06/18 19:50 86 175/85 04/06/18 19:45 86 04/06/18 19:40 84 165/79 04/06/18 19:10 83 156/81 04/06/18 18:00 85 155/89 04/06/18 16:20 98.8 F 86 18 161/58 95 04/06/18 15:21 98.8 F 88 18 185/88 95 04/06/18 14:54 16 187/94 Intake and Output 04/06/18 04/07/18 04/07/18 23:59 07:59 15:59 Intake Total 200 / 200 200 / 200 200 / 200 Output Total 550 / 550 300 / 300 1548 / 1548 Balance -350 / -350 -100 / -100 -1348 / -1348 Intake: IV Fluids 200 / 200 200 / 200 200 / 200 Cardene Premix 40mg/200ml 40 mg 200 / 200 200 / 200 200 / 200 In 200 ml @ 5 MG/HR 25 mls/hr IVC .Q8H TIMBO Rx#:[id number] Output: Catheter 550 / 550 300 / 300 200 / 200 Peritoneal Dialysis (PD) Net 1348 / 1348 Fluid Removed Other: Weight 156 kg 153.2 kg Blood Glucose* 111 135 Patient Weight 04/07/18 23:59 Weight 153.2 kg - General Appearance General appearance: Present: well-developed, well-nourished EENT: Present: ATNC, hearing intact, vision intact Neck: Present: supple Respiratory: Present: clear Cardiology: Present: edema (Trace bilateral lower extremity edema.), normal S1, normal S2 Additional Comments: PD Cath drsg c/d/i. Gastrointestinal: Present: normoactive bowel sounds, no tenderness, no guarding Integumentary: Present: no rash, warm and dry Neurologic: Present: alert and oriented x3 Psychiatric: Present: mood/affect appropriate, cooperative - Lab 04/07/18 05:03 04/07/18 05:03 Most recent lab results ABG pH 7.44 pH Units (7.32-7.45) 04/06/18 16:03 ABG pCO2 46 mmHg (35-45) H 04/06/18 16:03 ABG pO2 65 mmHg (85-104) L 04/06/18 16:03 ABG HCO3 31 mEq/L (21-27) H 04/06/18 16:03 ABG O2 Saturation 93 % (95-98) L 04/06/18 16:03 Calcium 8.8 mg/dL (8.6-10.3) 04/07/18 05:03 Phosphorus 4.7 mg/dL (2.7-4.5) H 04/07/18 05:03 Magnesium 2.0 mg/dL (1.6-2.6) 04/07/18 05:03 Consult Discharge Plan - Plan Referrals: Khadar Yeager, ACCOUNTING PRACTICE MANAGER [Non-Partnered Physician] - 04/14/18 10:30 am (Your appointment for 04-10-18 @ 1020am has been cancelled)
[2018-04-07] MEDS ORDERED: Perit. Dialysis with Dex 2.5 % 12,000 ML PERITONEAL ONE (15:08)
--- NOTE | 2018-04-07 15:29 | Electrocardiograph Report ---
[place] [id number] Test Date: 2018-04-06 Pat Name: Alyson Salvador Department: Room: 2N08 Gender: F Surgical Supervisor: : [id number] Requested By: Gunner Higginbotham Order Number: [id number] Reading MD: José Miguel Christy Measurements Intervals [place] Rate: 84 P: 28 NH: 185 QRS: 4 QRSD: 105 T: 106 QT: 412 QTc: 487 Interpretive Statements Sinus rhythm Inferior infarct, probably old Electronically Signed On 04-07-2018 15:28:21 EDT by José Miguel Christy
--- NOTE | 2018-04-07 16:33 | Internal Med Progress Note ---
<Love Garay - Last Filed: 04/07/18 17:27> Hospitalist Progress Note - Encounter Date of Encounter: 04/07/18 Time of Encounter: 09:30 - Subjective Interval History: Patient seen and examined at bedside. More alert this morning but still reports feeling tired and drowsy. Voices a strong desire to be discharged at this time. Denies any worsening of symptoms but does report some new onset numbness and tingling in her fingers and toes. Patient reports that the sensation comes and goes. She also reports that her legs feel very heavy and are hard to move. The tapia has been removed and she has been voiding today without assistance. - Exam Vitals: Temp Pulse Resp BP Pulse Ox 98.5 F 90 18 131/62 97 04/07/18 15:16 04/07/18 15:16 04/07/18 15:16 04/07/18 15:16 04/07/18 15:16 Exam: General: Alert and oriented, NAD Cardiac: Grade 3 systolic murmur present, unchanged from baseline, RRR, +S1 +S2 Respiratory: CTAB, no wheezes rales or rhonchi GI: no tenderness, rebound, guarding or rigidity Extremities: Bilateral parasthesias of distal portions of all toes. LE strength +2/4. Pysch: affect approriate, slightly drowsy, fully arousable and cooperative - Assessment and Plan (1) Acute metabolic encephalopathy Current Visit: Yes Status: Acute Assessment and Plan: Acute Metabolic Encephalopathy likely secondary to Baclofen Toxicity - Increased arousability and decreased somnolence today - Continue monitoring for changes in consciousness (2) ESRD (end stage renal disease) on dialysis Current Visit: No Status: Chronic Assessment and Plan: PD patient of Dr. De La Torre. - Cr was 4.33 yesterday, now 3.87; baseline between 2.5-3.5 - Nephology consulted, Recs as follows; - PD cath is functional and she has been getting the cycler at night with good return/flow. - Continue cycler at night. (3) Hypertensive emergency Current Visit: No Status: Acute Assessment and Plan: Currently on Cardene drip to slowly bring BP down BP stable today, last reading 131/62 (4) DM type 2 (diabetes mellitus, type 2) Current Visit: No Status: Chronic Assessment and Plan: Accuchecks and Insulin ordered - Time Spent with Patient Total time spent is greater than 50% in coordination of care (as documented) at patient's floor/unit and/or counseling patient: Internal Medicine: Result - Labs CBC & Chem 7: 04/07/18 05:03 04/07/18 05:03 Labs: Short CBC 04/07/18 Range/Units 05:03 WBC 4.1 L (4.3-11.1) K/mcL Hgb 9.4 L (11.5-15.4) g/dL Hct 29.6 L (35.3-44.9) % Plt Count 173 (140-400) K/mcL Neutrophils # 2.7 (1.6-8.9) K/mcL BMP 04/07/18 05:03 Sodium 139 Potassium 3.8 Chloride 101 Carbon Dioxide 31 H BUN 44 H Creatinine 3.87 H Glucose 163 H Calcium 8.8 - ABG Interpretation ABG results: ABG ABG pH 7.44 pH Units (7.32-7.45) 04/06/18 16:03 ABG pCO2 46 mmHg (35-45) H 04/06/18 16:03 ABG pO2 65 mmHg (85-104) L 04/06/18 16:03 ABG O2 Saturation 93 % (95-98) L 04/06/18 16:03 PT/INR, D-dimer PT 10.7 Seconds (9.4-12.1) 04/06/18 10:56 - Impressions Impressions Brain MRI 04/06/18 15:36 IMPRESSION: No acute abnormality on motion degraded exam. D/ / 04/06/2018 18:53:05 Kana Greenfield MD / migue Interpreting Provider: Kana Greenfield MD Head MRA 04/06/18 15:36 IMPRESSION: No severe stenosis or occlusion of the intracranial arteries. D/ / 04/06/2018 18:52:27 Kana Greenfield MD / migue Interpreting Provider: Kana Greenfield MD Neck MRA 04/06/18 15:39 IMPRESSION: Severely motion degraded exam without occlusion of the carotid or vertebral arteries. D/ / 04/06/2018 18:54:51 Kana Greenfield MD / latasha Interpreting Provider: Kana Greenfield MD Consult Discharge Plan - Plan Referrals: Khadar Yeager, CARBURETOR MECHANIC [Non-Partnered Physician] - 04/14/18 10:30 am (Your appointment for 04-10-18 @ 1020am has been cancelled) <Salvatore Boone - Last Filed: 04/07/18 18:40> Hospitalist Progress Note - Encounter Date of Encounter: 04/07/18 - Exam Vitals: Temp Pulse Resp BP Pulse Ox 98.5 F 90 18 131/62 97 04/07/18 15:16 04/07/18 15:16 04/07/18 15:16 04/07/18 15:16 04/07/18 15:16 - Assessment and Plan (1) Acute metabolic encephalopathy Current Visit: Yes Status: Acute (2) Hypertensive emergency Current Visit: No Status: Acute (3) ESRD (end stage renal disease) on dialysis Current Visit: No Status: Chronic (4) Anemia in CKD (chronic kidney disease) Current Visit: No Status: Chronic (5) DM type 2 (diabetes mellitus, type 2) Current Visit: No Status: Chronic (6) History of right common carotid artery stent placement Current Visit: No Status: Chronic (7) Morbid obesity with BMI of 50.0-59.9, adult Current Visit: No Status: Chronic - Time Spent with Patient Total time spent is greater than 50% in coordination of care (as documented) at patient's floor/unit and/or counseling patient: Internal Medicine: Result - Labs CBC & Chem 7: 04/07/18 05:03 04/07/18 05:03 - ABG Interpretation ABG results: ABG ABG pH 7.44 pH Units (7.32-7.45) 04/06/18 16:03 ABG pCO2 46 mmHg (35-45) H 04/06/18 16:03 ABG pO2 65 mmHg (85-104) L 04/06/18 16:03 ABG O2 Saturation 93 % (95-98) L 04/06/18 16:03 PT/INR, D-dimer PT 10.7 Seconds (9.4-12.1) 04/06/18 10:56 - Attending Attestation The history, physical exam, and medical decision making was performed by the medical student either while I was physically present and actively involved or I personally re-performed the exam and medical decision making. I have verified the accuracy of the medical student's documentation with regards to the history, physical exam findings, and medical decision making on 04/07/18. Ms Salvador is currently admitted for acute encephalopathy presumed due to HTN and medications. She remains moderate to high risk due to potential for worsening clinical status. Ms Salvador is more alert today. She wants to go home. BP has been better and drip to be stopped. No CP or SOB. Tolerating dialysis. Exam alert and responsive. Pleasant Mucus membranes dry Heart reg Lungs diminished Abd soft Edema present No rash. No joint swelling. I/P 1. Encephalopathy - improving today. 2. HTN - BP improving 3. ESRD on PD Further diagnoses and plan as above. <Love Garay - Last Filed: 04/07/18 17:27> (4) DM type 2 (diabetes mellitus, type 2) Qualifiers: Diabetes mellitus intermediate manager insulin use: with senior living use Diabetes mellitus complication status: with kidney complications Diabetes mellitus complication detail: with chronic kidney disease Chronic kidney disease stage: on chronic dialysis Qualified Code(s): E11.22 - Type 2 diabetes mellitus with diabetic chronic kidney disease; N18.6 - End stage renal disease; Z79.4 - snf (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 <Salvatore Boone - Last Filed: 04/07/18 18:40> (4) Anemia in CKD (chronic kidney disease) Qualifiers: Chronic kidney disease stage: on chronic dialysis Qualified Code(s): N18.6 - End stage renal disease; D63.1 - Anemia in chronic kidney disease; D63.1 - Anemia in chronic kidney disease; Z99.2 - Dependence on renal dialysis; Z99.2 - Dependence on renal dialysis; Z99.2 - Dependence on renal dialysis; Z99.2 - Dependence on renal dialysis (5) DM type 2 (diabetes mellitus, type 2) Qualifiers: Diabetes mellitus senior living insulin use: with intermediate manager use Diabetes mellitus complication status: with kidney complications Diabetes mellitus complication detail: with chronic kidney disease Chronic kidney disease stage: on chronic dialysis Qualified Code(s): E11.22 - Type 2 diabetes mellitus with diabetic chronic kidney disease; N18.6 - End stage renal disease; Z79.4 - snf (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
[2018-04-07] MEDS ORDERED: *HR* OxyCODONE Immed Rel 5 MG TABLET PO ONE (22:16)
[2018-04-08] MEDS: Insulin LISPRO 300 UNITS/3 ML VIAL SQ SCH ×4 (08:25→20:19)
[2018-04-08] MEDS: Magnesium Oxide 400 MG TABLET PO SCH ×2 (08:26→20:19)
[2018-04-08] MEDS: Aspirin Enteric Coated 81 MG Tablet PO SCH (08:27)
--- NOTE | 2018-04-08 08:49 | Internal Med Progress Note ---
<David Llamas M - Last Filed: 04/08/18 09:28> Hospitalist Progress Note - Encounter Date of Encounter: 04/08/18 Time of Encounter: 08:00 - Subjective Interval History: Patient seen and examined with at bedside. Pt state of consciousness continues to improve, fully alert and less drowsy today. Pt reports some increasing left lower back pain, present before admission, likely musculoskeletal. Patient denies any worsening of her present symptoms. Denies nausea, vomiting, dysuria, blurred vision, headache, palpitations, SOB, CP. Nursing reports pt desaturated overnight into the 80's, placed on nasal cannula with 2L. Patient still receiving O2 on examination this morning, denies any respiratory symptoms now or overnight. - Exam Vitals: Temp Pulse Resp BP Pulse Ox 98.3 F 83 17 148/69 98 04/08/18 07:30 04/08/18 06:54 04/08/18 07:30 04/08/18 07:30 04/08/18 06:54 Exam: General: alert and oriented, NAD Cardiac: RRR, +s1 +s2, grade 3 systolic murmur present from baseline Respiratory: CTAB, no wheezes rales or rhonchi, patient coughs on deep inspiration GI: nontender, nondistended, no guarding, rigidity or rebound, negative [place] and Heel tap Neuro: distal LE parasthesia, right more than left, decreased from yesterday, strength +1/4 Extremities: skin warm and dry, no rashes, +1 LE edema - Assessment and Plan (1) Acute metabolic encephalopathy Current Visit: Yes Status: Acute Assessment and Plan: Acute Metabolic Encephalopathy likely secondary to Baclofen toxicity. - Mental status continues to improve - Patient fully alert this morning - continue to monitor for changes in consciousness (2) Hypertensive emergency Current Visit: No Status: Acute Assessment and Plan: Hypertensive Emergency - Cardene drip stopped yesterday evening. - Patient BP remains stable; overnight 126/70 - 148/69 this morning, continue monitoring. (3) ESRD (end stage renal disease) on dialysis Current Visit: No Status: Chronic Assessment and Plan: ESRD - PD patient of Dr. De La Torre. - Nephrology consulted, appreciate recs. - PD catheter functional, continue cycler at night - 1348mL Fluid Return from PD overnight (4) DM type 2 (diabetes mellitus, type 2) Current Visit: No Status: Chronic Assessment and Plan: Accuchecks and insulin ordered. - Time Spent with Patient Total time spent is greater than 50% in coordination of care (as documented) at patient's floor/unit and/or counseling patient: Internal Medicine: Result - Labs CBC & Chem 7: 04/07/18 05:03 04/07/18 05:03 - ABG Interpretation ABG results: ABG ABG pH 7.44 pH Units (7.32-7.45) 04/06/18 16:03 ABG pCO2 46 mmHg (35-45) H 04/06/18 16:03 ABG pO2 65 mmHg (85-104) L 04/06/18 16:03 ABG O2 Saturation 93 % (95-98) L 04/06/18 16:03 PT/INR, D-dimer PT 10.7 Seconds (9.4-12.1) 04/06/18 10:56 Consult Discharge Plan - Plan Referrals: Khadar Yeager, [employer] [Non-Partnered Physician] - 04/14/18 10:30 am (Your appointment for 04-10-18 @ 1020am has been cancelled) Prescriptions: HYDROcodone/Acet 5/325 mg [[place] 5-325 mg] 1 tab PO Q6HR PRN 10 Days #20 tablet PRN Reason: Mild To Moderate Pain Phenazopyridine [Pyridium] 100 mg PO TID 2 Days #6 tablet <Tl Terrell - Last Filed: 04/09/18 14:12> Hospitalist Progress Note - Encounter Date of Encounter: 04/09/18 - Exam Vitals: Temp Pulse Resp BP Pulse Ox 98.1 F 76 18 137/70 97 04/09/18 11:49 04/09/18 11:49 04/09/18 11:49 04/09/18 11:49 04/09/18 11:49 - Assessment and Plan (1) Acute metabolic encephalopathy Current Visit: Yes Status: Resolved (2) Hypertensive emergency Current Visit: No Status: Acute (3) Hypertensive renal disease with renal failure Current Visit: Yes Status: Chronic (4) DM type 2 (diabetes mellitus, type 2) Current Visit: No Status: Chronic (5) Anemia in CKD (chronic kidney disease) Current Visit: No Status: Chronic (6) Morbid obesity with BMI of 50.0-59.9, adult Current Visit: No Status: Chronic - Time Spent with Patient Total time spent is greater than 50% in coordination of care (as documented) at patient's floor/unit and/or counseling patient: 25 - 35 minutes Plan of Care Discussed with: patient Internal Medicine: Result - Labs CBC & Chem 7: 04/08/18 09:50 04/09/18 05:02 Labs: BMP 04/09/18 05:02 Sodium 135 L Potassium 4.4 Chloride 97 L Carbon Dioxide 27 BUN 52 H Creatinine 4.26 H Glucose 339 H Calcium 8.8 - ABG Interpretation ABG results: ABG ABG pH 7.44 pH Units (7.32-7.45) 04/06/18 16:03 ABG pCO2 46 mmHg (35-45) H 04/06/18 16:03 ABG pO2 65 mmHg (85-104) L 04/06/18 16:03 ABG O2 Saturation 93 % (95-98) L 04/06/18 16:03 PT/INR, D-dimer PT 10.7 Seconds (9.4-12.1) 04/06/18 10:56 - Attending Attestation I SAW/EXAMINED AND EVALUATED THE PATIENT WITH THE RESIDENT ON THE DAY OF VISIT. THE CASE WAS DISCUSSED WITH HIM/HER. I AGREE WITH THE FINDINGS/PLAN, DOCUMENTED IN THE RESIDENT'S NOTE. THE DOCUMENT WAS EDITED BY ME TO CORRECT ERRORS AND ADD MISSING DATA. <David Llamas - Last Filed: 04/08/18 09:28> (4) DM type 2 (diabetes mellitus, type 2) Qualifiers: Diabetes mellitus terminal clerk insulin use: with terminal clerk use Diabetes mellitus complication status: with kidney complications Diabetes mellitus complication detail: with chronic kidney disease Chronic kidney disease stage: on chronic dialysis Qualified Code(s): E11.22 - Type 2 diabetes mellitus with diabetic chronic kidney disease; N18.6 - End stage renal disease; Z79.4 - oil heaterman (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 <Tl Terrell - Last Filed: 04/09/18 14:12> (4) DM type 2 (diabetes mellitus, type 2) Qualifiers: Diabetes mellitus terminal clerk insulin use: with residential use Diabetes mellitus complication status: with kidney complications Diabetes mellitus complication detail: with chronic kidney disease Chronic kidney disease stage: on chronic dialysis Qualified Code(s): E11.22 - Type 2 diabetes mellitus with diabetic chronic kidney disease; N18.6 - End stage renal disease; Z79.4 - halfway (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 (5) Anemia in CKD (chronic kidney disease) Qualifiers: Chronic kidney disease stage: on chronic dialysis Qualified Code(s): N18.6 - End stage renal disease; D63.1 - Anemia in chronic kidney disease; D63.1 - Anemia in chronic kidney disease; Z99.2 - Dependence on renal dialysis; Z99.2 - Dependence on renal dialysis; Z99.2 - Dependence on renal dialysis; Z99.2 - Dependence on renal dialysis
[2018-04-08 10:39] LABS: Basophils % 0.6 %; Eosinophils # 0.1 K/mcL (0.0-0.6); Hematocrit 29.6 % (35.3-44.9); Hemoglobin 9.6 g/dL (11.5-15.4); Immature Granulocytes % 1.4 % (0-4); Lymphocytes % 20.2 %; Mean Corpuscular HGB Conc 32.4 g/dL (31.6-35.5); Mean Corpuscular Hemoglobin 28.2 pg (28.0-33.3); Mean Corpuscular Volume 86.8 fL (83.0-100.0); Mean Platelet Volume 12.8 fL (9.4-12.4); Monocytes # 0.4 K/mcL (0.0-1.3); Neutrophils # 3.6 K/mcL (1.6-8.9); Platelet Count 166 K/mcL (140-400); Red Blood Count 3.41 M/mcL (3.82-4.97); Red Cell Distribution Width 15.1 % (11.5-14.5); Segmented Neutrophils % 69.8 %
--- NOTE | 2018-04-08 10:56 | Nephrology Progress Note ---
Date of Encounter: 04/08/18 Time of Encounter: 10:53 - Assessment and Plan (1) ESRD (end stage renal disease) on dialysis Current Visit: No Status: Chronic PD patient of Dr. Chase De La Torre. PD cath is functional and she has been getting the cycler at night with good return/flow. Continue cycler at night. (2) Altered mental status, unspecified Current Visit: Yes Status: Acute Seems to be improving, most likely from macrobid, baclofen, Voltaren. Qualifiers: Qualified Code(s): R40.0 - Somnolence (3) Hypertensive emergency Current Visit: No Status: Acute Is off Cardene at this time. BP stable 148/69 Subjective Principal diagnosis: AMS Interval history: Pt seen and examined at this time. Doing well with family at bedside. Pt is drowsy with examination. Objective - Vital Signs Vital signs: Vital Signs Temp Pulse Resp BP Pulse Ox 04/08/18 07:30 98.3 F 17 148/69 04/08/18 06:54 98.6 F 83 18 139/74 98 04/08/18 05:12 98.6 F 76 18 136/77 98 04/08/18 00:29 99.1 F 81 18 126/70 94 04/07/18 20:45 98.9 F 19 154/73 04/07/18 20:44 98.9 F 81 19 154/73 96 Intake and Output 04/07/18 04/08/18 04/08/18 23:59 07:59 15:59 Output Total 1598 / 1598 Balance -1598 / -1478 Output: Urine 250 / 250 Peritoneal Dialysis (PD) Net 1348 / 1348 Fluid Removed Other: # Voids 1 Weight 152.7 kg Blood Glucose* 108 263 Patient Weight 04/08/18 23:59 Weight 152.7 kg - General Appearance General appearance: Present: well-developed, well-nourished EENT: Present: ATNC, hearing intact, vision intact Neck: Present: supple Respiratory: Present: clear Cardiology: Present: no edema, normal S1, normal S2 Additional Comments: PD cath drsg c/d/i Gastrointestinal: Present: normoactive bowel sounds, no tenderness, no guarding Integumentary: Present: no rash, warm and dry Neurologic: Present: confused Psychiatric: Present: mood/affect appropriate, cooperative - Lab 04/08/18 09:50 04/07/18 05:03 Most recent lab results ABG pH 7.44 pH Units (7.32-7.45) 04/06/18 16:03 ABG pCO2 46 mmHg (35-45) H 04/06/18 16:03 ABG pO2 65 mmHg (85-104) L 04/06/18 16:03 ABG HCO3 31 mEq/L (21-27) H 04/06/18 16:03 ABG O2 Saturation 93 % (95-98) L 04/06/18 16:03 Calcium 8.8 mg/dL (8.6-10.3) 04/07/18 05:03 Phosphorus 4.7 mg/dL (2.7-4.5) H 04/07/18 05:03 Magnesium 2.0 mg/dL (1.6-2.6) 04/07/18 05:03 Consult Discharge Plan - Plan Referrals: Khadar Yeager, [facility] [Non-Partnered Physician] - 04/14/18 10:30 am (Your appointment for 04-10-18 @ 1020am has been cancelled)
[2018-04-08] MEDS: *HR* HYDROcodone/Acet 5/325 mg TABLET PO PRN ×2 (11:23→21:58)
[2018-04-08] MEDS ORDERED: Ondansetron ODT 4 MG TAB.RAPDIS SL PRN (13:09)
--- NOTE | 2018-04-08 16:16 | Electrocardiograph Report ---
[address] [place] [address] Test Date: 2018-04-07 Pat Name: Alyson Salvador Department: 110 Room: 2N08 Gender: F Domestic Violence Advocate: : 1955 Requested By: Salvatore Boone Order Number: [id number] Reading MD: Meggan Hamlin Measurements Intervals [place] Rate: 82 P: 45 MD: 181 QRS: 0 QRSD: 103 T: 113 QT: 383 QTc: 421 Interpretive Statements SINUS RHYTHM INFERIOR MYOCARDIAL INFARCTION, OF INDETERMINATE AGE MODERATE T-WAVE ABNORMALITY, CONSIDER LATERAL ISCHEMIA Electronically Signed On 04-08-2018 16:15:29 EDT by Meggan Hamlin
[2018-04-08] MEDS ORDERED: Perit. Dialysis with Dex 2.5 % 12,000 ML PERITONEAL ONE (18:49)
[2018-04-09 05:38] LABS: Calcium 8.8 mg/dL (8.6-10.3); Potassium 4.4 mEq/L (3.5-5.1)
[2018-04-09] MEDS: Insulin LISPRO 300 UNITS/3 ML VIAL SQ SCH ×2 (08:06→12:43)
[2018-04-09] MEDS: Magnesium Oxide 400 MG TABLET PO SCH (08:07)
[2018-04-09] MEDS: Aspirin Enteric Coated 81 MG Tablet PO SCH (08:07)
--- NOTE | 2018-04-09 09:39 | Internal Med Progress Note ---
<Xi Llamast M - Last Filed: 04/09/18 11:24> Hospitalist Progress Note - Encounter Date of Encounter: 04/09/18 Time of Encounter: 08:30 - Subjective Interval History: Patient seen and examined with at bedside. Pt state of consciousness continues to improve, fully alert and less drowsy today. Family reports pt appears to back at baseline. Pt reports some increasing left lower back pain, present before admission, likely musculoskeletal, currently receiving oxycodone with moderate relief. Patient denies any worsening of her present symptoms. Admits to worsening dysuria, which was present before admission, worse now than before. Will recheck UA. Patient also complains of left heel pain and family has noticed bruising, unsure of etiology. Legs do appear swollen as we held her Lasix due to Baclofen Toxicity in setting of ESRD, will consult Nepho before restarting. Denies nausea, vomiting, blurred vision, headache, palpitations, SOB , CP. Patient remains on 2L nasal cannula, family reports patient had a bout of apnea overnight, likely LAY given body habitus. Pt denies any respiratory symptoms, including dyspnea, wheezing, coughing. - Exam Vitals: Temp Pulse Resp BP Pulse Ox 98.1 F 86 18 121/64 98 04/09/18 06:54 04/09/18 06:54 04/09/18 06:54 04/09/18 06:54 04/09/18 06:54 Exam: General: alert and oriented, cooperative and pleasant CV: RRR, grade 3 systolic murmur present from baseline, +s1 +s2 Resp: CTAB, no wheezes rales or rhonchi Abd: non-tender, non-distended, no guarding rebound rigidity Extremities: +2 pedal and pretibial edema, mild ecchymosis of left heel - Assessment and Plan (1) Acute metabolic encephalopathy Current Visit: Yes Status: Resolved Assessment and Plan: Acute Metabolic Encephalopathy likely secondary to Baclofen toxicity - Mental status continues to improve - Patient fully alert this morning - Family reports patient to be back at her baseline - will consider resolved at this point (2) Hypertensive emergency Current Visit: No Status: Acute Assessment and Plan: Hypertensive Emergency - Cardene drip stopped on 04/07/18 evening. - Home Carvedilol restarted yesterday - Patient BP remains stable; overnight 130/69 - 121/64 this AM, continue monitoring. (3) ESRD (end stage renal disease) on dialysis Current Visit: No Status: Chronic Assessment and Plan: ESRD - PD patient of Dr. De La Torre. - Nephrology following, appreciate recs. - PD catheter functional, continue cycler at night (4) DM type 2 (diabetes mellitus, type 2) Current Visit: No Status: Chronic Assessment and Plan: Accuchecks and insulin ordered. - Time Spent with Patient Total time spent is greater than 50% in coordination of care (as documented) at patient's floor/unit and/or counseling patient: Internal Medicine: Result - Labs CBC & Chem 7: 04/08/18 09:50 04/09/18 05:02 Labs: Short CBC 04/08/18 Range/Units 09:50 WBC 5.2 (4.3-11.1) K/mcL Hgb 9.6 L (11.5-15.4) g/dL Hct 29.6 L (35.3-44.9) % Plt Count 166 (140-400) K/mcL Neutrophils # 3.6 (1.6-8.9) K/mcL BMP 04/08/18 04/09/18 09:50 05:02 Sodium 136 135 L Potassium 5.0 4.4 Chloride 99 97 L Carbon Dioxide 29 27 BUN 51 H 52 H Creatinine 4.22 H 4.26 H Glucose 225 H 339 H Calcium 9.0 8.8 - ABG Interpretation ABG results: ABG ABG pH 7.44 pH Units (7.32-7.45) 04/06/18 16:03 ABG pCO2 46 mmHg (35-45) H 04/06/18 16:03 ABG pO2 65 mmHg (85-104) L 04/06/18 16:03 ABG O2 Saturation 93 % (95-98) L 04/06/18 16:03 PT/INR, D-dimer PT 10.7 Seconds (9.4-12.1) 04/06/18 10:56 Consult Discharge Plan - Plan Referrals: Khadar Yeager, COOLER SUPERVISOR [Non-Partnered Physician] - 04/14/18 10:30 am (Your appointment for 04-10-18 @ 1020am has been cancelled) Prescriptions: HYDROcodone/Acet 5/325 mg [[place] 5-325 mg] 1 tab PO Q6HR PRN 10 Days #20 tablet PRN Reason: Mild To Moderate Pain Phenazopyridine [Pyridium] 100 mg PO TID 2 Days #6 tablet <Ryan Terrelltomaribell Mejia - Last Filed: 04/09/18 14:03> Hospitalist Progress Note - Encounter Date of Encounter: 04/09/18 - Exam Vitals: Temp Pulse Resp BP Pulse Ox 98.1 F 76 18 137/70 97 04/09/18 11:49 04/09/18 11:49 04/09/18 11:49 04/09/18 11:49 04/09/18 11:49 - Assessment and Plan (1) Acute metabolic encephalopathy Current Visit: Yes Status: Resolved (2) Hypertensive emergency Current Visit: No Status: Acute (3) Hypertensive renal disease with renal failure Current Visit: Yes Status: Chronic (4) DM type 2 (diabetes mellitus, type 2) Current Visit: No Status: Chronic (5) Anemia in CKD (chronic kidney disease) Current Visit: No Status: Chronic (6) Morbid obesity with BMI of 50.0-59.9, adult Current Visit: No Status: Chronic - Time Spent with Patient Total time spent is greater than 50% in coordination of care (as documented) at patient's floor/unit and/or counseling patient: Internal Medicine: Result - Labs CBC & Chem 7: 04/08/18 09:50 04/09/18 05:02 Labs: BMP 04/09/18 05:02 Sodium 135 L Potassium 4.4 Chloride 97 L Carbon Dioxide 27 BUN 52 H Creatinine 4.26 H Glucose 339 H Calcium 8.8 - ABG Interpretation ABG results: ABG ABG pH 7.44 pH Units (7.32-7.45) 04/06/18 16:03 ABG pCO2 46 mmHg (35-45) H 04/06/18 16:03 ABG pO2 65 mmHg (85-104) L 04/06/18 16:03 ABG O2 Saturation 93 % (95-98) L 04/06/18 16:03 PT/INR, D-dimer PT 10.7 Seconds (9.4-12.1) 04/06/18 10:56 - Attending Attestation We decided to discharge this patient home. See Discharge Summary - the right document for today.. <David Llamas M - Last Filed: 04/09/18 11:24> (4) DM type 2 (diabetes mellitus, type 2) Qualifiers: Diabetes mellitus vermin exterminator insulin use: with fci use Diabetes mellitus complication status: with kidney complications Diabetes mellitus complication detail: with chronic kidney disease Chronic kidney disease stage: on chronic dialysis Qualified Code(s): E11.22 - Type 2 diabetes mellitus with diabetic chronic kidney disease; N18.6 - End stage renal disease; Z79.4 - intermediate (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 <Tl Terrell M - Last Filed: 04/09/18 14:03> (4) DM type 2 (diabetes mellitus, type 2) Qualifiers: Diabetes mellitus vermin exterminator insulin use: with fci use Diabetes mellitus complication status: with kidney complications Diabetes mellitus complication detail: with chronic kidney disease Chronic kidney disease stage: on chronic dialysis Qualified Code(s): E11.22 - Type 2 diabetes mellitus with diabetic chronic kidney disease; N18.6 - End stage renal disease; Z79.4 - intermediate (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 (5) Anemia in CKD (chronic kidney disease) Qualifiers: Chronic kidney disease stage: on chronic dialysis Qualified Code(s): N18.6 - End stage renal disease; D63.1 - Anemia in chronic kidney disease; D63.1 - Anemia in chronic kidney disease; Z99.2 - Dependence on renal dialysis; Z99.2 - Dependence on renal dialysis; Z99.2 - Dependence on renal dialysis; Z99.2 - Dependence on renal dialysis
--- NOTE | 2018-04-09 11:08 | Nephrology Progress Note ---
Date of Encounter: 04/09/18 Time of Encounter: 11:05 - Assessment and Plan (1) ESRD (end stage renal disease) on dialysis Current Visit: No Status: Chronic PD patient of Dr. Chase De La Torre. PD cath is functional and she has been getting the cycler at night with good return/flow. Continue cycler at night. (2) Altered mental status, unspecified Current Visit: Yes Status: Acute Appears resolved. Qualifiers: Qualified Code(s): R40.0 - Somnolence (3) Hypertensive emergency Current Visit: No Status: Acute Resolved, BP 121/64. Subjective Principal diagnosis: AMS Interval history: Pt seen and examined at this time. Doing well with family at bedside. Pt is much more alert than yesterday. She is at baseline per family. Objective - Vital Signs Vital signs: Vital Signs Temp Pulse Resp BP Pulse Ox 04/09/18 06:54 98.1 F 86 18 121/64 98 04/09/18 04:10 100.1 F H 83 18 130/69 96 04/08/18 23:59 99.3 F 84 19 115/63 96 04/08/18 21:05 98.9 F 15 135/56 04/08/18 19:33 99.4 F 75 17 131/75 93 04/08/18 15:00 99.4 F 75 18 140/66 95 Intake and Output 04/08/18 04/09/18 04/09/18 23:59 07:59 15:59 Intake Total 120 / 120 240 / 240 Output Total 150 / 150 200 / 200 Balance -30 / -30 -200 / -200 240 / 240 Intake: Oral 120 / 120 240 / 240 Output: Urine 150 / 150 200 / 200 Other: Meal Dinner Breakfast Percent of Meal Consumed 20% 40% Weight 152.7 kg 153.7 kg Blood Glucose* 212 304 Patient Weight 04/09/18 23:59 Weight 153.7 kg - General Appearance General appearance: Present: well-developed, well-nourished, obese EENT: Present: ATNC, hearing intact, vision intact Neck: Present: supple Respiratory: Present: clear Cardiology: Present: no edema, normal S1, normal S2 Additional Comments: Tunneled Line DRSG c/d/I Gastrointestinal: Present: normoactive bowel sounds, no tenderness, no guarding Integumentary: Present: no rash, warm and dry Neurologic: Present: alert and oriented x3 Psychiatric: Present: mood/affect appropriate, cooperative - Lab 04/08/18 09:50 04/09/18 05:02 Most recent lab results ABG pH 7.44 pH Units (7.32-7.45) 04/06/18 16:03 ABG pCO2 46 mmHg (35-45) H 04/06/18 16:03 ABG pO2 65 mmHg (85-104) L 04/06/18 16:03 ABG HCO3 31 mEq/L (21-27) H 04/06/18 16:03 ABG O2 Saturation 93 % (95-98) L 04/06/18 16:03 Calcium 8.8 mg/dL (8.6-10.3) 04/09/18 05:02 Phosphorus 4.7 mg/dL (2.7-4.5) H 04/07/18 05:03 Magnesium 2.0 mg/dL (1.6-2.6) 04/07/18 05:03 Consult Discharge Plan - Plan Referrals: Khadar Yeager, WET MACHINE CUTTER [Non-Partnered Physician] - 04/14/18 10:30 am (Your appointment for 04-10-18 @ 1020am has been cancelled)
--- NOTE | 2018-04-09 11:38 | Discharge Summary ---
<David Llamas - Last Filed: 04/09/18 12:16> - NOTES TO OUTPATIENT PROVIDER Notes to Outpatient Provider: Recommend outpatient urinalysis due to persistent symptoms of UTI. Also, consider sleep study. Date of Encounter: 04/09/18 Time of Encounter: 10:30 - Discharge Diagnosis (1) Acute metabolic encephalopathy Status: Resolved Assessment and Plan: Acute Metabolic Encephalopathy likely secondary to Baclofen toxicity - Mental status continues to improve - Patient fully alert this morning - Family reports patient to be back at her baseline - will consider resolved at this point (2) Hypertensive emergency Status: Acute Assessment and Plan: Hypertensive Emergency - Cardene drip stopped on 04/07/18 evening. - Home Carvedilol restarted yesterday - Patient BP remains stable; overnight 130/69 - 121/64 this AM, continue home meds. (3) ESRD (end stage renal disease) on dialysis Status: Chronic Assessment and Plan: ESRD - PD patient of Dr. De La Torre. - Appreciate Nephrology Recommendations - PD catheter functional and without evidence of infection - Continue home PD (4) DM type 2 (diabetes mellitus, type 2) Status: Chronic Assessment and Plan: Continue Outpatient DM type 2 medication management. Follow up with PCP. Qualifiers: Diabetes mellitus terminal operator insulin use: with senior living use Diabetes mellitus complication status: with kidney complications Diabetes mellitus complication detail: with chronic kidney disease Chronic kidney disease stage : on chronic dialysis Qualified Code(s): E11.22 - Type 2 diabetes mellitus with diabetic chronic kidney disease; N18.6 - End stage renal disease; Z79.4 - medical terminologist (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 Hospital course: Ms. Salvador is a 63 year old female Ms. Salvador is a 63 year old female with a history of ESRD on PD brought to ED due to confusion. She began to be weaker and more somnolent last Thurs. She had some slurring of her speech and could not move around as well. She was seen by PCP and felt to have UTI. She was given Macrobid, Diclofenac and Baclofen. She has had progressive weakness and somnolence. She became difficult to arouse and was brought to ED. She only had about half of her PD earlier today. Patient reported some pain near PD catheter and some left lower back pain in addition to some urinary discomfort, UA was WNL, no sign of infection, afebrile, negative lloyds and heel tap sign. In the ED she was somnolent but arousable. She had difficulty following commands and answering questions. The patient was diagnosed with acute metabolic encephalopathy secondary to baclofen toxicity and her meds were held. MRI brain was negative and the patients level of consciousness rapidly improved to baseline per her family. Patient was also found to be in a hypertensive emergency and a cardene drip was initiated. The patients BP slowly returned to baseline and she was restarted on her home Carvedilol. During her hospital day 2 her O2 saturation dropped to 88% and some minor T-wave inversions were found on EKG. Patient family reported they heard some periods of apnea during the night, and it was deemed to be associated with demand ischemia secondary to LAY. Patient placed on 2L nasal cannula and slowly weaned back to room air. Denies any respiratory complaints and is hemodynamically stable at time of discharge. Discharge discussed with: patient, family - Time Spent with Patient Total time spent providing and/or coordinating discharge services: Greater than 30 minutes - Discharge Medications Prescriptions: HYDROcodone/Acet 5/325 mg [[place] 5-325 mg] 1 tab PO Q6HR PRN 10 Days #20 tablet PRN Reason: Mild To Moderate Pain Phenazopyridine [Pyridium] 100 mg PO TID 2 Days #6 tablet Home Medications: Fish Oil/Dha/Epa [Fish Oil 1,200 mg Fish Oil] 1,200 mg PO DAILY 07/05/16 [ History] Omeprazole [PriLOSEC] 40 mg PO DAILY 07/05/16 [History] Aspirin [Lo-Dose Aspirin EC] 81 mg PO DAILY 04/03/17 [History] Cholecalciferol (D-3) [Vitamin D] 5,000 unit PO DAILY 04/03/17 [History] glipiZIDE [Glipizide ER] 10 mg PO BID 04/03/17 [History] Atorvastatin Calcium [Lipitor] 80 mg PO HS 12/19/17 [History] Clopidogrel [Plavix] 75 mg PO DAILY 12/19/17 [History] Furosemide [Lasix] 80 mg PO BID 12/19/17 [History] Insulin ASPART [NovoLOG] 20 unit SQ TIDAC PRN 12/19/17 [History] Insulin Glargine [Lantus] 100 unit SQ Q12H 12/19/17 [History] Docusate [Colace] 200 mg PO DAILY PRN 01/01/18 [History] Ferric Citrate [Auryxia] 210 mg PO DAILY 01/01/18 [History] Carvedilol 3.125 mg PO BID 04/05/18 [History] Diclofenac Sodium [Voltaren] 50 mg PO BID 04/05/18 [History] Lactulose 30 ml PO DAILY PRN 04/06/18 [History] Magnesium Oxide [Magnesium] 400 mg PO BID 04/06/18 [History] Meclizine [Antivert] 25 mg PO BID PRN 04/06/18 [History] HYDROcodone/Acet 5/325 mg [[place] 5-325 mg] 1 tab PO Q6HR PRN 10 Days #20 tablet 04/09/18 [Rx] Phenazopyridine [Pyridium] 100 mg PO TID 2 Days #6 tablet 04/09/18 [Rx] Allergies/Adverse Reactions: 3 Allergy/AdvReac Type Severity Reaction Status Date / Time No Known Allergies Allergy Verified 04/06/18 14:19 Date of admission: 04/07/18 18:18 Primary care physician: Rhett Madrigal MD Consults: 04/08/18 20:30 Consult to Dialysis [CONS] ONCE - Constitutional Vitals: Temp Pulse Resp BP Pulse Ox 98.1 F 86 18 121/64 98 04/09/18 06:54 04/09/18 06:54 04/09/18 06:54 04/09/18 06:54 04/09/18 06:54 General appearance: Present: A&O X 1 (Self), morbidly obese. Absent: answers questions appropriately Exam: General: alert and oriented, cooperative and pleasant CV: RRR, grade 3 systolic murmur present from baseline, +s1 +s2 Resp: CTAB, no wheezes rales or rhonchi Abd: non-tender, non-distended, no guarding rebound rigidity Extremities: +2 pedal and pretibial edema, mild ecchymosis of left heel - Head Head exam: Present: atraumatic, normocephalic - Eye Eye exam: Present: PERRL, conjuntiva pink, sclera anicteric Pupils: Present: PERRL - Neck Neck exam general surgery: Present: supple, trachea midline. Absent: lymphadenopathy - Respiratory Respiratory exam: Present: CTAB. Absent: accessory muscle use, rales, rhonchi, wheezes - Cardiovascular Cardiovascular exam: Present: RRR, +S1, +S2. Absent: diastolic murmur, gallop, rubs, systolic murmur - GI/Abdominal GI/Abdominal exam: Present: normal bowel sounds, soft, no peritoneal signs. Absent: distended, tenderness - Extremities Exam Extremities exam: Present: warm, radial pulses palpable and symmetrical. Absent : calf tenderness, cyanotic, pedal edema - Neurological Exam Neurological exam: Present: CN II-XII intact, oriented X3, no focal deficits. Absent: facial droop, speech deficit - Skin Skin exam: Present: dry, intact - Patient Status Disposition: Home, Self-Care Condition: Fair Overall status at discharge: patient is back to baseline - Discharge Instructions Follow Up With: Khadar Yeager PER DIEM REGISTERED NURSE [Non-Partnered Physician] - 04/14/18 10:30 am (Your appointment for 04-10-18 @ 1020am has been cancelled) <Tl Terrell - Last Filed: 04/09/18 13:32> Date of Encounter: 04/09/18 - Discharge Diagnosis (1) Acute metabolic encephalopathy Priority: Primary Status: Resolved (2) Hypertensive emergency Priority: Primary Status: Acute (3) Hypertensive renal disease with renal failure Priority: Secondary Status: Chronic (4) DM type 2 (diabetes mellitus, type 2) Priority: Secondary Status: Chronic Qualifiers: Diabetes mellitus senior living insulin use: with senior living use Diabetes mellitus complication status: with kidney complications Diabetes mellitus complication detail: with chronic kidney disease Chronic kidney disease stage : on chronic dialysis Qualified Code(s): E11.22 - Type 2 diabetes mellitus with diabetic chronic kidney disease; N18.6 - End stage renal disease; Z79.4 - medical terminologist (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 (5) Anemia in CKD (chronic kidney disease) Priority: Secondary Status: Chronic Qualifiers: Chronic kidney disease stage: on chronic dialysis Qualified Code(s): N18.6 - End stage renal disease; D63.1 - Anemia in chronic kidney disease; D63.1 - Anemia in chronic kidney disease; Z99.2 - Dependence on renal dialysis; Z99.2 - Dependence on renal dialysis; Z99.2 - Dependence on renal dialysis; Z99.2 - Dependence on renal dialysis (6) Morbid obesity with BMI of 50.0-59.9, adult Priority: Secondary Status: Chronic Hospital course: Ms. Salvador is a 63 year old female Discharge discussed with: patient, family - Time Spent with Patient Total time spent providing and/or coordinating discharge services: Greater than 30 minutes (45 minutes) Date of admission: 04/07/18 18:18 Primary care physician: Rhett Madrigal MD Consults: 04/08/18 20:30 Consult to Dialysis [CONS] ONCE Discharging clinician: Tl Terrell Anticipated date of discharge: 04/09/18 - Constitutional Vitals: Temp Pulse Resp BP Pulse Ox 98.1 F 76 18 137/70 97 04/09/18 11:49 04/09/18 11:49 04/09/18 11:49 04/09/18 11:49 04/09/18 11:49 General appearance: Present: A&O X 1, morbidly obese - Patient Status Functional capacity at discharge: uses cane/walker Overall status at discharge: patient is back to baseline - Diet and Activity Activity: ambulate only with your walker - VTE Deep Vein Thrombosis/Pulmonary Embolism Present on Admission: No - Attending Attestation I SAW/EXAMINED AND EVALUATED THE PATIENT WITH THE RESIDENT ON THE DAY OF DISCHARGE. THE CASE WAS DISCUSSED WITH HIM/HER. I AGREE WITH THE FINDINGS/PLAN , DOCUMENTED IN THE RESIDENT'S NOTE. THE DOCUMENT WAS EDITED BY ME TO CORRECT ERRORS AND ADD MISSING DATA.
[2018-04-09 11:55] VITALS: BP 137/70
== END 2018-04-09 13:29 | disposition home or self-care (01) | DRG 91 ==
LOC: 2ANU 10:52 → EMEROOARM 10:52 → SUATTDRO 14:08 → 2NNU 14:26 → SUATTDRO 04-07 18:18
PROVIDERS: ADMIT Internal Medicine; ATTEND Internal Medicine

== ENCOUNTER 2018-05-29 18:06 | Inpatient (IN) ==
--- NOTE | 2018-05-29 18:52 | Emergency Department Note ---
Disposition Clinical Impression: Intra-abdominal abscess, Acute respiratory distress, ESRD (end stage renal disease) on dialysis, Abscess, abdomen Disposition: Admitted As Inpatient Condition: Fair Referrals: Rhett Madrigal MD [Primary Care Provider] - Forms: ED Satisfaction Letter General Adult HPI - General Chief complaint: ED Shortness of Breath/Dyspnea Stated complaint: ZAINA Time Seen by Provider: 05/29/18 18:17 Source: patient Mode of arrival: wheelchair Limitations: no limitations Nursing Notes Reviewed: Yes Vital Signs Reviewed: Yes - History of Present Illness HPI Narrative: 63 year old woman with pmh significant for ESRD on peritoneal dialysis, CHF, HTN, DM who presents to ED with SOB. She does peritoneal dialysis 4x daily for last year. Over the past 6 days she has been noticing increased fluid throughout her body but centered in abdomen and LE, increasing dyspnea that progressed to dyspnea with just standing along with dizziness with standing. She additionally complained of a LLQ abdominal pain that is not new, along with nausea. She denies fever/chills, chest pain, vomiting, prior dvt/pe, leg pain. She has not had significant increased weight over the last 10 days. She has had a hx of peritonitis couple times over the last year. Pt Subjective Complaint: ZAINA Onset (ago): day(s) Location: abdomen, lower extremity Radiation: non-radiation Pain Severity: severe Pain Scale: 8 Quality: dull Consistency: constant Improves with: nothing Worsens with: nothing Treatments Prior to Arrival: none - Related Data Home Medications Medication Instructions Recorded Confirmed Fish Oil/Dha/Epa [Fish Oil 1,200 1,200 mg PO DAILY 07/05/16 05/29/18 mg Fish Oil] Omeprazole [PriLOSEC] 40 mg PO DAILY 07/05/16 05/29/18 Aspirin [Lo-Dose Aspirin EC] 81 mg PO DAILY 04/03/17 05/29/18 Cholecalciferol (D-3) [Vitamin D] 5,000 unit PO DAILY 04/03/17 05/29/18 glipiZIDE [Glipizide ER] 10 mg PO BID 04/03/17 05/29/18 Atorvastatin Calcium [Lipitor] 80 mg PO HS 12/19/17 05/29/18 Clopidogrel [Plavix] 75 mg PO DAILY 12/19/17 05/29/18 Furosemide [Lasix] 40 mg PO BID 12/19/17 05/29/18 Insulin ASPART [NovoLOG] 10 unit SQ TIDAC PRN 12/19/17 05/29/18 Insulin Glargine [Lantus] 100 unit SQ Q12H 12/19/17 05/29/18 Docusate [Colace] 200 mg PO DAILY PRN 01/01/18 05/29/18 Carvedilol 3.125 mg PO BID 04/05/18 05/29/18 Lactulose 30 ml PO DAILY PRN 04/06/18 05/29/18 Magnesium Oxide [Magnesium] 400 mg PO BID 04/06/18 05/29/18 Meclizine [Antivert] 25 mg PO BID PRN 04/06/18 05/29/18 Gabapentin [Neurontin] 100 mg PO BID 05/19/18 05/29/18 Allergies Allergy/AdvReac Type Severity Reaction Status Date / Time baclofen Allergy Anaphylaxis Verified 05/29/18 21:14 Diclofenac [From Voltaren] Allergy Anaphylaxis Verified 05/29/18 21:14 nitrofurantoin Allergy Anaphylaxis Verified 05/29/18 21:14 All systems ED: reviewed and negative except as stated. Constitutional: Denies: fever, chills, weight change Cardiovascular: Reports: dyspnea on exertion, edema. Denies: chest pain, palpitations, syncope Respiratory: Reports: dyspnea. Denies: cough Gastrointestinal: Reports: abdominal pain, nausea. 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 - Social History Smoking Status: Never smoker Smokeless Tobacco Status: No Alcohol use: Reports: none Drug use: Reports: none Physical Exam - General Limitations: no limitations General appearance: alert, in no apparent distress - Head Head exam: atraumatic, normocephalic, normal inspection - Eye Eye exam: Present: normal appearance - ENT ENT exam: mucous membranes moist - Neck Neck exam: Present: normal inspection, trachea midline - Chest Chest inspection: Present: normal inspection, symmetric chest wall rise - Respiratory Respiratory exam: Present: other (decreased air movement throughout, faint rhonchi appreciated bibasilar ) - Cardiovascular Cardiovascular exam: Present: regular rate, normal rhythm, normal heart sounds, +S1, +S2, other (3+ edema bilat UE/LE less so abdomen/sacral) - Abdominal Exam Abdominal exam: Present: soft, tenderness, distention, other (edema). Absent: guarding, rebound, rigidity Abdominal tenderness: Present: LLQ, suprapubic, moderate - Neurological Exam Neurological exam: Present: alert - Psychiatric Psychiatric exam: Present: normal affect Course Course Narrative: Peritoneal dialysis pt who presents with 8 day progressive SOB and edema. She is afebrile. Weight has not been increasing according to pts dialysis log. Will get bmp, cbc, bnp, troponin, ecg, and cxr and abd ct. 2034: Labs and imaging so far have not been indicative of dyspnea her and family states she has been experiencing. Will consult neph today to discuss her peritoneal dialysis and likely admission to hospital. Abd CT pending. 2100: Moderate amount of free air within the abdomen is suspected to be related to peritoneal dialysis. Correlate with timing of recent dialysis and clinical findings. No bowel obstruction. No adjacent inflammatory process. Moderate amount of free fluid throughout the abdomen and pelvis. Soft tissue changes along the lower anterior abdominal wall with a small focal area of fluid. The catheter courses through this area. An infection/abscess are suspected. Will start IV vanc, zosyn, and blood cultures x2 now. Will admit to hospitalist service. 2107: Spoke to Dr De La Torre about the case and he knows her well. Will see her in the morning. 2129: Spoke to Hospitalist service about admission and they accepted. Vital Signs Temperature 98.2 F 05/29/18 18:12 Pulse Rate 90 05/29/18 18:12 Respiratory Rate 16 05/29/18 18:12 Blood Pressure 149/75 05/29/18 18:12 O2 Sat by Pulse Oximetry 97 05/29/18 18:12 Temperature 98.2 F 05/29/18 18:12 Pulse Rate 82 05/29/18 20:35 Respiratory Rate 20 05/29/18 20:35 Blood Pressure 143/96 05/29/18 20:35 O2 Sat by Pulse Oximetry 100 05/29/18 20:35 Oxygen Delivery Oxygen Delivery Room Air Medical Decision Making - Lab Data Result diagrams: 05/29/18 18:45 05/29/18 18:45 Lab Results 05/29/18 05/29/18 05/29/18 Range/Units 18:45 18:45 18:45 WBC 6.9 (4.3-11.1) K/mcL RBC 3.35 L (3.82-4.97) M/mcL Hgb 9.0 L (11.5-15.4) g/dL Hct 28.1 L (35.3-44.9) % MCV 83.9 (83.0-100.0) fL MCH 26.9 L (28.0-33.3) pg MCHC 32.0 (31.6-35.5) g/dL RDW 14.3 (11.5-14.5) % Plt Count 174 (140-400) K/mcL MPV 11.8 (9.4-12.4) fL Immature Gran % 0.7 (0-4) % Seg Neutrophils % 78.7 % Lymphocytes % 13.7 % Monocytes % 5.3 % Eosinophils % 1.3 % Basophils % 0.3 % Neutrophils # 5.5 (1.6-8.9) K/mcL Lymphocytes # 1.0 (0.6-4.6) K/mcL Monocytes # 0.4 (0.0-1.3) K/mcL Eosinophils # 0.1 (0.0-0.6) K/mcL Basophils # 0.0 (0.0-0.2) K/mcL Sodium 130 L (136-145) mEq/L Potassium 3.2 L (3.5-5.1) mEq/L Chloride 93 L (98-107) mEq/L Carbon Dioxide 28 (23-29) mEq/L BUN 45 H (8-23) mg/dL Creatinine 3.40 H (0.60-1.20) mg/dL Est GFR ( Amer) 17 L (> 60) Est GFR (Non-Af Amer) 14 L (> 60) BUN/Creatinine Ratio 13 (6-26) Glucose 342 H (70-105) mg/dL Calculated Osmolality 295 (280-300) Calcium 8.2 L (8.6-10.3) mg/dL Troponin I 0.03 (< 0.04) ng/mL B-Natriuretic Peptide 27 (Less than 100) pg/mL
--- NOTE | 2018-05-29 19:07 | Emergency Department Note ---
Disposition Clinical Impression: Abscess, abdomen, Acute respiratory distress, ESRD (end stage renal disease) on dialysis Disposition: Admitted As Inpatient Condition: Fair Referrals: Rhett Madrigal MD [Primary Care Provider] - Forms: ED Satisfaction Letter General Adult HPI - General Chief complaint: ED Shortness of Breath/Dyspnea Stated complaint: ZAINA Time Seen by Provider: 05/29/18 18:17 Source: patient Mode of arrival: wheelchair Limitations: no limitations - History of Present Illness Location: abdomen, lower extremity Pain Scale: 8 Quality: dull Improves with: nothing Worsens with: nothing Treatments Prior to Arrival: none - Related Data Home Medications Medication Instructions Recorded Confirmed Fish Oil/Dha/Epa [Fish Oil 1,200 1,200 mg PO DAILY 07/05/16 04/18/18 mg Fish Oil] Omeprazole [PriLOSEC] 40 mg PO DAILY 07/05/16 04/18/18 Aspirin [Lo-Dose Aspirin EC] 81 mg PO DAILY 04/03/17 04/18/18 Cholecalciferol (D-3) [Vitamin D] 5,000 unit PO DAILY 04/03/17 04/18/18 glipiZIDE [Glipizide ER] 10 mg PO BID 04/03/17 04/18/18 Atorvastatin Calcium [Lipitor] 80 mg PO HS 12/19/17 04/18/18 Clopidogrel [Plavix] 75 mg PO DAILY 12/19/17 04/18/18 Furosemide [Lasix] 80 mg PO BID 12/19/17 04/18/18 Insulin ASPART [NovoLOG] 20 unit SQ TIDAC PRN 12/19/17 04/18/18 Insulin Glargine [Lantus] 100 unit SQ Q12H 12/19/17 04/18/18 Docusate [Colace] 200 mg PO DAILY PRN 01/01/18 04/18/18 Carvedilol 3.125 mg PO BID 04/05/18 04/18/18 Lactulose 30 ml PO DAILY PRN 04/06/18 04/18/18 Magnesium Oxide [Magnesium] 400 mg PO BID 04/06/18 04/18/18 Meclizine [Antivert] 25 mg PO BID PRN 04/06/18 04/18/18 Gabapentin [Neurontin] 05/19/18 Oxycodone HCl 10/01/18 Previous Rx's Medication Instructions Recorded HYDROcodone/Acet 5/325 mg [[place] 1 tab PO Q6HR PRN 10 Days #20 04/09/18 5-325 mg] tablet HYDROcodone BIT/Homatropine LQ 5 mg PO Q4H 2 Days #30 syrup 04/15/18 [Hycodan Syrup] Allergies Allergy/AdvReac Type Severity Reaction Status Date / Time baclofen Allergy Anaphylaxis Verified 05/19/18 14:20 Diclofenac [From Voltaren] Allergy Anaphylaxis Verified 05/19/18 14:20 nitrofurantoin Allergy Anaphylaxis Verified 05/19/18 14:20 Constitutional: Denies: fever, chills, weight change Cardiovascular: Reports: dyspnea on exertion, edema. Denies: chest pain, palpitations, syncope Respiratory: Reports: dyspnea. Denies: cough Gastrointestinal: Reports: abdominal pain, nausea. 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 - Social History Smoking Status: Never smoker Smokeless Tobacco Status: No Alcohol use: Reports: none Drug use: Reports: none Physical Exam - General Limitations: no limitations General appearance: alert, in no apparent distress Course Vital Signs Temperature 98.2 F 05/29/18 18:12 Pulse Rate 90 05/29/18 18:12 Respiratory Rate 16 05/29/18 18:12 Blood Pressure 149/75 05/29/18 18:12 O2 Sat by Pulse Oximetry 97 05/29/18 18:12 Temperature 98.2 F 05/29/18 18:12 Pulse Rate 82 05/29/18 20:35 Respiratory Rate 20 05/29/18 20:35 Blood Pressure 143/96 05/29/18 20:35 O2 Sat by Pulse Oximetry 100 05/29/18 20:35 Oxygen Delivery Oxygen Delivery Room Air Medical Decision Making - Lab Data Result diagrams: 05/29/18 18:45 05/29/18 18:45 Lab Results 05/29/18 05/29/18 05/29/18 Range/Units 18:45 18:45 18:45 WBC 6.9 (4.3-11.1) K/mcL RBC 3.35 L (3.82-4.97) M/mcL Hgb 9.0 L (11.5-15.4) g/dL Hct 28.1 L (35.3-44.9) % MCV 83.9 (83.0-100.0) fL MCH 26.9 L (28.0-33.3) pg MCHC 32.0 (31.6-35.5) g/dL RDW 14.3 (11.5-14.5) % Plt Count 174 (140-400) K/mcL MPV 11.8 (9.4-12.4) fL Immature Gran % 0.7 (0-4) % Seg Neutrophils % 78.7 % Lymphocytes % 13.7 % Monocytes % 5.3 % Eosinophils % 1.3 % Basophils % 0.3 % Neutrophils # 5.5 (1.6-8.9) K/mcL Lymphocytes # 1.0 (0.6-4.6) K/mcL Monocytes # 0.4 (0.0-1.3) K/mcL Eosinophils # 0.1 (0.0-0.6) K/mcL Basophils # 0.0 (0.0-0.2) K/mcL Sodium 130 L (136-145) mEq/L Potassium 3.2 L (3.5-5.1) mEq/L Chloride 93 L (98-107) mEq/L Carbon Dioxide 28 (23-29) mEq/L BUN 45 H (8-23) mg/dL Creatinine 3.40 H (0.60-1.20) mg/dL Est GFR ( Amer) 17 L (> 60) Est GFR (Non-Af Amer) 14 L (> 60) BUN/Creatinine Ratio 13 (6-26) Glucose 342 H (70-105) mg/dL Calculated Osmolality 295 (280-300) Calcium 8.2 L (8.6-10.3) mg/dL Troponin I 0.03 (< 0.04) ng/mL B-Natriuretic Peptide 27 (Less than 100) pg/mL Attestation Statement - Attestation Attestation: I examined this patient and my medical decision-making was reviewed with the AFTER SCHOOL TEACHER/PA/Advanced Practice Nurse/Resident Physician. I agree with the documented findings, disposition and treatment plan as described except to the extent set forth below. I did see the patient is spoke with an examine her does have significant shortness of breath even to the point that she gets short of breath when moving from a wheelchair to her bed and she does use. Dialysis and typically does this 4 times a day however today only did this twice. She did recently have a graft put in her left arm in preparation for hemodialysis. She does feel that she is retaining fluid. Has some left-sided abdominal pain and I did examine her abdomen and does have minimal pain left upper and lower which is a little bit worse in the lower abdomen but soft without rigidity, rebound, guarding. No pain on the right-hand side. CT scan abdomen, labs are pending. I did review her EKG showing normal sinus rhythm with a rate of 91 and with evidence of T-wave inversion in lead 1 and aVL which was present on the previous EKG on April 07. Some nonspecific EKG changes inferiorly which were also present on the EKG from the 1906 Patient does have significant shortness of breath even with minimal exertion and we do a CT scan at this time pending but the plan will get the patient minutes the hospital for further evaluation here as well as nephrology consultation 2038
[2018-05-29 19:42] LABS: Basophils % 0.3 %; Eosinophils # 0.1 K/mcL (0.0-0.6); Eosinophils % 1.3 %; Hematocrit 28.1 % (35.3-44.9); Immature Granulocytes % 0.7 % (0-4); Lymphocytes % 13.7 %; Mean Corpuscular Hemoglobin 26.9 pg (28.0-33.3); Mean Corpuscular Volume 83.9 fL (83.0-100.0); Mean Platelet Volume 11.8 fL (9.4-12.4); Monocytes # 0.4 K/mcL (0.0-1.3); Monocytes % 5.3 %; Neutrophils # 5.5 K/mcL (1.6-8.9); Platelet Count 174 K/mcL (140-400); Red Blood Count 3.35 M/mcL (3.82-4.97); Red Cell Distribution Width 14.3 % (11.5-14.5); Segmented Neutrophils % 78.7 %
[2018-05-29 19:54] LABS: Calcium 8.2 mg/dL (8.6-10.3); Potassium 3.2 mEq/L (3.5-5.1)
[2018-05-29 19:55] LABS: Troponin I 0.03 ng/mL (< 0.04)
[2018-05-29] MEDS ORDERED: Piperacillin/Tazobactam 4.5 GM in 0.9 % Sodium Chloride Mini Bag 100 ML IVPB ONE (20:54)
[2018-05-29] MEDS ORDERED: Vancomycin (wt based) 1,000 MG VIAL IV ONE (20:54)
[2018-05-29] MEDS ORDERED: Piperacillin/Tazobactam 3.375 GM in Water for inj. (sterile) 20 ML 20 ML IVP ONE (21:08)
[2018-05-29] MEDS ORDERED: Ibuprofen 600 MG TABLET PO ONE (21:34)
--- NOTE | 2018-05-29 22:22 | Internal Med History&Physical ---
Date of Encounter: 05/29/18 Time of Encounter: 22:20 Internal Medicine - H&P: HPI Chief complaint: Abdominal pain Admitted From: Home Plans for Post Hospital Care: Home History of present illness: Alyson Salvador is a 63-year-old woman with a history of poorly controlled hypertension, diabetes and end-stage renal disease currently on peritoneal dialysis 4 times a day who comes to the emergency room with a complaint of shortness of breath and pain in her left lower quadrant. She says she usually does dialysis 4 times daily however she did it only twice today and feels a bit more short of breath with minimal exertion. As per family members she has been having chills after her dialysis sessions and she has been feeling significant pain in her left lower quadrant over the past 2 months but has been increasing in severity and frequency and aspiration. She appeared clinically and hemodynamically stable on arrival. Labs done were grossly unremarkable except a sodium of 130, potassium 3.2 and chloride 93. Due to her complaints of left lower quadrant corresponding with the site of insertion of her peritoneal dialysis catheter, a CT scan was done. This was reviewed independently by me. Report describes moderate amount of free air within the abdomen suspected related to peritoneal dialysis as well as soft tissue changes along the anterior abdominal wall with a small focal area of fluid concerning for infection/abscess. On my assessment she was lying comfortably in bed. She denies having fever at home and any time. Blood cultures were obtained and empiric antibiotics were started due to this finding and nephrology was consulted and made aware of the findings. She is now admitted for further care. Family history remarkable for diabetes in mother. Past Med Surg Social Fam HX - Past Medical History Medical history: CHF, diabetes, GERD, hyperlipidemia, hypertension, peripheral artery disease, other Additional medical history: ESRD, heart disease Psychiatric history: no psych history - Past Surgical History Surgical History: , cholecystectomy, herniorrhaphy, hysterectomy, orthopedic, other, other Additional surgical history: two sx on the right wrist ABDOMINAL DIALYSIS PORT, knee scope - Social History Smoking Status: Never smoker Smokeless Tobacco Status: No Alcohol use: none Drug use: none - Family History Father Family Member Ethnicity: Non- Living Status: Hx Family Cardiac Disorders: Yes (CVA) Hx Family Respiratory Disorders: No Hx Family Cancer: Yes (Prostate) Hx Family GI Disorders: No Hx Family Endocrine Disorder: No Hx Family Neuromuscular Disorders: No Hx Family Neurologic Disorders: No Hx Family HEENT Disorders: No Hx Family Autoimmune Disorders: No Mother Family Member Ethnicity: Non- Living Status: Hx Family Cardiac Disorders: Yes (CVA) Hx Family Respiratory Disorders: No Hx Family Cancer: No Hx Family GI Disorders: No Hx Family Endocrine Disorder: Yes (Thyroid) Hx Family Neuromuscular Disorders: No Hx Family Neurologic Disorders: No Hx Family HEENT Disorders: No Hx Family Autoimmune Disorders: No Internal Medicine - H&P: Meds Fish Oil/Dha/Epa [Fish Oil 1,200 mg Fish Oil] 1,200 mg PO DAILY 07/05/16 [ History] Omeprazole [PriLOSEC] 40 mg PO DAILY 07/05/16 [History] Aspirin [Lo-Dose Aspirin EC] 81 mg PO DAILY 04/03/17 [History] Cholecalciferol (D-3) [Vitamin D] 5,000 unit PO DAILY 04/03/17 [History] glipiZIDE [Glipizide ER] 10 mg PO BID 04/03/17 [History] Atorvastatin Calcium [Lipitor] 80 mg PO HS 12/19/17 [History] Clopidogrel [Plavix] 75 mg PO DAILY 12/19/17 [History] Furosemide [Lasix] 40 mg PO BID 12/19/17 [History] Insulin ASPART [NovoLOG] 10 unit SQ TIDAC PRN 12/19/17 [History] Insulin Glargine [Lantus] 100 unit SQ Q12H 12/19/17 [History] Docusate [Colace] 200 mg PO DAILY PRN 01/01/18 [History] Carvedilol 3.125 mg PO BID 04/05/18 [History] Lactulose 30 ml PO DAILY PRN 04/06/18 [History] Magnesium Oxide [Magnesium] 400 mg PO BID 04/06/18 [History] Meclizine [Antivert] 25 mg PO BID PRN 04/06/18 [History] Gabapentin [Neurontin] 100 mg PO BID 05/19/18 [History] 3 Allergy/AdvReac Type Severity Reaction Status Date / Time baclofen Allergy Anaphylaxis Verified 05/29/18 21:14 Diclofenac [From Voltaren] Allergy Anaphylaxis Verified 05/29/18 21:14 nitrofurantoin Allergy Anaphylaxis Verified 05/29/18 21:14 All Systems PM: A 10-system review of systems was performed and is negative for pertinent findings except as documented above in the HPI. - Constitutional Vitals: Temp Pulse Resp BP Pulse Ox 98.2 F 88 22 149/79 100 05/29/18 18:12 05/29/18 21:50 05/29/18 21:50 05/29/18 21:50 05/29/18 21:50 Exam: Vitals: Reviewed General: Obese white female, NAD Skin: Warm and supple. HEENT: Moist mucous membranes. No conjunctivae pallor. Neck: No lymphadenopathy. No JVD. No carotid bruits. No palpable thyroid. Chest: Diminished thoracic expansion and reduced breath sounds due to adiposity. Heart: Normal S1 & S2; rhythmic. Low-grade murmur auscultated in all foci. Abdomen: Significantly distended but soft to palpation. Tenderness elicited on palpating the left lower quadrant circumferentially around the catheter site however no gross drainage or purulence is noted. Extremities: No peripheral cyanosis or clubbing but 2+ pitting edema is present. Neurological: Awake, alert and oriented to person, place and time. No focal deficits. Psych: Affect appropriate. Internal Med - H&P Results - Labs CBC & Chem 7: 05/29/18 18:45 05/29/18 18:45 Labs: Short CBC 05/29/18 Range/Units 18:45 WBC 6.9 (4.3-11.1) K/mcL Hgb 9.0 L (11.5-15.4) g/dL Hct 28.1 L (35.3-44.9) % Plt Count 174 (140-400) K/mcL Neutrophils # 5.5 (1.6-8.9) K/mcL BMP 05/29/18 18:45 Sodium 130 L Potassium 3.2 L Chloride 93 L Carbon Dioxide 28 BUN 45 H Creatinine 3.40 H Glucose 342 H Calcium 8.2 L Cardiac Enzymes 05/29/18 Range/Units 18:45 Troponin I 0.03 (< 0.04) ng/mL - Impressions ITS Impressions Chest X-Ray 05/29/18 18:41 IMPRESSION: No acute cardiopulmonary disease. D/ / Paolo Keenan MD / Paolo Keenan MD Interpreting Provider: Paolo Keenan MD Abdomen/Pelvis CT 05/29/18 19:05 IMPRESSION: Moderate amount of free air within the abdomen is suspected to be related to peritoneal dialysis. Correlate with timing of recent dialysis and clinical findings. No bowel obstruction. No adjacent inflammatory process. Moderate amount of free fluid throughout the abdomen and pelvis. Soft tissue changes along the lower anterior abdominal wall with a small focal area of fluid. The catheter courses through this area. An infection/abscess are suspected. D/ /29/2018 20:57:05 Rhett Caballero MD / bcarter Interpreting Provider: Rhett Caballero MD - Assessment and plan (1) Intra-abdominal abscess Current Visit: Yes Status: Acute Assessment and plan: Will require incision and drainage and as well removal of the peritoneal catheter. Blood cultures have been obtained however deep tissue cultures will be necessary. For now will keep on empiric abx of vancomycin/piptazo. Hold off on use of catheter for now; graft now cleared for use. (2) ESRD (end stage renal disease) on dialysis Current Visit: Yes Status: Chronic Assessment and plan: Secondary to diabetic/hypertensive nephropathy. Will hold off on further PD and should now be on iHD. Nephrology consulted. Will repeat electrolytes in the morning. (3) Diabetes Current Visit: Yes Status: Acute Assessment and plan: Will place on insulin sliding and glargine for now. 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 Qualifiers: Hypertension type: essential hypertension Qualified Code(s): I10 - Essential (primary) hypertension (5) Electrolyte abnormality Current Visit: Yes Status: Acute Assessment and plan: For now will hold off on supplementing K and giving NaCL for hypokalemia and hyponatremia/chloremia respectively as she is ESRD and received 2 PD sessions earlier. Will repeat in the morning pending determination of next session. (6) DVT prophylaxis Current Visit: Yes Status: Acute Assessment and plan: SubQ heparin. - Time Spent With Patient Total time spent is greater than 50% in coordination of care (as documented) at patient's floor/unit and/or counseling patient: Greater than 35 minutes
[2018-05-29] MEDS ORDERED: Furosemide 20 MG TABLET PO SCH (22:30)
[2018-05-29] MEDS ORDERED: Dextrose Gel 15 GM/37.5 ML TUBE PO PRN ×2 (23:50)
[2018-05-30] MEDS ORDERED: Insulin DETEMIR 100 UNIT/ML X5UNITS SQ ONE (00:47)
[2018-05-30] MEDS: Insulin LISPRO 300 UNITS/3 ML VIAL SQ SCH ×4 (01:50→19:14)
[2018-05-30] MEDS: Furosemide 20 MG TABLET PO SCH ×3 (01:51→19:58)
[2018-05-30 04:42] LABS: Basophils % 0.3 %; Eosinophils # 0.1 K/mcL (0.0-0.6); Hemoglobin 8.3 g/dL (11.5-15.4); Immature Granulocytes % 1.2 % (0-4); Lymphocytes # 0.9 K/mcL (0.6-4.6); Lymphocytes % 15.6 %; Mean Corpuscular HGB Conc 31.9 g/dL (31.6-35.5); Mean Corpuscular Hemoglobin 26.7 pg (28.0-33.3); Mean Corpuscular Volume 83.6 fL (83.0-100.0); Mean Platelet Volume 11.6 fL (9.4-12.4); Monocytes # 0.5 K/mcL (0.0-1.3); Monocytes % 8.4 %; Neutrophils # 4.4 K/mcL (1.6-8.9); Platelet Count 150 K/mcL (140-400); Red Blood Count 3.11 M/mcL (3.82-4.97); Red Cell Distribution Width 14.6 % (11.5-14.5); Segmented Neutrophils % 72.5 %
[2018-05-30 04:46] LABS: Prothrombin Time 10.8 Seconds (9.4-12.1)
[2018-05-30 04:48] LABS: Activated Partial Thrombo Time 26.9 Seconds (26.0-36.0)
[2018-05-30 05:01] LABS: Calcium 8.2 mg/dL (8.6-10.3); Potassium 2.9 mEq/L (3.5-5.1)
[2018-05-30] MEDS: *HR* Heparin 5,000 UNIT/ML VIAL SQ SCH ×3 (05:52→20:54)
[2018-05-30] MEDS ORDERED: Piperacillin/Tazobactam 3.375 GM in 0.9 % Sodium Chloride Mini Bag 100 ML IVPB SCH (06:00)
[2018-05-30] MEDS ORDERED: 0.9 % Sodium Chloride 250 ML IVC PRN (07:57)
[2018-05-30] MEDS ORDERED: *HR* FentaNYL (PF) 100 MCG/2 ML VIAL IVP PRN (09:31)
[2018-05-30] MEDS: Aspirin Enteric Coated 81 MG Tablet PO SCH (09:43)
[2018-05-30] MEDS: Magnesium Oxide 400 MG TABLET PO SCH ×2 (09:45→20:54)
[2018-05-30] MEDS: Cholecalciferol (D-3) 1,000 UNIT TABLET PO SCH (09:45)
[2018-05-30] MEDS: Gabapentin 100 MG CAPSULE PO SCH ×2 (09:45→20:54)
[2018-05-30 10:03] LABS: Hepatitis B Surface Antigen Nonreactive (Nonreactive)
--- NOTE | 2018-05-30 10:18 | Internal Med Progress Note ---
Hospitalist Progress Note - Encounter Date of Encounter: 05/30/18 Time of Encounter: 10:16 - Subjective Interval History: No acute events. Patient states left lower quadratn abd pain is 6/10 in severity. Denies fevers/chills, n/v. - Exam Vitals: Temp Pulse Resp BP Pulse Ox 98.2 F 84 15 162/86 99 05/30/18 09:11 05/30/18 09:11 05/30/18 09:11 05/30/18 09:11 05/30/18 09:11 Exam: Vitals: Reviewed General: NAD, obese Skin: Warm and supple. HEENT: Moist mucous membranes. No conjunctivae pallor. + carotid bruits bilaterally Neck: No lymphadenopathy. No JVD. No carotid bruits. No palpable thyroid. CVS: RRR, no mrg Abdomen: Soft, + Tenderness LLQ around the catheter site however no gross drainage or purulence is noted. Extremities: 2+ pitting edema is present. Neurological: Awake, alert and oriented to person, place and time. No focal deficits. Psych: Affect appropriate. - Assessment and Plan (1) Intra-abdominal abscess Current Visit: Yes Status: Acute Assessment and Plan: Blood cultures have been obtained however deep tissue cultures will be necessary. For now will keep on empiric abx of vancomycin/piptazo. Hold off on use of catheter for now; graft now cleared for use. Will require incision and drainage and as well removal of the peritoneal catheter. (2) ESRD (end stage renal disease) on dialysis Current Visit: Yes Status: Chronic Assessment and Plan: Secondary to diabetic/hypertensive nephropathy. Will hold off on further PD and should now be on iHD. Nephrology consulted. Discussed with Nephrology this AM. Plan for dialysis today and tomorrow. Will consult Surgery for PD removal. (3) HTN (hypertension) Current Visit: Yes Status: Chronic Assessment and Plan: Resume home medications. (4) DVT prophylaxis Current Visit: Yes Status: Acute Assessment and Plan: SubQ heparin. (5) Diabetes Current Visit: Yes Status: Acute Assessment and Plan: Will place on insulin sliding and glargine for now. (6) Electrolyte abnormality Current Visit: Yes Status: Acute Assessment and Plan: For now will hold off on supplementing K and giving NaCL for hypokalemia and hyponatremia/chloremia respectively Scheduled for dialysis today. - Time Spent with Patient Total time spent is greater than 50% in coordination of care (as documented) at patient's floor/unit and/or counseling patient: Internal Medicine: Result - Labs CBC & Chem 7: 05/30/18 04:09 05/30/18 04:09 Labs: Short CBC 05/30/18 Range/Units 04:09 WBC 6.0 (4.3-11.1) K/mcL Hgb 8.3 L (11.5-15.4) g/dL Hct 26.0 L (35.3-44.9) % Plt Count 150 (140-400) K/mcL Neutrophils # 4.4 (1.6-8.9) K/mcL BMP 05/30/18 04:09 Sodium 132 L Potassium 2.9 L Chloride 94 L Carbon Dioxide 29 BUN 46 H Creatinine 3.72 H Glucose 145 H Calcium 8.2 L - ABG Interpretation ABG results: PT/INR, D-dimer PT 10.8 Seconds (9.4-12.1) 05/30/18 04:09 Consult Discharge Plan - Plan Referrals: Rhett Madrigal MD [Primary Care Provider] - (3) HTN (hypertension) Qualifiers: Hypertension type: essential hypertension Qualified Code(s): I10 - Essential (primary) hypertension (5) Diabetes Qualifiers: Diabetes mellitus type: type 2 Diabetes mellitus retirement insulin use: with terminal press operator use Diabetes mellitus complication status: with kidney complications Diabetes mellitus complication detail: with chronic kidney disease Chronic kidney disease stage: on chronic dialysis Qualified Code(s): E11.22 - Type 2 diabetes mellitus with diabetic chronic kidney disease; N18.6 - End stage renal disease; Z79.4 - rat exterminator (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
--- NOTE | 2018-05-30 10:49 | Nephrology Consult Note ---
Date of Encounter: 05/30/18 Time of Encounter: 09:50 Assessment and Plan (1) ESRD (end stage renal disease) on dialysis Current Visit: Yes Status: Chronic Recommend changing her to chronic incenter HD with the LUE AVG. Gentle HD orders placed and discussed with HD RN with plans for tomorrow as well. Recommend removal of the PD catheter entirely, and she is no longer a candidate for chronic PD. Discussed in detail with the pt, family, RN and Hospitalist Will follow with you. (2) Abscess, abdomen Current Visit: Yes Status: Acute Recommend Gen Surg consult for PD catheter removal. (3) HTN (hypertension) Current Visit: Yes Status: Chronic Stable; continue current antihypertensive(s). Qualifiers: Hypertension type: essential hypertension Qualified Code(s): I10 - Essential (primary) hypertension (4) Anemia in CKD (chronic kidney disease) Current Visit: No Status: Chronic Goal Hgb is 10-11; will monitor for CORIE and/or IV iron as needed. Qualifiers: Chronic kidney disease stage: on chronic dialysis Qualified Code(s): N18.6 - End stage renal disease; D63.1 - Anemia in chronic kidney disease; D63.1 - Anemia in chronic kidney disease; Z99.2 - Dependence on renal dialysis; Z99.2 - Dependence on renal dialysis; Z99.2 - Dependence on renal dialysis; Z99.2 - Dependence on renal dialysis (5) DM type 2 (diabetes mellitus, type 2) Current Visit: No Status: Chronic As per primary. Qualifiers: Diabetes mellitus shelter insulin use: with shelter use Diabetes mellitus complication status: with kidney complications Diabetes mellitus complication detail: with chronic kidney disease Chronic kidney disease stage : on chronic dialysis Qualified Code(s): E11.22 - Type 2 diabetes mellitus with diabetic chronic kidney disease; N18.6 - End stage renal disease; Z79.4 - manager intermediate (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 History of Present Illness - Reason for Consult Consult date: 05/30/18 end stage renal disease Requesting physician: Gabrielle Rivera - Chief Complaint Abdominal pain - History of Present Illness Alyson Salvador is a very pleasant 63 y/o obese WF with a pmh of ESRD on PD who presented with worsening abd pain and recent fibrin seen in her PD fluid. Her was present and also brought with him from home the PD run sheets with BPs, weights and fluid volumes. She did undergo AVG placement recently as an outpt in [facility], she said, and she did not report any recent fevers. She denied CP or N/V/D but does have some chronic mild constipation that has affected her PD, she affirmed. She and her requested for a new WC to be arranged during this hospitalization. Past Med Surg Social Fam HX - Past Medical History Medical history: CHF, diabetes, GERD, hyperlipidemia, hypertension, peripheral artery disease, other Additional medical history: ESRD, heart disease Psychiatric history: no psych history - Past Surgical History Surgical History: , cholecystectomy, herniorrhaphy, hysterectomy, orthopedic, other, other Additional surgical history: two sx on the right wrist ABDOMINAL DIALYSIS PORT, knee scope - Social History Smoking Status: Never smoker Smokeless Tobacco Status: No Alcohol use: none Drug use: none - Family History Father Family Member Ethnicity: Non- Living Status: Age at : 87 Cause of : Kidney Diseae Hx Family Cardiac Disorders: No Hx Family Respiratory Disorders: No Hx Family Cancer: Yes (Prostate) Hx Family GI Disorders: No Hx Family Genitourinary Disorders: No Hx Family Endocrine Disorder: Yes Hx Family Musculoskeletal Disorders: No Hx Family Neuromuscular Disorders: No Hx Family Neurologic Disorders: No Hx Family HEENT Disorders: No Hx Family Autoimmune Disorders: No Hx Family Psychosocial Disorders: No Hx Family Medical Disorders: No Mother Family Member Ethnicity: Non- Living Status: Age at : 70 Cause of : Stroke Hx Family Cardiac Disorders: Yes Hx Family Respiratory Disorders: No Hx Family Cancer: No Hx Family GI Disorders: No Hx Family Genitourinary Disorders: No Hx Family Endocrine Disorder: No Hx Family Musculoskeletal Disorders: No Hx Family Neuromuscular Disorders: No Hx Family Neurologic Disorders: No Hx Family HEENT Disorders: No Hx Family Autoimmune Disorders: No Hx Family Reproductive Disorders: No Hx Family Psychosocial Disorders: No Hx Family Medical Disorders: No Medications and Allergies Fish Oil/Dha/Epa [Fish Oil 1,200 mg Fish Oil] 1,200 mg PO DAILY 07/05/16 [ History] Omeprazole [PriLOSEC] 40 mg PO DAILY 07/05/16 [History] Aspirin [Lo-Dose Aspirin EC] 81 mg PO DAILY 04/03/17 [History] Cholecalciferol (D-3) [Vitamin D] 5,000 unit PO DAILY 04/03/17 [History] glipiZIDE [Glipizide ER] 10 mg PO BID 04/03/17 [History] Atorvastatin Calcium [Lipitor] 80 mg PO HS 12/19/17 [History] Clopidogrel [Plavix] 75 mg PO DAILY 12/19/17 [History] Furosemide [Lasix] 40 mg PO BID 12/19/17 [History] Insulin ASPART [NovoLOG] 10 unit SQ TIDAC PRN 12/19/17 [History] Insulin Glargine [Lantus] 100 unit SQ Q12H 12/19/17 [History] Docusate [Colace] 200 mg PO DAILY PRN 01/01/18 [History] Carvedilol 3.125 mg PO BID 04/05/18 [History] Lactulose 30 ml PO DAILY PRN 04/06/18 [History] Magnesium Oxide [Magnesium] 400 mg PO BID 04/06/18 [History] Meclizine [Antivert] 25 mg PO BID PRN 04/06/18 [History] Gabapentin [Neurontin] 100 mg PO BID 05/19/18 [History] OxyCODONE/APAP 5/325 [Percocet 5/325 MG] 1 each PO Q8HR PRN 4 Days #12 tablet [Rx] Amoxicillin/Clavulanate [Augmentin] 500 mg PO HS #5 tablet 06/03/18 [Rx] 3 Allergy/AdvReac Type Severity Reaction Status Date / Time baclofen Allergy Anaphylaxis Verified 05/29/18 21:14 Diclofenac [From Voltaren] Allergy Anaphylaxis Verified 05/29/18 21:14 nitrofurantoin Allergy Anaphylaxis Verified 05/29/18 21:14 Review of Systems All Systems: reviewed and no additional remarkable complaints except as stated Exam - Vital Signs Vital signs: Initial Vital Signs Temp Pulse Resp BP Pulse Ox 98.2 F 90 16 149/75 97 05/29/18 18:12 05/29/18 18:12 05/29/18 18:12 05/29/18 18:12 05/29/18 18:12 Vital Signs - Last 8 Hours Temp Pulse Resp BP Pulse Ox 05/30/18 09:11 98.2 F 84 15 162/86 99 05/30/18 06:43 98 F 79 16 158/77 98 05/30/18 04:47 97.9 F 78 18 162/73 98 Intake and Output 05/29/18 05/30/18 05/30/18 23:59 07:59 15:59 Intake Total 0 / 0 Output Total 100 / 100 Balance -100 / -100 0 / 0 Intake: Oral 0 / 0 Output: Urine 100 / 100 Other: Meal Breakfast Percent of Meal Consumed 0% Weight 163.2 kg 117.1 kg Blood Glucose* 115 Patient Weight 05/30/18 23:59 Weight 117.1 kg - General Appearance General appearance: well-developed, well-nourished, appears started age EENT: ATNC, PERRL, mucous membranes moist Neck: supple Respiratory: clear (but diminished in auscultation likely due to her body habitus. ) Cardiology: edema (about 1+ pretibial pitting edema bilaterally. ), normal S1, normal S2 - Dialysis Access Dialysis Vascular Access: Arteriovenous Graft (LE AVG with postoperative mild swelling but little to no ecchymoses. PD catheter noted in the LLQ without exitsite pain or erythema or exudates.) Gastrointestinal: normoactive bowel sounds, no guarding Integumentary: no rash, warm and dry Neurologic: no focal deficit, no asterixis, alert and oriented x3 Musculoskeletal: no deformities, no erythema, no cyanosis Psychiatric: mood/affect appropriate, cooperative Results - Lab Results 06/03/18 06:49 06/03/18 06:49 Most recent lab results Calcium 8.2 mg/dL (8.6-10.3) L 05/30/18 04:09 I reviewed the labs, vitals, imaging, progress notes, med list, outside [facility] records. Consult Discharge Plan - Plan Instructions: Oxycodone/Acetaminophen (By mouth), Amoxicillin/Clavulanate Potassium (By mouth), Chronic Kidney Disease (DC), Hemodialysis (DC), Dialysis Diet (DC), Diabetes Mellitus Type 2 in Adults (DC), Chronic Hypertension (DC), End-Stage Kidney Disease (DC) Additional Instructions: General Surgical Discharge Instructions 1. No pushing, pulling, or lifting greater than 15 lbs for 2 weeks 2. You may shower beginning 06/03/18, but no tub baths, soaking, or swimming for 2 weeks. Cleanse incisions with soap and water and pat dry daily. 3. You may resume driving when you are off narcotics and are safe to react in a car. 4. Take pain medication as directed. 5. Take stool softeners (Colace) or a water based laxative (Miralax) while taking narcotics. You may hold for loose stools. 6. Report any fevers greater than 100.5F, increase abdominal discomfort, drainage that looks like pus, increased redness or pain at the surgical site, or any vomiting. 7. Report any pain in the calves, shortness of breath, or rapid heartbeat. 8. Follow-up in the office as directed. Referrals: Rhett Madrigal MD [Primary Care Provider] - 06/16/18 2:00 pm Nguyen Coughlin CNP [Advanced Practice Nurse] - 06/10/18 2:00 pm (surgery follow -up; staple removal) Prescriptions: OxyCODONE/APAP 5/325 [Percocet 5/325 MG] 1 each PO Q8HR PRN 4 Days #12 tablet PRN Reason: Pain Amoxicillin/Clavulanate [Augmentin] 500 mg PO HS #5 tablet
[2018-05-30] MEDS ORDERED: 0.9 % Sodium Chloride 1,000 ML ONE (13:08)
[2018-05-30] MEDS ORDERED: Lidocaine 1% 20 ML MDV ID ONE (14:25)
--- NOTE | 2018-05-30 14:48 | General Surgery Consult Note ---
Date of Encounter: 05/30/18 Time of Encounter: 14:30 Assessment and Plan (1) Abdominal wall abscess Current Visit: Yes Status: Acute Diabetic diet NPO after midnight Plan for removal of Peritoneal dialysis catheter and drainage of abdominal wall abscess in the next [address] Almanzar. IV antibiotics- Zosyn, Vancomycin Supportive care Will likely need daily wound care after surgery IS every 1 hour while awake (2) Peritoneal dialysis catheter in place Current Visit: No Status: Chronic Removal of peritoneal dialysis catheter in the next [address] Almanzar Consent complete (3) ESRD (end stage renal disease) on dialysis Current Visit: Yes Status: Chronic Nephrology following History of Present Illness Consult date: 05/30/18 Requesting physician: Gabrielle Rivera History of present illness: Ms. Salvador is a very pleasant 63 year old female with a history of ESRD on dialysis. She had a peritoneal dialysis catheter placed in March of [address] Almanzar. She did have difficulty with the catheter functioning and did have a diagnostic laparoscopy with lysis of adhesions in May of [address] Almanzar. She states that her catheter has been working good up until a few weeks ago. She states that she felt as though her abdomen wasn't quite right and had mild discomfort with exchanges. She states that she was treated for peritonitis. She did have a CT scan complete which was reported as being normal. She states that her symptoms have continued to progressively worsen. She reports persistent abdominal discomfort for the past 2 weeks and decided to come to the hospital after her 2nd exchange yesterday. Reports increased amount of fibrin with peritoneal exchanges. She reports chills without fevers. Denies any nausea/vomiting. Denies any changes in bowel habits. Admits to shortness of breath. Denies any chest pains. She did have a CT scan complete which shows evidence of anterior abdominal wall abscess which encompasses the peritoneal dialysis catheter. We have been asked to see and evaluate the patient for recommendations. Past Med Surg Social Fam HX - Past Medical History Source: patient, old records reviewed Medical history: arthritis, CHF, diabetes, GERD, hyperlipidemia, hypertension, peripheral artery disease, other Additional medical history: ESRD, heart disease, Diabetic neuropathy, Hepatitis at age 19 (unknown type) Psychiatric history: no psych history - Past Surgical History Surgical History: appendectomy (Open), (X2), cholecystectomy (Open), herniorrhaphy, hysterectomy, orthopedic, other (Left knee scope), other Additional surgical history: Right wrist ganglion cyst and nerve repair, Hemorrhoidectomy, D&C X2, Graft placement to left forearm for hemodialysis, Peritoneal dialysis catheter placement 03/2017, Diagnostic laparoscopy with DONITA 05/2017 - Social History Smoking Status: Never smoker Smokeless Tobacco Status: No Alcohol use: none Drug use: none Current living situation: Home - Independent Activity Level: Independent ambulation - Family History Father Family Member Ethnicity: Non- Living Status: Age at : 87 Cause of : Kidney Diseae Hx Family Cardiac Disorders: No Hx Family Respiratory Disorders: No Hx Family Cancer: Yes (Prostate) Hx Family GI Disorders: No Hx Family Genitourinary Disorders: No Hx Family Endocrine Disorder: Yes Hx Family Musculoskeletal Disorders: No Hx Family Neuromuscular Disorders: No Hx Family Neurologic Disorders: No Hx Family HEENT Disorders: No Hx Family Autoimmune Disorders: No Hx Family Psychosocial Disorders: No Hx Family Medical Disorders: No Mother Family Member Ethnicity: Non- Living Status: Age at : 70 Cause of : Stroke Hx Family Cardiac Disorders: Yes Hx Family Respiratory Disorders: No Hx Family Cancer: No Hx Family GI Disorders: No Hx Family Genitourinary Disorders: No Hx Family Endocrine Disorder: No Hx Family Musculoskeletal Disorders: No Hx Family Neuromuscular Disorders: No Hx Family Neurologic Disorders: No Hx Family HEENT Disorders: No Hx Family Autoimmune Disorders: No Hx Family Reproductive Disorders: No Hx Family Psychosocial Disorders: No Hx Family Medical Disorders: No Medications and Allergies Fish Oil/Dha/Epa [Fish Oil 1,200 mg Fish Oil] 1,200 mg PO DAILY 07/05/16 [ History] Omeprazole [PriLOSEC] 40 mg PO DAILY 07/05/16 [History] Aspirin [Lo-Dose Aspirin EC] 81 mg PO DAILY 04/03/17 [History] Cholecalciferol (D-3) [Vitamin D] 5,000 unit PO DAILY 04/03/17 [History] glipiZIDE [Glipizide ER] 10 mg PO BID 04/03/17 [History] Atorvastatin Calcium [Lipitor] 80 mg PO HS 12/19/17 [History] Clopidogrel [Plavix] 75 mg PO DAILY 12/19/17 [History] Furosemide [Lasix] 40 mg PO BID 12/19/17 [History] Insulin ASPART [NovoLOG] 10 unit SQ TIDAC PRN 12/19/17 [History] Insulin Glargine [Lantus] 100 unit SQ Q12H 12/19/17 [History] Docusate [Colace] 200 mg PO DAILY PRN 01/01/18 [History] Carvedilol 3.125 mg PO BID 04/05/18 [History] Lactulose 30 ml PO DAILY PRN 04/06/18 [History] Magnesium Oxide [Magnesium] 400 mg PO BID 04/06/18 [History] Meclizine [Antivert] 25 mg PO BID PRN 04/06/18 [History] Gabapentin [Neurontin] 100 mg PO BID 05/19/18 [History] 3 Allergy/AdvReac Type Severity Reaction Status Date / Time baclofen Allergy Anaphylaxis Verified 05/29/18 21:14 Diclofenac [From Voltaren] Allergy Anaphylaxis Verified 05/29/18 21:14 nitrofurantoin Allergy Anaphylaxis Verified 05/29/18 21:14 Review of Systems All systems PM: reviewed and no additional remarkable complaints except as stated (in the HPI) All systems PM: The remainder of the systems were reviewed and are negative General Surgery Exam Initial Vital Signs Temp Pulse Resp BP Pulse Ox 98.2 F 90 16 149/75 97 05/29/18 18:12 05/29/18 18:12 05/29/18 18:12 05/29/18 18:12 05/29/18 18:12 - General physical appearance well developed, well nourished, no distress, obese - Eyes PERRL, normal ocular movement - ENT normal mucosa, atraumatic, normocephalic - Neck trachea midline - Respiratory normal respiratory effort, clear to auscultation - Cardiovascular Cardiovascular exam: Present: RRR - Abdomen Abdomen general surgery: Present: bowel sounds present, soft, tender (LLQ around peritoneal dialysis catheter, catheter secure (no evidence of erythema or induration at the skin level, no drainage noted)) - Integumentary Integumentary general surgery: Present: warm and dry - Neurologic Present: CN 2-12 grossly intact - Psychiatric Psychiatric general surgery: Present: appropriate, oriented to person, oriented to place, oriented to time, speech is normal, memory intact Exam Initial Vital Signs Temp Pulse Resp BP Pulse Ox 98.2 F 90 16 149/75 97 05/29/18 18:12 05/29/18 18:12 05/29/18 18:12 05/29/18 18:12 05/29/18 18:12 Results - Labs 05/30/18 04:09 05/30/18 04:09 Abnormal lab results RBC 3.11 M/mcL (3.82-4.97) L 05/30/18 04:09 Hgb 8.3 g/dL (11.5-15.4) L 05/30/18 04:09 Hct 26.0 % (35.3-44.9) L 05/30/18 04:09 MCH 26.7 pg (28.0-33.3) L 05/30/18 04:09 RDW 14.6 % (11.5-14.5) H 05/30/18 04:09 Sodium 132 mEq/L (136-145) L 05/30/18 04:09 Potassium 2.9 mEq/L (3.5-5.1) L 05/30/18 04:09 Chloride 94 mEq/L (98-107) L 05/30/18 04:09 BUN 46 mg/dL (8-23) H 05/30/18 04:09 Creatinine 3.72 mg/dL (0.60-1.20) H 05/30/18 04:09 Est GFR ( Amer) 15 (> 60) L 05/30/18 04:09 Est GFR (Non-Af Amer) 12 (> 60) L 05/30/18 04:09 Glucose 145 mg/dL (70-105) H 05/30/18 04:09 POC Glucose 211 mg/dL (70-99) H 05/30/18 01:32 Calcium 8.2 mg/dL (8.6-10.3) L 05/30/18 04:09 Diabetes panel 05/30/18 Range/Units 04:09 Sodium 132 L (136-145) mEq/L Potassium 2.9 L (3.5-5.1) mEq/L Chloride 94 L (98-107) mEq/L Carbon Dioxide 29 (23-29) mEq/L BUN 46 H (8-23) mg/dL Creatinine 3.72 H (0.60-1.20) mg/dL Glucose 145 H (70-105) mg/dL Calcium 8.2 L (8.6-10.3) mg/dL Calcium panel 05/30/18 Range/Units 04:09 Calcium 8.2 L (8.6-10.3) mg/dL Pituitary panel 05/30/18 Range/Units 04:09 Sodium 132 L (136-145) mEq/L Potassium 2.9 L (3.5-5.1) mEq/L Chloride 94 L (98-107) mEq/L Carbon Dioxide 29 (23-29) mEq/L BUN 46 H (8-23) mg/dL Creatinine 3.72 H (0.60-1.20) mg/dL Glucose 145 H (70-105) mg/dL Calcium 8.2 L (8.6-10.3) mg/dL Adrenal panel 05/30/18 Range/Units 04:09 Sodium 132 L (136-145) mEq/L Potassium 2.9 L (3.5-5.1) mEq/L Chloride 94 L (98-107) mEq/L Carbon Dioxide 29 (23-29) mEq/L BUN 46 H (8-23) mg/dL Creatinine 3.72 H (0.60-1.20) mg/dL Glucose 145 H (70-105) mg/dL Calcium 8.2 L (8.6-10.3) mg/dL All other labs normal. - Imaging CT scan - abdomen: report reviewed CT scan - pelvis: report reviewed Additional studies: Chest X-Ray 05/29/18 18:41 IMPRESSION: No acute cardiopulmonary disease. D/ / Paolo Keenan MD / Paolo Keenan MD Interpreting Provider: Paolo Keenan MD Abdomen/Pelvis CT 05/29/18 19:05 IMPRESSION: Moderate amount of free air within the abdomen is suspected to be related to peritoneal dialysis. Correlate with timing of recent dialysis and clinical findings. No bowel obstruction. No adjacent inflammatory process. Moderate amount of free fluid throughout the abdomen and pelvis. Soft tissue changes along the lower anterior abdominal wall with a small focal area of fluid. The catheter courses through this area. An infection/abscess are suspected. D/ /29/2018 20:57:05 Rhett Caballero MD / bcarter Interpreting Provider: Rhett Caballero MD Consult Discharge Plan - Plan Referrals: Rhett Madrigal MD [Primary Care Provider] - - Attending Attestation For this encounter, I have reviewed the DEVELOPMENT EXECUTIVE or PA documentation, treatment plan, and medical decision making; and I have had face to face time with this patient.
[2018-05-30] MEDS: Piperacillin/Tazobactam 3.375 GM in 0.9 % Sodium Chloride Mini Bag 100 ML IVPB SCH (19:58)
[2018-05-30] MEDS: traMADol 50 MG TABLET PO PRN (21:00)
[2018-05-31] MEDS: Insulin LISPRO 300 UNITS/3 ML VIAL SQ SCH ×4 (01:23→18:21)
[2018-05-31 03:10] LABS: Basophils % 0.6 %; Eosinophils # 0.1 K/mcL (0.0-0.6); Eosinophils % 2.7 %; Hematocrit 26.3 % (35.3-44.9); Hemoglobin 8.5 g/dL (11.5-15.4); Immature Granulocytes % 0.6 % (0-4); Lymphocytes # 0.9 K/mcL (0.6-4.6); Lymphocytes % 19.6 %; Mean Corpuscular HGB Conc 32.3 g/dL (31.6-35.5); Mean Corpuscular Hemoglobin 27.2 pg (28.0-33.3); Mean Corpuscular Volume 84.3 fL (83.0-100.0); Mean Platelet Volume 11.6 fL (9.4-12.4); Monocytes # 0.3 K/mcL (0.0-1.3); Monocytes % 6.8 %; Neutrophils # 3.3 K/mcL (1.6-8.9); Platelet Count 163 K/mcL (140-400); Red Blood Count 3.12 M/mcL (3.82-4.97); Red Cell Distribution Width 14.3 % (11.5-14.5); Segmented Neutrophils % 69.7 %
[2018-05-31 03:27] LABS: Albumin 2.4 g/dL (3.5-5.7); Calcium 7.8 mg/dL (8.6-10.3); Magnesium 1.9 mg/dL (1.6-2.6); Potassium 3.6 mEq/L (3.5-5.1)
[2018-05-31] MEDS: *HR* Heparin 5,000 UNIT/ML VIAL SQ SCH ×3 (05:52→20:30)
[2018-05-31] MEDS: Piperacillin/Tazobactam 3.375 GM in 0.9 % Sodium Chloride Mini Bag 100 ML IVPB SCH ×2 (05:52→17:22)
[2018-05-31] MEDS ORDERED: 0.9 % Sodium Chloride 1,000 ML ONE (08:59)
[2018-05-31] MEDS ORDERED: 0.9 % Sodium Chloride 250 ML IVC PRN (09:13)
--- NOTE | 2018-05-31 09:13 | Nephrology Progress Note ---
Date of Encounter: 05/31/18 Time of Encounter: 11:15 - Assessment and Plan (1) ESRD (end stage renal disease) on dialysis Current Visit: Yes Status: Chronic Now that she has transitioned over to hemodialysis, I recommend challenging her volume status with additional dialysis today as she remains quite edematous. I reviewed her labs, vitals, progress notes, med list, prior imaging, this complex E/M and MDM in which I used to place her dialysis orders for today. Next HD is planned for Saturday. I will be available tomorrow if needed, otherwise, my colleague Dr. Burns will be on-call on Saturday morning. Thank you. (2) Abscess, abdomen Current Visit: Yes Status: Acute Appreciate Gen Surgery. (3) HTN (hypertension) Current Visit: Yes Status: Chronic Stable; continue current antihypertensive(s). Qualifiers: Hypertension type: essential hypertension Qualified Code(s): I10 - Essential (primary) hypertension (4) Anemia in CKD (chronic kidney disease) Current Visit: No Status: Chronic Goal Hgb is 10-11; will monitor for CORIE and/or IV iron as needed. Qualifiers: Chronic kidney disease stage: on chronic dialysis Qualified Code(s): N18.6 - End stage renal disease; D63.1 - Anemia in chronic kidney disease; D63.1 - Anemia in chronic kidney disease; Z99.2 - Dependence on renal dialysis; Z99.2 - Dependence on renal dialysis; Z99.2 - Dependence on renal dialysis; Z99.2 - Dependence on renal dialysis (5) DM type 2 (diabetes mellitus, type 2) Current Visit: No Status: Chronic As per primary. Qualifiers: Diabetes mellitus senior care insulin use: with senior care use Diabetes mellitus complication status: with kidney complications Diabetes mellitus complication detail: with chronic kidney disease Chronic kidney disease stage : on chronic dialysis Qualified Code(s): E11.22 - Type 2 diabetes mellitus with diabetic chronic kidney disease; N18.6 - End stage renal disease; Z79.4 - correction (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 Subjective Principal diagnosis: ESRD with abscessed PD catheter Interval history: Pt was s/e and she reported feeling relatively well but still has fatigue and vague deeper abd pain. She voiced that she's passing gas. She did not affirm CP or new N/V/D but affirmed ongoing constipation, which has previously influence PD exchanges. She said her HD went smoothly for her first treatment. Objective - Vital Signs Vital signs: Vital Signs Temp Pulse Resp BP Pulse Ox 05/31/18 06:37 97.7 F 81 16 155/62 100 05/31/18 05:35 97.9 F 81 16 91/48 100 05/31/18 01:31 116/61 05/31/18 00:00 98.4 F 87 20 136/109 100 05/30/18 22:23 96 05/30/18 19:05 101 119/71 96 05/30/18 18:30 98.1 F 20 153/71 05/30/18 18:00 142/66 05/30/18 17:45 128/71 05/30/18 17:30 142/80 05/30/18 17:15 147/71 05/30/18 17:00 124/71 05/30/18 16:45 121/62 05/30/18 16:30 133/68 05/30/18 16:15 118/73 05/30/18 16:00 138/76 05/30/18 15:45 122/67 05/30/18 15:30 178/79 05/30/18 15:15 158/74 05/30/18 15:00 97.5 F L 17 182/87 05/30/18 10:49 97.9 F 84 16 156/78 100 Intake and Output 05/30/18 05/31/18 05/31/18 23:59 07:59 15:59 Intake Total 100 / 100 0 / 0 Output Total 3600 / 3600 350 / 350 Balance -3500 / -3500 -350 / -350 Intake: IV Fluids 100 / 100 Zosyn 3.375 GM In 0.9 % Sodium 100 / 100 Chloride (Mini-Bag +) 100 ML @ 25 mls/hr IVPB Q12H [facility] Rx#: [id number] Oral 0 / 0 Output: Urine 0 / 0 350 / 350 Total Dialysis (HD) Output 3600 / 3600 Other: # Voids 0 Weight 164.13 kg Blood Glucose* 125 Hemodialysis Net Fluid Removed 3000 (mL) Patient Weight 05/31/18 23:59 Weight 164.13 kg - General Appearance Exam: General appearance: well-developed, well-nourished, appears started age EENT: ATNC, PERRL, mucous membranes moist Neck: supple Respiratory: clear (but diminished in auscultation likely due to her body habitus. ) Cardiology: edema (about 1+ pretibial pitting edema bilaterally. ), normal S1, normal S2 - Dialysis Access Dialysis Vascular Access: Arteriovenous Graft (LE AVG with postoperative mild swelling but little to no ecchymoses. PD catheter noted in the LLQ without exitsite pain or erythema or exudates.) Gastrointestinal: normoactive bowel sounds, no guarding Integumentary: no rash, warm and dry Neurologic: no focal deficit, no asterixis, alert and oriented x3 Musculoskeletal: no deformities, no erythema, no cyanosis Psychiatric: mood/affect appropriate, cooperative - Lab 06/03/18 06:49 06/03/18 06:49 Most recent lab results Calcium 7.8 mg/dL (8.6-10.3) L 05/31/18 Unknown Magnesium 1.9 mg/dL (1.6-2.6) 05/31/18 Unknown Consult Discharge Plan - Plan Instructions: Oxycodone/Acetaminophen (By mouth), Amoxicillin/Clavulanate Potassium (By mouth), Chronic Kidney Disease (DC), Hemodialysis (DC), Dialysis Diet (DC), Diabetes Mellitus Type 2 in Adults (DC), Chronic Hypertension (DC), End-Stage Kidney Disease (DC) Additional Instructions: General Surgical Discharge Instructions 1. No pushing, pulling, or lifting greater than 15 lbs for 2 weeks 2. You may shower beginning 06/03/18, but no tub baths, soaking, or swimming for 2 weeks. Cleanse incisions with soap and water and pat dry daily. 3. You may resume driving when you are off narcotics and are safe to react in a car. 4. Take pain medication as directed. 5. Take stool softeners (Colace) or a water based laxative (Miralax) while taking narcotics. You may hold for loose stools. 6. Report any fevers greater than 100.5F, increase abdominal discomfort, drainage that looks like pus, increased redness or pain at the surgical site, or any vomiting. 7. Report any pain in the calves, shortness of breath, or rapid heartbeat. 8. Follow-up in the office as directed. Referrals: Kaitlin,Rhett S, MD [Primary Care Provider] - 06/16/18 2:00 pm Nguyen Coughlin CNP [Advanced Practice Nurse] - 06/10/18 2:00 pm (surgery follow -up; staple removal) Prescriptions: OxyCODONE/APAP 5/325 [Percocet 5/325 MG] 1 each PO Q8HR PRN 4 Days #12 tablet PRN Reason: Pain Amoxicillin/Clavulanate [Augmentin] 500 mg PO HS #5 tablet
[2018-05-31] MEDS: Gabapentin 100 MG CAPSULE PO SCH ×2 (09:41→20:30)
[2018-05-31] MEDS: Cholecalciferol (D-3) 1,000 UNIT TABLET PO SCH (09:42)
[2018-05-31] MEDS: Aspirin Enteric Coated 81 MG Tablet PO SCH (09:42)
[2018-05-31] MEDS: Magnesium Oxide 400 MG TABLET PO SCH ×2 (09:42→20:32)
[2018-05-31] MEDS: Furosemide 20 MG TABLET PO SCH ×2 (09:42→17:22)
--- NOTE | 2018-05-31 09:43 | Electrocardiograph Report ---
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
[2018-05-31] MEDS ORDERED: Ipratropium/Albuterol Neb 3 ML IH PRN (10:23)
--- NOTE | 2018-05-31 10:29 | Internal Med Progress Note ---
Hospitalist Progress Note - Encounter Date of Encounter: 05/31/18 Time of Encounter: 10:35 - Subjective Interval History: No acute events. Patient states left lower quadratn abd pain somewhat improved. Plan is for Surgery today. SOB improved but she also is laying in bed unable to ambulate at this time. - Exam Vitals: Temp Pulse Resp BP Pulse Ox 97.7 F 81 16 155/62 100 05/31/18 06:37 05/31/18 06:37 05/31/18 06:37 05/31/18 06:37 05/31/18 06:37 Exam: Physical exam limited to patient unable to sit up and body habitus limits lung ascultation General: NAD, obese Skin: Warm and supple. HEENT: Moist mucous membranes. No conjunctivae pallor. + carotid bruits bilaterally Neck: No lymphadenopathy. No JVD. No carotid bruits. No palpable thyroid. CVS: RRR, + systolic murmur Lungs: ascultation limited due to body habitus and positioning but upper lung baron are clear, diminished breath sounds at bases bilaterally. Abdomen: Soft, + Tenderness LLQ around the catheter site however no gross drainage or purulence is noted. Extremities: 2+ pitting edema bilaterally Neurological: Awake, alert and oriented to person, place and time. No focal deficits. Psych: Affect appropriate. - Assessment and Plan (1) Dyspnea Current Visit: Yes Status: Acute Assessment and Plan: Presented for dyspnea on exertion and workup showed intra abdominal abscess. Patient currently unable to ambulate to assess SOB. Likely this is fluid overload which she did have 3.6 L fluid removed at dialysis yesterday. Encouraged IS, Duo Neb therapy if needed, though she has no known lung disease history. (2) Intra-abdominal abscess Current Visit: Yes Status: Acute Assessment and Plan: Blood cultures have been obtained however deep tissue cultures will be necessary. For now will keep on empiric abx of vancomycin/Zosyn Hold off on use of catheter for now; graft now cleared for use. Follow-up blood cultures. Plan for today is surgical incision and drainage and as well removal of the peritoneal catheter. (3) ESRD (end stage renal disease) on dialysis Current Visit: Yes Status: Chronic Assessment and Plan: Secondary to diabetic/hypertensive nephropathy. Nephrology consulted. Will need HD from now on. Received dialysis yesterday and plan for today as well. plan for peritoneal catheter removal today. (4) HTN (hypertension) Current Visit: Yes Status: Chronic Assessment and Plan: Resume home medications. (5) Diabetes Current Visit: Yes Status: Acute Assessment and Plan: Continue sliding scale while NPO. (6) DVT prophylaxis Current Visit: Yes Status: Acute Assessment and Plan: SubQ heparin. - Time Spent with Patient Total time spent is greater than 50% in coordination of care (as documented) at patient's floor/unit and/or counseling patient: Internal Medicine: Result - Labs CBC & Chem 7: 05/31/18 Unknown 05/31/18 Unknown Labs: Short CBC 05/31/18 Range/Units Unknown WBC 4.7 (4.3-11.1) K/mcL Hgb 8.5 L (11.5-15.4) g/dL Hct 26.3 L (35.3-44.9) % Plt Count 163 (140-400) K/mcL Neutrophils # 3.3 (1.6-8.9) K/mcL BMP 05/31/18 Unknown Sodium 134 L Potassium 3.6 Chloride 96 L Carbon Dioxide 31 H BUN 35 H Creatinine 3.28 H Glucose 139 H Calcium 7.8 L Liver Function 05/31/18 Range/Units Unknown Albumin 2.4 L (3.5-5.7) g/dL - ABG Interpretation ABG results: PT/INR, D-dimer PT 10.8 Seconds (9.4-12.1) 05/30/18 04:09 Consult Discharge Plan - Plan Referrals: Rhett Madrigal MD [Primary Care Provider] - (1) Dyspnea Qualifiers: Dyspnea type: dyspnea on exertion Qualified Code(s): R06.09 - Other forms of dyspnea (4) HTN (hypertension) Qualifiers: Hypertension type: essential hypertension Qualified Code(s): I10 - Essential (primary) hypertension (5) Diabetes Qualifiers: Diabetes mellitus type: type 2 Diabetes mellitus fdc insulin use: with fdc use Diabetes mellitus complication status: with kidney complications Diabetes mellitus complication detail: with chronic kidney disease Chronic kidney disease stage: on chronic dialysis Qualified Code(s): E11.22 - Type 2 diabetes mellitus with diabetic chronic kidney disease; N18.6 - End stage renal disease; Z79.4 - penitentiary (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
--- NOTE | 2018-05-31 10:49 | Anesthesia Evaluation PreOp ---
Date of Encounter: 05/31/18 Time of Encounter: 11:00 - Past History Planned Operation: Removal Peritoneal Dialysis Catheter Cardiac History: CHF, HTN, Hyperlipidemia, Other (PAD, Anemia chronic disease) Pulmonary History: Denies Any Significant HX ATHLETIC COORDINATOR History: Denies Any Significant HX Other Medical History: Renal (ESRD 3.6 Liters taken out yesterday), Diabetes Type II, Other (Morbid Obesity) Anesthesia History: No Prior Anesthetic Complications : No Alcohol Use: none Drug use: none Medications and Allergies Fish Oil/Dha/Epa [Fish Oil 1,200 mg Fish Oil] 1,200 mg PO DAILY 07/05/16 [ History] Omeprazole [PriLOSEC] 40 mg PO DAILY 07/05/16 [History] Aspirin [Lo-Dose Aspirin EC] 81 mg PO DAILY 04/03/17 [History] Cholecalciferol (D-3) [Vitamin D] 5,000 unit PO DAILY 04/03/17 [History] glipiZIDE [Glipizide ER] 10 mg PO BID 04/03/17 [History] Atorvastatin Calcium [Lipitor] 80 mg PO HS 12/19/17 [History] Clopidogrel [Plavix] 75 mg PO DAILY 12/19/17 [History] Furosemide [Lasix] 40 mg PO BID 12/19/17 [History] Insulin ASPART [NovoLOG] 10 unit SQ TIDAC PRN 12/19/17 [History] Insulin Glargine [Lantus] 100 unit SQ Q12H 12/19/17 [History] Docusate [Colace] 200 mg PO DAILY PRN 01/01/18 [History] Carvedilol 3.125 mg PO BID 04/05/18 [History] Lactulose 30 ml PO DAILY PRN 04/06/18 [History] Magnesium Oxide [Magnesium] 400 mg PO BID 04/06/18 [History] Meclizine [Antivert] 25 mg PO BID PRN 04/06/18 [History] Gabapentin [Neurontin] 100 mg PO BID 05/19/18 [History] 3 Allergy/AdvReac Type Severity Reaction Status Date / Time baclofen Allergy Anaphylaxis Verified 05/29/18 21:14 Diclofenac [From Voltaren] Allergy Anaphylaxis Verified 05/29/18 21:14 nitrofurantoin Allergy Anaphylaxis Verified 05/29/18 21:14 - Meds/Allergy Pre-op Review Medications Reviewed: Yes Allergies Reviewed: Yes Beta Blockers on Current Med List: Yes (on metoprolol) Anesthesia Results - Labs 05/31/18 Unknown 05/31/18 Unknown Laboratory Tests 05/31/18 05/31/18 Unknown Unknown Hgb 8.5 L Hct 26.3 L Plt Count 163 Sodium 134 L Potassium 3.6 BUN 35 H Creatinine 3.28 H - Imaging EKG: report reviewed (SR) Additional studies: ECHO 2018 EF 60% Anesthesia Exam O2 Sat Weight 164.13 kg O2 Sat by Pulse Oximetry 100 O2 Sat by Pulse Oximetry 100 O2 Sat by Pulse Oximetry 100 O2 Sat by Pulse Oximetry 96 O2 Sat by Pulse Oximetry 96 Vital Signs Temp Pulse Resp BP Pulse Ox 98.2 F 90 16 149/75 97 05/29/18 18:12 05/29/18 18:12 05/29/18 18:12 05/29/18 18:12 05/29/18 18:12 Height: 5'7 Weight: 361 lbs NPO (# of Hours): MN Pain Scale: 0 - HEENT Pupil (Motor): Pupils equal, EOMI Mallampati: III Teeth: Normal Oral Opening: Less than or equal to 3 - ATHLETIC COORDINATOR LOC: Oriented ATHLETIC COORDINATOR Motor: Normal RUE, Normal LUE, Normal RLE, Normal LLE, Normal Face ATHLETIC COORDINATOR Sensory: Normal: RUE, LUE, RLE, LLE, Face - Cardiac Rhythm: Regular Murmur: None JVD: No Carotid Bruit: No - Pulmonary Breath Sounds: bilateral Clear Respiratory Effort: Symmetrical Anesthesia Assess/Plan ASA Score: 4 (HTN ESRD MO DM) Modified Eugene Scale for Level of Consciousness: Cooperative, oriented, and tranquil Anesthetic Plan: General Monitoring Plan: Standard Monitors Recovery Plan: PACU (Discussed GA, agrees to proceed)
[2018-05-31] MEDS ORDERED: *HR* FentaNYL (PF) 100 MCG/2 ML VIAL ONE (10:58)
[2018-05-31] MEDS ORDERED: *HR* Propofol 200 MG/20 ML VIAL IVP ONE (10:58)
[2018-05-31] MEDS ORDERED: *HR* Rocuronium Bromide 50 MG/5 ML VIAL ONE (11:02)
[2018-05-31] MEDS ORDERED: *HR* Succinylcholine 200 MG/10 ML VIAL IVP ONE (11:02)
[2018-05-31] MEDS ORDERED: Lidocaine -MPF 2% 2 ML VIAL ONE (11:02)
[2018-05-31] MEDS: OXYCODONE Oral CONC 10 MG/0.5 ML ORAL.SYG SL PRN (17:28)
[2018-06-01] MEDS: Insulin LISPRO 300 UNITS/3 ML VIAL SQ SCH ×4 (01:21→18:01)
[2018-06-01] MEDS: *HR* Heparin 5,000 UNIT/ML VIAL SQ SCH ×3 (06:14→21:04)
[2018-06-01] MEDS: Piperacillin/Tazobactam 3.375 GM in 0.9 % Sodium Chloride Mini Bag 100 ML IVPB SCH ×2 (06:14→17:25)
[2018-06-01] MEDS ORDERED: Aminoglycoside Consult 1 EACH MC ONE (07:34)
[2018-06-01] MEDS: Magnesium Oxide 400 MG TABLET PO SCH ×2 (08:20→21:04)
[2018-06-01] MEDS: Furosemide 20 MG TABLET PO SCH ×2 (08:21→17:23)
[2018-06-01] MEDS: Gabapentin 100 MG CAPSULE PO SCH ×2 (08:21→21:04)
[2018-06-01] MEDS: Cholecalciferol (D-3) 1,000 UNIT TABLET PO SCH (08:21)
[2018-06-01] MEDS: FISH OIL 1000 MG PO SCH (08:38)
--- NOTE | 2018-06-01 12:12 | Internal Med Progress Note ---
Hospitalist Progress Note - Encounter Date of Encounter: 06/01/18 Time of Encounter: 12:06 - Subjective Interval History: No acute events. Patient states left lower quadratn abd pain somewhat improved. SOB improved but she also is laying in bed unable to ambulate at this time so cannot fully assess this. Plan is for surgery around 14:00 today. - Exam Vitals: Temp Pulse Resp BP Pulse Ox 97.8 F 84 18 168/69 95 06/01/18 11:32 06/01/18 11:32 06/01/18 11:32 06/01/18 11:32 06/01/18 11:32 Exam: Physical exam limited to patient unable to sit up and body habitus limits lung ascultation General: NAD, obese Skin: Warm and supple. HEENT: Moist mucous membranes. No conjunctivae pallor. + carotid bruits bilaterally Neck: No lymphadenopathy. No JVD. No carotid bruits. No palpable thyroid. CVS: RRR, + systolic murmur Lungs: ascultation limited due to body habitus and positioning but upper lung baron are clear, diminished breath sounds at bases bilaterally. Abdomen: Soft, + Tenderness LLQ around the catheter site however no gross drainage or purulence is noted. Extremities: 2+ pitting edema bilaterally Neurological: Awake, alert and oriented to person, place and time. No focal deficits. Psych: Affect appropriate. - Assessment and Plan (1) Dyspnea Current Visit: Yes Status: Acute Assessment and Plan: Presented for dyspnea on exertion and workup showed intra abdominal abscess. Patient currently unable to ambulate to assess SOB. Likely this is fluid overload which she did have 3.6 L fluid removed at dialysis two days ago. Encouraged IS, Duo Neb therapy if needed, though she has no known lung disease history. Vascular access will be used now since plan to remove peritoneal catheter. Post-op the head of her bed should be elevated to avoid flash pulm edema Also need BIPAP prn (2) Intra-abdominal abscess Current Visit: Yes Status: Acute Assessment and Plan: Blood cultures have been obtained however deep tissue cultures will be necessary. For now will keep on empiric abx of vancomycin/Zosyn Follow-up blood cultures. Plan for today is surgical incision and drainage and as well removal of the peritoneal catheter. (3) ESRD (end stage renal disease) on dialysis Current Visit: Yes Status: Chronic Assessment and Plan: Secondary to diabetic/hypertensive nephropathy. Nephrology consulted. Will need HD from now on. Setup pending tomorrow, Saturday when social work nurse available. Received dialysis yesterday and plan for today as well. plan for peritoneal catheter removal today. (4) HTN (hypertension) Current Visit: Yes Status: Chronic Assessment and Plan: Resume home medications. (5) Diabetes Current Visit: Yes Status: Acute Assessment and Plan: Continue sliding scale while NPO. (6) DVT prophylaxis Current Visit: Yes Status: Acute Assessment and Plan: SubQ heparin. - Time Spent with Patient Total time spent is greater than 50% in coordination of care (as documented) at patient's floor/unit and/or counseling patient: Internal Medicine: Result - Labs CBC & Chem 7: 05/31/18 Unknown 05/31/18 Unknown - ABG Interpretation ABG results: PT/INR, D-dimer PT 10.8 Seconds (9.4-12.1) 05/30/18 04:09 Consult Discharge Plan - Plan Referrals: Rhett Madrigal MD [Primary Care Provider] - (1) Dyspnea Qualifiers: Dyspnea type: dyspnea on exertion Qualified Code(s): R06.09 - Other forms of dyspnea (4) HTN (hypertension) Qualifiers: Hypertension type: essential hypertension Qualified Code(s): I10 - Essential (primary) hypertension (5) Diabetes Qualifiers: Diabetes mellitus type: type 2 Diabetes mellitus retirement insulin use: with retirement use Diabetes mellitus complication status: with kidney complications Diabetes mellitus complication detail: with chronic kidney disease Chronic kidney disease stage: on chronic dialysis Qualified Code(s): E11.22 - Type 2 diabetes mellitus with diabetic chronic kidney disease; N18.6 - End stage renal disease; 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
[2018-06-01] MEDS ORDERED: Furosemide 40 MG/4 ML VIAL IVP ONE (12:17)
[2018-06-01] MEDS ORDERED: Famotidine 20 MG/2 ML VIAL ONE (13:40)
[2018-06-01] MEDS ORDERED: Acetaminophen IV 1,000 MG/100 ML INFUS..BTL ONE (13:40)
[2018-06-01] MEDS ORDERED: *HR* Succinylcholine 200 MG/10 ML VIAL IVP ONE (13:49)
[2018-06-01] MEDS ORDERED: *HR* FentaNYL (PF) 100 MCG/2 ML VIAL ONE ×2 (13:49→16:24)
[2018-06-01] MEDS ORDERED: *HR* Propofol 200 MG/20 ML VIAL IVP ONE ×2 (13:57→15:56)
[2018-06-01] MEDS ORDERED: Lidocaine -MPF 2% 2 ML VIAL ONE ×2 (13:58→15:56)
[2018-06-01] MEDS ORDERED: Lidocaine -MPF 4% 5 ML AMPUL ONE (13:59)
--- NOTE | 2018-06-01 16:43 | Operative Note ---
Date of procedure: 06/01/18 Pre-op diagnosis: ESRD Post-op diagnosis: same Procedure: Removal of PD catheter Anesthesia: MAC Surgeon: Rodger Almanzar Was there an assistant mechanic present: No Estimated blood loss (cc): 2 Specimen: 0 Condition: stable Disposition: floor Procedure in Detail: After informed consent, the patient was taken to the operating room placed in the supine position. After adequate sedation and anesthesia the abdomen was prepped and draped. The peritoneal bowel cyst catheter was palpated. The 2 previous incisions were injected with half percent Marcaine. Dissection is carried down to the abdominal wall. The intra-abdominal portion was removed and found to be in continuity. The subcutaneous days portion was removed secondarily. I will Candido cuffs were removed. Once it was fully removed the skin was then injected with half percent Marcaine and skin was closed with ángel. She tolerated the procedure well.
[2018-06-01] MEDS: Aspirin Enteric Coated 81 MG Tablet PO SCH (17:23)
[2018-06-01] MEDS ORDERED: Sodium Bicarbonate 50 MEQ/50 ML VIAL ONE (18:38)
[2018-06-01] MEDS: OXYCODONE Oral CONC 10 MG/0.5 ML ORAL.SYG SL PRN (18:43)
[2018-06-01] MEDS: traMADol 50 MG TABLET PO PRN (21:28)
[2018-06-02] MEDS: Insulin LISPRO 300 UNITS/3 ML VIAL SQ SCH ×3 (01:21→12:46)
[2018-06-02] MEDS: *HR* Heparin 5,000 UNIT/ML VIAL SQ SCH ×3 (06:08→21:29)
[2018-06-02] MEDS: Piperacillin/Tazobactam 3.375 GM in 0.9 % Sodium Chloride Mini Bag 100 ML IVPB SCH (06:08)
[2018-06-02] MEDS: OXYCODONE Oral CONC 10 MG/0.5 ML ORAL.SYG SL PRN ×3 (06:14→21:29)
[2018-06-02] MEDS ORDERED: 0.9 % Sodium Chloride 250 ML IVC PRN (06:19)
[2018-06-02 06:23] LABS: Basophils % 0.5 %; Eosinophils # 0.1 K/mcL (0.0-0.6); Eosinophils % 1.9 %; Hematocrit 23.7 % (35.3-44.9); Hemoglobin 7.4 g/dL (11.5-15.4); Immature Granulocytes % 0.7 % (0-4); Lymphocytes % 24.2 %; Mean Corpuscular HGB Conc 31.2 g/dL (31.6-35.5); Mean Corpuscular Hemoglobin 26.9 pg (28.0-33.3); Mean Corpuscular Volume 86.2 fL (83.0-100.0); Mean Platelet Volume 11.8 fL (9.4-12.4); Monocytes # 0.3 K/mcL (0.0-1.3); Monocytes % 7.2 %; Neutrophils # 2.8 K/mcL (1.6-8.9); Platelet Count 140 K/mcL (140-400); Red Blood Count 2.75 M/mcL (3.82-4.97); Red Cell Distribution Width 14.6 % (11.5-14.5); Segmented Neutrophils % 65.5 %
[2018-06-02 06:36] LABS: Potassium 4.2 mEq/L (3.5-5.1)
[2018-06-02] MEDS ORDERED: 0.9 % Sodium Chloride 2,000 ML ONE (06:41)
--- NOTE | 2018-06-02 09:49 | Nephrology Progress Note ---
Date of Encounter: 06/02/18 Time of Encounter: 09:47 - Assessment and Plan (1) ESRD (end stage renal disease) on dialysis Current Visit: Yes Status: Chronic HD in progress for today. HD completed 05/30/18 and 05/31/18. Avoid nephrotoxins. Continue to challenge dry weight to help with edema. (2) HTN (hypertension) Current Visit: Yes Status: Chronic Stable, BP is 129/56. Qualifiers: Hypertension type: essential hypertension Qualified Code(s): I10 - Essential (primary) hypertension (3) DM type 2 (diabetes mellitus, type 2) Current Visit: No Status: Chronic Per primary. 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 Hgb is 7.4 today, 40 mg Aranesp ordered today. Qualifiers: Chronic kidney disease stage: on chronic dialysis Qualified Code(s): N18.6 - End stage renal disease; D63.1 - Anemia in chronic kidney disease; D63.1 - Anemia in chronic kidney disease; Z99.2 - Dependence on renal dialysis; Z99.2 - Dependence on renal dialysis; Z99.2 - Dependence on renal dialysis; Z99.2 - Dependence on renal dialysis (5) Abscess, abdomen Current Visit: Yes Status: Acute Per primary/surgery. s/p PD cath removal. Drsg C/D/I Subjective Principal diagnosis: difficulty in breathing Interval history: Pt seen and examined, during HD, tolerating well. Denies CP/SOB. Denies nausea/ vomiting/diarrhea. Objective - Vital Signs Vital signs: Vital Signs Temp Pulse Resp BP Pulse Ox 06/02/18 07:29 98.2 F 79 19 129/56 95 06/02/18 04:00 98.8 F 86 15 126/45 95 06/02/18 01:00 98.1 F 83 18 112/89 99 06/01/18 21:15 98.2 F 88 18 152/83 94 06/01/18 17:58 81 164/73 06/01/18 17:25 98.0 F 95 16 177/72 100 06/01/18 16:47 98.1 F 84 16 154/75 99 06/01/18 16:35 98.1 F 79 14 123/68 98 06/01/18 11:32 97.8 F 84 18 168/69 95 Intake and Output 06/01/18 06/02/18 06/02/18 23:59 07:59 15:59 Intake Total 100 / 100 400 / 400 Output Total 655 / 655 425 / 425 Balance -555 / -555 -25 / -25 Intake: IV Fluids 100 / 100 Zosyn 3.375 GM In 0.9 % Sodium 100 / 100 Chloride (Mini-Bag +) 100 ML @ 25 mls/hr IVPB Q12H [facility] Rx#: [id number] Oral 0 / 0 400 / 400 Output: Urine 650 / 650 425 / 425 Estimated Blood Loss 5 / 5 Other: Weight 165.62 kg Blood Glucose* 250 262 Patient Weight 06/02/18 23:59 Weight 165.62 kg - General Appearance General appearance: Present: well-developed, well-nourished, obese EENT: Present: ATNC, hearing intact, vision intact Neck: Present: supple Respiratory: Present: clear Cardiology: Present: edema (+1 pitting edema noted to bilat lower extremity. Nonpitting edema noted to RUE.), normal S1, normal S2 Dialysis Vascular Access: Arteriovenous Fistula thrill: Yes bruit: Yes Gastrointestinal: Present: normoactive bowel sounds, no tenderness, no guarding Integumentary: Present: no rash, warm and dry Neurologic: Present: alert and oriented x3 Psychiatric: Present: mood/affect appropriate, cooperative - Lab 06/02/18 06:11 06/02/18 06:11 Most recent lab results Calcium 8.0 mg/dL (8.6-10.3) L 06/02/18 06:11 Magnesium 1.9 mg/dL (1.6-2.6) 05/31/18 Unknown Consult Discharge Plan - Plan Referrals: Rhett Madrigal MD [Primary Care Provider] -
--- NOTE | 2018-06-02 10:38 | General Surgery Progress Note ---
Date of Encounter: 06/02/18 Time of Encounter: 10:00 - Assessment and Plan (1) Abdominal wall abscess Current Visit: Yes Status: Acute POD #1 PD catheter removal with Dr. Jenelle sandoval 06/03/18 Renal diet Daily wound care Supportive care See surgery discharge instructions Follow-up scheduled next week for staple removal Surgery will sign off at this time. Thank you for allowing us to participate in the care of this patient. Please call with any further questions or concerns. (2) Peritoneal dialysis catheter in place Current Visit: No Status: Chronic POD #1 PD catheter removal with Dr. Jenelle sandoval 06/03/18 Renal diet Daily wound care Supportive care See surgery discharge instructions Follow-up scheduled next week for staple removal Surgery will sign off at this time. Thank you for allowing us to participate in the care of this patient. Please call with any further questions or concerns. (3) ESRD (end stage renal disease) on dialysis Current Visit: Yes Status: Chronic Nephrology following Subjective Patient reports: no new complaints, still having pain (post-surgical discomfort) , tolerating a regular diet, afebrile Objective Vital Signs - Last 8 Hours Temp Pulse Resp BP Pulse Ox 06/02/18 10:05 135/79 06/02/18 09:50 147/73 06/02/18 09:35 111/71 06/02/18 09:20 121/60 06/02/18 09:05 130/64 06/02/18 08:50 116/63 06/02/18 08:35 113/58 06/02/18 08:20 124/62 06/02/18 08:05 143/65 06/02/18 07:50 98 F 18 174/68 06/02/18 07:29 98.2 F 79 19 129/56 95 06/02/18 04:00 98.8 F 86 15 126/45 95 Intake and Output 06/01/18 06/02/18 06/02/18 23:59 07:59 15:59 Intake Total 100 / 100 1000 / 1000 Output Total 655 / 655 425 / 425 Balance -555 / -555 575 / 575 Intake: IV Fluids 100 / 100 Zosyn 3.375 GM In 0.9 % Sodium 100 / 100 Chloride (Mini-Bag +) 100 ML @ 25 mls/hr IVPB Q12H [facility] Rx#: [id number] Oral 0 / 0 400 / 400 Intake, Rinseback and Flushes 600 / 600 Output: Urine 650 / 650 425 / 425 Estimated Blood Loss 5 / 5 Other: Weight 165.62 kg Blood Glucose* 250 262 Hemodialysis Net Fluid Removed 0 4 (mL) Patient Weight 06/02/18 23:59 Weight 165.62 kg - General physical appearance well developed, well nourished, no distress, chronically ill - Eyes normal ocular movement - ENT normal mucosa, atraumatic, normocephalic - Neck Neck exam: trachea midline - Respiratory normal respiratory effort, clear to auscultation - Cardiovascular Cardiovascular exam: Present: RRR - Abdomen Abdomen: Present: bowel sounds present, soft, tender (Expected postoperative discomfort) - Incision Incision: Present: intact, serosanguinous (noted on midline incision (small amount)) - Neurologic CN 2-12 grossly intact - Psychiatric oriented to time, oriented to person, oriented to place, speech is normal, memory intact - Labs 06/02/18 06:11 06/02/18 06:11 Diabetes panel 06/02/18 Range/Units 06:11 Sodium 135 L (136-145) mEq/L Potassium 4.2 (3.5-5.1) mEq/L Chloride 99 (98-107) mEq/L Carbon Dioxide 30 H (23-29) mEq/L BUN 33 H (8-23) mg/dL Creatinine 3.72 H (0.60-1.20) mg/dL Glucose 242 H (70-105) mg/dL Calcium 8.0 L (8.6-10.3) mg/dL Calcium panel 06/02/18 Range/Units 06:11 Calcium 8.0 L (8.6-10.3) mg/dL Pituitary panel 06/02/18 Range/Units 06:11 Sodium 135 L (136-145) mEq/L Potassium 4.2 (3.5-5.1) mEq/L Chloride 99 (98-107) mEq/L Carbon Dioxide 30 H (23-29) mEq/L BUN 33 H (8-23) mg/dL Creatinine 3.72 H (0.60-1.20) mg/dL Glucose 242 H (70-105) mg/dL Calcium 8.0 L (8.6-10.3) mg/dL Adrenal panel 06/02/18 Range/Units 06:11 Sodium 135 L (136-145) mEq/L Potassium 4.2 (3.5-5.1) mEq/L Chloride 99 (98-107) mEq/L Carbon Dioxide 30 H (23-29) mEq/L BUN 33 H (8-23) mg/dL Creatinine 3.72 H (0.60-1.20) mg/dL Glucose 242 H (70-105) mg/dL Calcium 8.0 L (8.6-10.3) mg/dL Consult Discharge Plan - Plan Additional Instructions: General Surgical Discharge Instructions 1. No pushing, pulling, or lifting greater than 15 lbs for 2 weeks 2. You may shower beginning 06/03/18, but no tub baths, soaking, or swimming for 2 weeks. Cleanse incisions with soap and water and pat dry daily. 3. You may resume driving when you are off narcotics and are safe to react in a car. 4. Take pain medication as directed. 5. Take stool softeners (Colace) or a water based laxative (Miralax) while taking narcotics. You may hold for loose stools. 6. Report any fevers greater than 100.5F, increase abdominal discomfort, drainage that looks like pus, increased redness or pain at the surgical site, or any vomiting. 7. Report any pain in the calves, shortness of breath, or rapid heartbeat. 8. Follow-up in the office as directed. Referrals: Rhett Madrigal MD [Primary Care Provider] - Nguyen Coughlin CNP [Advanced Practice Nurse] - 06/10/18 2:00 pm (surgery follow -up; staple removal) Prescriptions: OxyCODONE/APAP 5/325 [Percocet 5/325 MG] 1 each PO Q8HR PRN 4 Days #12 tablet PRN Reason: Pain
[2018-06-02] MEDS: Magnesium Oxide 400 MG TABLET PO SCH ×2 (12:39→21:29)
[2018-06-02] MEDS: Cholecalciferol (D-3) 1,000 UNIT TABLET PO SCH (12:39)
[2018-06-02] MEDS: Gabapentin 100 MG CAPSULE PO SCH ×2 (12:39→21:29)
[2018-06-02] MEDS: FISH OIL 1000 MG PO SCH (12:40)
[2018-06-02] MEDS: Furosemide 20 MG TABLET PO SCH ×2 (12:42→17:02)
--- NOTE | 2018-06-02 12:42 | Internal Med Progress Note ---
Hospitalist Progress Note - Encounter Date of Encounter: 06/02/18 Time of Encounter: 12:23 - Subjective Interval History: No acute events. POD day 1 after PD catheter removal. Doing well. Denies SOB. Has typical post-op pain, but well controlled. - Exam Vitals: Temp Pulse Resp BP Pulse Ox 98 F 79 18 135/79 95 06/02/18 07:50 06/02/18 07:29 06/02/18 07:50 06/02/18 10:05 06/02/18 07:29 Exam: General: NAD, obese Skin: Warm and supple. HEENT: Moist mucous membranes. No conjunctivae pallor. + carotid bruits bilaterally Neck: No lymphadenopathy. No JVD. No carotid bruits. No palpable thyroid. CVS: RRR, + systolic murmur Lungs: ascultation limited due to body habitus and positioning but upper lung baron are clear, diminished breath sounds at bases bilaterally. Abdomen: Soft, Typical post op tenderness, incision site clean, dry. Had old are of purulent discharge but now is clean. Normal bowel sounds. Extremities: 2+ pitting edema bilaterally Neurological: Awake, alert and oriented to person, place and time. No focal deficits. Psych: Affect appropriate. - Assessment and Plan (1) Dyspnea Current Visit: Yes Status: Acute Assessment and Plan: Presented for dyspnea on exertion and workup showed intra abdominal abscess. Patient currently unable to ambulate to assess SOB. Likely this is fluid overload which she did have 3.6 L fluid removed at dialysis two days ago. Encouraged IS, Duo Neb therapy if needed, though she has no known lung disease history. Vascular access will be used now since plan to remove peritoneal catheter. Is resolved. (2) Intra-abdominal abscess Current Visit: Yes Status: Acute Assessment and Plan: Patient had PD catheter removal on 06/01, and per Surgery reporting there was no drainable abscess. This could be non-infectious or possibly resolving. Has received 5 days Vanc/Zosyn. Will transition to Augmentin for a few more days therapy. Blood cultures obtained on admission are negative. (3) ESRD (end stage renal disease) on dialysis Current Visit: Yes Status: Chronic Assessment and Plan: Secondary to diabetic/hypertensive nephropathy. Dialysis per schedule Will need HD from now on. Pending HD setup for outpatient. (4) HTN (hypertension) Current Visit: Yes Status: Chronic Assessment and Plan: Resume home medications. (5) Diabetes Current Visit: Yes Status: Acute Assessment and Plan: Continue sliding scale (6) DVT prophylaxis Current Visit: Yes Status: Acute Assessment and Plan: SubQ heparin. - Time Spent with Patient Total time spent is greater than 50% in coordination of care (as documented) at patient's floor/unit and/or counseling patient: Internal Medicine: Result - Labs CBC & Chem 7: 06/02/18 06:11 06/02/18 06:11 Labs: Short CBC 06/02/18 Range/Units 06:11 WBC 4.3 (4.3-11.1) K/mcL Hgb 7.4 L (11.5-15.4) g/dL Hct 23.7 L (35.3-44.9) % Plt Count 140 (140-400) K/mcL Neutrophils # 2.8 (1.6-8.9) K/mcL BMP 06/02/18 06:11 Sodium 135 L Potassium 4.2 Chloride 99 Carbon Dioxide 30 H BUN 33 H Creatinine 3.72 H Glucose 242 H Calcium 8.0 L - ABG Interpretation ABG results: PT/INR, D-dimer PT 10.8 Seconds (9.4-12.1) 05/30/18 04:09 Consult Discharge Plan - Plan Additional Instructions: General Surgical Discharge Instructions 1. No pushing, pulling, or lifting greater than 15 lbs for 2 weeks 2. You may shower beginning 06/03/18, but no tub baths, soaking, or swimming for 2 weeks. Cleanse incisions with soap and water and pat dry daily. 3. You may resume driving when you are off narcotics and are safe to react in a car. 4. Take pain medication as directed. 5. Take stool softeners (Colace) or a water based laxative (Miralax) while taking narcotics. You may hold for loose stools. 6. Report any fevers greater than 100.5F, increase abdominal discomfort, drainage that looks like pus, increased redness or pain at the surgical site, or any vomiting. 7. Report any pain in the calves, shortness of breath, or rapid heartbeat. 8. Follow-up in the office as directed. 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
[2018-06-02] MEDS: Aspirin Enteric Coated 81 MG Tablet PO SCH (12:43)
[2018-06-02] MEDS ORDERED: Insulin LISPRO 300 UNITS/3 ML VIAL SQ SCH ×2 (16:30→21:00)
[2018-06-02] MEDS ORDERED: Amoxicillin/Clavulanate 500 MG TABLET PO SCH (17:00)
[2018-06-02] MEDS ORDERED: Ipratropium/Albuterol Neb 3 ML IH PRN (23:45)
[2018-06-02] MEDS ORDERED: *HR* FentaNYL (PF) 100 MCG/2 ML VIAL IVP PRN (23:45)
[2018-06-02] MEDS ORDERED: Dextrose Gel 15 GM/37.5 ML TUBE PO PRN ×2 (23:45)
[2018-06-03] MEDS: *HR* Heparin 5,000 UNIT/ML VIAL SQ SCH ×3 (05:02→21:16)
[2018-06-03] MEDS: OXYCODONE Oral CONC 10 MG/0.5 ML ORAL.SYG SL PRN ×2 (06:42→15:33)
[2018-06-03 06:56] LABS: Hematocrit 25.6 % (35.3-44.9); Hemoglobin 8.1 g/dL (11.5-15.4); Mean Corpuscular HGB Conc 31.6 g/dL (31.6-35.5); Mean Corpuscular Hemoglobin 27.2 pg (28.0-33.3); Mean Corpuscular Volume 85.9 fL (83.0-100.0); Mean Platelet Volume 11.6 fL (9.4-12.4); Platelet Count 137 K/mcL (140-400); Red Blood Count 2.98 M/mcL (3.82-4.97); Red Cell Distribution Width 14.5 % (11.5-14.5)
[2018-06-03 07:18] LABS: Calcium 8.4 mg/dL (8.6-10.3)
[2018-06-03] MEDS: Magnesium Oxide 400 MG TABLET PO SCH ×2 (08:24→21:17)
[2018-06-03] MEDS: Gabapentin 100 MG CAPSULE PO SCH ×2 (08:24→21:17)
[2018-06-03] MEDS: Furosemide 20 MG TABLET PO SCH ×2 (08:25→17:16)
[2018-06-03] MEDS: Aspirin Enteric Coated 81 MG Tablet PO SCH (08:25)
[2018-06-03] MEDS: Cholecalciferol (D-3) 1,000 UNIT TABLET PO SCH (08:25)
[2018-06-03] MEDS: Insulin LISPRO 300 UNITS/3 ML VIAL SQ SCH ×4 (08:30→21:27)
--- NOTE | 2018-06-03 09:32 | Discharge Summary ---
- NOTES TO OUTPATIENT PROVIDER Notes to Outpatient Provider: - Follow-up respiratory status. Consider sleep study, suspect much of this related to morbid obestiy in addition to fluid overload as a dialysis patient. - Follow-up with Nephrology as scheduled. Orders not resulted at time of discharge: Pending orders 06/04/18 04:00 Chem 7 [Basic Metabolic Panel] AM 0400 06/05/18 04:00 Chem 7 [Basic Metabolic Panel] AM 04006/06/18 04:00 Chem 7 [Basic Metabolic Panel] AM 04006/07/18 04:00 Chem 7 [Basic Metabolic Panel] AM 04006/08/18 04:00 Chem 7 [Basic Metabolic Panel] AM 04006/09/18 04:00 Chem 7 [Basic Metabolic Panel] AM 04006/10/18 04:00 Chem 7 [Basic Metabolic Panel] AM 04006/11/18 04:00 Chem 7 [Basic Metabolic Panel] AM 040 Date of Encounter: 06/03/18 Time of Encounter: 09:32 - Discharge Diagnosis (1) Dyspnea Priority: Primary Status: Acute Qualifiers: Dyspnea type: dyspnea on exertion Qualified Code(s): R06.09 - Other forms of dyspnea (2) Intra-abdominal abscess Priority: Secondary Status: Acute (3) ESRD (end stage renal disease) on dialysis Priority: Secondary Status: Chronic (4) HTN (hypertension) Priority: Secondary Status: Chronic Qualifiers: Hypertension type: essential hypertension Qualified Code(s): I10 - Essential (primary) hypertension (5) Diabetes Priority: Secondary Status: Acute Qualifiers: Diabetes mellitus type: type 2 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 use: with associate director data & analytics use Diabetes mellitus complication status: with kidney complications Diabetes mellitus complication detail: with chronic kidney disease Chronic kidney disease stage: on chronic dialysis Qualified Code(s) : E11.22 - Type 2 diabetes mellitus with diabetic chronic kidney disease; N18.6 - End stage renal disease; Z79.4 - patternmaker plastics (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 (6) DVT prophylaxis Priority: Secondary Status: Acute Hospital course: Alyson Salvador is a 63-year-old woman with a history of poorly controlled hypertension, diabetes and end-stage renal disease currently on peritoneal dialysis 4 times a day who comes to the emergency room with a complaint of shortness of breath and pain in her left lower quadrant. She says she usually does dialysis 4 times daily however she did it only twice today and feels a bit more short of breath with minimal exertion. As per family members she has been having chills after her dialysis sessions and she has been feeling significant pain in her left lower quadrant over the past 2 months but has been increasing in severity and frequency and aspiration. She appeared clinically and hemodynamically stable on arrival. Due to her complaints of left lower quadrant corresponding with the site of insertion of her peritoneal dialysis catheter, a CT scan was done. Report describes moderate amount of free air within the abdomen suspected related to peritoneal dialysis as well as soft tissue changes along the anterior abdominal wall with a small focal area of fluid concerning for infection/abscess. She denies having fever at home and any time. Blood cultures were obtained and empiric antibiotics were started due to this finding and nephrology was consulted and made aware of the findings. She is now admitted for further care. She was admitted for dyspnea, and intra-abdominal abscess. Based on abdominal findings, it was determined that peritoneal dialysis catheter needed removed. Surgery was consulted and on 06/01/18 she had PD cath removed and tolerated procedure well. Blood cultures negative. She has access for HD, and from now on will need dialysis this way. She had 5 days of vancomycin and Zosyn and transitioned to Augmentin. She was stable for discharge. Her dyspnea improved after receiving dialysis. It appears she also has a LAY component as well and obesity hypoventilation syndrome. - Time Spent with Patient Total time spent providing and/or coordinating discharge services: - Discharge Medications Prescriptions: OxyCODONE/APAP 5/325 [Percocet 5/325 MG] 1 each PO Q8HR PRN 4 Days #12 tablet PRN Reason: Pain Home Medications: Fish Oil/Dha/Epa [Fish Oil 1,200 mg Fish Oil] 1,200 mg PO DAILY 07/05/16 [ History] Omeprazole [PriLOSEC] 40 mg PO DAILY 07/05/16 [History] Aspirin [Lo-Dose Aspirin EC] 81 mg PO DAILY 04/03/17 [History] Cholecalciferol (D-3) [Vitamin D] 5,000 unit PO DAILY 04/03/17 [History] glipiZIDE [Glipizide ER] 10 mg PO BID 04/03/17 [History] Atorvastatin Calcium [Lipitor] 80 mg PO HS 12/19/17 [History] Clopidogrel [Plavix] 75 mg PO DAILY 12/19/17 [History] Furosemide [Lasix] 40 mg PO BID 12/19/17 [History] Insulin ASPART [NovoLOG] 10 unit SQ TIDAC PRN 12/19/17 [History] Insulin Glargine [Lantus] 100 unit SQ Q12H 12/19/17 [History] Docusate [Colace] 200 mg PO DAILY PRN 01/01/18 [History] Carvedilol 3.125 mg PO BID 04/05/18 [History] Lactulose 30 ml PO DAILY PRN 04/06/18 [History] Magnesium Oxide [Magnesium] 400 mg PO BID 04/06/18 [History] Meclizine [Antivert] 25 mg PO BID PRN 04/06/18 [History] Gabapentin [Neurontin] 100 mg PO BID 05/19/18 [History] OxyCODONE/APAP 5/325 [Percocet 5/325 MG] 1 each PO Q8HR PRN 4 Days #12 tablet [Rx] Allergies/Adverse Reactions: 3 Allergy/AdvReac Type Severity Reaction Status Date / Time baclofen Allergy Anaphylaxis Verified 05/29/18 21:14 Diclofenac [From Voltaren] Allergy Anaphylaxis Verified 05/29/18 21:14 nitrofurantoin Allergy Anaphylaxis Verified 05/29/18 21:14 Date of admission: 05/30/18 00:18 Primary care physician: Rhett Madrigal MD Consults: 05/30/18 08:00 Consult to Dialysis [CONS] ONCE 05/30/18 10:21 Consult to Surgery [CONS] Routine Consulting Provider: [facility] Reason for Consult: Peritoneal cath removal. Abdominal abscess. Call Completed: Yes 05/31/18 09:15 Consult to Dialysis [CONS] ONCE 05/31/18 12:02 Consult to Cylinder Loader [CONS] Routine Reason for SW Consult: Please arrange a Dialysis Chair time at [facility] in [place], [place], which she is already in their system, but needs to switch from PD to thrice weekly hemodialysis. She would prefer M/W/F, she said. Also her has requested assistance with a larger/taller wheelchair (current one is broken). Thank you. Discharging clinician: Gabrielle Rivera - Constitutional Vitals: Temp Pulse Resp BP Pulse Ox 98.5 F 80 18 168/66 95 06/03/18 07:18 06/03/18 07:18 06/03/18 07:18 06/03/18 07:18 06/03/18 08:43 Exam: General: NAD, obese Skin: Warm and supple. HEENT: Moist mucous membranes. No conjunctivae pallor. + carotid bruits bilaterally Neck: No lymphadenopathy. No JVD. No carotid bruits. No palpable thyroid. CVS: RRR, + systolic murmur Lungs: ascultation limited due to body habitus and positioning but upper lung baron are clear, diminished breath sounds at bases bilaterally. Abdomen: Soft, Typical post op tenderness, incision site clean, dry. Had old are of purulent discharge but now is clean. Normal bowel sounds. Extremities: 2+ pitting edema bilaterally Neurological: Awake, alert and oriented to person, place and time. No focal deficits. Psych: Affect appropriate. - Patient Status Disposition: Home, Self-Care Condition: Fair Functional capacity at discharge: uses cane/walker Overall status at discharge: patient is progressing back to baseline - Discharge Instructions Follow Up With: Rhett Madrigal MD [Primary Care Provider] - 06/16/18 2:00 pm Nguyen Coughlin CNP [Advanced Practice Nurse] - 06/10/18 2:00 pm (surgery follow -up; staple removal) Additional Instructions: General Surgical Discharge Instructions 1. No pushing, pulling, or lifting greater than 15 lbs for 2 weeks 2. You may shower beginning 06/03/18, but no tub baths, soaking, or swimming for 2 weeks. Cleanse incisions with soap and water and pat dry daily. 3. You may resume driving when you are off narcotics and are safe to react in a car. 4. Take pain medication as directed. 5. Take stool softeners (Colace) or a water based laxative (Miralax) while taking narcotics. You may hold for loose stools. 6. Report any fevers greater than 100.5F, increase abdominal discomfort, drainage that looks like pus, increased redness or pain at the surgical site, or any vomiting. 7. Report any pain in the calves, shortness of breath, or rapid heartbeat. 8. Follow-up in the office as directed. - Diet and Activity Activity: return to work once cleared by your PCP/specialist Diet: other (Renal, diabetic diet)
[2018-06-03] MEDS: FISH OIL 1000 MG PO SCH (10:00)
[2018-06-03] MEDS: traMADol 50 MG TABLET PO PRN ×2 (10:00→21:16)
--- NOTE | 2018-06-03 11:16 | Nephrology Progress Note ---
Date of Encounter: 06/03/18 Time of Encounter: 11:13 - Assessment and Plan (1) ESRD (end stage renal disease) on dialysis Current Visit: Yes Status: Chronic HD completed yesterday. Awaiting chair time at [facility], after that is setup she can go home from a renal standpoint. Avoid nephrotoxins. Continue to challenge dry weight to help with edema. (2) HTN (hypertension) Current Visit: Yes Status: Chronic Stable, BP is 166/86 Qualifiers: Hypertension type: essential hypertension Qualified Code(s): I10 - Essential (primary) hypertension (3) DM type 2 (diabetes mellitus, type 2) Current Visit: No Status: Chronic Per primary. 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 Qualifiers: Chronic kidney disease stage: on chronic dialysis Qualified Code(s): N18.6 - End stage renal disease; D63.1 - Anemia in chronic kidney disease; D63.1 - Anemia in chronic kidney disease; Z99.2 - Dependence on renal dialysis; Z99.2 - Dependence on renal dialysis; Z99.2 - Dependence on renal dialysis; Z99.2 - Dependence on renal dialysis (5) Abscess, abdomen Current Visit: Yes Status: Acute Per primary/surgery. s/p PD cath removal. Drsg C/D/I Subjective Principal diagnosis: difficulty in breathing Interval history: Pt seen and examined doing well. Denies nausea/vomiting/diarrhea. Objective - Vital Signs Vital signs: Vital Signs Temp Pulse Resp BP Pulse Ox 06/03/18 08:43 95 06/03/18 07:18 98.5 F 80 18 168/66 94 06/03/18 05:04 82 17 140/61 95 06/02/18 19:46 98.4 F 86 16 137/71 94 06/02/18 16:07 98.5 F 81 17 153/64 95 06/02/18 12:10 98.4 F 18 178/78 06/02/18 11:50 139/70 06/02/18 11:35 143/69 06/02/18 11:20 143/69 Intake and Output 06/02/18 06/03/18 06/03/18 23:59 07:59 15:59 Intake Total 240 / 240 Output Total 150 / 150 200 / 200 Balance 90 / 90 -200 / -200 Intake: Oral 240 / 240 Output: Urine 150 / 150 200 / 200 Other: Meal Dinner Percent of Meal Consumed 25% Weight 166 kg Blood Glucose* 251 201 Patient Weight 06/03/18 23:59 Weight 166 kg - General Appearance General appearance: Present: well-developed, well-nourished EENT: Present: ATNC, hearing intact, vision intact Neck: Present: supple Respiratory: Present: clear Cardiology: Present: no edema, normal S1, normal S2 Dialysis Vascular Access: Arteriovenous Fistula thrill: Yes bruit: Yes Gastrointestinal: Present: normoactive bowel sounds, no tenderness, no guarding Integumentary: Present: no rash, warm and dry Neurologic: Present: alert and oriented x3 Psychiatric: Present: mood/affect appropriate, cooperative - Lab 06/03/18 06:49 06/03/18 06:49 Most recent lab results Calcium 8.4 mg/dL (8.6-10.3) L 06/03/18 06:49 Magnesium 1.9 mg/dL (1.6-2.6) 05/31/18 Unknown Consult Discharge Plan - Plan Additional Instructions: General Surgical Discharge Instructions 1. No pushing, pulling, or lifting greater than 15 lbs for 2 weeks 2. You may shower beginning 06/03/18, but no tub baths, soaking, or swimming for 2 weeks. Cleanse incisions with soap and water and pat dry daily. 3. You may resume driving when you are off narcotics and are safe to react in a car. 4. Take pain medication as directed. 5. Take stool softeners (Colace) or a water based laxative (Miralax) while taking narcotics. You may hold for loose stools. 6. Report any fevers greater than 100.5F, increase abdominal discomfort, drainage that looks like pus, increased redness or pain at the surgical site, or any vomiting. 7. Report any pain in the calves, shortness of breath, or rapid heartbeat. 8. Follow-up in the office as directed. Referrals: Rhett Madrigal MD [Primary Care Provider] - 06/16/18 2:00 pm Nguyen Coughlin CNP [Advanced Practice Nurse] - 06/10/18 2:00 pm (surgery follow -up; staple removal) Prescriptions: OxyCODONE/APAP 5/325 [Percocet 5/325 MG] 1 each PO Q8HR PRN 4 Days #12 tablet PRN Reason: Pain Amoxicillin/Clavulanate [Augmentin] 500 mg PO HS #5 tablet
--- NOTE | 2018-06-03 13:20 | Event Note ---
Date of Encounter: 06/03/18 Time of Encounter: 12:58 I was notified by nurse that patient was being wheeled out for discharge and she stated she felt dizzy and light headed. Family stated she was having trouble speaking. She has stated to me her symptoms are now improved. She denies blurry vision, headache, n/v, chest pain, shortness of breath. She has abdominal pain from a recent surgery. Vitals include BP of 145/90. I asked nurse to grab complete set of vitals. I performed a neurological exam at bedside that is unremarkable. She is AAO x3, CN II-XII is in tact. Strength is 5/5 in all extremities, sensation is normal. Gait cannot be assessed since patient is post-op and does not ambulate easily at bedside. 1) Acute dizziness Reviewing history, She had an admission in 12/21/17 for presyncope and dizziness. At that time she had Cardiology and Neurology consulted and treated for BPPV. Se had a CTA head and neck that showed severe stenosis of carotid stent of left side. Vascular surgery was consulted and was recommended to get a stent for which she currently has. she had admission on 04/07/18 for baclofen toxicity with similar presentation. She had an MRI at that time with no acute findings. Plan: - Given her risk factors, with carotid stenosis history with stents, will do brief workup. Again, as above exam is non-focal and she is a poor tpa candidate. - Do remaining vital signs including orthostatic vital signs. - obtain stat labs, UA, chest x-ray, EKG - There are no focal deficits to suggest but we will obtain CT head without contrast and obtain an MRI head if negative. No stroke protocol as her complaint is dizziness, less likely stroke and she is a poor surgical candidate : (She recently had surgery for -removal of peritoneal dialysis catheter, also symptoms have rapidly resolved within seconds). -Will monitor today.
[2018-06-03 14:24] LABS: Basophils % 0.7 %; Eosinophils # 0.1 K/mcL (0.0-0.6); Eosinophils % 2.2 %; Hemoglobin 7.7 g/dL (11.5-15.4); Immature Granulocytes % 0.7 % (0-4); Lymphocytes # 0.9 K/mcL (0.6-4.6); Lymphocytes % 21.7 %; Mean Corpuscular HGB Conc 32.1 g/dL (31.6-35.5); Mean Corpuscular Hemoglobin 27.2 pg (28.0-33.3); Mean Corpuscular Volume 84.8 fL (83.0-100.0); Monocytes # 0.3 K/mcL (0.0-1.3); Monocytes % 6.4 %; Neutrophils # 2.8 K/mcL (1.6-8.9); Platelet Count 125 K/mcL (140-400); Red Blood Count 2.83 M/mcL (3.82-4.97); Red Cell Distribution Width 14.4 % (11.5-14.5); Segmented Neutrophils % 68.3 %
[2018-06-03 14:35] LABS: Troponin I < 0.03 ng/mL (< 0.04)
[2018-06-03 14:37] LABS: BUN/Creatinine Ratio 7 (6-26); Blood Urea Nitrogen 24 mg/dL (8-23); Calcium 8.2 mg/dL (8.6-10.3); Carbon Dioxide 29 mEq/L (23-29); Chloride 96 mEq/L (98-107); Glucose 221 mg/dL (70-105); Osmolality,Calculated 289 (280-300); Potassium 4.3 mEq/L (3.5-5.1); Sodium 134 mEq/L (136-145); eGFR For Non-African Americans 13 (> 60)
[2018-06-03] MEDS: Amoxicillin/Clavulanate 500 MG TABLET PO SCH (17:16)
[2018-06-03] MEDS ORDERED: *HR* LORazepam 2 MG/ML VIAL IVP STA (17:30)
[2018-06-03 17:32] LABS: Bilirubin,Urine Negative (Negative); Blood,Urine Moderate (Negative); Clarity,Urine Cloudy (Clear); Color,Urine Yellow (Yellow); Glucose,Urine (UA) Normal (Normal); Ketones,Urine Negative (Negative); Leukocyte Esterase,Urine Negative (Negative); Nitrite,Urine Negative (Negative); Protein,Urine 100 mg/dL (Neg-Trace); Specific Gravity,Urine 1.025 (1.010-1.025); Urobilinogen,Urine Normal (Normal)
[2018-06-03 17:35] LABS: Hyaline Casts,Urine None Seen per lpf (None-Few)
[2018-06-03] MEDS ORDERED: *HR* LORazepam 0.5 MG TABLET PO ONE (17:58)
[2018-06-03 18:02] LABS: Squamous Epithelial Cell,Urine Moderate per lpf (None-Few)
[2018-06-03 18:03] LABS: Bacteria,Urine Few per hpf (None-Few); RBC,Urine 0-3 per hpf (0-3); WBC,Urine 0-3 per hpf (0-3); Yeast,Urine Few per hpf (None Seen)
[2018-06-04] MEDS: *HR* Heparin 5,000 UNIT/ML VIAL SQ SCH ×3 (04:29→21:27)
[2018-06-04] MEDS: OXYCODONE Oral CONC 10 MG/0.5 ML ORAL.SYG SL PRN ×2 (04:29→21:28)
[2018-06-04 05:13] LABS: Calcium 8.5 mg/dL (8.6-10.3); Potassium 4.2 mEq/L (3.5-5.1)
[2018-06-04] MEDS ORDERED: 0.9 % Sodium Chloride 250 ML IVC PRN (07:49)
[2018-06-04] MEDS ORDERED: 0.9 % Sodium Chloride 1,000 ML PRIME SCH (08:00)
[2018-06-04] MEDS ORDERED: 0.9 % Sodium Chloride 2,000 ML ONE (08:08)
[2018-06-04] MEDS: Aspirin Enteric Coated 81 MG Tablet PO SCH (08:57)
[2018-06-04] MEDS: Cholecalciferol (D-3) 1,000 UNIT TABLET PO SCH (08:58)
[2018-06-04] MEDS: Gabapentin 100 MG CAPSULE PO SCH ×2 (08:58→21:27)
[2018-06-04] MEDS: Furosemide 20 MG TABLET PO SCH ×2 (08:58→17:28)
[2018-06-04] MEDS: Magnesium Oxide 400 MG TABLET PO SCH ×2 (08:58→21:27)
[2018-06-04] MEDS: Insulin LISPRO 300 UNITS/3 ML VIAL SQ SCH ×4 (09:26→21:29)
[2018-06-04] MEDS ORDERED: *HR* LORazepam 0.5 MG TABLET PO ONE (09:30)
[2018-06-04] MEDS: FISH OIL 1000 MG PO SCH (09:38)
--- NOTE | 2018-06-04 11:24 | Nephrology Progress Note ---
Date of Encounter: 06/04/18 Time of Encounter: 11:22 - Assessment and Plan (1) ESRD (end stage renal disease) on dialysis Current Visit: Yes Status: Chronic HD planned for today. Outpatient regimen will be TTS. Will order additional UF or HD as needed. (2) Altered mental status, unspecified Current Visit: Yes Status: Acute When pt was d/cholo yesterday she suddenly had the inability to speak. She was taken for head CT and MRI. MRI results: There are 3 punctate areas of restricted diffusion in the left periventricular white matter consistent with acute areas of ischemia in the left middle cerebral artery territory. Minimal chronic small vessel ischemic disease. Minimal opacification of the left mastoid air cells. Recommend a neurology consult. Qualifiers: Qualified Code(s): R41.82 - Altered mental status, unspecified (3) HTN (hypertension) Current Visit: Yes Status: Chronic Stable; continue current antihypertensive(s). Qualifiers: Hypertension type: essential hypertension Qualified Code(s): I10 - Essential (primary) hypertension (4) DM type 2 (diabetes mellitus, type 2) Current Visit: No Status: Chronic As per primary. 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 Qualifiers: Chronic kidney disease stage: on chronic dialysis Qualified Code(s): N18.6 - End stage renal disease; D63.1 - Anemia in chronic kidney disease; D63.1 - Anemia in chronic kidney disease; Z99.2 - Dependence on renal dialysis; Z99.2 - Dependence on renal dialysis; Z99.2 - Dependence on renal dialysis; Z99.2 - Dependence on renal dialysis (6) Abscess, abdomen Current Visit: Yes Status: Acute Appreciate Gen Surgery. Subjective Principal diagnosis: ESRD with abscessed PD catheter Interval history: Pt seen and examined doing well. Denies nausea/vomiting/diarrhea. Admits to feeling fatigued. Objective - Vital Signs Vital signs: Vital Signs Temp Pulse Resp BP BP BP BP 06/04/18 06:54 98.4 F 76 17 153/58 06/04/18 05:00 97.6 F 82 16 123/84 06/04/18 00:31 98.8 F 79 15 135/65 06/03/18 21:30 97.9 F 83 17 143/76 06/03/18 17:05 144/92 150/90 136/88 06/03/18 16:00 98.5 F 78 17 186/76 06/03/18 12:56 98.7 F 83 16 145/90 Pulse Ox 06/04/18 06:54 96 06/04/18 05:00 95 06/04/18 00:31 94 06/03/18 21:30 95 06/03/18 17:05 06/03/18 16:00 95 06/03/18 12:56 94 Intake and Output 06/03/18 06/04/18 06/04/18 23:59 07:59 15:59 Intake Total 0 / 0 0 / 0 120 / 120 Output Total 350 / 350 0 / 0 Balance -350 / -350 0 / 0 120 / 120 Intake: Oral 0 / 0 0 / 0 120 / 120 Output: Urine 350 / 350 0 / 0 Other: Meal Breakfast Percent of Meal Consumed 100% # Voids 1 Weight 164.7 kg Blood Glucose* 256 254 Patient Weight 06/04/18 23:59 Weight 164.7 kg - General Appearance General appearance: Present: well-developed, well-nourished EENT: Present: ATNC, hearing intact, vision intact Neck: Present: supple Respiratory: Present: clear Cardiology: Present: edema (+1 pitting edema noted to bilat lower extremities.) , normal S1, normal S2 Dialysis Vascular Access: Arteriovenous Fistula thrill: Yes bruit: Yes Gastrointestinal: Present: normoactive bowel sounds, no tenderness, no guarding Integumentary: Present: no rash, warm and dry Neurologic: Present: alert and oriented x3 Psychiatric: Present: mood/affect appropriate, cooperative - Lab 06/03/18 13:49 06/04/18 04:40 Most recent lab results Calcium 8.5 mg/dL (8.6-10.3) L 06/04/18 04:40 Magnesium 1.9 mg/dL (1.6-2.6) 05/31/18 Unknown Consult Discharge Plan - Plan Instructions: Oxycodone/Acetaminophen (By mouth), Amoxicillin/Clavulanate Potassium (By mouth), Chronic Kidney Disease (DC), Hemodialysis (DC), Dialysis Diet (DC), Diabetes Mellitus Type 2 in Adults (DC), Chronic Hypertension (DC), End-Stage Kidney Disease (DC) Additional Instructions: General Surgical Discharge Instructions 1. No pushing, pulling, or lifting greater than 15 lbs for 2 weeks 2. You may shower beginning 06/03/18, but no tub baths, soaking, or swimming for 2 weeks. Cleanse incisions with soap and water and pat dry daily. 3. You may resume driving when you are off narcotics and are safe to react in a car. 4. Take pain medication as directed. 5. Take stool softeners (Colace) or a water based laxative (Miralax) while taking narcotics. You may hold for loose stools. 6. Report any fevers greater than 100.5F, increase abdominal discomfort, drainage that looks like pus, increased redness or pain at the surgical site, or any vomiting. 7. Report any pain in the calves, shortness of breath, or rapid heartbeat. 8. Follow-up in the office as directed. Referrals: Rhett Madrigal MD [Primary Care Provider] - 06/16/18 2:00 pm Nguyen Coughlin CNP [Advanced Practice Nurse] - 06/10/18 2:00 pm (surgery follow -up; staple removal) Prescriptions: OxyCODONE/APAP 5/325 [Percocet 5/325 MG] 1 each PO Q8HR PRN 4 Days #12 tablet PRN Reason: Pain Amoxicillin/Clavulanate [Augmentin] 500 mg PO HS #5 tablet
--- NOTE | 2018-06-04 11:52 | Internal Med Progress Note ---
Hospitalist Progress Note - Encounter Date of Encounter: 06/04/18 Time of Encounter: 11:45 - Subjective Interval History: Patient was admitted for peritoneal dialysis catheter removal. She tolerated procedure well and she was being discharged home. As she was being wheeled out yesterday, she had felt dizzy and light headed. Family said there was a brief moment of having trouble speaking. Her discharge was canceled and she was further worked up and monitored. A physical exam at that time showed no abnormalities, and neuro exam was non-focal. A stat CT head 06/03 showed no acute abnormalitites. she was poor tpa candidate due to rapid resolution of symptoms and she is also post-op. An MRI was to be done yesterday but she was anxious and test could not be done until today and needed premedicated. Today MRI shows 3 punctate areas of restricted diffusion in left white matter, consistent with acute areas of ischemia in left middle cerbral artery. She had carotids done that showed prelim left carotid artery 80-99% stenosis of left ICA. She currently denies any focal weakness, difficulty in speech, headache, visual changes, n/v, chest pain, SOB. - Exam Vitals: Temp Pulse Resp BP Pulse Ox 98.4 F 76 17 153/58 96 06/04/18 06:54 06/04/18 06:54 06/04/18 06:54 06/04/18 06:54 06/04/18 06:54 Exam: General: NAD, obese Skin: Warm and supple. HEENT: Moist mucous membranes. No conjunctivae pallor. + carotid bruits bilaterally Neck: No lymphadenopathy. No JVD. No carotid bruits. No palpable thyroid. CVS: RRR, + systolic murmur Lungs: ascultation limited due to body habitus and positioning but upper lung baron are clear, diminished breath sounds at bases bilaterally. Abdomen: Soft, Typical post op tenderness, incision site clean, dry. Had old are of purulent discharge but now is clean. Normal bowel sounds. Extremities: 2+ pitting edema bilaterally Neurological: Awake, alert and oriented to person, place and time. No focal deficits, CN II-XII is in tact. Strength is 5/5 equal in all extremities, sensation is normal. Gait cannot be assessed since patient does not ambulate easily at baseline. Psych: Affect appropriate. - Assessment and Plan (1) Acute CVA (cerebrovascular accident) Current Visit: Yes Status: Acute Assessment and Plan: Patient was admitted for peritoneal dialysis catheter removal. She tolerated procedure well and she about to be discharged home yesterday. As she was being wheeled out yesterday, she had felt dizzy and light headed. Family said there was a brief moment of having trouble speaking. Her discharge was canceled and she was further worked up and monitored. A physical exam at that time showed no abnormalities, and neuro exam was non-focal. A stat CT head 06/03 showed no acute abnormalitites. she was poor tpa candidate due to rapid resolution of symptoms and she is also post-op. An MRI was to be done yesterday but she was anxious and test could not be done until today and needed premedicated. Today MRI shows 3 punctate areas of restricted diffusion in left white matter, consistent with acute areas of ischemia in left middle cerbral artery. She had carotids done that showed prelim left carotid artery 80-99% stenosis of left ICA. She currently denies any focal weakness, symptoms have not returned. She is currently on aspirin, Plavix, Lipitor Consult Neurology Consult Vascular Surgery Neurochecks q4H Continue telemetry monitoring. (2) Carotid stenosis, left Current Visit: Yes Status: Acute (3) Dyspnea Current Visit: Yes Status: Acute Assessment and Plan: Presented for dyspnea on exertion and workup showed intra abdominal abscess. Patient currently unable to ambulate to assess SOB. Likely this is fluid overload which she did have 3.6 L fluid removed at dialysis two days ago. Encouraged IS, Duo Neb therapy if needed, though she has no known lung disease history. Vascular access will be used now since plan to remove peritoneal catheter. Is resolved. (4) Intra-abdominal abscess Current Visit: Yes Status: Acute Assessment and Plan: Patient had PD catheter removal on 06/01, and per Surgery reporting there was no drainable abscess. This could be non-infectious or possibly resolving. Has received 5 days Vanc/Zosyn. Will transition to Augmentin for a few more days therapy. Blood cultures obtained on admission are negative. (5) ESRD (end stage renal disease) on dialysis Current Visit: Yes Status: Chronic Assessment and Plan: Secondary to diabetic/hypertensive nephropathy. Dialysis per schedule Will need HD from now on. Pending HD setup for outpatient. (6) HTN (hypertension) Current Visit: Yes Status: Chronic Assessment and Plan: Can do permissive HTN due to CVA (7) Diabetes Current Visit: Yes Status: Acute Assessment and Plan: Continue sliding scale (8) DVT prophylaxis Current Visit: Yes Status: Acute Assessment and Plan: SubQ heparin. - Time Spent with Patient Total time spent is greater than 50% in coordination of care (as documented) at patient's floor/unit and/or counseling patient: Internal Medicine: Result - Labs CBC & Chem 7: 06/03/18 13:49 06/04/18 04:40 Labs: Short CBC 06/03/18 Range/Units 13:49 WBC 4.1 L (4.3-11.1) K/mcL Hgb 7.7 L (11.5-15.4) g/dL Hct 24.0 L (35.3-44.9) % Plt Count 125 L (140-400) K/mcL Neutrophils # 2.8 (1.6-8.9) K/mcL BMP 06/03/18 06/04/18 13:49 04:40 Sodium 134 L 135 L Potassium 4.3 4.2 Chloride 96 L 97 L Carbon Dioxide 29 29 BUN 24 H 28 H Creatinine 3.50 H 3.55 H Glucose 221 H 240 H Calcium 8.2 L 8.5 L Cardiac Enzymes 06/03/18 Range/Units 13:49 Troponin I < 0.03 (< 0.04) ng/mL Urine 06/03/18 Range/Units 17:18 Urine Color Yellow (Yellow) Urine Clarity Cloudy A (Clear) Urine pH 6.0 (5.0-8.0) pH Units Ur Specific [place] 1.025 (1.010-1.025) Urine Protein 100 H (Neg-Trace) mg/dL Urine Glucose (UA) Normal (Normal) mg/dL - ABG Interpretation ABG results: PT/INR, D-dimer PT 10.8 Seconds (9.4-12.1) 05/30/18 04:09 - Impressions Impressions Head CT 06/03/18 13:17 IMPRESSION: No acute intracranial abnormality. D/ / Thierno Cummings MD / Thierno Cummings MD Interpreting Provider: Thierno Cummings MD Brain MRI 06/04/18 17:15 IMPRESSION: There are 3 punctate areas of restricted diffusion in the left periventricular white matter consistent with acute areas of ischemia in the left middle cerebral artery territory. Minimal chronic small vessel ischemic disease. Minimal opacification of the left mastoid air cells. D/ / 06/04/2018 11:22:36 Majo Garcia MD / ronak Interpreting Provider: Majo Garcia MD Consult Discharge Plan - Plan Instructions: Oxycodone/Acetaminophen (By mouth), Amoxicillin/Clavulanate Potassium (By mouth), Chronic Kidney Disease (DC), Hemodialysis (DC), Dialysis Diet (DC), Diabetes Mellitus Type 2 in Adults (DC), Chronic Hypertension (DC), End-Stage Kidney Disease (DC) Additional Instructions: General Surgical Discharge Instructions 1. No pushing, pulling, or lifting greater than 15 lbs for 2 weeks 2. You may shower beginning 06/03/18, but no tub baths, soaking, or swimming for 2 weeks. Cleanse incisions with soap and water and pat dry daily. 3. You may resume driving when you are off narcotics and are safe to react in a car. 4. Take pain medication as directed. 5. Take stool softeners (Colace) or a water based laxative (Miralax) while taking narcotics. You may hold for loose stools. 6. Report any fevers greater than 100.5F, increase abdominal discomfort, drainage that looks like pus, increased redness or pain at the surgical site, or any vomiting. 7. Report any pain in the calves, shortness of breath, or rapid heartbeat. 8. Follow-up in the office as directed. Referrals: Rhett Madrigal MD [Primary Care Provider] - 06/16/18 2:00 pm Nguyen Coughlin CNP [Advanced Practice Nurse] - 06/10/18 2:00 pm (surgery follow -up; staple removal) Prescriptions: OxyCODONE/APAP 5/325 [Percocet 5/325 MG] 1 each PO Q8HR PRN 4 Days #12 tablet PRN Reason: Pain Amoxicillin/Clavulanate [Augmentin] 500 mg PO HS #5 tablet (3) Dyspnea Qualifiers: Dyspnea type: dyspnea on exertion Qualified Code(s): R06.09 - Other forms of dyspnea (6) HTN (hypertension) Qualifiers: Hypertension type: essential hypertension Qualified Code(s): I10 - Essential (primary) hypertension (7) Diabetes Qualifiers: Diabetes mellitus type: type 2 Diabetes mellitus oil heaterman insulin use: with oil heaterman use Diabetes mellitus complication status: with kidney complications Diabetes mellitus complication detail: with chronic kidney disease Chronic kidney disease stage: on chronic dialysis Qualified Code(s): E11.22 - Type 2 diabetes mellitus with diabetic chronic kidney disease; N18.6 - End stage renal disease; Z79.4 - [facility] (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
[2018-06-04] MEDS: traMADol 50 MG TABLET PO PRN (11:54)
[2018-06-04] MEDS: Amoxicillin/Clavulanate 500 MG TABLET PO SCH (17:29)
--- NOTE | 2018-06-04 17:30 | Neurology - Consult Note ---
Date of Encounter: 06/04/18 Time of Encounter: 17:21 Assessment and Plan (1) CVA (cerebral vascular accident) Current Visit: Yes Status: Acute Patient developed acute onset of speech difficulty, dizziness and transient weakness, in the setting of s/p abdominal abscess surgery with MRI of brain showing three small punctate infarct at the left hemisphere subcortical region with a pattern consistent with borderzone infarct secondary to hypoperfusion. Patient with known history of left ICA stenosis, s/p left carotid artery stent placement with residual proximal left ICA stenosis, evidenced on recent cerebral angiogram done at [facility] during 01/2018. May benefit from repeat traditional angiogram and/or repeat angioplasty. Currently will keep on aspirin and plavix. Sizes of stroke are small therefore would not expect significant neurological deficits from this event. Qualifiers: CVA mechanism: stenosis Precerebral and cerebral artery: carotid artery Laterality of affected vessel: left Qualified Code(s): I63.232 - Cerebral infarction due to unspecified occlusion or stenosis of left carotid arteries History of Present Illness Chief complaint: CVA HPI: Ms. Salvador is a 63 year old female with PMH significant for carotid artery stenosis, s/p left carotid artery stent placement, ESRD on peritoneal dialysis, HTN who was initially admitted to the hospital due to abdominal pain and found to have abdominal abscess and has surgery done few days ago and she was about to be discharged however, she developed an episode of difficulty in speech, light headedness which occurred yesterday which rapidly resolved. however, an MRI of brain showed presence of three small punctate infarct at the left hemisphere subcortical area with a patterns that indicate borderzone infarct. Patient does have history of left carotid artery stenosis and has had carotid artery doppler study showing 80-99% stenosis. She had stent placement at an outside hospital. She has been evaluated at [facility] interventional radiology latest during January/2018 and she had a traditional angiogram done. I would copy and paste the report here below: Alyson Salvador Op Note Date of Service: 02/10/2018 12:00 PM Malik Rod MD [facility] Operative Report DATE PERFORMED: 02/10/2018 SURGEON: Malik Rod MD INTEGRATION SOFTWARE DEVELOPER: Brandon PREOPERATIVE DIAGNOSIS: Severe left internal carotid artery stenosis, status post stent placement. POSTOPERATIVE DIAGNOSIS: Severe left internal carotid artery stenosis, status post stent placement. PROCEDURE PERFORMED: Arch and selective bilateral carotid angiogram, StarClose left femoral artery. ANESTHESIA: Local. INDICATION: Ms. Salvador is a 62-year-old woman who is status post left carotid stent placement at an outside hospital. This was done without distal protection as the filter could not be passed. In addition, a second stent was thought to be indicated, but it could not be passed into the lesion either. Therefore, the procedure was aborted. She has had a couple of duplex scans, which showed high-grade stenosis persistent in the left carotid artery. CT scan was nondiagnostic. DESCRIPTION OF PROCEDURE: The patient was brought to the angio suite and, after appropriate time-out procedure, was transferred to the angio table. Xylocaine 1% was infiltrated in her left femoral artery after appropriate sedation. The J-wire was passed up to the abdominal aorta under constant fluoroscopic guidance. A 5-Korean sheath was used to protect the artery. A pigtail catheter was passed over the wire and positioned at the level of the ascending aorta. An arteriogram was obtained. The catheter was exchanged for a Rodríguez 2 type catheter, which was used to selectively cannulate the right common carotid artery, which was a second order vessel, and the left common carotid artery, which is a first order vessel. Based on the findings, no intervention was deemed appropriate, therefore the procedure was completed. The StarClose device was deployed in the left femoral artery with good hemostasis. She was awakened neurologically intact and transferred to the recovery area in stable condition. FINDINGS: Arch of the aorta shows a type 1 aortic arch with wide patency of the innominate, bilateral subclavian arteries, and both vertebral arteries, although the left appeared to be slightly more dominant. Both common carotid arteries are widely patent. On the left side, the left external carotid artery is also widely patent. There is a stent present from the mid to very proximal left internal carotid artery. The stent ends right at the common junction with the external carotid artery. There does appear to be approximately 50 to 60% residual stenosis within this region. The left-sided injection rapidly fills the left middle and both anterior cerebral vessels. On the right side the injection shows wide patency of the right internal and external carotid arteries. The intracranial views show rapid filling of the right middle cerebral artery. Dictated By: MD Malik Hawkins MD ATTENDING CELINA/Dangelo JOB: [id number] DOC: [id number] Per [facility] medical records, the patient had residual left ICA stenosis of 50-60% at the proximal ICA close to the junction area and it was mentioned that there was an attempt with the original intervention radiologist to place a second stent? but was unable to pass. Patient is currently on aspirin and plavix dual antiplatelet therapy. Currently the patient denies significant discomforts, no focal weakness noted. Past Med Surg Social Fam HX - Past Medical History Medical history: CHF, diabetes, GERD, hyperlipidemia, hypertension, peripheral artery disease, other Additional medical history: ESRD, heart disease Psychiatric history: no psych history - Past Surgical History Surgical History: , cholecystectomy, herniorrhaphy, hysterectomy, orthopedic, other, other Additional surgical history: two sx on the right wrist ABDOMINAL DIALYSIS PORT, knee scope - Social History Smoking Status: Never smoker Smokeless Tobacco Status: No Alcohol use: none Drug use: none - Family History Father Family Member Ethnicity: Non- Living Status: Age at : 87 Cause of : Kidney Diseae Hx Family Cardiac Disorders: No Hx Family Respiratory Disorders: No Hx Family Cancer: Yes (Prostate) Hx Family GI Disorders: No Hx Family Genitourinary Disorders: No Hx Family Endocrine Disorder: Yes Hx Family Musculoskeletal Disorders: No Hx Family Neuromuscular Disorders: No Hx Family Neurologic Disorders: No Hx Family HEENT Disorders: No Hx Family Autoimmune Disorders: No Hx Family Psychosocial Disorders: No Hx Family Medical Disorders: No Mother Family Member Ethnicity: Non- Living Status: Age at : 70 Cause of : Stroke Hx Family Cardiac Disorders: Yes Hx Family Respiratory Disorders: No Hx Family Cancer: No Hx Family GI Disorders: No Hx Family Genitourinary Disorders: No Hx Family Endocrine Disorder: No Hx Family Musculoskeletal Disorders: No Hx Family Neuromuscular Disorders: No Hx Family Neurologic Disorders: No Hx Family HEENT Disorders: No Hx Family Autoimmune Disorders: No Hx Family Reproductive Disorders: No Hx Family Psychosocial Disorders: No Hx Family Medical Disorders: No Medications and Allergies RX: Fish Oil/Dha/Epa [Fish Oil 1,200 mg Fish Oil] 1,200 mg PO DAILY 07/05/16 [History] RX: Omeprazole [PriLOSEC] 40 mg PO DAILY 07/05/16 [History] RX: Aspirin [Lo-Dose Aspirin EC] 81 mg PO DAILY 04/03/17 [History] RX: Cholecalciferol (D-3) [Vitamin D] 5,000 unit PO DAILY 04/03/17 [History] RX: glipiZIDE [Glipizide ER] 10 mg PO BID 04/03/17 [History] RX: Atorvastatin Calcium [Lipitor] 80 mg PO HS 12/19/17 [History] RX: Clopidogrel [Plavix] 75 mg PO DAILY 12/19/17 [History] RX: Furosemide [Lasix] 40 mg PO BID 12/19/17 [History] RX: Insulin ASPART [NovoLOG] 10 unit SQ TIDAC PRN 12/19/17 [History] RX: Insulin Glargine [Lantus] 100 unit SQ Q12H 12/19/17 [History] RX: Docusate [Colace] 200 mg PO DAILY PRN 01/01/18 [History] RX: Carvedilol 3.125 mg PO BID 04/05/18 [History] RX: Lactulose 30 ml PO DAILY PRN 04/06/18 [History] RX: Magnesium Oxide [Magnesium] 400 mg PO BID 04/06/18 [History] RX: Meclizine [Antivert] 25 mg PO BID PRN 04/06/18 [History] RX: Gabapentin [Neurontin] 100 mg PO BID 05/19/18 [History] OxyCODONE/APAP 5/325 [Percocet 5/325 MG] 1 each PO Q8HR PRN 4 Days #12 tablet 06/02/18 [Rx] Amoxicillin/Clavulanate [Augmentin] 500 mg PO HS #5 tablet 06/03/18 [Rx] Allergy/AdvReac Type Severity Reaction Status Date / Time baclofen Allergy Anaphylaxis Verified 05/29/18 21:14 Diclofenac [From Voltaren] Allergy Anaphylaxis Verified 05/29/18 21:14 nitrofurantoin Allergy Anaphylaxis Verified 05/29/18 21:14 All Systems: The remainder of the systems were reviewed and are negative Physical Examination - Vital Signs Vital Signs: Initial Vital Signs Temp Pulse Resp BP Pulse Ox 98.2 F 90 16 149/75 97 05/29/18 18:12 05/29/18 18:12 05/29/18 18:12 05/29/18 18:12 05/29/18 18:12 - Constitutional General appearance: comfortable - Neurologic Sensorimotor examination: intact Detailed motor examination: full strength in all major muscle groups Motor examination - right side: 5/5: deltoids, biceps, triceps, wrist flexion, wrist extension, commercial manager, hip flexors, tibialis Anterior, quadriceps, toe extension (EHL), plantarflexion Motor examination - left side: 5/5: deltoids, biceps, triceps, wrist flexion, wrist extension, hip flexors, commercial manager, quadriceps, tibialis Anterior, toe extension (EHL), plantarflexion Reflex and gait examination: other (Gait note assessed) Reflexes: Biceps: 1+, Triceps: 1+, Brachioradialis: 1+, Patella: 1+, Achilles: 1+ Mental Status Examination: awake, alert, oriented to person, oriented to place, oriented to time, follows commands appropriately, answers questions appropriately, no agnosia, no aphasia, no aproxia Cranial nerve examination: PERRL, EOMI, visual baron intact, corneal reflexes brisk symmetrically, sensory to face intact, mastication intact, no facial asymmetry is present, no dysarthria, hearing is intact symmetrically, soft palate elevates bilaterally upon phonation, gag reflex intact, flexes SCM and trapezius muscles symmetrically with full power, tongue protrudes midline, no atrophy or facial fasiculations present Cerebellar examination: no dysmetria, performs finger to nose and heel to gray symmetrically without ataxia, no gait ataxia (Gait not tested), no truncal ataxia (Gait noted tested), no difficulty with rapid alternating movements Results - Laboratory Findings CBC and BMP: 06/05/18 04:45 06/05/18 04:45 Abnormal lab findings: Abnormal lab results WBC 4.1 K/mcL (4.3-11.1) L 06/03/18 13:49 RBC 2.83 M/mcL (3.82-4.97) L 06/03/18 13:49 Hgb 7.7 g/dL (11.5-15.4) L 06/03/18 13:49 Hct 24.0 % (35.3-44.9) L 06/03/18 13:49 MCH 27.2 pg (28.0-33.3) L 06/03/18 13:49 Plt Count 125 K/mcL (140-400) L 06/03/18 13:49 Sodium 135 mEq/L (136-145) L 06/04/18 04:40 Chloride 97 mEq/L (98-107) L 06/04/18 04:40 BUN 28 mg/dL (8-23) H 06/04/18 04:40 Creatinine 3.55 mg/dL (0.60-1.20) H 06/04/18 04:40 Est GFR ( Amer) 16 (> 60) L 06/04/18 04:40 Est GFR (Non-Af Amer) 13 (> 60) L 06/04/18 04:40 Glucose 240 mg/dL (70-105) H 06/04/18 04:40 POC Glucose 225 mg/dL (70-99) H 06/04/18 12:09 Calcium 8.5 mg/dL (8.6-10.3) L 06/04/18 04:40 Albumin 2.4 g/dL (3.5-5.7) L 05/31/18 Unknown Urine Clarity Cloudy (Clear) A 06/03/18 17:18 Urine Protein 100 mg/dL (Neg-Trace) H 06/03/18 17:18 Urine Blood Moderate (Negative) H 06/03/18 17:18 Ur Squamous Epith Cells Moderate per lpf (None-Few) H 06/03/18 17:18 Urine Yeast Few per hpf (None Seen) H 06/03/18 17:18 Vancomycin Trough 11 mcg/mL (5-10) H 05/31/18 Unknown Consult Discharge Plan - Plan Instructions: Oxycodone/Acetaminophen (By mouth), Amoxicillin/Clavulanate Potassium (By mouth), Chronic Kidney Disease (DC), Hemodialysis (DC), Dialysis Diet (DC), Diabetes Mellitus Type 2 in Adults (DC), Chronic Hypertension (DC), End-Stage Kidney Disease (DC) Additional Instructions: General Surgical Discharge Instructions 1. No pushing, pulling, or lifting greater than 15 lbs for 2 weeks 2. You may shower beginning 06/03/18, but no tub baths, soaking, or swimming for 2 weeks. Cleanse incisions with soap and water and pat dry daily. 3. You may resume driving when you are off narcotics and are safe to react in a car. 4. Take pain medication as directed. 5. Take stool softeners (Colace) or a water based laxative (Miralax) while taking narcotics. You may hold for loose stools. 6. Report any fevers greater than 100.5F, increase abdominal discomfort, drainage that looks like pus, increased redness or pain at the surgical site, or any vomiting. 7. Report any pain in the calves, shortness of breath, or rapid heartbeat. 8. Follow-up in the office as directed. Referrals: Rhett Madrigal MD [Primary Care Provider] - 06/16/18 2:00 pm Nguyen Coughlin CNP [Advanced Practice Nurse] - 06/10/18 2:00 pm (surgery follow-up; staple removal) Prescriptions: OxyCODONE/APAP 5/325 [Percocet 5/325 MG] 1 each PO Q8HR PRN 4 Days #12 tablet PRN Reason: Pain Amoxicillin/Clavulanate [Augmentin] 500 mg PO HS #5 tablet
--- NOTE | 2018-06-04 19:11 | Vascular/Endovasc Consult Note ---
Date of Encounter: 06/04/18 Time of Encounter: 19:07 Assessment and Plan (1) Carotid stenosis, left Current Visit: Yes Status: Acute Recurrent stenosis of left internal carotid artery with in-stent stenosis by duplex scanning that is in the 80-99% range. Because of the severity of the stenosis I would recommend the patient be transferred to [facility] for repeat angiography and consideration for possible intra-stent intervention with distal protective device. I explained in great detail with the family present the ongoing anatomic issues as well as the surgical and endovascular concerns. I informed them that further treatment would be indicated if the angiogram corroborates the findings of the duplex scan from today. All questions were answered. I agree with continuation of antiplatelet therapy. (2) Acute CVA (cerebrovascular accident) Current Visit: Yes Status: Acute Punctate infarcts 3 in the left hemisphere subcortical region. - History of Present Illness Consult date: 06/04/18 Consult reason: Acute stroke and carotid stenosis Chief complaint: Difficulty speaking History of present illness: Ms. Salvador is a 63 year old female Who was originally admitted for issues associated with peritoneal dialysis. The patient was being discharged she had an episode of a fascia and dizziness. She her discharge was canceled and workup ensued. This included a carotid duplex scan and MRI of her brain. The carotid artery duplex scan demonstrates a high- grade lesion of the left internal carotid artery. This carotid artery had been stented in November 2017 at [facility] in [place]. The patient had an episode of dizziness and blood pressure instability at that time. She was at her home in [place]. She was taken to a local fire house and a helicopter came and dispatched her to [facility]. She underwent treatment. She does not recall speaking to a vascular surgeon during that time. She went on to have a stent placed in the left internal carotid artery. The patient was back at [facility] in December and had issues of dizziness. She underwent a carotid artery duplex scan which revealed a left internal carotid artery stenosis with a peak systolic velocity of 275 cm/s and end-diastolic velocity of 94 cm/s. I personally reviewed these images. The patient went on to have an angiogram at [facility] in January by Dr. Malik Rod with a 50-60% stenosis identified but no intervention. Now the patient was admitted because of peritoneal dialysis issues. A carotid duplex scan was done earlier today and now velocity in the left internal carotid artery is markedly elevated at 486 cm/s with an end- diastolic velocity of 222 cm/s. The estimated stenosis is 80-99%. The internal to common carotid artery ratio is 4.8 on the left. The right carotid artery demonstrates non stenotic plaque. I have personally reviewed these images. Of note the patient was also found to have 3 punctate areas of subcortical infarct in the left hemisphere on the MRI. At the time of my interview the patient was lying in bed. She was awake and in no distress but she notes with position changes she has dizziness. Past Med Surg Social Fam HX - Past Medical History Medical history: CHF, diabetes, GERD, hyperlipidemia, hypertension, peripheral artery disease, other Additional medical history: ESRD, heart disease Psychiatric history: no psych history - Past Surgical History Surgical History: , cholecystectomy, herniorrhaphy, hysterectomy, orthopedic, other, other Additional surgical history: two sx on the right wrist ABDOMINAL DIALYSIS PORT, knee scope - Social History Smoking Status: Never smoker Smokeless Tobacco Status: No Alcohol use: none Drug use: none - Family History Father Family Member Ethnicity: Non- Living Status: Age at : 87 Cause of : Kidney Diseae Hx Family Cardiac Disorders: No Hx Family Respiratory Disorders: No Hx Family Cancer: Yes (Prostate) Hx Family GI Disorders: No Hx Family Genitourinary Disorders: No Hx Family Endocrine Disorder: Yes Hx Family Musculoskeletal Disorders: No Hx Family Neuromuscular Disorders: No Hx Family Neurologic Disorders: No Hx Family HEENT Disorders: No Hx Family Autoimmune Disorders: No Hx Family Psychosocial Disorders: No Hx Family Medical Disorders: No Mother Family Member Ethnicity: Non- Living Status: Age at : 70 Cause of : Stroke Hx Family Cardiac Disorders: Yes Hx Family Respiratory Disorders: No Hx Family Cancer: No Hx Family GI Disorders: No Hx Family Genitourinary Disorders: No Hx Family Endocrine Disorder: No Hx Family Musculoskeletal Disorders: No Hx Family Neuromuscular Disorders: No Hx Family Neurologic Disorders: No Hx Family HEENT Disorders: No Hx Family Autoimmune Disorders: No Hx Family Reproductive Disorders: No Hx Family Psychosocial Disorders: No Hx Family Medical Disorders: No Medications and Allergies Fish Oil/Dha/Epa [Fish Oil 1,200 mg Fish Oil] 1,200 mg PO DAILY 07/05/16 [ History] Omeprazole [PriLOSEC] 40 mg PO DAILY 07/05/16 [History] Aspirin [Lo-Dose Aspirin EC] 81 mg PO DAILY 04/03/17 [History] Cholecalciferol (D-3) [Vitamin D] 5,000 unit PO DAILY 04/03/17 [History] glipiZIDE [Glipizide ER] 10 mg PO BID 04/03/17 [History] Atorvastatin Calcium [Lipitor] 80 mg PO HS 12/19/17 [History] Clopidogrel [Plavix] 75 mg PO DAILY 12/19/17 [History] Furosemide [Lasix] 40 mg PO BID 12/19/17 [History] Insulin ASPART [NovoLOG] 10 unit SQ TIDAC PRN 12/19/17 [History] Insulin Glargine [Lantus] 100 unit SQ Q12H 12/19/17 [History] Docusate [Colace] 200 mg PO DAILY PRN 01/01/18 [History] Carvedilol 3.125 mg PO BID 04/05/18 [History] Lactulose 30 ml PO DAILY PRN 04/06/18 [History] Magnesium Oxide [Magnesium] 400 mg PO BID 04/06/18 [History] Meclizine [Antivert] 25 mg PO BID PRN 04/06/18 [History] Gabapentin [Neurontin] 100 mg PO BID 05/19/18 [History] OxyCODONE/APAP 5/325 [Percocet 5/325 MG] 1 each PO Q8HR PRN 4 Days #12 tablet [Rx] Amoxicillin/Clavulanate [Augmentin] 500 mg PO HS #5 tablet 06/03/18 [Rx] 3 Allergy/AdvReac Type Severity Reaction Status Date / Time baclofen Allergy Anaphylaxis Verified 05/29/18 21:14 Diclofenac [From Voltaren] Allergy Anaphylaxis Verified 05/29/18 21:14 nitrofurantoin Allergy Anaphylaxis Verified 05/29/18 21:14 All Systems Review: The remainder of the systems were reviewed and are negative Exam Vital Signs, Last 4 Hours Temp Resp BP 06/04/18 18:02 118/70 06/04/18 17:10 98.1 F 18 164/76 06/04/18 16:50 143/69 06/04/18 16:35 139/62 06/04/18 16:20 133/67 06/04/18 16:05 144/63 06/04/18 15:50 166/76 06/04/18 15:35 138/69 06/04/18 15:20 156/77 General: Present: Conversant, No Apparent Distress, Well developed, Well nourished, Other (Obese) HEENT: Present: Atraumatic, Normocephaly, Trachea midline Neck: Absent: JVD, Right Carotid bruit, Midline deformity, Tracheal deviation Cardiac: Present: Reg Rate and Rhythm, Normal S1 and S2, No Murmur Lungs: Present: Normal Breath Sounds Neuro: Present: Alert and responsive, No focal deficits noted, Cranial nerves grossly intact Abdomen: Present: Soft, Non-tender Vascular: Present: Surgical incisions (Patient has surgical incisions and a left forearm AV shunt. The AV shunt has a loud bruit and is clearly patent. Patient states that this shunt was performed at [place].) Skin: Present: No rashes noted on visualized skin Consult Discharge Plan - Plan Instructions: Oxycodone/Acetaminophen (By mouth), Amoxicillin/Clavulanate Potassium (By mouth), Chronic Kidney Disease (DC), Hemodialysis (DC), Dialysis Diet (DC), Diabetes Mellitus Type 2 in Adults (DC), Chronic Hypertension (DC), End-Stage Kidney Disease (DC) Additional Instructions: General Surgical Discharge Instructions 1. No pushing, pulling, or lifting greater than 15 lbs for 2 weeks 2. You may shower beginning 06/03/18, but no tub baths, soaking, or swimming for 2 weeks. Cleanse incisions with soap and water and pat dry daily. 3. You may resume driving when you are off narcotics and are safe to react in a car. 4. Take pain medication as directed. 5. Take stool softeners (Colace) or a water based laxative (Miralax) while taking narcotics. You may hold for loose stools. 6. Report any fevers greater than 100.5F, increase abdominal discomfort, drainage that looks like pus, increased redness or pain at the surgical site, or any vomiting. 7. Report any pain in the calves, shortness of breath, or rapid heartbeat. 8. Follow-up in the office as directed. Referrals: Rhett Madrigal MD [Primary Care Provider] - 06/16/18 2:00 pm Nguyen Coughlin CNP [Advanced Practice Nurse] - 06/10/18 2:00 pm (surgery follow -up; staple removal) Prescriptions: OxyCODONE/APAP 5/325 [Percocet 5/325 MG] 1 each PO Q8HR PRN 4 Days #12 tablet PRN Reason: Pain Amoxicillin/Clavulanate [Augmentin] 500 mg PO HS #5 tablet
[2018-06-05 00:57] VITALS: BP 179/74
[2018-06-05 11:42] LABS: Basophils % 0.9 %; Eosinophils # 0.1 K/mcL (0.0-0.6); Hematocrit 24.1 % (35.3-44.9); Hemoglobin 7.5 g/dL (11.5-15.4); Immature Granulocytes % 0.6 % (0-4); Immature Platelets 11.9 % (1.1-6.1); Lymphocytes # 0.9 K/mcL (0.6-4.6); Lymphocytes % 26.3 %; Mean Corpuscular HGB Conc 31.1 g/dL (31.6-35.5); Mean Corpuscular Hemoglobin 27.1 pg (28.0-33.3); Mean Platelet Volume 12.4 fL (9.4-12.4); Monocytes # 0.2 K/mcL (0.0-1.3); Monocytes % 6.4 %; Neutrophils # 2.2 K/mcL (1.6-8.9); Platelet Count 124 K/mcL (140-400); Red Blood Count 2.77 M/mcL (3.82-4.97); Red Cell Distribution Width 14.8 % (11.5-14.5); Segmented Neutrophils % 63.8 %
[2018-06-05 12:21] LABS: Calcium 8.4 mg/dL (8.6-10.3); Potassium 3.8 mEq/L (3.5-5.1)
[2018-06-05 13:50] LABS: ABG Base Excess 6 mEq/L (-2 to 3); ABG HCO3 31 mEq/L (21-27); ABG Oxygen Saturation 98 % (95-98); ABG PCO2 43 mmHg (35-45); ABG PH 7.46 pH Units (7.32-7.45); ABG PO2 99 mmHg (85-104); ABG TCO2 32 mEq/L (20-26)
[2018-06-05 14:19] LABS: Basophils % 0.5 %; Eosinophils # 0.1 K/mcL (0.0-0.6); Eosinophils % 1.7 %; Hematocrit 28.6 % (35.3-44.9); Immature Granulocytes % 0.5 % (0-4); Lymphocytes # 0.7 K/mcL (0.6-4.6); Lymphocytes % 16.5 %; Mean Corpuscular HGB Conc 31.5 g/dL (31.6-35.5); Mean Corpuscular Hemoglobin 27.1 pg (28.0-33.3); Mean Corpuscular Volume 86.1 fL (83.0-100.0); Mean Platelet Volume 12.2 fL (9.4-12.4); Monocytes # 0.3 K/mcL (0.0-1.3); Monocytes % 6.8 %; Neutrophils # 3.1 K/mcL (1.6-8.9); Platelet Count 136 K/mcL (140-400); Red Blood Count 3.32 M/mcL (3.82-4.97); Red Cell Distribution Width 14.7 % (11.5-14.5)
[2018-06-05 14:34] LABS: BUN/Creatinine Ratio 6 (6-26); Blood Urea Nitrogen 14 mg/dL (8-23); Calcium 8.5 mg/dL (8.6-10.3); Carbon Dioxide 28 mEq/L (23-29); Chloride 97 mEq/L (98-107); Glucose 236 mg/dL (70-105); Magnesium 1.9 mg/dL (1.6-2.6); Osmolality,Calculated 286 (280-300); Potassium 4.3 mEq/L (3.5-5.1); Sodium 134 mEq/L (136-145); eGFR For Non-African Americans 20 (> 60)
--- NOTE | 2018-06-05 14:44 | Discharge Summary ---
- NOTES TO OUTPATIENT PROVIDER Notes to Outpatient Provider: - Vascular and Neurology consult. - Complete Augmentin for suspected intra-abdominal abscess and post-op for peritoneal dialysis catheter removal. Orders not resulted at time of discharge: Pending orders 06/05/18 13:44 Arterial Blood Gas Stat 06/05/18 14:05 Basic Metabolic Panel Stat Magnesium Stat Troponin I Stat 06/06/18 04:00 Chem 7 [Basic Metabolic Panel] AM 0400 Complete Blood Count [HEME] AM 04006/07/18 04:00 Chem 7 [Basic Metabolic Panel] AM 04006/08/18 04:00 Chem 7 [Basic Metabolic Panel] AM 04006/09/18 04:00 Chem 7 [Basic Metabolic Panel] AM 04006/10/18 04:00 Chem 7 [Basic Metabolic Panel] AM 04006/11/18 04:00 Chem 7 [Basic Metabolic Panel] AM 040 Date of Encounter: 06/05/18 Time of Encounter: 14:41 - Discharge Diagnosis (1) Acute CVA (cerebrovascular accident) Priority: Primary Status: Acute (2) Carotid stenosis, left Priority: Secondary Status: Acute (3) Dyspnea Priority: Primary Status: Acute Qualifiers: Dyspnea type: dyspnea on exertion Qualified Code(s): R06.09 - Other forms of dyspnea (4) Intra-abdominal abscess Priority: Secondary Status: Acute (5) ESRD (end stage renal disease) on dialysis Priority: Secondary Status: Chronic (6) HTN (hypertension) Priority: Secondary Status: Chronic Qualifiers: Hypertension type: essential hypertension Qualified Code(s): I10 - Essential (primary) hypertension (7) Diabetes Priority: Secondary Status: Acute Qualifiers: Diabetes mellitus type: type 2 Diabetes mellitus alf insulin use: with alf use Diabetes mellitus complication status: with kidney complications Diabetes mellitus complication detail: with chronic kidney disease Chronic kidney disease stage: on chronic dialysis Qualified Code(s): E11.22 - Type 2 diabetes mellitus with diabetic chronic kidney disease; N18.6 - End stage renal disease; Z79.4 - penitentiary (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 (8) DVT prophylaxis Priority: Secondary Status: Acute Hospital course: Alyson Salvador is a 63-year-old woman with a history of carotid artery stensosis with stenting, hypertension, diabetes and end-stage renal disease on peritoneal dialysis 4 times a day who comes to the emergency room with a complaint of shortness of breath and pain in her left lower quadrant. She says she usually does dialysis 4 times daily however she did it only twice today and feels a bit more short of breath with minimal exertion. As per family members she has been having chills after her dialysis sessions and she has been feeling significant pain in her left lower quadrant over the past 2 months but has been increasing in severity and frequency and aspiration. She appeared clinically and hemodynamically stable on arrival. Due to her complaints of left lower quadrant corresponding with the site of insertion of her peritoneal dialysis catheter, a CT scan was done. Report describes moderate amount of free air within the abdomen suspected related to peritoneal dialysis as well as soft tissue changes along the anterior abdominal wall with a small focal area of fluid concerning for infection/abscess. She denies having fever at home and any time. Blood cultures were obtained and empiric antibiotics were started due to this finding and nephrology was consulted and made aware of the findings. She is now admitted for further care. She was admitted for dyspnea, and intra- abdominal abscess. Based on abdominal findings, it was determined that peritoneal dialysis catheter needed removed. Surgery was consulted and on 06/01/18 she had PD cath removed and tolerated procedure well. Blood cultures negative. She has access for HD, and from now on will need dialysis this way. She had 5 days of vancomycin and Zosyn and transitioned to Augmentin. She was stable for discharge. Her dyspnea improved after receiving dialysis. It appears she also has a LAY component as well and obesity hypoventilation syndrome. Patient was being discharged home on 06/03/18 I was notified by nurse that patient was being wheeled out for discharge and she stated she felt dizzy and light headed. Family stated she was having trouble speaking. Based on her high risk history of TIA and carotid artery stenosis, discharge was canceled and she had further workup. A corotid duplex was done showing high-grade lesion of left internal carotid artery. This lesion was stented in November 2017. Please see Vascular Consult note. During this admission, the left internal carotid artery was seen to have 80-99% stenosis on venous duplex. A CT head showed no acute abnormality. She was set to get an MRI done but it was delayed because the patient had severe anxiety prior to MRI study. MRI done on 06/04/18 showed 3 punctate areas of restricted diffusion in the left periventricular white matter consistent with acute areas of ischemia in the left middle cerebral artery territory. Vascular and Neurology was consulted. Based on her history and the likely need for carotid angiogram, it was suggested to transfer patient for further workup and management. Patient and family were agreeable to this. There was delay in transfer as the electronic medical software was down in the morning. This morning patient had another brief episode of weakness and dysphasia. A stroke alert was called and Telestroke with [facility] done. Since her symptoms resolved during telestroke, it was recommended against TPA or heparin. She is being transferred to [facility] for further workup and treatement. - Time Spent with Patient Total time spent providing and/or coordinating discharge services: - Discharge Medications Prescriptions: OxyCODONE/APAP 5/325 [Percocet 5/325 MG] 1 each PO Q8HR PRN 4 Days #12 tablet PRN Reason: Pain Amoxicillin/Clavulanate [Augmentin] 500 mg PO HS #5 tablet Home Medications: Omeprazole [PriLOSEC] 40 mg PO DAILY 07/05/16 [History] Aspirin [Lo-Dose Aspirin EC] 81 mg PO DAILY 04/03/17 [History] Cholecalciferol (D-3) [Vitamin D] 5,000 unit PO DAILY 04/03/17 [History] Atorvastatin Calcium [Lipitor] 80 mg PO HS 12/19/17 [History] Clopidogrel [Plavix] 75 mg PO DAILY 12/19/17 [History] Furosemide [Lasix] 40 mg PO BID 12/19/17 [History] Insulin ASPART [NovoLOG] 10 unit SQ TIDAC PRN 12/19/17 [History] Insulin Glargine [Lantus] 100 unit SQ Q12H 12/19/17 [History] Docusate [Colace] 200 mg PO DAILY PRN 01/01/18 [History] Carvedilol 3.125 mg PO BID 04/05/18 [History] Lactulose 30 ml PO DAILY PRN 04/06/18 [History] Magnesium Oxide [Magnesium] 400 mg PO BID 04/06/18 [History] Meclizine [Antivert] 25 mg PO BID PRN 04/06/18 [History] Gabapentin [Neurontin] 100 mg PO BID 05/19/18 [History] OxyCODONE/APAP 5/325 [Percocet 5/325 MG] 1 each PO Q8HR PRN 4 Days #12 tablet 06/02/18 [Rx] Amoxicillin/Clavulanate [Augmentin] 500 mg PO HS #5 tablet 06/03/18 [Rx] Heparin 5,000 unit SQ Q8HCO vial 06/05/18 [Rx] Insulin LISPRO [HumaLOG] 0 units SQ HS vial 06/05/18 [Rx] Insulin LISPRO [HumaLOG] 0 units SQ TIDAC vial 06/05/18 [Rx] Ipratropium/Albuterol Neb [Duoneb] 3 ml IH [id number] PRN inhsol 06/05/18 [Rx] Patient Taking Own Medication 1 each PO DAILY each 06/05/18 [Rx] Allergies/Adverse Reactions: Allergy/AdvReac Type Severity Reaction Status Date / Time baclofen Allergy Anaphylaxis Verified 05/29/18 21:14 Diclofenac [From Voltaren] Allergy Anaphylaxis Verified 05/29/18 21:14 nitrofurantoin Allergy Anaphylaxis Verified 05/29/18 21:14 Date of admission: 05/30/18 00:18 Primary care physician: Rhett Madrigal MD Consults: 05/29/18 21:23 Consult to Nephrology [CONS] Stat Consulting Provider: Kidney [facility]en/CRYSTAL/GONSALO/RONAL Reason for Consult: ESRD peritoneal dialysis pt, suspected intraabdominal abscess on CT. Time Notified: 21:25 Call Completed: Yes 05/30/18 08:00 Consult to Dialysis [CONS] ONCE 05/30/18 10:21 Consult to Surgery [CONS] Routine Consulting Provider: Surgery [facility] Reason for Consult: Peritoneal cath removal. Abdominal abscess. Call Completed: Yes 05/31/18 09:15 Consult to Dialysis [CONS] ONCE 05/31/18 12:02 Consult to Director New Product [CONS] Routine Reason for SW Consult: Please arrange a Dialysis Chair time at [facility] in [place], [place], which she is already in their system, but needs to switch from PD to thrice weekly hemodialysis. She would prefer M/W/F, she said. Also her has requested assistance with a larger/taller wheelchair (current one is broken). Thank you. 06/04/18 08:00 Consult to Dialysis [CONS] ONCE 06/04/18 11:38 Consult to Neurology [CONS] Routine Consulting Provider: Neurology [facility] Reason for Consult: CVA Call Completed: Yes Consult to Vascular Surgery [CONS] Routine Consulting Provider: Vascular Surgery [facility]en Reason for Consult: Carotid stenosis/CVA Call Completed: Yes Discharging clinician: Gabrielle Rivera - Constitutional Vitals: Temp Pulse Resp BP Pulse Ox 99.0 F 74 18 179/74 94 06/04/18 19:11 06/05/18 00:49 06/05/18 00:49 06/05/18 00:49 06/05/18 00:49 Exam: General: NAD, obese Skin: Warm and supple. HEENT: Moist mucous membranes. No conjunctivae pallor. + carotid bruits bilaterally CVS: RRR, + systolic murmur Lungs: ascultation limited due to body habitus and positioning but upper lung baron are clear, diminished breath sounds at bases bilaterally. Abdomen: Soft, Typical post op tenderness, incision site clean, dry. Had old are of purulent discharge but now is clean. Normal bowel sounds. Extremities: 2+ pitting edema bilaterally Neurological: Awake, alert and oriented to person, place and time. There is left sided facial droop that is gradually improving. Strength is 5/5 in RUE and RLE. Strength is 4/5 in LUE and 4/5 in LLE. 30 min prior strength was 2/5 in left extremities. Sensation is normal currently but during onset of symptoms was decreased. Gait cannot be assessed since patient does not ambulate easily at baseline. Finger to nose was abnormal as well as heel to gray. Psych: Affect appropriate. - Patient Status Disposition: Transfer Other Condition: Fair Functional capacity at discharge: bed bound Overall status at discharge: patient is not back to baseline - Discharge Instructions Instructions: Oxycodone/Acetaminophen (By mouth), Amoxicillin/Clavulanate Po tassium (By mouth), Chronic Kidney Disease (DC), Hemodialysis (DC), Dialysis Diet (DC), Diabetes Mellitus Type 2 in Adults (DC), Chronic Hypertension (DC), End-Stage Kidney Disease (DC) Follow Up With: Rhett Madrigal MD [Primary Care Provider] - 06/16/18 2:00 pm Nguyen Coughlin CNP [Advanced Practice Nurse] - 06/10/18 2:00 pm (surgery follow-up; staple removal) Additional Instructions: General Surgical Discharge Instructions 1. No pushing, pulling, or lifting greater than 15 lbs for 2 weeks 2. You may shower beginning 06/03/18, but no tub baths, soaking, or swimming for 2 weeks. Cleanse incisions with soap and water and pat dry daily. 3. You may resume driving when you are off narcotics and are safe to react in a car. 4. Take pain medication as directed. 5. Take stool softeners (Colace) or a water based laxative (Miralax) while taking narcotics. You may hold for loose stools. 6. Report any fevers greater than 100.5F, increase abdominal discomfort, drainage that looks like pus, increased redness or pain at the surgical site, or any vomiting. 7. Report any pain in the calves, shortness of breath, or rapid heartbeat. 8. Follow-up in the office as directed. - Diet and Activity Activity: as per physical therapy Diet: diabetic diet, other (renal)
[2018-06-05 14:52] LABS: Troponin I < 0.03 ng/mL (< 0.04)
--- NOTE | 2018-06-05 16:07 | Electrocardiograph Report ---
[address] [place] [address] Test Date: 2018-06-03 Pat Name: Alyson Salvador Department: 111 Room: 2NE26 Gender: F Net Programmer: : [id number] Requested By: Tiburcio Rivera Order Number: [id number] Reading MD: Meggan Hamlin Measurements Intervals [place] Rate: 78 P: -8 AR: 190 QRS: 1 QRSD: 106 T: 112 QT: 392 QTc: 425 Interpretive Statements SINUS RHYTHM POSSIBLE ANTERIOR MYOCARDIAL INFARCTION, OF INDETERMINATE AGE INFERIOR MYOCARDIAL INFARCTION, PROBABLY OLD MODERATE T-WAVE ABNORMALITY, CONSIDER LATERAL ISCHEMIA Electronically Signed On 06-05-2018 16:06:08 EDT by Meggan Hamlin
[2018-06-05] MEDS ORDERED: Ondansetron 4 MG/2 ML VIAL IVP PRN (16:34)
[2018-06-05] MEDS: Insulin LISPRO 300 UNITS/3 ML VIAL SQ SCH (17:00)
[2018-06-05] MEDS: Furosemide 20 MG TABLET PO SCH (17:48)
[2018-06-05] MEDS: Amoxicillin/Clavulanate 500 MG TABLET PO SCH (17:49)
[2018-06-05] MEDS ORDERED: Magnesium Oxide 400 MG TABLET PO ONE (18:13)
[2018-06-05] MEDS ORDERED: *HR* Heparin 5,000 UNIT/ML VIAL IVP ONE (18:13)
[2018-06-05] MEDS ORDERED: Aspirin Enteric Coated 81 MG Tablet PO ONE (18:13)
[2018-06-05] MEDS ORDERED: Cholecalciferol (D-3) 1,000 UNIT TABLET PO ONE (18:13)
[2018-06-05] MEDS ORDERED: Furosemide 20 MG TABLET PO ONE (18:13)
[2018-06-05] MEDS ORDERED: Gabapentin 100 MG CAPSULE PO ONE (18:13)
== END 2018-06-05 18:14 | disposition other institution (70) | DRG 981 ==
LOC: EMEROOARM 18:06 → 2NENU 05-30 00:18 → SUATTDRO 05-30 00:18 → 2NENU 05-30 00:40
PROVIDERS: ADMIT Internal Medicine; ATTEND Student in an Organized Health Care Education/Training Program